=== PATIENT | female | born 1980 | race Hispanic/Latino ===

== ENCOUNTER 2018-09-28 14:28 | Emergency (ER) | payer OTHER ==
[2018-09-28] MEDS ORDERED: HYDROCODONE/ACETAMINOPHEN 10/325 MG TAB ONE (15:13)
[2018-09-28 15:39] LABS: CREATININE 0.5 mg/dL (0.5-1.5)
[2018-09-28 15:44] LABS: ALBUMIN 3.1 g/dL (3.5-5.0); BILIRUBIN,TOTAL 0.2 mg/dL (0.2-1.0); TOTAL PROTEIN, SERUM 8.2 g/dL (6.0-8.3)
[2018-09-28 15:55] LABS: BASOPHILS % (AUTO) 0.9 % (0.0-5.0); EOSINOPHILS % (AUTO) 0.8 % (0.0-8.0); HEMATOCRIT 32.1 % (36-48); MEAN CORPUSCULAR HEMOGLOBIN 28.7 pg (27.0-33.0); MEAN CORPUSCULAR HGB CONC 33.6 g/dL (32.0-36.0); MEAN CORPUSCULAR VOLUME 85.4 fL (79-99); MONOCYTES % (AUTO) 5.7 % (3.0-13.0); NEUTROPHILS % (AUTO) 64.6 % (40.0-77.0); NUCLEATED RED BLOOD CELLS 0.1 % (0.0-0.19); PLATELET COUNT (AUTO) 696 K/uL (130-400); RED BLOOD CELL COUNT(AUTO) 3.76 MIL/uL (4.00-5.50); RED CELL DISTRIBUTION WIDTH 15.8 % (11.0-15.5); WHITE BLOOD COUNT (AUTO) 15.3 K/uL (4.8-10.8)
== END 2018-09-28 18:26 | disposition home or self-care (01) ==
LOC: EDH 14:28
DX: K45.8 Other specified abdominal hernia without obstruction or gangrene (principal); E11.9 Type 2 diabetes mellitus without complications; Z90.49 Acquired absence of other specified parts of digestive tract; Z79.4 Long term (current) use of insulin
CPT/HCPCS: 36415; 74176; 80053; 81025; 82150; 83690; 85025

== ENCOUNTER 2018-12-20 17:13 | Emergency (ER) | payer MEDICAID, OTHER ==
[2018-12-20 18:22] LABS: BASOPHILS % (AUTO) 0.8 % (0.0-5.0); EOSINOPHILS % (AUTO) 0.8 % (0.0-8.0); HEMATOCRIT 29.3 % (36-48); LYMPHOCYTES % (AUTO) 24.1 % (21.0-51.0); MEAN CORPUSCULAR HEMOGLOBIN 27.4 pg (27.0-33.0); MEAN CORPUSCULAR HGB CONC 33.5 g/dL (32.0-36.0); MEAN CORPUSCULAR VOLUME 81.6 fL (79-99); MONOCYTES % (AUTO) 4.1 % (3.0-13.0); NEUTROPHILS % (AUTO) 70.2 % (40.0-77.0); NUCLEATED RED BLOOD CELLS 0.1 % (0.0-0.19); RED CELL DISTRIBUTION WIDTH 17.4 % (11.0-15.5); WHITE BLOOD COUNT (AUTO) 14.2 K/uL (4.8-10.8)
[2018-12-20 18:32] LABS: CREATININE 0.5 mg/dL (0.5-1.5); POTASSIUM 3.9 mmol/L (3.5-5.1)
[2018-12-20 18:36] LABS: ALBUMIN 3.5 g/dL (3.5-5.0); BILIRUBIN,TOTAL 0.3 mg/dL (0.2-1.0); TOTAL PROTEIN, SERUM 8.4 g/dL (6.0-8.3)
[2018-12-20] MEDS ORDERED: KETOROLAC TROMETHAMINE 30MG/ML ONE (18:40)
[2018-12-20 18:46] LABS: PLATELET COUNT (AUTO) 880 K/uL (130-400)
[2018-12-20 19:22] LABS: HCG,QUAL RESULT NEGATIVE (NEGATIVE)
[2018-12-20 19:26] LABS: APPEARANCE,URINE Clear (CLEAR); BILIRUBIN,URINE Negative (NEGATIVE); COLOR,URINE Yellow (YELLOW); GLUCOSE, URINE (UA) Negative (NEGATIVE); KETONES,URINE Trace mg/dL (NEGATIVE); LEUKOCYTE ESTERASE ,URINE Negative (NEGATIVE); NITRATE,URINE Negative (NEGATIVE); OCCULT BLOOD,URINE Negative (NEGATIVE); PH,URINE 6.5 (5.0-8.0); PROTEIN,URINE Negative (NEGATIVE)
== END 2018-12-20 19:57 | disposition home or self-care (01) ==
LOC: EDH 17:13
DX: K45.8 Other specified abdominal hernia without obstruction or gangrene (principal); D64.9 Anemia, unspecified; E08.9 Diabetes mellitus due to underlying condition without complications; Z79.4 Long term (current) use of insulin; Z90.49 Acquired absence of other specified parts of digestive tract
CPT/HCPCS: 36415; 80053; 81003; 81025; 83690; 84484; 85025; 93005; 96374; 99285; J1885

== ENCOUNTER 2018-12-27 15:43 | Emergency (ER) | payer OTHER ==
[2018-12-27] MEDS ORDERED: ONDANSETRON HCL 4 MG/2 ML VIAL ONE (16:11)
[2018-12-27 16:12] LABS: BASOPHILS % (AUTO) 0.9 % (0.0-5.0); EOSINOPHILS % (AUTO) 0.9 % (0.0-8.0); HEMATOCRIT 27.3 % (36-48); LYMPHOCYTES % (AUTO) 20.5 % (21.0-51.0); MEAN CORPUSCULAR HEMOGLOBIN 26.9 pg (27.0-33.0); MEAN CORPUSCULAR HGB CONC 33.1 g/dL (32.0-36.0); MEAN CORPUSCULAR VOLUME 81.3 fL (79-99); MONOCYTES % (AUTO) 5.4 % (3.0-13.0); NEUTROPHILS % (AUTO) 72.3 % (40.0-77.0); NUCLEATED RED BLOOD CELLS 0.2 % (0.0-0.19); RED BLOOD CELL COUNT(AUTO) 3.35 MIL/uL (4.00-5.50); RED CELL DISTRIBUTION WIDTH 16.3 % (11.0-15.5); WHITE BLOOD COUNT (AUTO) 12.6 K/uL (4.8-10.8)
[2018-12-27] MEDS ORDERED: MORPHINE SULFATE 4 MG/1ML SYG ONE ×2 (16:12→17:31)
[2018-12-27 16:15] LABS: PLATELET COUNT (AUTO) 858 K/uL (130-400)
[2018-12-27 16:20] LABS: CREATININE 0.6 mg/dL (0.5-1.5); POTASSIUM 3.6 mmol/L (3.5-5.1)
== END 2018-12-27 18:22 | disposition home or self-care (01) ==
LOC: EDH 15:43
DX: K45.8 Other specified abdominal hernia without obstruction or gangrene (principal); E11.9 Type 2 diabetes mellitus without complications; Z90.49 Acquired absence of other specified parts of digestive tract; Z79.4 Long term (current) use of insulin
CPT/HCPCS: 36415; 74021; 80048; 85025; 96374; 96375; 96376; 99285; J2270 ×2; J2405

== ENCOUNTER 2018-12-28 12:50 | Emergency (ER) | payer OTHER ==
[2018-12-28] MEDS ORDERED: MORPHINE SULFATE 8 MG/ML VIAL ONE (13:41)
[2018-12-28] MEDS ORDERED: LORAZEPAM 2 MG/ML 1 ML VIAL ONE (13:41)
== END 2018-12-28 17:18 | disposition home or self-care (01) ==
LOC: EDH 12:50
DX: K43.9 Ventral hernia without obstruction or gangrene (principal); E11.9 Type 2 diabetes mellitus without complications; Z79.4 Long term (current) use of insulin
CPT/HCPCS: 74176; 96372 ×2; 99284; J2060; J2270

== ENCOUNTER 2018-12-29 14:44 | Emergency (ER) | payer OTHER ==
[2018-12-29] MEDS ORDERED: DICYCLOMINE HCL 10 MG/ML 2ML AMP IM ONE (15:57)
[2018-12-29] MEDS ORDERED: LACTULOSE 20 GM/30 ML UDCUP ONE (15:57)
[2018-12-29] MEDS ORDERED: KETOROLAC TROMETHAMINE 60 MG/2 ML VIAL ONE (15:58)
== END 2018-12-29 16:25 | disposition home or self-care (01) ==
LOC: EDH 14:44
DX: K59.00 Constipation, unspecified (principal)
CPT/HCPCS: 96372 ×2; 99284; J0500; J1885

== ENCOUNTER 2019-01-17 12:42 | Emergency (ER) | payer OTHER ==
[~2019-01-17 12:42] MED LIST: AMOX875T2 PO; CLAR500T PO; PANT40TA PO; TYL3 PO
[2019-01-17] MEDS ORDERED: FAMOTIDINE 20MG TAB 20 MG TAB ONE (13:29)
[2019-01-17 13:45] LABS: APPEARANCE,URINE Clear (CLEAR); BILIRUBIN,URINE Negative (NEGATIVE); COLOR,URINE Yellow (YELLOW); GLUCOSE, URINE (UA) >=1000 mg/dL (NEGATIVE); KETONES,URINE Trace mg/dL (NEGATIVE); LEUKOCYTE ESTERASE ,URINE Negative (NEGATIVE); NITRATE,URINE Negative (NEGATIVE); OCCULT BLOOD,URINE Negative (NEGATIVE); PH,URINE 5.5 (5.0-8.0); PROTEIN,URINE POS 1+ mg/dL (NEGATIVE); UROBILINOGEN,URINE 0.2 mg/dL (0.2-1.0)
[2019-01-17 13:51] LABS: HCG,QUAL RESULT NEGATIVE (NEGATIVE)
[2019-01-17 13:52] LABS: AMPHET/METH SCREEN,URINE NEGATIVE (NEGATIVE); BARBITURATE SCREEN, URINE NEGATIVE (NEGATIVE); BENZODIAZEPINES SCREEN,URINE NEGATIVE (NEGATIVE); CANNABINOID SCREEN,URINE NEGATIVE (NEGATIVE); COCAINE SCREEN,URINE NEGATIVE (NEGATIVE); OPIATE SCREEN,URINE NEGATIVE (NEGATIVE); PHENCYCLIDINE SCREEN,URINE NEGATIVE (NEGATIVE)
[2019-01-17 13:54] LABS: BASOPHILS % (AUTO) 0.5 % (0.0-5.0); EOSINOPHILS % (AUTO) 0.6 % (0.0-8.0); HEMATOCRIT 35.2 % (36-48); LYMPHOCYTES % (AUTO) 15.4 % (21.0-51.0); MEAN CORPUSCULAR HEMOGLOBIN 28.4 pg (27.0-33.0); MEAN CORPUSCULAR HGB CONC 32.8 g/dL (32.0-36.0); MEAN CORPUSCULAR VOLUME 86.5 fL (79-99); MONOCYTES % (AUTO) 5.9 % (3.0-13.0); NEUTROPHILS % (AUTO) 77.6 % (40.0-77.0); NUCLEATED RED BLOOD CELLS 0.1 % (0.0-0.19); PLATELET COUNT (AUTO) 265 K/uL (130-400); RED BLOOD CELL COUNT(AUTO) 4.07 MIL/uL (4.00-5.50); RED CELL DISTRIBUTION WIDTH 14.1 % (11.0-15.5); WHITE BLOOD COUNT (AUTO) 7.1 K/uL (4.8-10.8)
[2019-01-17 14:03] LABS: POTASSIUM 4.3 mmol/L (3.5-5.1)
[2019-01-17 14:07] LABS: ALBUMIN 3.7 g/dL (3.5-5.0); BILIRUBIN,TOTAL 0.5 mg/dL (0.2-1.0); TOTAL PROTEIN, SERUM 7.2 g/dL (6.0-8.3)
[2019-01-17 14:22] LABS: BACTERIA,URINE Rare /HPF (None Seen); RBC,URINE None Seen /HPF (0-1); WBC,URINE None Seen /HPF (0-1); YEAST,URINE BUDDING Few /HPF (None Seen)
[2019-01-18] MEDS ORDERED: ASPI-1181 PO (08:01)
== END 2019-01-17 14:30 | disposition home or self-care (01) ==
LOC: EDH 12:42
DX: K29.70 Gastritis, unspecified, without bleeding (principal); E11.9 Type 2 diabetes mellitus without complications; I10 Essential (primary) hypertension; E78.5 Hyperlipidemia, unspecified; Z90.49 Acquired absence of other specified parts of digestive tract; Z90.81 Acquired absence of spleen
CPT/HCPCS: 36415; 80053; 80305; 81001; 81025; 82150; 83690; 85025

== ENCOUNTER 2019-01-25 09:30 | Emergency (ER) | payer OTHER ==
[~2019-01-25 09:30] MED LIST changes: +ASPI-1181 PO
[2019-01-25] MEDS ORDERED: MAG HYDROX/AL HYDROX/SIMETH ES 30 ML SUSP UDCUP ONE (09:59)
[2019-01-25] MEDS ORDERED: LIDOCAINE HCL 2% VISCOUS 15 ML UDCUP ONE (09:59)
[2019-01-25] MEDS ORDERED: ONDANSETRON HCL 4 MG/2 ML VIAL ONE (10:00)
[2019-01-25] MEDS ORDERED: HYDROMORPHONE 1 MG/1 ML AMP ONE (10:01)
[2019-01-25] MEDS ORDERED: SODIUM CHLORIDE 0.9% 1000ML 1,000 ML IV ONE (10:02)
[2019-01-25 10:29] LABS: APPEARANCE,URINE CLOUDY (CLEAR); BASOPHILS % (AUTO) 0.6 % (0.0-5.0); BILIRUBIN,URINE NEGATIVE (NEGATIVE); COLOR,URINE YELLOW (YELLOW); EOSINOPHILS % (AUTO) 0.4 % (0.0-8.0); GLUCOSE, URINE (UA) 500 mg/dL (NEGATIVE); HEMATOCRIT 29.6 % (36-48); KETONES,URINE NEGATIVE (NEGATIVE); LEUKOCYTE ESTERASE ,URINE NEGATIVE (NEGATIVE); LYMPHOCYTES % (AUTO) 17.4 % (21.0-51.0); MONOCYTES % (AUTO) 4.7 % (3.0-13.0); NEUTROPHILS % (AUTO) 76.9 % (40.0-77.0); NITRATE,URINE NEGATIVE (NEGATIVE); NUCLEATED RED BLOOD CELLS 0.2 % (0.0-0.19); OCCULT BLOOD,URINE NEGATIVE (NEGATIVE); PH,URINE 6.5 (5.0-8.0); PROTEIN,URINE NEGATIVE (NEGATIVE); RED BLOOD CELL COUNT(AUTO) 3.75 MIL/uL (4.00-5.50); RED CELL DISTRIBUTION WIDTH 19.7 % (11.0-15.5); WHITE BLOOD COUNT (AUTO) 11.8 K/uL (4.8-10.8)
[2019-01-25 10:33] LABS: PLATELET COUNT (AUTO) 700 K/uL (130-400)
[2019-01-25 10:38] LABS: RBC,URINE 0-1 /HPF (0-1); WBC,URINE 0-1 /HPF (0-1)
[2019-01-25 10:39] LABS: AMORPHOUS SEDIMENT,UR Many /LPF (None Seen); BACTERIA,URINE Few /HPF (None Seen)
[2019-01-25 11:06] LABS: BILIRUBIN,TOTAL 0.3 mg/dL (0.2-1.0); CREATININE 0.5 mg/dL (0.5-1.5); TOTAL PROTEIN, SERUM 8.2 g/dL (6.0-8.3)
[2019-01-25] MEDS ORDERED: DICYCLOMINE HCL 10 MG/ML 2ML AMP IM ONE (12:04)
== END 2019-01-25 12:32 | disposition home or self-care (01) ==
LOC: EDH 09:30
DX: R10.84 Generalized abdominal pain (principal); R63.0 Anorexia; R11.2 Nausea with vomiting, unspecified; E11.9 Type 2 diabetes mellitus without complications; E78.5 Hyperlipidemia, unspecified; Z79.4 Long term (current) use of insulin
CPT/HCPCS: 36415; 80053; 81001; 82150; 83690; 85025; 96361; 96372; 96374; 96375; 99284; J0500; J1170; J2405; J7030

== ENCOUNTER 2019-01-25 19:12 | Emergency (ER) | payer MEDICAID, OTHER ==
[2019-01-25] MEDS ORDERED: SODIUM CHLORIDE 0.9% 1000ML 1,000 ML IV ONE (19:33)
[2019-01-25] MEDS ORDERED: ONDANSETRON HCL 4 MG/2 ML VIAL ONE (19:34)
[2019-01-25] MEDS ORDERED: MAG HYDROX/AL HYDROX/SIMETH ES 30 ML SUSP UDCUP ONE (20:17)
[2019-01-25] MEDS ORDERED: METOCLOPRAMIDE 10 MG/2 ML VIAL ONE (20:17)
[2019-01-25] MEDS ORDERED: DiphenhydrAMINE HCL 50 MG/ML VIAL ONE (20:17)
[2019-01-25] MEDS ORDERED: FAMOTIDINE/PF 20 MG/2 ML VIAL IV ONE (20:17)
[2019-01-25] MEDS ORDERED: LIDOCAINE HCL 2% VISCOUS 15 ML UDCUP ONE (20:17)
[2019-01-25 20:27] LABS: CREATININE 0.6 mg/dL (0.5-1.5); POTASSIUM 4.9 mmol/L (3.5-5.1)
[2019-01-25 20:31] LABS: ALBUMIN 2.8 g/dL (3.5-5.0); BILIRUBIN,TOTAL 0.3 mg/dL (0.2-1.0); TOTAL PROTEIN, SERUM 7.7 g/dL (6.0-8.3)
[2019-01-25 20:34] LABS: INR 1.07 (0.85-1.15); PARTIAL THROMBOPLASTIN TIME 25.7 SEC (26.3-35.5); PROTHROMBIN TIME 11.2 SEC (9.6-11.6)
[2019-01-25] MEDS ORDERED: SCOPOLAMINE HYDROBROMIDE 1 EACH ADH..PATCH TD ONE (21:21)
[2019-01-25 21:24] LABS: EOSINOPHILS % (AUTO) 13.1 % (0.0-8.0); HEMATOCRIT 27.4 % (36-48); LYMPHOCYTES % (AUTO) 18.2 % (21.0-51.0); MEAN CORPUSCULAR HEMOGLOBIN 25.1 pg (27.0-33.0); MEAN CORPUSCULAR HGB CONC 31.4 g/dL (32.0-36.0); MEAN CORPUSCULAR VOLUME 79.8 fL (79-99); MONOCYTES % (AUTO) 5.8 % (3.0-13.0); NEUTROPHILS % (AUTO) 62.9 % (40.0-77.0); NUCLEATED RED BLOOD CELLS 0.6 % (0.0-0.19); PLATELET COUNT (AUTO) 682 K/uL (130-400); RED BLOOD CELL COUNT(AUTO) 3.43 MIL/uL (4.00-5.50); RED CELL DISTRIBUTION WIDTH 19.7 % (11.0-15.5); WHITE BLOOD COUNT (AUTO) 8.1 K/uL (4.8-10.8)
== END 2019-01-25 21:44 | disposition home or self-care (01) ==
LOC: EDH 19:12
DX: R10.13 Epigastric pain (principal); R11.2 Nausea with vomiting, unspecified; E11.9 Type 2 diabetes mellitus without complications; E78.5 Hyperlipidemia, unspecified; Z79.4 Long term (current) use of insulin; Z90.49 Acquired absence of other specified parts of digestive tract
CPT/HCPCS: 36415; 80053; 82550; 83605; 83690; 85025; 85610; 85730; 93005; 96361; 96374; 96375; 99285; J1200; J2405; J2765; J3490; J7030

== ENCOUNTER 2019-02-05 10:34 | Emergency (ER) | payer MEDICAID, OTHER ==
[2019-02-05 11:01] LABS: APPEARANCE,URINE Clear (CLEAR); BILIRUBIN,URINE Negative (NEGATIVE); COLOR,URINE Yellow (YELLOW); GLUCOSE, URINE (UA) >=1000 mg/dL (NEGATIVE); KETONES,URINE 40 mg/dL (NEGATIVE); LEUKOCYTE ESTERASE ,URINE Negative (NEGATIVE); NITRATE,URINE Negative (NEGATIVE); OCCULT BLOOD,URINE Negative (NEGATIVE); PH,URINE 6.5 (5.0-8.0); PROTEIN,URINE Negative (NEGATIVE); UROBILINOGEN,URINE 0.2 mg/dL (0.2-1.0)
[2019-02-05 11:03] LABS: HCG,QUAL RESULT NEGATIVE (NEGATIVE)
[2019-02-05 11:48] LABS: BASOPHILS % (AUTO) 0.6 % (0.0-5.0); EOSINOPHILS % (AUTO) 0.3 % (0.0-8.0); HEMATOCRIT 30.3 % (36-48); LYMPHOCYTES % (AUTO) 14.1 % (21.0-51.0); MEAN CORPUSCULAR HGB CONC 32.8 g/dL (32.0-36.0); MEAN CORPUSCULAR VOLUME 79.4 fL (79-99); NUCLEATED RED BLOOD CELLS 0.2 % (0.0-0.19); PLATELET COUNT (AUTO) 557 K/uL (130-400); RED BLOOD CELL COUNT(AUTO) 3.82 MIL/uL (4.00-5.50); RED CELL DISTRIBUTION WIDTH 22.3 % (11.0-15.5); WHITE BLOOD COUNT (AUTO) 14.7 K/uL (4.8-10.8)
[2019-02-05] MEDS ORDERED: FAMOTIDINE/PF 20 MG/2 ML VIAL IV ONE (11:52)
[2019-02-05] MEDS ORDERED: ONDANSETRON HCL 4 MG/2 ML VIAL ONE (11:52)
[2019-02-05 11:55] LABS: CREATININE 0.5 mg/dL (0.5-1.5); POTASSIUM 3.8 mmol/L (3.5-5.1)
[2019-02-05 11:57] LABS: ALBUMIN 2.8 g/dL (3.5-5.0); BILIRUBIN,TOTAL 0.3 mg/dL (0.2-1.0); TOTAL PROTEIN, SERUM 7.6 g/dL (6.0-8.3)
[2019-02-05 11:57] LABS: BACTERIA,URINE Rare /HPF (None Seen); RBC,URINE 0-1 /HPF (0-1); SQUAMOUS EPITHELIAL CELL,UR 0-2 /HPF (0-2); WBC,URINE 0-1 /HPF (0-1)
[2019-02-05] MEDS ORDERED: MORPHINE SULFATE 4 MG/1ML SYG ONE (12:34)
[2019-02-05] MEDS ORDERED: INSULIN HUMULIN R 100 UNIT/ML 3ML ONE (12:55)
== END 2019-02-05 14:09 | disposition home or self-care (01) ==
LOC: EDH 10:34
DX: E11.65 Type 2 diabetes mellitus with hyperglycemia (principal); R10.10 Upper abdominal pain, unspecified; R11.2 Nausea with vomiting, unspecified; E78.5 Hyperlipidemia, unspecified
CPT/HCPCS: 36415; 80053; 81001; 81025; 82150; 83690; 85025; 96372; 96374; 96375; 99284; J1815; J2270; J2405; J3490

== ENCOUNTER 2019-02-07 17:12 | Inpatient (IN) | payer OTHER ==
[~2019-02-07] VITALS: Ht 152.4 cm; Wt 65.4 kg
[2019-02-07 18:18] LABS: BASOPHILS % (AUTO) 0.1 % (0.0-5.0); EOSINOPHILS % (AUTO) 0.2 % (0.0-8.0); HEMATOCRIT 28.6 % (36-48); LYMPHOCYTES % (AUTO) 10.9 % (21.0-51.0); MEAN CORPUSCULAR HEMOGLOBIN 25.7 pg (27.0-33.0); MEAN CORPUSCULAR HGB CONC 32.5 g/dL (32.0-36.0); MONOCYTES % (AUTO) 8.6 % (3.0-13.0); NEUTROPHILS % (AUTO) 80.2 % (40.0-77.0); PLATELET COUNT (AUTO) 677 K/uL (130-400); RED BLOOD CELL COUNT(AUTO) 3.63 MIL/uL (4.00-5.50); RED CELL DISTRIBUTION WIDTH 21.3 % (11.0-15.5); WHITE BLOOD COUNT (AUTO) 16.2 K/uL (4.8-10.8)
[2019-02-07] MEDS ORDERED: ONDANSETRON HCL 4 MG/2 ML VIAL ONE (18:29)
[2019-02-07] MEDS ORDERED: KETOROLAC TROMETHAMINE 30MG/ML ONE (18:29)
[2019-02-07 18:36] LABS: CREATININE 0.5 mg/dL (0.5-1.5); POTASSIUM 3.9 mmol/L (3.5-5.1)
[2019-02-07 18:42] LABS: ALBUMIN 2.9 g/dL (3.5-5.0); BILIRUBIN,TOTAL 0.3 mg/dL (0.2-1.0); TOTAL PROTEIN, SERUM 7.8 g/dL (6.0-8.3)
[2019-02-07 18:50] LABS: APPEARANCE,URINE Clear (CLEAR); BILIRUBIN,URINE Negative (NEGATIVE); COLOR,URINE Yellow (YELLOW); GLUCOSE, URINE (UA) >=1000 mg/dL (NEGATIVE); KETONES,URINE Negative (NEGATIVE); LEUKOCYTE ESTERASE ,URINE Negative (NEGATIVE); NITRATE,URINE Negative (NEGATIVE); OCCULT BLOOD,URINE Negative (NEGATIVE); PH,URINE 6.5 (5.0-8.0); PROTEIN,URINE Negative (NEGATIVE); UROBILINOGEN,URINE 0.2 mg/dL (0.2-1.0)
[2019-02-07 18:53] LABS: HCG,QUAL RESULT NEGATIVE (NEGATIVE)
[2019-02-07 18:56] LABS: AMPHET/METH SCREEN,URINE NEGATIVE (NEGATIVE); BARBITURATE SCREEN, URINE NEGATIVE (NEGATIVE); BENZODIAZEPINES SCREEN,URINE NEGATIVE (NEGATIVE); CANNABINOID SCREEN,URINE NEGATIVE (NEGATIVE); COCAINE SCREEN,URINE NEGATIVE (NEGATIVE); OPIATE SCREEN,URINE NEGATIVE (NEGATIVE); PHENCYCLIDINE SCREEN,URINE NEGATIVE (NEGATIVE)
[2019-02-07] MEDS ORDERED: SODIUM CHLORIDE 0.9% 1000ML 1,000 ML IV ONE ×2 (19:54→20:23)
[2019-02-07] MEDS ORDERED: INSULIN HUMULIN R 100 UNIT/ML 3ML ONE (19:54)
[2019-02-07] MEDS ORDERED: ZOSYN 3.375GM+NS 50ML 50 ML IV ONE (20:20)
[2019-02-07] MEDS ORDERED: MORPHINE SULFATE 4 MG/1ML SYG ONE (20:20)
[2019-02-07] MEDS ORDERED: INSULIN HUMULIN R 100 UNIT/ML 3ML SQ SCH (21:00)
[2019-02-07] MEDS ORDERED: GLUCAGON 1MG KIT 1 MG ML IM PRN (21:00)
[2019-02-07] MEDS ORDERED: DEXTROSE 50%-WATER 50 ML DISP.SYRIN IV PRN (21:00)
[2019-02-07] MEDS ORDERED: ACETAMINOPHEN 650 MG SUPPOSITORY RC PRN (21:45)
[2019-02-07] MEDS ORDERED: ONDANSETRON HCL 4 MG/2 ML VIAL IV PRN (21:45)
[2019-02-07] MEDS ORDERED: NITROGLYCERIN 0.4 MG SL TAB SL PRN (21:45)
[2019-02-07] MEDS ORDERED: SODIUM CHLORIDE 0.9% 1000ML 1,000 ML IV SCH (21:45)
[2019-02-07 22:03] LABS: HEMOGLOBIN A1C 10.5 % (4.0-6.0)
[2019-02-07 22:17] LABS: % IRON SATURATION 3.9 % (22-44)
[2019-02-07 23:10] VITALS: BP 100/71
--- NOTE | 2019-02-07 23:25 | NUR ---
ADMIT PT ADMITTED TO ROOM 329, AAOX3. COMPLAINTS OF ABDOMINAL PAINS AND ASKING FOR PAIN MEDS. ADMISSION CARE DONE. ADMISSION DATA BASE COMPLETED. PLACED PT NPO, INSTRUCTED PT. MEDICATED WITH TYLENOL SUPPOSITORY AT THIS TIME. KEPT COMFORTABLE IN BED. CALL LIGHT WITHIN REACH. ORIENTED TO ROOM AND UNIT. IN FOR MORE CARE AND MANAGEMENT. Addendum: 02/07/19 at 9894 by KIRA ESPINOSA RN RN Amended: Links added.
[2019-02-07] MEDS: ACETAMINOPHEN 650 MG SUPPOSITORY RC PRN (23:36)
[2019-02-08] MEDS: INSULIN HUMULIN R 100 UNIT/ML 3ML SQ SCH ×4 (00:16→16:38)
--- NOTE | 2019-02-08 00:36 | NUR ---
PAGED RE-ASSESSED PT AND STILL CLAIMS OF ABDOMINAL PAINS. PAGED VHIC, HOTEL DIRECTOR ASSIGNMENT OFFICER FOR HOSPITALIST, VIA ANSWERING SERVICE. HOTEL DIRECTOR CALLED BACK AND REFERRED PT'S PAINS. NEW IVF AND IV MED ORDERED, PLEASE REFER TO CPOE. WILL MEDICATE PT.
[2019-02-08] MEDS ORDERED: KETOROLAC TROMETHAMINE 15MG/ML ONE (00:37)
[2019-02-08] MEDS: SODIUM CHLORIDE 0.9% 1000ML 1,000 ML IV SCH ×3 (00:45→20:45)
--- NOTE | 2019-02-08 03:45 | NUR ---
PAIN PT COMPLAINTS OF ABDOMINAL PAINS. V/S MONITORED, STABLE. MEDICATED WITH TYLENOL SUPPOSITORY. KEPT COMFORTABLE IN BED. WILL RE-ASSESS PT. Addendum: 02/08/19 at 0451 by KIRA ESPINOSA RN RN Amended: Links added.
[2019-02-08] MEDS: ACETAMINOPHEN 650 MG SUPPOSITORY RC PRN (03:46)
[2019-02-08 04:00] VITALS: BP 106/65
[2019-02-08] MEDS: KETOROLAC TROMETHAMINE 15MG/ML IV PRN ×3 (06:20→19:02)
[2019-02-08 07:01] LABS: HEMATOCRIT 27.2 % (36-48); MEAN CORPUSCULAR HEMOGLOBIN 25.3 pg (27.0-33.0); MEAN CORPUSCULAR HGB CONC 31.4 g/dL (32.0-36.0); MEAN CORPUSCULAR VOLUME 80.4 fL (79-99); NUCLEATED RED BLOOD CELLS 0.1 % (0.0-0.19); PLATELET COUNT (AUTO) 669 K/uL (130-400); RED BLOOD CELL COUNT(AUTO) 3.38 MIL/uL (4.00-5.50); RED CELL DISTRIBUTION WIDTH 22.1 % (11.0-15.5); WHITE BLOOD COUNT (AUTO) 15.7 K/uL (4.8-10.8)
[2019-02-08 07:03] LABS: ALBUMIN 2.1 g/dL (3.5-5.0); BILIRUBIN,TOTAL 0.4 mg/dL (0.2-1.0); CREATININE 0.4 mg/dL (0.5-1.5); POTASSIUM 3.9 mmol/L (3.5-5.1); TOTAL PROTEIN, SERUM 6.4 g/dL (6.0-8.3)
[2019-02-08 07:28] LABS: BASOPHILS % (MANUAL) 1 % (0-2); LYMPHOCYTES % (MANUAL) 12 % (22-44); MAN.DIFF COMMENT-IMPRESSION MANUAL DIFFERENTIAL; MONOCYTES % (MANUAL) 4 % (2-9); SEGMENTED NEUTROPHILS % 83 % (40-70)
[2019-02-08 07:29] LABS: PLATELET MORPHOLOGY COMMENT MARKED INCREASE
[2019-02-08 08:00] VITALS: BP 96/64
[2019-02-08] MEDS: FAMOTIDINE/PF 20 MG/2 ML VIAL IV SCH ×2 (09:18→20:45)
[2019-02-08] MEDS: ENOXAPARIN SODIUM 30 MG/0.3 ML SQ SCH (09:18)
[2019-02-08 12:00] VITALS: BP 112/76
--- NOTE | 2019-02-08 12:39 | NUR ---
DCP CM met with pt discussed dc plans. Pt is independent prior to admission, lives at home with mother. Denies any equipments/services. Pt feels safe to go back home, still drives, states she has a friend "Peter" that is able to assist w/transportation as necessary, pt arranges own needs. DC plan to home once stable. CM to cont to follow up. Addendum: 02/08/19 at 1243 by RIKY CABALLERO LVN CM Amended: Links added.
[2019-02-08 16:00] VITALS: BP 117/77
[2019-02-08 19:00] VITALS: BP 127/75
--- NOTE | 2019-02-08 19:02 | NUR ---
REPORT REPORT RECEIVED FROM OUTGOING NURSE. NURSE'S ROUNDS DONE. PT VERBALIZES GENERALIZED PAINS. MEDICATED WITH TORADOL IV. POSITIONED COMFORTABLY IN BED WITH HOB ELEVATED. CALL LIGHT WITHIN REACH. WILL RE-ASSESS PT. Addendum: 02/08/19 at 2130 by KIRA ESPINOSA RN RN Amended: Links added.
--- NOTE | 2019-02-08 20:45 | NUR ---
FEVER PT'S [id number]=697.2, WARM TO TOUCH. CLAIMS OF HAVING PAINS ON HER ABDOMEN THIS TIME. DUE MEDS AND NEW IVF BAG HUNG. TYLENOL SUPPOSITORY ADMINISTERED. KEPT COMFORTABLE. WILL RE-ASSESS PT.
[2019-02-08 23:00] VITALS: BP 111/71
[2019-02-09] MEDS: INSULIN HUMULIN R 100 UNIT/ML 3ML SQ SCH ×4 (00:19→17:21)
[2019-02-09] MEDS: KETOROLAC TROMETHAMINE 15MG/ML IV PRN ×3 (00:49→13:37)
--- NOTE | 2019-02-09 02:00 | NUR ---
ROUNDS PT RESTING WELL, FAIRLY ASLEEP WITH RESPIRATIONS EVEN AND UNLABORED. NO NOTED DISTRESS. KEPT UNDISTURBED FOR NOW. CALL LIGHT WITHIN REACH. WILL MONITOR PT.
[2019-02-09 03:00] VITALS: BP 103/66
[2019-02-09 05:19] LABS: BASOPHILS % (AUTO) 0.1 % (0.0-5.0); EOSINOPHILS % (AUTO) 0.7 % (0.0-8.0); HEMATOCRIT 26.9 % (36-48); LYMPHOCYTES % (AUTO) 18.8 % (21.0-51.0); MEAN CORPUSCULAR HEMOGLOBIN 25.6 pg (27.0-33.0); MEAN CORPUSCULAR HGB CONC 32.3 g/dL (32.0-36.0); MEAN CORPUSCULAR VOLUME 79.2 fL (79-99); MONOCYTES % (AUTO) 10.3 % (3.0-13.0); NEUTROPHILS % (AUTO) 70.1 % (40.0-77.0); NUCLEATED RED BLOOD CELLS 0.1 % (0.0-0.19); PLATELET COUNT (AUTO) 677 K/uL (130-400); RED BLOOD CELL COUNT(AUTO) 3.39 MIL/uL (4.00-5.50); RED CELL DISTRIBUTION WIDTH 22.1 % (11.0-15.5); WHITE BLOOD COUNT (AUTO) 13.7 K/uL (4.8-10.8)
[2019-02-09 05:36] LABS: CREATININE 0.5 mg/dL (0.5-1.5); POTASSIUM 3.6 mmol/L (3.5-5.1)
[2019-02-09] MEDS: SODIUM CHLORIDE 0.9% 1000ML 1,000 ML IV SCH ×2 (06:34→17:29)
--- NOTE | 2019-02-09 06:34 | NUR ---
PAIN PT CLAIMS OF ABDOMINAL PAINS. TORADOL GIVEN FOR PAINS. NEW IVF BAG HUNG. KEPT COMFORTABLE. WILL RE-ASSESS PT. ENDORSED TO AM SHIFT FOR MORE CARE AND MANAGEMENT.
[2019-02-09 08:00] VITALS: BP 117/72
[2019-02-09] MEDS: ENOXAPARIN SODIUM 30 MG/0.3 ML SQ SCH (10:11)
[2019-02-09] MEDS: FAMOTIDINE/PF 20 MG/2 ML VIAL IV SCH ×2 (10:11→19:58)
[2019-02-09 12:00] VITALS: BP 119/80
[2019-02-09] MEDS ORDERED: POTASSIUM CHLORIDE 20MEQ/100ML 100 ML IV PRN (15:00)
[2019-02-09] MEDS ORDERED: LIDOCAINE HCL-MPF 1% 2ML VIAL IVP PRN (15:00)
[2019-02-09] MEDS ORDERED: POTASSIUM CHLORIDE 10% ELIXIR 20 MEQ/15 ML UDCUP PO PRN (15:00)
[2019-02-09 16:00] VITALS: BP 132/75
[2019-02-09 19:00] VITALS: BP 129/76
[2019-02-09] MEDS: HYDROCODONE/ACETAMINOPHEN 5/325 MG TAB PO PRN (20:01)
[2019-02-09 23:00] VITALS: BP 124/78
[2019-02-10 03:00] VITALS: BP 130/76
[2019-02-10] MEDS: KETOROLAC TROMETHAMINE 15MG/ML IV PRN ×3 (03:04→19:50)
[2019-02-10] MEDS: SODIUM CHLORIDE 0.9% 1000ML 1,000 ML IV SCH ×3 (03:04→16:07)
[2019-02-10 05:14] LABS: BASOPHILS % (AUTO) 1.2 % (0.0-5.0); EOSINOPHILS % (AUTO) 1.2 % (0.0-8.0); HEMATOCRIT 25.4 % (36-48); LYMPHOCYTES % (AUTO) 22.6 % (21.0-51.0); MEAN CORPUSCULAR HEMOGLOBIN 25.2 pg (27.0-33.0); MEAN CORPUSCULAR HGB CONC 32.3 g/dL (32.0-36.0); MEAN CORPUSCULAR VOLUME 78.1 fL (79-99); MONOCYTES % (AUTO) 8.5 % (3.0-13.0); NEUTROPHILS % (AUTO) 66.5 % (40.0-77.0); RED BLOOD CELL COUNT(AUTO) 3.26 MIL/uL (4.00-5.50); RED CELL DISTRIBUTION WIDTH 22.2 % (11.0-15.5); WHITE BLOOD COUNT (AUTO) 12.2 K/uL (4.8-10.8)
[2019-02-10 05:17] LABS: PLATELET COUNT (AUTO) 709 K/uL (130-400)
--- NOTE | 2019-02-10 05:25 | NUR ---
platelet count Informed Boubacar Pelletier regading platelet level of 709. No new orders were given. Will monitor patient closely
[2019-02-10 05:29] LABS: CREATININE 0.4 mg/dL (0.5-1.5); POTASSIUM 3.1 mmol/L (3.5-5.1)
[2019-02-10] MEDS: INSULIN HUMULIN R 100 UNIT/ML 3ML SQ SCH ×4 (05:33→17:03)
[2019-02-10 08:00] VITALS: BP 123/73
[2019-02-10] MEDS: FAMOTIDINE/PF 20 MG/2 ML VIAL IV SCH ×2 (09:00→21:53)
[2019-02-10] MEDS: ENOXAPARIN SODIUM 30 MG/0.3 ML SQ SCH (09:02)
[2019-02-10] MEDS: HYDROCODONE/ACETAMINOPHEN 5/325 MG TAB PO PRN (09:03)
[2019-02-10 12:00] VITALS: BP 111/70
--- NOTE | 2019-02-10 16:28 | NUR ---
Dr. Fraga returned my call regarding consultation. stated to check with radiologist to see if a repeat CT scan with oral and IV contrast or an MRI would be better at diagnosing the superimposed mass and to go with his recommendations. Dr. Fraga states will consider GI once results of test received. Called Radiology, Dr. Miriam Cabrera recommends CT scan with oral and IV contrast as well as endoscopy.
[2019-02-10] MEDS ORDERED: DIATR MEGLU/DIATRIZOATE SODIUM 30 ML BOTTLE ONE ×2 (16:46)
[2019-02-10] MEDS ORDERED: IOHEXOL-350 75 ML VIAL IV ONE (19:50)
[2019-02-10 20:00] VITALS: BP 119/72
[2019-02-11] VITALS: BP 131/71
--- NOTE | 2019-02-11 01:17 | NUR ---
ROUNDS PATIENT YELLING AND MOANING IN PAIN. PATIENT STATES SHE HAS A PAIN LEVEL OF 10 IN HER ABDOMEN. PATIENT STATES HER PAIN IS DUE TO HER NOT EATING. STATES WE ARE TRYING TO KILL HER, BY NOT ALLOWING HER TO EAT. EXPLAINED WHY SHE IS NPO AND SAYS OTHER NURSES HAVE BEEN GIVING HER FOOD AND DOES NOT UNDERSTAND WHY SHE CAN NOT EAT RIGHT NOW. EXPLAINED TO THE PATIENT I CAN PROVIDE HER WITH A PAIN MEDICATION IF SHE HAS PAIN, BUT I CAN NOT GIVE HER FOOD WITHOUT AN MD ORDER. SHE AGREED TO THE PAIN MED.
[2019-02-11] MEDS: KETOROLAC TROMETHAMINE 15MG/ML IV PRN ×4 (01:30→21:00)
[2019-02-11 04:00] VITALS: BP 114/71
[2019-02-11 04:53] LABS: CREATININE 0.4 mg/dL (0.5-1.5); POTASSIUM 3.3 mmol/L (3.5-5.1)
[2019-02-11 05:07] LABS: BASOPHILS % (AUTO) 0.6 % (0.0-5.0); EOSINOPHILS % (AUTO) 1.4 % (0.0-8.0); HEMATOCRIT 26.5 % (36-48); LYMPHOCYTES % (AUTO) 21.5 % (21.0-51.0); MEAN CORPUSCULAR HEMOGLOBIN 24.5 pg (27.0-33.0); MEAN CORPUSCULAR HGB CONC 30.7 g/dL (32.0-36.0); MEAN CORPUSCULAR VOLUME 79.8 fL (79-99); NEUTROPHILS % (AUTO) 70.5 % (40.0-77.0); PLATELET COUNT (AUTO) 568 K/uL (130-400); RED BLOOD CELL COUNT(AUTO) 3.32 MIL/uL (4.00-5.50); WHITE BLOOD COUNT (AUTO) 15.4 K/uL (4.8-10.8)
[2019-02-11] MEDS: INSULIN HUMULIN R 100 UNIT/ML 3ML SQ SCH ×4 (06:00→18:00)
[2019-02-11 07:41] VITALS: BP 119/72
[2019-02-11] MEDS: SODIUM CHLORIDE 0.9% 1000ML 1,000 ML IV SCH ×2 (08:45→17:19)
[2019-02-11] MEDS: FAMOTIDINE/PF 20 MG/2 ML VIAL IV SCH ×2 (08:52→20:53)
[2019-02-11] MEDS: ENOXAPARIN SODIUM 30 MG/0.3 ML SQ SCH (08:53)
[2019-02-11 11:31] LABS: INR 1.07 (0.85-1.15); PARTIAL THROMBOPLASTIN TIME 38.6 SEC (26.3-35.5); PROTHROMBIN TIME 11.2 SEC (9.6-11.6)
[2019-02-11 12:00] VITALS: BP 121/67
[2019-02-11 15:24] VITALS: BP 124/72
[2019-02-11 19:00] VITALS: BP_SYST 134; BP_SYST 142; BP_DIAS 72; BP_DIAS 85
[2019-02-12] VITALS: BP 122/70
[2019-02-12] MEDS: KETOROLAC TROMETHAMINE 15MG/ML IV PRN ×4 (03:08→21:59)
[2019-02-12 04:00] VITALS: BP 115/62
[2019-02-12] MEDS: SODIUM CHLORIDE 0.9% 1000ML 1,000 ML IV SCH ×2 (04:45→12:36)
[2019-02-12 04:50] LABS: BASOPHILS % (AUTO) 1.1 % (0.0-5.0); EOSINOPHILS % (AUTO) 1.2 % (0.0-8.0); HEMATOCRIT 26.8 % (36-48); LYMPHOCYTES % (AUTO) 25.8 % (21.0-51.0); MEAN CORPUSCULAR HEMOGLOBIN 25.2 pg (27.0-33.0); MEAN CORPUSCULAR HGB CONC 32.1 g/dL (32.0-36.0); MEAN CORPUSCULAR VOLUME 78.7 fL (79-99); MONOCYTES % (AUTO) 6.5 % (3.0-13.0); NEUTROPHILS % (AUTO) 65.4 % (40.0-77.0); NUCLEATED RED BLOOD CELLS 0.1 % (0.0-0.19); PLATELET COUNT (AUTO) 684 K/uL (130-400); RED BLOOD CELL COUNT(AUTO) 3.41 MIL/uL (4.00-5.50); RED CELL DISTRIBUTION WIDTH 22.4 % (11.0-15.5)
[2019-02-12 05:08] LABS: CREATININE 0.4 mg/dL (0.5-1.5); POTASSIUM 3.3 mmol/L (3.5-5.1)
[2019-02-12] MEDS: INSULIN HUMULIN R 100 UNIT/ML 3ML SQ SCH ×4 (06:00→18:40)
[2019-02-12 08:00] VITALS: BP 114/65
[2019-02-12] MEDS: FAMOTIDINE/PF 20 MG/2 ML VIAL IV SCH ×2 (09:42→21:59)
[2019-02-12] MEDS: ENOXAPARIN SODIUM 30 MG/0.3 ML SQ SCH (09:43)
[2019-02-12 12:00] VITALS: BP 108/66
[2019-02-12] MEDS: MAGNESIUM 2GM PREMIX 50ML 50 ML IV PRN (14:39)
[2019-02-12] MEDS: POTASSIUM CHLORIDE 20 MEQ ERTAB PO SCH (14:40)
[2019-02-12 16:00] VITALS: BP 138/83
--- NOTE | 2019-02-12 16:03 | NUR ---
Assessment done at 0800, charted at 1546, unable to change the time.
[2019-02-12 19:00] VITALS: BP 134/77
[2019-02-13] VITALS (8 sets, daily range): BP systolic 101–147; BP diastolic 57–86
[2019-02-13] MEDS: SODIUM CHLORIDE 0.9% 1000ML 1,000 ML IV SCH ×3 (00:45→20:55)
[2019-02-13] MEDS ORDERED: KETOROLAC TROMETHAMINE 15MG/ML ONE (05:34)
[2019-02-13] MEDS: INSULIN HUMULIN R 100 UNIT/ML 3ML SQ SCH ×5 (05:52→20:55)
[2019-02-13 06:31] LABS: BASOPHILS % (AUTO) 0.6 % (0.0-5.0); EOSINOPHILS % (AUTO) 0.8 % (0.0-8.0); HEMATOCRIT 28.2 % (36-48); LYMPHOCYTES % (AUTO) 16.2 % (21.0-51.0); MEAN CORPUSCULAR HEMOGLOBIN 25.3 pg (27.0-33.0); MEAN CORPUSCULAR HGB CONC 32.1 g/dL (32.0-36.0); MEAN CORPUSCULAR VOLUME 78.7 fL (79-99); MONOCYTES % (AUTO) 6.4 % (3.0-13.0); NUCLEATED RED BLOOD CELLS 0.1 % (0.0-0.19); PLATELET COUNT (AUTO) 691 K/uL (130-400); RED BLOOD CELL COUNT(AUTO) 3.58 MIL/uL (4.00-5.50); RED CELL DISTRIBUTION WIDTH 22.3 % (11.0-15.5); WHITE BLOOD COUNT (AUTO) 11.1 K/uL (4.8-10.8)
[2019-02-13 06:39] LABS: CREATININE 0.5 mg/dL (0.5-1.5); MAGNESIUM 1.6 mg/dL (1.80-2.40); POTASSIUM 3.7 mmol/L (3.5-5.1)
[2019-02-13 06:42] LABS: INR 1.06 (0.85-1.15); PROTHROMBIN TIME 11.1 SEC (9.6-11.6)
--- NOTE | 2019-02-13 08:45 | NUR ---
Informed Nevin Flanagan HEALTH INSURANCE SALES AGENT that pt has not been on antibiotics. Pt going for CT guided abscess drain placement today.
[2019-02-13] MEDS: ENOXAPARIN SODIUM 30 MG/0.3 ML SQ SCH (09:00)
[2019-02-13] MEDS: POTASSIUM CHLORIDE 20 MEQ ERTAB PO SCH (11:45)
[2019-02-13] MEDS: FAMOTIDINE/PF 20 MG/2 ML VIAL IV SCH ×2 (12:51→20:55)
[2019-02-13] MEDS: ZOSYN 3.375GM+NS 50ML 50 ML IV SCH ×2 (12:51→20:55)
[2019-02-13] MEDS: KETOROLAC TROMETHAMINE 15MG/ML IV PRN ×2 (12:52→20:56)
[2019-02-13] MEDS: MAGNESIUM 2GM PREMIX 50ML 50 ML IV PRN (13:00)
--- NOTE | 2019-02-13 15:47 | NUR ---
INFECTIOUS DISEASE CONSULT Notified Dr. Hernandez of consult. Stated to place on his census.
--- NOTE | 2019-02-13 17:00 | NUR ---
HEP LOCK Started saline lock # 24g to left upper arm by ER nurse after primary nurse and ICU nurse attempted twice each to start IV site using venoscope.
[2019-02-14 00:21] VITALS: BP 134/88
[2019-02-14] MEDS: ZOSYN 3.375GM+NS 50ML 50 ML IV SCH ×2 (05:31→12:28)
[2019-02-14] MEDS: KETOROLAC TROMETHAMINE 15MG/ML IV PRN (05:51)
[2019-02-14 05:53] LABS: EOSINOPHILS % (AUTO) 0.5 % (0.0-8.0); LYMPHOCYTES % (AUTO) 23.8 % (21.0-51.0); MEAN CORPUSCULAR HEMOGLOBIN 26.1 pg (27.0-33.0); MEAN CORPUSCULAR HGB CONC 32.4 g/dL (32.0-36.0); MEAN CORPUSCULAR VOLUME 80.5 fL (79-99); MONOCYTES % (AUTO) 6.9 % (3.0-13.0); NEUTROPHILS % (AUTO) 66.8 % (40.0-77.0); NUCLEATED RED BLOOD CELLS 0.1 % (0.0-0.19); RED BLOOD CELL COUNT(AUTO) 3.35 MIL/uL (4.00-5.50); RED CELL DISTRIBUTION WIDTH 22.2 % (11.0-15.5); WHITE BLOOD COUNT (AUTO) 11.4 K/uL (4.8-10.8)
[2019-02-14 05:55] LABS: PLATELET COUNT (AUTO) 744 K/uL (130-400)
[2019-02-14 06:03] LABS: CREATININE 0.5 mg/dL (0.5-1.5); POTASSIUM 3.4 mmol/L (3.5-5.1)
[2019-02-14] MEDS: INSULIN HUMULIN R 100 UNIT/ML 3ML SQ SCH (07:06)
[2019-02-14 07:40] VITALS: BP 106/65
--- NOTE | 2019-02-14 10:38 | NUR ---
CM Note: Med update CM met with pt and spouse, made aware [facility] has a lowest cost for novolog/humalog/lantus/levemir. Novolog/Humalog estimate $153-157 per bottle, Lantus/Levemir $320-[address] Sanchez aware. Primary nurse aware. CM to cont to follow up.
[2019-02-14] MEDS: POTASSIUM CHLORIDE 20 MEQ ERTAB PO SCH (11:39)
[2019-02-14 12:00] VITALS: BP 140/55
[2019-02-14] MEDS: METOCLOPRAMIDE 10 MG/2 ML VIAL IVP SCH ×2 (12:28→16:30)
[2019-02-14] MEDS: ENOXAPARIN SODIUM 30 MG/0.3 ML SQ SCH (12:29)
[2019-02-14] MEDS: FAMOTIDINE/PF 20 MG/2 ML VIAL IV SCH (12:29)
[2019-02-14] MEDS: INSULIN LISPRO 100 UNIT/ML 3ML SQ SCH ×5 (12:40→21:00)
[2019-02-14] MEDS ORDERED: SODIUM CHLORIDE 0.9% 250 ML IV ONE (13:21)
[2019-02-14 16:00] VITALS: BP 111/69
--- NOTE | 2019-02-14 16:30 | NUR ---
REGLAN Unable to administer reglan IV at this time due to saline lock is edematous. IV site to left upper arm was removed. Pending new IV site. Has toelrated PO intake well and is in no distress. NO nausea or emesis. No pain at this time.
[2019-02-14 19:50] VITALS: BP 125/77
[2019-02-14] MEDS: INSULIN GLARGINE 100 UNITS/ML 10 ML VIAL SQ SCH (21:00)
[2019-02-15] VITALS: BP 130/77
[2019-02-15] MEDS: FAMOTIDINE/PF 20 MG/2 ML VIAL IV SCH ×3 (00:28→20:40)
[2019-02-15] MEDS: ZOSYN 3.375GM+NS 50ML 50 ML IV SCH ×4 (00:29→20:40)
[2019-02-15] MEDS: KETOROLAC TROMETHAMINE 15MG/ML IV PRN ×3 (00:29→20:54)
[2019-02-15] MEDS: MAGNESIUM 2GM PREMIX 50ML 50 ML IV PRN (00:29)
[2019-02-15] MEDS: METOCLOPRAMIDE 10 MG/2 ML VIAL IVP SCH ×5 (00:29→20:40)
[2019-02-15 04:42] VITALS: BP 92/59
[2019-02-15 05:45] LABS: BASOPHILS % (AUTO) 2.9 % (0.0-5.0); EOSINOPHILS % (AUTO) 1.7 % (0.0-8.0); HEMATOCRIT 27.7 % (36-48); LYMPHOCYTES % (AUTO) 51.1 % (21.0-51.0); MEAN CORPUSCULAR HEMOGLOBIN 26.2 pg (27.0-33.0); MEAN CORPUSCULAR VOLUME 79.3 fL (79-99); MONOCYTES % (AUTO) 7.4 % (3.0-13.0); NEUTROPHILS % (AUTO) 36.9 % (40.0-77.0); NUCLEATED RED BLOOD CELLS 0.2 % (0.0-0.19); RED CELL DISTRIBUTION WIDTH 22.6 % (11.0-15.5); WHITE BLOOD COUNT (AUTO) 7.2 K/uL (4.8-10.8)
[2019-02-15 05:53] LABS: PLATELET COUNT (AUTO) 809 K/uL (130-400)
[2019-02-15 05:55] LABS: CREATININE 0.5 mg/dL (0.5-1.5); POTASSIUM 3.6 mmol/L (3.5-5.1)
[2019-02-15] MEDS: INSULIN LISPRO 100 UNIT/ML 3ML SQ SCH ×7 (07:17→21:00)
[2019-02-15 08:00] VITALS: BP 107/72
[2019-02-15] MEDS ORDERED: IOHEXOL-350 75 ML VIAL IV ONE (09:50)
[2019-02-15] MEDS: POTASSIUM CHLORIDE 20 MEQ ERTAB PO PRN ×2 (10:59→13:20)
[2019-02-15] MEDS: ENOXAPARIN SODIUM 40 MG/0.4 ML SYRINGE SQ SCH (10:59)
[2019-02-15] MEDS: POTASSIUM CHLORIDE 20 MEQ ERTAB PO SCH (11:45)
[2019-02-15 12:00] VITALS: BP 115/73
[2019-02-15 16:00] VITALS: BP 105/58
[2019-02-15 20:00] VITALS: BP 114/75
[2019-02-15] MEDS: INSULIN GLARGINE 100 UNITS/ML 10 ML VIAL SQ SCH (23:01)
[2019-02-16] VITALS: BP 122/54
[2019-02-16 04:00] VITALS: BP 100/63
[2019-02-16 05:24] LABS: BASOPHILS % (AUTO) 0.4 % (0.0-5.0); EOSINOPHILS % (AUTO) 1.6 % (0.0-8.0); HEMATOCRIT 27.5 % (36-48); LYMPHOCYTES % (AUTO) 52.1 % (21.0-51.0); MEAN CORPUSCULAR HEMOGLOBIN 25.4 pg (27.0-33.0); MEAN CORPUSCULAR HGB CONC 32.1 g/dL (32.0-36.0); MEAN CORPUSCULAR VOLUME 79.3 fL (79-99); MONOCYTES % (AUTO) 5.9 % (3.0-13.0); NUCLEATED RED BLOOD CELLS 0.1 % (0.0-0.19); RED BLOOD CELL COUNT(AUTO) 3.46 MIL/uL (4.00-5.50); RED CELL DISTRIBUTION WIDTH 22.3 % (11.0-15.5); WHITE BLOOD COUNT (AUTO) 6.6 K/uL (4.8-10.8)
[2019-02-16 05:26] LABS: PLATELET COUNT (AUTO) 871 K/uL (130-400)
[2019-02-16 05:47] LABS: CREATININE 0.5 mg/dL (0.5-1.5); POTASSIUM 3.9 mmol/L (3.5-5.1)
[2019-02-16] MEDS: METOCLOPRAMIDE 10 MG/2 ML VIAL IVP SCH ×4 (06:23→22:59)
[2019-02-16] MEDS: INSULIN LISPRO 100 UNIT/ML 3ML SQ SCH ×7 (06:24→21:00)
[2019-02-16] MEDS: ZOSYN 3.375GM+NS 50ML 50 ML IV SCH ×3 (06:24→22:59)
[2019-02-16 08:00] VITALS: BP 107/67
[2019-02-16] MEDS: KETOROLAC TROMETHAMINE 15MG/ML IV PRN ×4 (08:10→23:00)
[2019-02-16] MEDS: FAMOTIDINE/PF 20 MG/2 ML VIAL IV SCH ×2 (10:29→22:59)
[2019-02-16] MEDS: ENOXAPARIN SODIUM 40 MG/0.4 ML SYRINGE SQ SCH (10:30)
[2019-02-16 12:00] VITALS: BP 115/57
[2019-02-16 16:00] VITALS: BP 120/67
--- NOTE | 2019-02-16 16:56 | NUR ---
Pancreatitis diet education. Pt admitted with chronic pancreatitis. Pt with history of pancreatitis. Pancreatitis diet materials provided and reviewed with pt. Pt with nutritional questions. all questions answered by CRISTINA. Addendum: 02/16/19 at [address] Amended: Links added.
[2019-02-16 20:02] VITALS: BP 112/63
[2019-02-16] MEDS: INSULIN GLARGINE 100 UNITS/ML 10 ML VIAL SQ SCH (21:00)
[2019-02-17 00:02] VITALS: BP 138/83
[2019-02-17 04:00] VITALS: BP 130/70
[2019-02-17] MEDS: INSULIN LISPRO 100 UNIT/ML 3ML SQ SCH ×2 (06:14→06:15)
[2019-02-17] MEDS: METOCLOPRAMIDE 10 MG/2 ML VIAL IVP SCH (06:39)
[2019-02-17] MEDS: ZOSYN 3.375GM+NS 50ML 50 ML IV SCH (06:39)
[2019-02-17 08:23] VITALS: BP 114/72
[2019-02-17] MEDS ORDERED: LEVO500T2 PO (08:36)
[2019-02-17] MEDS ORDERED: METO5 PO (08:36)
[2019-02-17] MEDS ORDERED: METR500T PO (08:36)
[2019-02-17] MEDS: FAMOTIDINE/PF 20 MG/2 ML VIAL IV SCH (09:24)
[2019-02-17] MEDS: ENOXAPARIN SODIUM 40 MG/0.4 ML SYRINGE SQ SCH (09:26)
--- NOTE | 2019-02-17 11:46 | NUR ---
Necesita ir a veto adams doctor familiar en 3 odonnell, llamar para hacer geovanny con el doctor DR. Ernandez en steve semana. Necesita ir con Hematologo (DR. PAMRAR) en 2018 at 2:30 pm por el nivel de plaquetas en la sujatha esta alto, llamar al silvia [phone] si tiene preguntas. Hablar a adams medico si le da calentura, or dolor de estomago, fiebre, descalofrios o dolor de cuerpo. Llamar a 1 si le de falta de aire o si le duele el pecho y no se le demar con descanso. PATIENT GIVEN EDUCATION RE; THROMBOCYTOSIS AND RISK FOR NONCOMPLIANCE WITH ANTIBIOTICS, IV OUT INTACT NO BLEEDING, EDUCATION RX GIVEN.
--- NOTE | 2019-02-17 11:52 | NUR ---
D/C HOME SEE PREVIOUS NOTE.
== END 2019-02-17 11:46 | disposition home or self-care (01) | DRG 871 ==
LOC: EDH 17:12 → EDHIP 17:13 → 3AH 23:05
PROVIDERS: ADMIT Internal Medicine; ATTEND Internal Medicine
DX: A41.9 Sepsis, unspecified organism (principal); K65.1 Peritoneal abscess; E87.1 Hypo-osmolality and hyponatremia; J98.11 Atelectasis; K86.1 Other chronic pancreatitis; J90 Pleural effusion, not elsewhere classified; D50.9 Iron deficiency anemia, unspecified; E11.65 Type 2 diabetes mellitus with hyperglycemia; E78.5 Hyperlipidemia, unspecified; K31.84 Gastroparesis; E11.43 Type 2 diabetes mellitus with diabetic autonomic (poly)neuropathy; K76.0 Fatty (change of) liver, not elsewhere classified; E83.42 Hypomagnesemia; E87.6 Hypokalemia; G89.29 Other chronic pain; I10 Essential (primary) hypertension; K43.9 Ventral hernia without obstruction or gangrene; Z79.4 Long term (current) use of insulin; Z90.81 Acquired absence of spleen; Z83.3 Family history of diabetes mellitus
CPT/HCPCS: 36415; 71045; 74170; 74176; 74177; 80048; 80053; 80305; 81003; 81025; 82150; 82270; 82728; 82948; 83036; 83540; 83550; 83690; 83735; 84478; 85025; 85610; 85730; 87040; 87088; 93005; G0378; J1650; J1815; J1885; J2270; J2405; J2543; J2765; J3475; J3480; J3490; J7030; Q9963; Q9967

== ENCOUNTER 2019-05-22 08:13 | Inpatient (IN) | payer MEDICAID, OTHER ==
[~2019-05-22] VITALS: Ht 154.9 cm; Wt 60.3 kg
[~2019-05-22 08:13] MED LIST changes: -AMOX875T2 PO; -CLAR500T PO; +METO5 PO
[2019-05-22] MEDS ORDERED: ONDANSETRON HCL 4 MG/2 ML VIAL ONE (09:01)
[2019-05-22] MEDS ORDERED: SODIUM CHLORIDE 0.9% 1000ML 2,000 ML IV ONE (09:02)
[2019-05-22 10:03] LABS: APPEARANCE,URINE Cloudy (CLEAR); BILIRUBIN,URINE Negative (NEGATIVE); COLOR,URINE Yellow (YELLOW); GLUCOSE, URINE (UA) >=1000 mg/dL (NEGATIVE); KETONES,URINE >=160 mg/dL (NEGATIVE); LEUKOCYTE ESTERASE ,URINE Negative (NEGATIVE); NITRATE,URINE Negative (NEGATIVE); OCCULT BLOOD,URINE Large (NEGATIVE); PROTEIN,URINE 300 mg/dL (NEGATIVE)
[2019-05-22 10:07] LABS: AMPHET/METH SCREEN,URINE NEGATIVE (NEGATIVE); BARBITURATE SCREEN, URINE NEGATIVE (NEGATIVE); BENZODIAZEPINES SCREEN,URINE NEGATIVE (NEGATIVE); CANNABINOID SCREEN,URINE NEGATIVE (NEGATIVE); COCAINE SCREEN,URINE NEGATIVE (NEGATIVE); OPIATE SCREEN,URINE NEGATIVE (NEGATIVE); PHENCYCLIDINE SCREEN,URINE NEGATIVE (NEGATIVE)
[2019-05-22] MEDS ORDERED: KETOROLAC TROMETHAMINE 30MG/ML ONE (10:14)
[2019-05-22 10:22] LABS: BACTERIA,URINE Rare /HPF (None Seen); SQUAMOUS EPITHELIAL CELL,UR Few /HPF (0-2); YEAST,URINE BUDDING Few /HPF (None Seen)
[2019-05-22 10:26] LABS: EOSINOPHILS % (AUTO) 0.1 % (0.0-8.0); HEMATOCRIT 48.7 % (36-48); LYMPHOCYTES % (AUTO) 25.3 % (21.0-51.0); MEAN CORPUSCULAR HEMOGLOBIN 27.3 pg (27.0-33.0); MEAN CORPUSCULAR HGB CONC 33.9 g/dL (32.0-36.0); MEAN CORPUSCULAR VOLUME 80.5 fL (79-99); MONOCYTES % (AUTO) 2.4 % (3.0-13.0); NEUTROPHILS % (AUTO) 71.2 % (40.0-77.0); NUCLEATED RED BLOOD CELLS 0.1 % (0.0-0.19); PLATELET COUNT (AUTO) 538 K/uL (130-400); RED BLOOD CELL COUNT(AUTO) 6.04 MIL/uL (4.00-5.50); RED CELL DISTRIBUTION WIDTH 21.4 % (11.0-15.5); WHITE BLOOD COUNT (AUTO) 23.8 K/uL (4.8-10.8)
[2019-05-22] MEDS ORDERED: CEFTRIAXONE SODIUM 2 GM VIAL ONE (11:04)
[2019-05-22] MEDS ORDERED: SODIUM CHLORIDE 0.9% 1000ML 1,000 ML IV ONE ×2 (11:05→18:32)
[2019-05-22] MEDS ORDERED: SODIUM CHLORIDE 0.9% 100 ML IV ONE ×2 (11:05→18:13)
[2019-05-22] MEDS ORDERED: MORPHINE SULFATE 4 MG/1ML SYG ONE (15:22)
[2019-05-22 16:09] LABS: BILIRUBIN,TOTAL 0.8 mg/dL (0.2-1.0)
[2019-05-22 16:15] LABS: POTASSIUM 6.4 mmol/L (3.5-5.1)
[2019-05-22] MEDS ORDERED: CALCIUM GLUCONATE 1 GM/10 ML VIAL IV ONE (16:49)
[2019-05-22] MEDS ORDERED: SODIUM BICARB 50MEQ 50ML VIAL ONE ×3 (16:50→22:44)
[2019-05-22] MEDS ORDERED: INSULIN HUMULIN R 100 UNIT/ML 3ML ONE ×2 (16:51→18:13)
[2019-05-22 17:34] LABS: ABG BASE EXCESS -20.9 mmol/L (-2.0-3.0); ABG HCO3 6.8 mmol/L (21.0-28.0); ABG OXYGEN SATURATION 95.8 % (95.0-99.0); ABG PCO2 22 mmHg (32-45)
[2019-05-22 17:40] LABS: CREATININE 0.7 mg/dL (0.5-1.5)
[2019-05-22 17:41] LABS: BILIRUBIN,DIRECT 0.1 mg/dL (0.0-0.3)
[2019-05-22] MEDS ORDERED: SODIUM CHLORIDE 0.9% 1000ML 1,000 ML IV SCH ×2 (18:22→18:32)
[2019-05-22] MEDS ORDERED: LACTULOSE 20 GM/30 ML UDCUP PO PRN (18:30)
[2019-05-22] MEDS ORDERED: HYDROCODONE/ACETAMINOPHEN 5/325 MG TAB PO PRN (18:30)
[2019-05-22] MEDS: SODIUM CHLORIDE 0.9% 1000ML 1,000 ML IV SCH (18:32)
[2019-05-22] MEDS ORDERED: DEXTROSE 5 %-0.45 % NACL 1,000 ML IV PRN (18:32)
[2019-05-22] MEDS ORDERED: POTASSIUM CHLORIDE 10MEQ/100ML 100 ML IV PRN (18:45)
[2019-05-22 18:57] LABS: ABG BASE EXCESS -16.7 mmol/L (-2.0-3.0); ABG HCO3 9.7 mmol/L (21.0-28.0); ABG OXYGEN SATURATION 97.5 % (95.0-99.0); ABG PCO2 26 mmHg (32-45)
[2019-05-22] MEDS ORDERED: CEFTRIAXONE SODIUM 1 GM IVP SCH (19:00)
[2019-05-22] MEDS ORDERED: INSULIN HUMULIN R 100 UNIT/ML 3ML IV SCH (19:45)
[2019-05-22 19:55] LABS: CREATININE 0.6 mg/dL (0.5-1.5); MAGNESIUM 1.3 mg/dL (1.80-2.40)
[2019-05-22] MEDS ORDERED: INSULIN GLARGINE 100 UNITS/ML 10 ML VIAL SQ SCH (21:00)
[2019-05-22] MEDS: FAMOTIDINE/PF 20 MG/2 ML VIAL IV SCH (21:00)
[2019-05-22] MEDS ORDERED: MORPHINE SULFATE 2 MG/ML 1ML SYG ONE (22:44)
[2019-05-23] VITALS (12 sets, daily range): BP systolic 91–140; BP diastolic 47–70
[2019-05-23] MEDS: SODIUM CHLORIDE 0.9% 1000ML 1,000 ML IV SCH ×8 (00:47→20:26)
[2019-05-23] MEDS ORDERED: FAMOTIDINE/PF 20 MG/2 ML VIAL IV ONE ×2 (01:05→10:10)
[2019-05-23] MEDS ORDERED: CEFTRIAXONE SODIUM 1 GM ONE ×2 (01:05→10:09)
--- NOTE | 2019-05-23 01:34 | NUR ---
Alcantara patient refused Alcantara catheter as per MD orders.
[2019-05-23 03:03] LABS: CREATININE 0.6 mg/dL (0.5-1.5); MAGNESIUM 1.1 mg/dL (1.80-2.40)
[2019-05-23] MEDS ORDERED: POTASSIUM CHLORIDE 10MEQ/100ML 100 ML IV ONE ×2 (03:33→09:04)
[2019-05-23 05:50] LABS: HEMATOCRIT 39.6 % (36-48); MEAN CORPUSCULAR HEMOGLOBIN 26.1 pg (27.0-33.0); MEAN CORPUSCULAR VOLUME 79.1 fL (79-99); NUCLEATED RED BLOOD CELLS 0.2 % (0.0-0.19); PLATELET COUNT (AUTO) 393 K/uL (130-400); RED CELL DISTRIBUTION WIDTH 19.1 % (11.0-15.5); WHITE BLOOD COUNT (AUTO) 12.4 K/uL (4.8-10.8)
[2019-05-23 06:15] LABS: ALBUMIN 2.6 g/dL (3.5-5.0); BILIRUBIN,TOTAL 0.5 mg/dL (0.2-1.0); CARBON DIOXIDE 13 mmol/L (21-32); CHLORIDE 104 mmol/L (101-111); CHOLESTEROL 359 mg/dL (<200); CREATININE 0.6 mg/dL (0.5-1.5); GLOMERULAR FILTR. RATE CALC 117 mL/min (>60); GLUCOSE,RANDOM 224 mg/dL (70-105); HDL CHOLESTEROL 31 mg/dL (35-85); LDL DIRECT 106 mg/dL (0-99); POTASSIUM 3.6 mmol/L (3.5-5.1); SODIUM SERUM 135 mmol/L (136-145); TOTAL PROTEIN, SERUM 8.6 g/dL (6.0-8.3); TRIGLYCERIDES 988 mg/dL (30-200); UREA NITROGEN, BLOOD 14 mg/dL (7-18)
[2019-05-23 06:31] LABS: ASPARTATE AMINOTRANSFERASE 67 U/L (10-37)
[2019-05-23 07:15] LABS: ALANINE AMINOTRANSFERASE < 6 U/L (12-78)
[2019-05-23] MEDS ORDERED: INSULIN LISPRO 100 UNIT/ML 3ML SQ SCH (07:30)
[2019-05-23] MEDS ORDERED: MAGNESIUM SULFATE 1 GM in SODIUM CHLORIDE 0.9% 50 ML IV PRN (08:15)
[2019-05-23] MEDS ORDERED: GLUCAGON 1MG KIT 1 MG ML IM PRN (08:45)
[2019-05-23] MEDS ORDERED: DEXTROSE 50%-WATER 50 ML DISP.SYRIN IV PRN (08:45)
[2019-05-23] MEDS ORDERED: MORPHINE SULFATE 2 MG/ML 1ML SYG ONE (08:59)
[2019-05-23] MEDS: ENOXAPARIN SODIUM 40 MG/0.4 ML SYRINGE SQ SCH (09:00)
[2019-05-23] MEDS: FAMOTIDINE/PF 20 MG/2 ML VIAL IV SCH ×2 (09:00→20:27)
[2019-05-23] MEDS ORDERED: SODIUM CHLORIDE 0.9% 1000ML 1,000 ML IV ONE (09:08)
[2019-05-23] MEDS ORDERED: ENOXAPARIN SODIUM 40 MG/0.4 ML SYRINGE SQ ONE (10:09)
[2019-05-23 10:27] LABS: ABG BASE EXCESS -11.5 mmol/L (-2.0-3.0); ABG HCO3 14.1 mmol/L (21.0-28.0); ABG OXYGEN SATURATION 96.8 % (95.0-99.0); ABG PCO2 31 mmHg (32-45)
[2019-05-23] MEDS: INSULIN HUMULIN R 100 UNIT/ML 3ML SQ SCH ×3 (11:30→21:00)
[2019-05-23] MEDS ORDERED: SODIUM CHLORIDE 0.9% 100 ML IV ONE (11:48)
[2019-05-23] MEDS ORDERED: MORPHINE SULFATE 2 MG/ML 1ML SYG IVP PRN (13:15)
[2019-05-23 13:29] LABS: CREATININE 0.6 mg/dL (0.5-1.5); MAGNESIUM 1.5 mg/dL (1.80-2.40); POTASSIUM 3.7 mmol/L (3.5-5.1)
[2019-05-23] MEDS ORDERED: INSULIN REGULAR, HUMAN 3ML 100 UNIT in SODIUM CHLORIDE 0.9% 99 ML IV PRN ×2 (13:30)
[2019-05-23] MEDS: POTASSIUM CHLORIDE 20MEQ/100ML 100 ML IV PRN ×3 (13:43→21:39)
--- NOTE | 2019-05-23 14:14 | NUR ---
DCP: HOME Sw met with pt who states she lives with her mother Nancy Angulo [phone]. pt reports she is independent of all ADLS, no DME or HH services. Karmen Borges is pt's PCP and she uses [facility] for rx. Pt denies dc needs and plan is home at [place] Addendum: 05/23/19 at 1417 by NESTOR HE Amended: Links added.
[2019-05-23] MEDS: METRONIDAZOLE 500MG/100ML BAG 100 ML IV SCH ×2 (14:35→20:27)
[2019-05-23] MEDS: ZOSYN 3.375GM+NS 50ML 50 ML IV SCH ×2 (14:35→23:10)
[2019-05-23] MEDS: DEXTROSE 5 % AND 0.9 % NACL 1,000 ML IV SCH ×2 (14:45→21:25)
--- NOTE | 2019-05-23 15:30 | NUR ---
LEATHA SLAUGHTER , IMAGERY INTELLIGENCE, CALLED IN TO REQUEST PT'S LABS, H&P, CT SCAN RESULTS AND CURRENT MEDICATIONS. GIVNE INFORMATION REQUESTED. STATED THAT DR. YASH RAINEY WILL BE CALLING BACK WITH RECOMMENDATIONS. REPORTED OFF TO ALANIS HARDY PRIMARY NURSE.
[2019-05-23] MEDS: MORPHINE SULFATE 2 MG/ML 1ML SYG IV PRN ×2 (17:30→23:09)
[2019-05-23 17:40] LABS: INR 0.98 (0.85-1.15); PROTHROMBIN TIME 10.3 SEC (9.6-11.6)
--- NOTE | 2019-05-23 19:00 | NUR ---
Received bedside report pt is on insulin drip @ 0.5 unit/hr and D5 NS @175ml/hr.Pt can have ice chips only .
[2019-05-23 20:12] LABS: CREATININE 0.7 mg/dL (0.5-1.5)
--- NOTE | 2019-05-23 21:00 | NUR ---
K level 3.0 and insulin drip is on hold at this time.P{otassium coverage is initiated at this time as per protocol.
--- NOTE | 2019-05-23 21:00 | NUR ---
Obtained consent for PICC line tomorrow.
[2019-05-24] VITALS (16 sets, daily range): BP systolic 92–144; BP diastolic 52–76
--- NOTE | 2019-05-24 00:30 | NUR ---
Continue to hold insulin K level 3.1 ,potassium coverage initiated as per protocol.Will place pt on AC and HS and will change IVfluids to NS @175ml/hr as per MD's order.Pt. remained stable.
[2019-05-24] MEDS: SODIUM CHLORIDE 0.9% 1000ML 1,000 ML IV SCH ×6 (00:32→18:00)
[2019-05-24 01:04] LABS: CREATININE 0.5 mg/dL (0.5-1.5); POTASSIUM 3.1 mmol/L (3.5-5.1)
[2019-05-24] MEDS: POTASSIUM CHLORIDE 20MEQ/100ML 100 ML IV PRN ×5 (02:14→13:42)
[2019-05-24] MEDS: MORPHINE SULFATE 2 MG/ML 1ML SYG IV PRN ×3 (03:02→14:14)
[2019-05-24] MEDS: DEXTROSE 5 % AND 0.9 % NACL 1,000 ML IV SCH ×2 (04:05→10:45)
[2019-05-24 04:56] LABS: ABG BASE EXCESS -6.2 mmol/L (-2.0-3.0); ABG HCO3 18.7 mmol/L (21.0-28.0); ABG OXYGEN SATURATION 96.9 % (95.0-99.0); ABG PCO2 35 mmHg (32-45)
[2019-05-24] MEDS: ZOSYN 3.375GM+NS 50ML 50 ML IV SCH ×3 (05:18→21:03)
[2019-05-24] MEDS: METRONIDAZOLE 500MG/100ML BAG 100 ML IV SCH ×3 (05:18→20:51)
[2019-05-24] MEDS: INSULIN HUMULIN R 100 UNIT/ML 3ML SQ SCH ×4 (06:03→21:03)
[2019-05-24 07:29] LABS: ALBUMIN 2.3 g/dL (3.5-5.0); BILIRUBIN,TOTAL 0.3 mg/dL (0.2-1.0); CREATININE 0.5 mg/dL (0.5-1.5); POTASSIUM 3.1 mmol/L (3.5-5.1); TOTAL PROTEIN, SERUM 6.9 g/dL (6.0-8.3)
[2019-05-24 07:34] LABS: HEMATOCRIT 32.2 % (36-48); MEAN CORPUSCULAR HEMOGLOBIN 25.9 pg (27.0-33.0); MEAN CORPUSCULAR HGB CONC 33.6 g/dL (32.0-36.0); MEAN CORPUSCULAR VOLUME 77.3 fL (79-99); NUCLEATED RED BLOOD CELLS 0.5 % (0.0-0.19); PLATELET COUNT (AUTO) 380 K/uL (130-400); RED BLOOD CELL COUNT(AUTO) 4.17 MIL/uL (4.00-5.50); RED CELL DISTRIBUTION WIDTH 19.5 % (11.0-15.5); WHITE BLOOD COUNT (AUTO) 6.7 K/uL (4.8-10.8)
[2019-05-24 07:59] LABS: BAND NEUTROPHILS % (MANUAL) 1 % (0-2); LYMPHOCYTES % (MANUAL) 45 % (22-44); MONOCYTES % (MANUAL) 4 % (2-9); SEGMENTED NEUTROPHILS % 50 % (40-70)
[2019-05-24 08:00] LABS: MAN.DIFF COMMENT-IMPRESSION MANUAL DIFFERENTIAL
[2019-05-24 08:01] LABS: PLATELET MORPHOLOGY COMMENT ADEQUATE
[2019-05-24] MEDS: ONDANSETRON HCL 4 MG/2 ML VIAL IV PRN ×2 (09:20→20:56)
--- NOTE | 2019-05-24 10:45 | NUR ---
PICC LINE ABLE TO ACCESS MARTÍN BASILIC VEIN, DURING PLACEMENT OF CATHETER PT DID NOT TOLERATE REPOSITIONING OF LEFT ARM DURING CATHETER PLACEMENT. USE OF NAVIGATION SYSTEM USED VPS ALERTED CATHETER GOING UP MULTIPLE TIMES. ATTEMPTED TO REPOSITION LEFT ARM TO ATTEMPT CATHETER GOING DOWN, BUT PT DID NOT TOLERATED , PT COMPLAINING OF PAIN TO LEFT ARM. PT REQUESTED FOR ME TO STOP AND GET PAIN MEDICATION. REMOVED CATHETER FROM LEFT ARM. I TOLD HER SOMEONE ELSE WOULD COME IN TO ATTEMPT ON RIGHT ARM. PER PT REQUEST SHE ASKED ME TO TRY PLACEMENT ON RIGHT ARM AFTER GETTING PAIN MEDICATION. REPORTED SITUATION TO INNA HWANG RN , PT MEDICATED AND PLACED PICC LINE TO RIGHT UPPER ARM BASILIC VEIN SUCCESSFULLY. PT LEFT COMFORTABLE IN. REPORT GIVEN TO INNA HWANG RN. BED
[2019-05-24] MEDS: FAMOTIDINE/PF 20 MG/2 ML VIAL IV SCH ×2 (10:51→20:51)
[2019-05-24] MEDS: ENOXAPARIN SODIUM 40 MG/0.4 ML SYRINGE SQ SCH (10:52)
[2019-05-24 13:09] LABS: CREATININE 0.4 mg/dL (0.5-1.5); MAGNESIUM 1.4 mg/dL (1.80-2.40); POTASSIUM 3.7 mmol/L (3.5-5.1)
[2019-05-24] MEDS ORDERED: MAGNESIUM 2GM PREMIX 50ML 50 ML IV PRN (13:45)
[2019-05-24] MEDS: METOCLOPRAMIDE 10 MG TABLET PO SCH (17:10)
[2019-05-24 17:28] LABS: POTASSIUM 3.2 mmol/L (3.5-5.1)
[2019-05-24] MEDS: MORPHINE SULFATE 2 MG/ML 1ML SYG IVP PRN (20:57)
[2019-05-25] VITALS: BP 112/75
[2019-05-25] MEDS: MORPHINE SULFATE 2 MG/ML 1ML SYG IVP PRN ×3 (03:15→18:43)
[2019-05-25] MEDS: ONDANSETRON HCL 4 MG/2 ML VIAL IV PRN ×3 (03:15→18:43)
[2019-05-25 04:00] VITALS: BP 107/72
[2019-05-25] MEDS: ZOSYN 3.375GM+NS 50ML 50 ML IV SCH ×3 (05:07→21:30)
[2019-05-25] MEDS: METRONIDAZOLE 500MG/100ML BAG 100 ML IV SCH ×3 (05:07→21:13)
[2019-05-25 05:49] LABS: ALBUMIN 2.4 g/dL (3.5-5.0); BILIRUBIN,TOTAL 0.4 mg/dL (0.2-1.0); CREATININE 0.3 mg/dL (0.5-1.5); MAGNESIUM 1.6 mg/dL (1.80-2.40); POTASSIUM 3.4 mmol/L (3.5-5.1)
[2019-05-25] MEDS: INSULIN HUMULIN R 100 UNIT/ML 3ML SQ SCH (06:26)
[2019-05-25] MEDS: POTASSIUM CHLORIDE 20MEQ/100ML 100 ML IV PRN (06:40)
[2019-05-25 07:11] VITALS: BP 111/69
[2019-05-25 07:44] LABS: BASOPHILS % (AUTO) 0.4 % (0.0-5.0); EOSINOPHILS % (AUTO) 1.7 % (0.0-8.0); HEMATOCRIT 36.4 % (36-48); LYMPHOCYTES % (AUTO) 39.2 % (21.0-51.0); MEAN CORPUSCULAR HEMOGLOBIN 25.9 pg (27.0-33.0); MEAN CORPUSCULAR HGB CONC 33.5 g/dL (32.0-36.0); MEAN CORPUSCULAR VOLUME 77.2 fL (79-99); MONOCYTES % (AUTO) 5.7 % (3.0-13.0); NUCLEATED RED BLOOD CELLS 0.3 % (0.0-0.19); PLATELET COUNT (AUTO) 342 K/uL (130-400); RED BLOOD CELL COUNT(AUTO) 4.71 MIL/uL (4.00-5.50); RED CELL DISTRIBUTION WIDTH 18.9 % (11.0-15.5)
[2019-05-25] MEDS: METOCLOPRAMIDE 10 MG TABLET PO SCH ×3 (09:30→17:09)
[2019-05-25] MEDS ORDERED: MAGNESIUM 2GM PREMIX 50ML 50 ML IV PRN (09:30)
[2019-05-25] MEDS: FAMOTIDINE/PF 20 MG/2 ML VIAL IV SCH ×2 (09:30→21:13)
[2019-05-25] MEDS: ENOXAPARIN SODIUM 40 MG/0.4 ML SYRINGE SQ SCH (09:32)
[2019-05-25] MEDS: FENOFIBRATE NANOCRYSTALLIZED 145 MG TAB PO SCH (09:34)
[2019-05-25] MEDS: POTASSIUM CHLORIDE 20 MEQ ERTAB PO SCH (09:36)
[2019-05-25] MEDS: INSULIN LISPRO 100 UNIT/ML 3ML SQ SCH ×3 (11:30→21:12)
[2019-05-25] MEDS ORDERED: INSULIN LISPRO 100 UNIT/ML 3ML SQ SCH (11:30)
[2019-05-25 12:00] VITALS: BP 119/56
[2019-05-25] MEDS ORDERED: METOCLOPRAMIDE 5 MG TABLET PO SCH (12:00)
[2019-05-25 16:00] VITALS: BP 115/76
[2019-05-25 20:00] VITALS: BP 103/68
[2019-05-25] MEDS ORDERED: INSULIN GLARGINE 100 UNITS/ML 10 ML VIAL SQ SCH (21:00)
[2019-05-25] MEDS: ATORVASTATIN CALCIUM 40 MG TABLET PO SCH (21:13)
[2019-05-25] MEDS: SODIUM CHLORIDE 0.9% 1000ML 1,000 ML IV SCH (21:44)
[2019-05-26] VITALS (7 sets, daily range): BP systolic 100–120; BP diastolic 57–81
[2019-05-26] MEDS: MORPHINE SULFATE 2 MG/ML 1ML SYG IVP PRN ×2 (01:20→14:03)
[2019-05-26] MEDS: ONDANSETRON HCL 4 MG/2 ML VIAL IV PRN (01:20)
[2019-05-26 05:04] LABS: ALBUMIN 2.4 g/dL (3.5-5.0); BILIRUBIN,TOTAL 0.4 mg/dL (0.2-1.0); CREATININE 0.4 mg/dL (0.5-1.5); POTASSIUM 3.8 mmol/L (3.5-5.1); TOTAL PROTEIN, SERUM 6.8 g/dL (6.0-8.3)
[2019-05-26] MEDS: METRONIDAZOLE 500MG/100ML BAG 100 ML IV SCH ×2 (05:40→12:31)
[2019-05-26] MEDS: ZOSYN 3.375GM+NS 50ML 50 ML IV SCH ×2 (05:40→14:03)
[2019-05-26] MEDS: INSULIN LISPRO 100 UNIT/ML 3ML SQ SCH ×4 (06:18→20:26)
[2019-05-26 07:08] LABS: BASOPHILS % (AUTO) 1.3 % (0.0-5.0); EOSINOPHILS % (AUTO) 1.3 % (0.0-8.0); HEMATOCRIT 33.2 % (36-48); LYMPHOCYTES % (AUTO) 57.9 % (21.0-51.0); MEAN CORPUSCULAR HEMOGLOBIN 26.1 pg (27.0-33.0); MEAN CORPUSCULAR HGB CONC 34.2 g/dL (32.0-36.0); MEAN CORPUSCULAR VOLUME 76.4 fL (79-99); MONOCYTES % (AUTO) 5.9 % (3.0-13.0); NEUTROPHILS % (AUTO) 33.6 % (40.0-77.0); NUCLEATED RED BLOOD CELLS 0.1 % (0.0-0.19); PLATELET COUNT (AUTO) 320 K/uL (130-400); RED BLOOD CELL COUNT(AUTO) 4.35 MIL/uL (4.00-5.50); RED CELL DISTRIBUTION WIDTH 19.2 % (11.0-15.5); WHITE BLOOD COUNT (AUTO) 7.1 K/uL (4.8-10.8)
[2019-05-26 07:14] LABS: HEMOGLOBIN A1C 13.4 % (4.0-6.0)
[2019-05-26] MEDS ORDERED: INSULIN HUMULIN 70/30 100 UNIT/ML 3ML SQ SCH (07:30)
[2019-05-26] MEDS: POTASSIUM CHLORIDE 20 MEQ ERTAB PO SCH (08:04)
[2019-05-26] MEDS: METOCLOPRAMIDE 10 MG TABLET PO SCH ×3 (09:50→17:16)
[2019-05-26] MEDS: ENOXAPARIN SODIUM 40 MG/0.4 ML SYRINGE SQ SCH (09:50)
[2019-05-26] MEDS: ASPIRIN 81 MG EC TAB PO SCH (09:50)
[2019-05-26] MEDS: FENOFIBRATE NANOCRYSTALLIZED 145 MG TAB PO SCH (09:50)
[2019-05-26] MEDS: FAMOTIDINE/PF 20 MG/2 ML VIAL IV SCH ×2 (09:50→20:23)
[2019-05-26] MEDS: SODIUM CHLORIDE 0.9% 1000ML 1,000 ML IV SCH (09:51)
[2019-05-26] MEDS: INSULIN HUMULIN 70/30 100 UNIT/ML 3ML SQ SCH (17:17)
[2019-05-26] MEDS: KETOROLAC TROMETHAMINE 15MG/ML IM PRN (20:23)
[2019-05-26] MEDS: ATORVASTATIN CALCIUM 40 MG TABLET PO SCH (20:23)
--- NOTE | 2019-05-26 20:53 | NUR ---
nursing rounds ADMINISTERED MEDS PER OCT. PT C/O ABDOMINAL PAIN 5/6 IN ABDOMEN AREA. PT CURRENTLY SITTING IN BED CONSUMING SANDWICH TRAY. ASKED PATIENT IF FOOD INCREASES OR DECREASES THE ABDOMINAL PAIN, PT REPORTS IT DOES NEITHER. WILL F/P ON PAIN LEVEL.
[2019-05-27 04:00] VITALS: BP 115/70
[2019-05-27 04:54] LABS: BASOPHILS % (AUTO) 2.6 % (0.0-5.0); EOSINOPHILS % (AUTO) 1.3 % (0.0-8.0); HEMATOCRIT 32.1 % (36-48); LYMPHOCYTES % (AUTO) 47.6 % (21.0-51.0); MEAN CORPUSCULAR HEMOGLOBIN 26.1 pg (27.0-33.0); MEAN CORPUSCULAR HGB CONC 33.3 g/dL (32.0-36.0); MEAN CORPUSCULAR VOLUME 78.3 fL (79-99); NEUTROPHILS % (AUTO) 39.5 % (40.0-77.0); NUCLEATED RED BLOOD CELLS 0.1 % (0.0-0.19); PLATELET COUNT (AUTO) 296 K/uL (130-400); RED CELL DISTRIBUTION WIDTH 18.9 % (11.0-15.5)
[2019-05-27 05:24] LABS: ALBUMIN 2.4 g/dL (3.5-5.0); CARBON DIOXIDE 29 mmol/L (21-32); CHLORIDE 99 mmol/L (101-111); CHOLESTEROL 225 mg/dL (<200); CREATININE 0.5 mg/dL (0.5-1.5); GLOMERULAR FILTR. RATE CALC 145 mL/min (>60); GLUCOSE,RANDOM 280 mg/dL (70-105); HDL CHOLESTEROL 20 mg/dL (35-85); LDL DIRECT 61 mg/dL (0-99); PHOSPHORUS 3.2 mg/dL (2.5-4.9); POTASSIUM 3.6 mmol/L (3.5-5.1); SODIUM SERUM 135 mmol/L (136-145); TRIGLYCERIDES 830 mg/dL (30-200); UREA NITROGEN, BLOOD 8 mg/dL (7-18)
[2019-05-27] MEDS: INSULIN HUMULIN 70/30 100 UNIT/ML 3ML SQ SCH ×2 (06:00→16:41)
[2019-05-27] MEDS: INSULIN LISPRO 100 UNIT/ML 3ML SQ SCH ×3 (06:02→16:41)
[2019-05-27 08:00] VITALS: BP 101/57
[2019-05-27] MEDS: METOCLOPRAMIDE 10 MG TABLET PO SCH ×3 (08:00→16:40)
[2019-05-27] MEDS: ASPIRIN 81 MG EC TAB PO SCH (09:29)
[2019-05-27] MEDS: FAMOTIDINE/PF 20 MG/2 ML VIAL IV SCH (09:29)
[2019-05-27] MEDS: FENOFIBRATE NANOCRYSTALLIZED 145 MG TAB PO SCH (09:29)
[2019-05-27] MEDS: ENOXAPARIN SODIUM 40 MG/0.4 ML SYRINGE SQ SCH (09:30)
[2019-05-27] MEDS: POTASSIUM CHLORIDE 20 MEQ ERTAB PO SCH (09:30)
[2019-05-27] MEDS: KETOROLAC TROMETHAMINE 15MG/ML IM PRN ×2 (09:36→15:21)
[2019-05-27 11:45] VITALS: BP 89/51
[2019-05-27] MEDS ORDERED: METFORMIN HCL 850 MG TABLET PO SCH ×2 (12:45→17:00)
[2019-05-27 13:08] LABS: MEAN CORPUSCULAR HEMOGLOBIN 26.7 pg (27.0-33.0); MEAN CORPUSCULAR HGB CONC 34.3 g/dL (32.0-36.0); MEAN CORPUSCULAR VOLUME 77.8 fL (79-99); NUCLEATED RED BLOOD CELLS 0.1 % (0.0-0.19); PLATELET COUNT (AUTO) 330 K/uL (130-400); RED BLOOD CELL COUNT(AUTO) 4.24 MIL/uL (4.00-5.50); RED CELL DISTRIBUTION WIDTH 18.5 % (11.0-15.5); WHITE BLOOD COUNT (AUTO) 9.6 K/uL (4.8-10.8)
[2019-05-27 16:00] VITALS: BP 108/74
[2019-05-27] MEDS ORDERED: METF850T PO (16:47)
--- NOTE | 2019-05-27 18:30 | NUR ---
PATIENT GIVEN DISCHARGE INSTRUCTIONS AND EDUCATION ON FOLLOW UP APPOINTMENTS, DIABETIC EDUCATION AND NEW PRESCRIBED MEDICATIONS., PATIENT VERBALIZED UNDERSTANDING OF ALL EDUCATION GIVEN VIA TEACH BACK IN TUNISIAN. PICC LINE D/C PER JORDAN MURILLO ORDERS, USING STERILE TECHNIQUE. PATIENT TOLERATED WELL. PRESSURE APPLIED TO SITE, NO SIGNIFICANT BLEEDING NOTED. PATIENT LEFT VIA WHEELCHAIR TO PRIVATE CAR. NO DISTRESS NOTED UPON DISCHARGE.
== END 2019-05-27 18:40 | disposition home or self-care (01) | DRG 438 ==
LOC: EDH 08:13 → EDHIP 08:14 → 2CH 05-23 12:09 → 3BH 05-24 18:03
PROVIDERS: ADMIT Internal Medicine; ATTEND Internal Medicine
PROC: 02HV33Z Insertion of Infusion Device into Superior Vena Cava, Percutaneous Approach (ICD-10-PCS; principal; 2019-05-24)
PROC: B548ZZA Ultrasonography of Superior Vena Cava, Guidance (ICD-10-PCS; 2019-05-24)
DX: K85.90 Acute pancreatitis without necrosis or infection, unspecified (principal); E11.10 Type 2 diabetes mellitus with ketoacidosis without coma; J98.11 Atelectasis; J90 Pleural effusion, not elsewhere classified; D89.9 Disorder involving the immune mechanism, unspecified; K86.1 Other chronic pancreatitis; K43.9 Ventral hernia without obstruction or gangrene; R91.1 Solitary pulmonary nodule; D64.9 Anemia, unspecified; E78.1 Pure hyperglyceridemia; K31.89 Other diseases of stomach and duodenum; I10 Essential (primary) hypertension; J84.10 Pulmonary fibrosis, unspecified; E86.0 Dehydration; E78.2 Mixed hyperlipidemia; Z90.49 Acquired absence of other specified parts of digestive tract; Z90.81 Acquired absence of spleen; Z79.899 Other long term (current) drug therapy; Z79.82 Long term (current) use of aspirin; Z91.19 Patient's noncompliance with other medical treatment and regimen; Z79.4 Long term (current) use of insulin
CPT/HCPCS: 36415; 36600; 71045; 74176; 80048; 80053; 80061; 80076; 80305; 81001; 81025; 82010; 82040; 82150; 82270; 82435; 82803; 82947; 82948; 83036; 83605; 83690; 83735; 84100; 84105; 84132; 84145; 84295; 85018; 85025; 85027; 85610; 85730; 87040; 93005; 99291; C1751; C1894; G0378; J0610; J0696; J1650; J1815; J1885; J2270; J2405; J2543; J3475; J3480; J3490; J7030; J7042

== ENCOUNTER 2019-07-02 22:06 | Inpatient (IN) | payer OTHER ==
[~2019-07-02] VITALS: Ht 149.9 cm; Wt 64.2 kg
[~2019-07-02 22:06] MED LIST changes: +METF850T PO; -PANT40TA PO; -TYL3 PO
[2019-07-02 22:38] LABS: APPEARANCE,URINE Clear (CLEAR); BILIRUBIN,URINE Negative (NEGATIVE); COLOR,URINE Yellow (YELLOW); GLUCOSE, URINE (UA) >=1000 mg/dL (NEGATIVE); KETONES,URINE 40 mg/dL (NEGATIVE); LEUKOCYTE ESTERASE ,URINE Negative (NEGATIVE); NITRATE,URINE Negative (NEGATIVE); OCCULT BLOOD,URINE Negative (NEGATIVE); PH,URINE 6.5 (5.0-8.0); PROTEIN,URINE Negative (NEGATIVE); UROBILINOGEN,URINE 0.2 mg/dL (0.2-1.0)
[2019-07-02 22:41] LABS: HCG,QUAL RESULT NEGATIVE (NEGATIVE)
[2019-07-02 22:44] LABS: BACTERIA,URINE None Seen /HPF (None Seen); RBC,URINE None Seen /HPF (0-1); SQUAMOUS EPITHELIAL CELL,UR Rare /HPF (0-2); WBC,URINE None Seen /HPF (0-1); YEAST,URINE BUDDING Few /HPF (None Seen)
[2019-07-02 23:07] LABS: BASOPHILS % (AUTO) 0.8 % (0.0-5.0); EOSINOPHILS % (AUTO) 0.5 % (0.0-8.0); HEMATOCRIT 35.3 % (36-48); LYMPHOCYTES % (AUTO) 11.8 % (21.0-51.0); MEAN CORPUSCULAR HEMOGLOBIN 26.9 pg (27.0-33.0); MEAN CORPUSCULAR HGB CONC 33.5 g/dL (32.0-36.0); MEAN CORPUSCULAR VOLUME 80.2 fL (79-99); MONOCYTES % (AUTO) 8.1 % (3.0-13.0); NEUTROPHILS % (AUTO) 78.8 % (40.0-77.0); NUCLEATED RED BLOOD CELLS 0.2 % (0.0-0.19); PLATELET COUNT (AUTO) 213 K/uL (130-400); RED BLOOD CELL COUNT(AUTO) 4.41 MIL/uL (4.00-5.50); WHITE BLOOD COUNT (AUTO) 17.8 K/uL (4.8-10.8)
[2019-07-02 23:11] LABS: INR 0.97 (0.85-1.15); PROTHROMBIN TIME 10.2 SEC (9.6-11.6)
[2019-07-02] MEDS ORDERED: SODIUM CHLORIDE 0.9% 1000ML 1,000 ML IV ONE ×2 (23:11→23:37)
[2019-07-02] MEDS ORDERED: INSULIN HUMULIN R 100 UNIT/ML 3ML ONE ×2 (23:14→23:45)
[2019-07-02] MEDS ORDERED: KETOROLAC TROMETHAMINE 30MG/ML ONE (23:24)
[2019-07-02] MEDS ORDERED: SODIUM CHLORIDE 0.9% 100 ML IV ONE (23:46)
[2019-07-02 23:47] LABS: PARTIAL THROMBOPLASTIN TIME > 120.0 SEC (26.3-35.5)
[2019-07-03] VITALS (16 sets, daily range): BP systolic 91–117; BP diastolic 52–81
[2019-07-03 00:28] LABS: ABG BASE EXCESS -3.7 mmol/L (-2.0-3.0); ABG HCO3 19.7 mmol/L (21.0-28.0); ABG OXYGEN SATURATION 94.3 % (95.0-99.0); ABG PCO2 30 mmHg (32-45)
[2019-07-03] MEDS ORDERED: POTASSIUM CHLORIDE 20 MEQ ERTAB PO ONE (00:44)
[2019-07-03] MEDS ORDERED: HYOSCYAMINE SULFATE 0.125 MG TAB.SUBL SL ONE (00:44)
[2019-07-03] MEDS ORDERED: FAMOTIDINE/PF 20 MG/2 ML VIAL IV ONE (00:45)
[2019-07-03 01:06] LABS: ALBUMIN 2.6 g/dL (3.5-5.0); BILIRUBIN,TOTAL 0.5 mg/dL (0.2-1.0); CREATININE 0.4 mg/dL (0.5-1.5); POTASSIUM 4.9 mmol/L (3.5-5.1); TOTAL PROTEIN, SERUM 8.1 g/dL (6.0-8.3)
[2019-07-03] MEDS ORDERED: CEFTRIAXONE SODIUM 1 GM ONE (01:07)
[2019-07-03] MEDS ORDERED: AZITHROMYCIN 250 MG TABLET PO ONE (01:08)
[2019-07-03] MEDS ORDERED: ACETAMINOPHEN 650 MG SUPPOSITORY RC PRN (01:45)
[2019-07-03] MEDS ORDERED: POTASSIUM CHLORIDE 20MEQ/100ML 100 ML IV PRN (01:45)
[2019-07-03] MEDS ORDERED: HYOSCYAMINE SULFATE 0.125 MG TAB.SUBL SL PRN (01:45)
[2019-07-03] MEDS ORDERED: LIDOCAINE HCL-MPF 1% 2ML VIAL IV PRN (01:45)
[2019-07-03] MEDS: SODIUM CHLORIDE 0.9% 1000ML 1,000 ML IV SCH ×2 (01:45→08:25)
[2019-07-03] MEDS ORDERED: SODIUM CHLORIDE 0.9% 1000ML 2,000 ML IV ONE (01:53)
[2019-07-03] MEDS ORDERED: MAGNESIUM 2GM PREMIX 50ML 50 ML IV ONE (02:59)
[2019-07-03] MEDS ORDERED: DEXTROSE 5 %-0.45 % NACL 1,000 ML IV ONE (04:28)
[2019-07-03] MEDS ORDERED: MORPHINE SULFATE 2 MG/ML 1ML SYG ONE (05:06)
[2019-07-03 06:42] LABS: HEMOGLOBIN A1C 13.1 % (4.0-6.0)
[2019-07-03 06:43] LABS: BASOPHILS % (AUTO) 0.7 % (0.0-5.0); EOSINOPHILS % (AUTO) 0.4 % (0.0-8.0); HEMATOCRIT 35.5 % (36-48); LYMPHOCYTES % (AUTO) 11.6 % (21.0-51.0); MEAN CORPUSCULAR HEMOGLOBIN 26.5 pg (27.0-33.0); MEAN CORPUSCULAR VOLUME 80.3 fL (79-99); NEUTROPHILS % (AUTO) 80.3 % (40.0-77.0); NUCLEATED RED BLOOD CELLS 0.2 % (0.0-0.19); PLATELET COUNT (AUTO) 290 K/uL (130-400); RED BLOOD CELL COUNT(AUTO) 4.43 MIL/uL (4.00-5.50); WHITE BLOOD COUNT (AUTO) 20.3 K/uL (4.8-10.8)
[2019-07-03 06:49] LABS: ALBUMIN 2.6 g/dL (3.5-5.0); BILIRUBIN,TOTAL 0.4 mg/dL (0.2-1.0); CREATININE 0.4 mg/dL (0.5-1.5); MAGNESIUM 1.9 mg/dL (1.80-2.40); PHOSPHORUS 2.7 mg/dL (2.5-4.9); POTASSIUM 5.3 mmol/L (3.5-5.1); TOTAL PROTEIN, SERUM 7.9 g/dL (6.0-8.3)
[2019-07-03] MEDS: ONDANSETRON HCL 4 MG/2 ML VIAL IVP PRN (08:45)
[2019-07-03] MEDS: FAMOTIDINE/PF 20 MG/2 ML VIAL IV SCH ×2 (08:45→21:24)
[2019-07-03] MEDS: MORPHINE SULFATE 2 MG/ML 1ML SYG IVP PRN ×4 (08:46→23:02)
--- NOTE | 2019-07-03 09:45 | NUR ---
DR. JIMENES NOTIFIED OF PT ARRIVAL TO UNIT.
[2019-07-03] MEDS ORDERED: INSULIN REGULAR, HUMAN 3ML 100 UNIT in SODIUM CHLORIDE 0.9% 99 ML IV PRN ×2 (10:00)
[2019-07-03] MEDS ORDERED: DEXTROSE 5 %-0.45 % NACL 1,000 ML IV SCH (10:00)
[2019-07-03 12:17] LABS: CREATININE 0.4 mg/dL (0.5-1.5); MAGNESIUM 1.6 mg/dL (1.80-2.40); POTASSIUM 3.5 mmol/L (3.5-5.1)
[2019-07-03] MEDS: CEFTRIAXONE SODIUM 1 GM IVP SCH (12:52)
[2019-07-03] MEDS: MAGNESIUM 2GM PREMIX 50ML 50 ML IV PRN (14:33)
[2019-07-03] MEDS ORDERED: PHARMACY COMMUNICATION MISC SCH (16:15)
[2019-07-03] MEDS: FENOFIBRATE NANOCRYSTALLIZED 145 MG TAB PO SCH (17:02)
[2019-07-03] MEDS: INSULIN LISPRO 100 UNIT/ML 3ML SQ SCH ×2 (17:03→21:00)
[2019-07-03] MEDS ORDERED: INSULIN GLARGINE 100 UNITS/ML 10 ML VIAL SQ ONE ×2 (17:45→21:00)
[2019-07-03] MEDS ORDERED: SODIUM CHLORIDE 3% FOR INHALATION 4 ML/AMP VIAL.NEB IH ONE (20:39)
[2019-07-03] MEDS: ATORVASTATIN CALCIUM 40 MG TABLET PO SCH (21:24)
--- NOTE | 2019-07-03 22:27 | NUR ---
TRANSFER OF CARE Report and transfer of care given by 2nd floor nurse ALANIS Mary. Patient will be transferred from room 215 to room 304.
--- NOTE | 2019-07-03 22:28 | NUR ---
REPORT CALLED TO ALANIS CLARK FOR TRANSFER TO [facility].
--- NOTE | 2019-07-03 22:40 | NUR ---
ASSESSMENT Patient resting in bed, AA&O X3. No shortness of breath or distress. Patient in room air. Vital signs are stable and WNL. No chest pain but currently having sharp pain to abdomen, luq. On a pain scale of 0-10, patient states a 10. Patient has a 22 gauge to right hand, saline locked; no redness or swelling. Bed at its lowest and locked position. Call light within reach. Encourage patient to call for assistance. Will medicate patient with pain medication and continue to monitor patient.
[2019-07-04] MEDS: CEFTRIAXONE SODIUM 1 GM IVP SCH ×2 (00:41→13:17)
[2019-07-04] MEDS: AZITHROMYCIN 500MG+NS 250ML 250 ML IV SCH (00:41)
[2019-07-04] MEDS ORDERED: SODIUM CHLORIDE 3% FOR INHALATION 4 ML/AMP VIAL.NEB IH ONE ×2 (02:23→06:01)
[2019-07-04 03:39] VITALS: BP 91/62
[2019-07-04 05:56] LABS: EOSINOPHILS % (AUTO) 1.4 % (0.0-8.0); HEMATOCRIT 32.9 % (36-48); LYMPHOCYTES % (AUTO) 29.5 % (21.0-51.0); MEAN CORPUSCULAR HGB CONC 32.7 g/dL (32.0-36.0); MEAN CORPUSCULAR VOLUME 79.6 fL (79-99); NEUTROPHILS % (AUTO) 61.1 % (40.0-77.0); PLATELET COUNT (AUTO) 483 K/uL (130-400); RED BLOOD CELL COUNT(AUTO) 4.14 MIL/uL (4.00-5.50); RED CELL DISTRIBUTION WIDTH 17.6 % (11.0-15.5); WHITE BLOOD COUNT (AUTO) 11.7 K/uL (4.8-10.8)
[2019-07-04 06:06] LABS: CREATININE 0.4 mg/dL (0.5-1.5); MAGNESIUM 1.7 mg/dL (1.80-2.40); PHOSPHORUS 3.3 mg/dL (2.5-4.9); POTASSIUM 3.8 mmol/L (3.5-5.1)
[2019-07-04 06:14] LABS: CRP QUANTITATIVE 200.1 mg/L (0.00-9.0)
[2019-07-04] MEDS: MORPHINE SULFATE 2 MG/ML 1ML SYG IVP PRN ×4 (06:35→20:26)
[2019-07-04] MEDS: INSULIN LISPRO 100 UNIT/ML 3ML SQ SCH ×4 (06:39→21:02)
[2019-07-04] MEDS: MAGNESIUM 2GM PREMIX 50ML 50 ML IV PRN (06:41)
[2019-07-04 07:23] LABS: ERYTHROCYTE SEDIMENTATION RATE 70 MM/HR (0-20)
[2019-07-04 08:02] VITALS: BP 109/69
[2019-07-04] MEDS: FAMOTIDINE/PF 20 MG/2 ML VIAL IV SCH ×2 (08:39→20:27)
[2019-07-04] MEDS: FENOFIBRATE NANOCRYSTALLIZED 145 MG TAB PO SCH (08:40)
[2019-07-04] MEDS ORDERED: MAGNESIUM SULFATE 1 GM in SODIUM CHLORIDE 0.9% 50 ML IV SCH (09:00)
[2019-07-04] MEDS: METOCLOPRAMIDE 10 MG TABLET PO SCH ×3 (10:56→20:27)
[2019-07-04 12:05] VITALS: BP 101/68
[2019-07-04 17:12] VITALS: BP 116/66
[2019-07-04 19:36] VITALS: BP 104/74
[2019-07-04] MEDS: ATORVASTATIN CALCIUM 40 MG TABLET PO SCH (20:27)
[2019-07-04] MEDS ORDERED: INSULIN GLARGINE 100 UNITS/ML 10 ML VIAL SQ SCH ×2 (21:00)
[2019-07-04] MEDS: INSULIN GLARGINE 100 UNITS/ML 10 ML VIAL SQ SCH (21:01)
[2019-07-05] VITALS: BP 116/76
[2019-07-05] MEDS: CEFTRIAXONE SODIUM 1 GM IVP SCH ×2 (00:06→13:04)
[2019-07-05] MEDS: MORPHINE SULFATE 2 MG/ML 1ML SYG IVP PRN ×5 (00:28→20:27)
[2019-07-05] MEDS: AZITHROMYCIN 500MG+NS 250ML 250 ML IV SCH (00:28)
[2019-07-05 05:39] LABS: CREATININE 0.4 mg/dL (0.5-1.5); MAGNESIUM 1.6 mg/dL (1.80-2.40); POTASSIUM 4.1 mmol/L (3.5-5.1)
[2019-07-05 05:50] LABS: BASOPHILS % (AUTO) 2.2 % (0.0-5.0); EOSINOPHILS % (AUTO) 1.4 % (0.0-8.0); HEMATOCRIT 36.2 % (36-48); LYMPHOCYTES % (AUTO) 42.5 % (21.0-51.0); MEAN CORPUSCULAR HEMOGLOBIN 25.8 pg (27.0-33.0); MEAN CORPUSCULAR HGB CONC 31.9 g/dL (32.0-36.0); MEAN CORPUSCULAR VOLUME 80.7 fL (79-99); MONOCYTES % (AUTO) 5.3 % (3.0-13.0); NEUTROPHILS % (AUTO) 48.6 % (40.0-77.0); NUCLEATED RED BLOOD CELLS 0.1 % (0.0-0.19); PLATELET COUNT (AUTO) 500 K/uL (130-400); RED BLOOD CELL COUNT(AUTO) 4.49 MIL/uL (4.00-5.50); RED CELL DISTRIBUTION WIDTH 18.1 % (11.0-15.5); WHITE BLOOD COUNT (AUTO) 10.2 K/uL (4.8-10.8)
[2019-07-05] MEDS: INSULIN LISPRO 100 UNIT/ML 3ML SQ SCH ×4 (06:41→20:41)
[2019-07-05] MEDS: METOCLOPRAMIDE 10 MG TABLET PO SCH ×4 (06:42→20:27)
[2019-07-05] MEDS: FENOFIBRATE NANOCRYSTALLIZED 145 MG TAB PO SCH (07:47)
[2019-07-05] MEDS: FAMOTIDINE/PF 20 MG/2 ML VIAL IV SCH ×2 (07:48→20:26)
[2019-07-05 08:00] VITALS: BP 104/70
[2019-07-05 10:58] VITALS: BP 124/80
[2019-07-05] MEDS ORDERED: MAGNESIUM 2GM PREMIX 50ML 50 ML IV PRN (14:00)
[2019-07-05 16:00] VITALS: BP 110/74
--- NOTE | 2019-07-05 19:06 | NUR ---
INITIAL CM NOTE MET W PATIENT- AAOX3, LIVE W SPOUSE, INDP, NO DME, DRIVES, PT FOLLOW WITH DR. VAUGHN AT HIS CLINIC AND FEELS SAFE TO DO SO. DCP HOME
[2019-07-05 19:20] VITALS: BP 117/75
[2019-07-05] MEDS: ONDANSETRON HCL 4 MG/2 ML VIAL IVP PRN (20:26)
[2019-07-05] MEDS: ATORVASTATIN CALCIUM 40 MG TABLET PO SCH (20:27)
[2019-07-05] MEDS: INSULIN GLARGINE 100 UNITS/ML 10 ML VIAL SQ SCH (20:40)
[2019-07-06] MEDS ORDERED: SODIUM CHLORIDE 0.9% 50 ML IV ONE (00:25)
[2019-07-06] MEDS: AZITHROMYCIN 500MG+NS 250ML 250 ML IV SCH (00:41)
[2019-07-06] MEDS: CEFTRIAXONE SODIUM 1 GM IVP SCH ×2 (00:41→13:26)
[2019-07-06] MEDS: MORPHINE SULFATE 2 MG/ML 1ML SYG IVP PRN ×5 (00:42→22:22)
[2019-07-06 04:00] VITALS: BP 107/72
[2019-07-06] MEDS: METOCLOPRAMIDE 10 MG TABLET PO SCH ×4 (06:03→21:17)
[2019-07-06] MEDS: INSULIN LISPRO 100 UNIT/ML 3ML SQ SCH ×4 (06:04→21:26)
[2019-07-06 07:10] LABS: BASOPHILS % (AUTO) 1.6 % (0.0-5.0); EOSINOPHILS % (AUTO) 2.1 % (0.0-8.0); HEMATOCRIT 35.6 % (36-48); LYMPHOCYTES % (AUTO) 49.5 % (21.0-51.0); MEAN CORPUSCULAR HEMOGLOBIN 25.9 pg (27.0-33.0); MEAN CORPUSCULAR HGB CONC 32.4 g/dL (32.0-36.0); MEAN CORPUSCULAR VOLUME 79.8 fL (79-99); MONOCYTES % (AUTO) 4.8 % (3.0-13.0); NUCLEATED RED BLOOD CELLS 0.1 % (0.0-0.19); PLATELET COUNT (AUTO) 630 K/uL (130-400); RED BLOOD CELL COUNT(AUTO) 4.47 MIL/uL (4.00-5.50); RED CELL DISTRIBUTION WIDTH 17.7 % (11.0-15.5); WHITE BLOOD COUNT (AUTO) 6.3 K/uL (4.8-10.8)
[2019-07-06 07:17] LABS: CREATININE 0.5 mg/dL (0.5-1.5); MAGNESIUM 1.4 mg/dL (1.80-2.40); POTASSIUM 3.6 mmol/L (3.5-5.1)
[2019-07-06 08:00] VITALS: BP 102/69
--- NOTE | 2019-07-06 11:00 | NUR ---
DR. HANNA Horn CONSULTS WAS NOTIFY OF CONSULATIONS . UPDATE PT DATA . WITH ORDERS TO BE CARRY .
[2019-07-06 11:48] VITALS: BP 110/72
[2019-07-06] MEDS ORDERED: BISACODYL 10 MG SUPP.RECT RC SCH (13:15)
[2019-07-06] MEDS: FAMOTIDINE/PF 20 MG/2 ML VIAL IV SCH ×2 (13:27→21:17)
[2019-07-06] MEDS: FENOFIBRATE NANOCRYSTALLIZED 145 MG TAB PO SCH (13:27)
[2019-07-06 15:43] VITALS: BP 112/74
--- NOTE | 2019-07-06 16:00 | NUR ---
PT UP AMBULATING. IN THE HALLWAY.ENCOURAGE .PTWAS GIVEN A SUPP . PERORDR AND STATED THAT SHEHAD RESULTS .
[2019-07-06 20:00] VITALS: BP 114/73
[2019-07-06] MEDS: ATORVASTATIN CALCIUM 40 MG TABLET PO SCH (21:17)
[2019-07-06] MEDS: INSULIN GLARGINE 100 UNITS/ML 10 ML VIAL SQ SCH (21:27)
[2019-07-07] VITALS: BP 107/70
[2019-07-07] MEDS: AZITHROMYCIN 500MG+NS 250ML 250 ML IV SCH (01:33)
[2019-07-07] MEDS: CEFTRIAXONE SODIUM 1 GM IVP SCH ×2 (01:33→12:29)
[2019-07-07] MEDS: MORPHINE SULFATE 2 MG/ML 1ML SYG IVP PRN ×4 (03:18→17:18)
[2019-07-07 04:00] VITALS: BP 109/73
[2019-07-07 05:40] LABS: CREATININE 0.5 mg/dL (0.5-1.5); MAGNESIUM 1.5 mg/dL (1.80-2.40); POTASSIUM 3.7 mmol/L (3.5-5.1)
[2019-07-07] MEDS: METOCLOPRAMIDE 10 MG TABLET PO SCH ×2 (06:47→12:29)
[2019-07-07] MEDS: INSULIN LISPRO 100 UNIT/ML 3ML SQ SCH ×2 (06:55→12:39)
[2019-07-07 08:00] VITALS: BP 104/71
[2019-07-07] MEDS: FENOFIBRATE NANOCRYSTALLIZED 145 MG TAB PO SCH (08:07)
[2019-07-07] MEDS: ONDANSETRON HCL 4 MG/2 ML VIAL IVP PRN (08:07)
[2019-07-07] MEDS: FAMOTIDINE/PF 20 MG/2 ML VIAL IV SCH (08:08)
--- NOTE | 2019-07-07 10:10 | NUR ---
Nutrition Intervention: Nutrition screen based on LOS x 5 days. Pt. asleep during RD visit. Pt. on 75gm CCD Heart Healthy diet with good p.o. intake, as noted in EMR. Labs reviewed(Alb 2.6, BG 246, HgbA1c 13.1%, Lipase 370). LBM: 07/04/19. SR-21, elastic. Recommendations: 1) Rec. 30ml ProMod BID with B'fast and dinner meals. 2) Rec. repeat Lipase lab. 3) Continue to monitor pt's nutritional status. 4) Consult RD as nutrition concerns arise. Addendum: 07/07/19 at [address] Amended: Links added.
[2019-07-07 11:41] VITALS: BP 101/63
[2019-07-07] MEDS ORDERED: HUM100IN SQ (15:24)
[2019-07-07] MEDS ORDERED: FENO145T PO (15:24)
[2019-07-07] MEDS ORDERED: ATOR40TA69 PO (15:24)
[2019-07-07] MEDS ORDERED: NITR100C PO (15:28)
[2019-07-07 16:00] VITALS: BP_SYST 100; BP_SYST 127; BP_DIAS 64; BP_DIAS 71
[2019-07-07] MEDS ORDERED: FLU VACC QS2019-20 36MOS UP/PF 60 MCG/0.5 ML ML IM ONE (18:45)
--- NOTE | 2019-07-07 19:45 | NUR ---
DISCHARGE-PATIENT AAOX3, NO ACUTE DISTRESS NOTED, DISCHARGE INSTRUCTIONS GIVEN PER DAY SHIFT NURSE. HER RIDE IS HERE, TRANSFERRED DOWNSTAIRS VIA W/C.
== END 2019-07-07 19:45 | disposition home or self-care (01) | DRG 637 ==
LOC: EDH 22:06 → EDHIP 22:07 → UNDOADMIN 07-03 01:42 → EDHIP 07-03 01:42 → 2CH 07-03 08:13 → 3AH 07-03 22:30
PROVIDERS: ADMIT Internal Medicine; ATTEND Internal Medicine
DX: E11.10 Type 2 diabetes mellitus with ketoacidosis without coma (principal); J18.9 Pneumonia, unspecified organism; K43.9 Ventral hernia without obstruction or gangrene; E78.5 Hyperlipidemia, unspecified; E83.42 Hypomagnesemia; E78.1 Pure hyperglyceridemia; E11.65 Type 2 diabetes mellitus with hyperglycemia; K29.50 Unspecified chronic gastritis without bleeding; Z23 Encounter for immunization; Z79.899 Other long term (current) drug therapy; Z90.81 Acquired absence of spleen; Z91.19 Patient's noncompliance with other medical treatment and regimen; Z90.49 Acquired absence of other specified parts of digestive tract
CPT/HCPCS: 36415; 36600; 71045; 74176; 80048; 80053; 80061; 81001; 81025; 82010; 82150; 82435; 82550; 82803; 82947; 82948; 83036; 83605; 83690; 83735; 83930; 84100; 84105; 84132; 84145; 84295; 84484; 85018; 85025; 85610; 85651; 85730; 86140; 87040; 87077; 87088; 87186; 93005; 94640; 99291; G0378; J0456; J0696; J1815; J1885; J2405; J3475; J3490; J7030; J7042; Q2035

== ENCOUNTER 2019-07-14 12:00 | Inpatient (IN) | payer OTHER ==
[~2019-07-14] VITALS: Ht 154.9 cm; Wt 62.2 kg
[~2019-07-14 12:00] MED LIST changes: +ATOR40TA69 PO; +FENO145T PO; +HUM100IN SQ; -METF850T PO; +NITR100C PO
[2019-07-14 13:01] LABS: APPEARANCE,URINE Clear (CLEAR); BILIRUBIN,URINE Negative (NEGATIVE); COLOR,URINE Yellow (YELLOW); GLUCOSE, URINE (UA) >=1000 mg/dL (NEGATIVE); KETONES,URINE >=160 mg/dL (NEGATIVE); LEUKOCYTE ESTERASE ,URINE Negative (NEGATIVE); NITRATE,URINE Negative (NEGATIVE); OCCULT BLOOD,URINE Large (NEGATIVE); PROTEIN,URINE 300 mg/dL (NEGATIVE); UROBILINOGEN,URINE 0.2 mg/dL (0.2-1.0)
[2019-07-14] MEDS ORDERED: SODIUM CHLORIDE 0.9% 1000ML 1,000 ML IV ONE ×3 (13:07→18:34)
[2019-07-14] MEDS ORDERED: ONDANSETRON HCL 4 MG/2 ML VIAL ONE ×2 (13:08→15:18)
[2019-07-14] MEDS ORDERED: KETOROLAC TROMETHAMINE 30MG/ML ONE (13:09)
[2019-07-14 14:04] LABS: BACTERIA,URINE Few /HPF (None Seen)
[2019-07-14 14:35] LABS: BASOPHILS % (AUTO) 0.4 % (0.0-5.0); EOSINOPHILS % (AUTO) 0.4 % (0.0-8.0); HEMATOCRIT 43.1 % (36-48); LYMPHOCYTES % (AUTO) 7.8 % (21.0-51.0); MEAN CORPUSCULAR HEMOGLOBIN 26.9 pg (27.0-33.0); MEAN CORPUSCULAR HGB CONC 32.9 g/dL (32.0-36.0); MEAN CORPUSCULAR VOLUME 81.7 fL (79-99); MONOCYTES % (AUTO) 2.6 % (3.0-13.0); NEUTROPHILS % (AUTO) 88.8 % (40.0-77.0); NUCLEATED RED BLOOD CELLS 0.1 % (0.0-0.19); RED BLOOD CELL COUNT(AUTO) 5.27 MIL/uL (4.00-5.50); RED CELL DISTRIBUTION WIDTH 18.1 % (11.0-15.5)
[2019-07-14 14:37] LABS: PLATELET COUNT (AUTO) 814 K/uL (130-400); WHITE BLOOD COUNT (AUTO) 34.2 K/uL (4.8-10.8)
[2019-07-14] MEDS ORDERED: ZOSYN 3.375GM+NS 50ML 50 ML IV ONE (14:47)
[2019-07-14 15:00] LABS: ABG BASE EXCESS -14.3 mmol/L (-2.0-3.0); ABG HCO3 11.2 mmol/L (21.0-28.0); ABG PCO2 26 mmHg (32-45)
[2019-07-14 15:05] LABS: CREATINE KINASE, TOTAL 257 U/L (21-232); LIPASE 270 U/L (114-286)
[2019-07-14] MEDS ORDERED: SODIUM CHLORIDE 0.9% 100 ML IV ONE (15:16)
[2019-07-14] MEDS ORDERED: INSULIN HUMULIN R 100 UNIT/ML 3ML ONE (15:16)
[2019-07-14] MEDS ORDERED: MORPHINE SULFATE 4 MG/1ML SYG ONE (15:18)
[2019-07-14 15:34] LABS: LYMPHOCYTES % (MANUAL) 10 % (22-44); MAN.DIFF COMMENT-IMPRESSION MANUAL DIFFERENTIAL; SEGMENTED NEUTROPHILS % 90 % (40-70)
[2019-07-14 15:35] LABS: PLATELET MORPHOLOGY COMMENT INCREASED
[2019-07-14 15:37] LABS: ALBUMIN 3.6 g/dL (3.5-5.0); BILIRUBIN,DIRECT < 0.1 mg/dL (0.0-0.3); BILIRUBIN,TOTAL 0.8 mg/dL (0.2-1.0); CARBON DIOXIDE 14 mmol/L (21-32); CHLORIDE 92 mmol/L (101-111); POTASSIUM 4.6 mmol/L (3.5-5.1); SODIUM SERUM 129 mmol/L (136-145); TOTAL PROTEIN, SERUM 9.1 g/dL (6.0-8.3); UREA NITROGEN, BLOOD 16 mg/dL (7-18)
[2019-07-14 15:44] LABS: GLUCOSE,RANDOM 535 mg/dL (70-105)
[2019-07-14 15:58] LABS: GLOMERULAR FILTR. RATE CALC 145 mL/min (>60)
[2019-07-14 16:30] LABS: ASPARTATE AMINOTRANSFERASE 38 U/L (10-37)
[2019-07-14 16:32] LABS: ALANINE AMINOTRANSFERASE 38 U/L (12-78)
[2019-07-14 16:35] LABS: CREATININE 0.5 mg/dL (0.5-1.5)
[2019-07-14 18:16] LABS: ABG BASE EXCESS -8.6 mmol/L (-2.0-3.0); ABG HCO3 16.8 mmol/L (21.0-28.0); ABG OXYGEN SATURATION 96.2 % (95.0-99.0); ABG PCO2 34 mmHg (32-45)
[2019-07-14 19:21] LABS: CREATININE 0.6 mg/dL (0.5-1.5)
[2019-07-14] MEDS ORDERED: MAGNESIUM 2GM PREMIX 50ML 50 ML IV ONE (22:09)
[2019-07-14] MEDS ORDERED: HYDROMORPHONE 1 MG/1 ML AMP ONE (23:35)
[2019-07-14 23:39] LABS: BASOPHILS % (AUTO) 0.6 % (0.0-5.0); EOSINOPHILS % (AUTO) 0.3 % (0.0-8.0); HEMATOCRIT 34.9 % (36-48); LYMPHOCYTES % (AUTO) 13.1 % (21.0-51.0); MEAN CORPUSCULAR HEMOGLOBIN 26.5 pg (27.0-33.0); MEAN CORPUSCULAR HGB CONC 33.3 g/dL (32.0-36.0); MEAN CORPUSCULAR VOLUME 79.6 fL (79-99); MONOCYTES % (AUTO) 3.8 % (3.0-13.0); NEUTROPHILS % (AUTO) 82.2 % (40.0-77.0); NUCLEATED RED BLOOD CELLS 0.1 % (0.0-0.19); PLATELET COUNT (AUTO) 698 K/uL (130-400); RED BLOOD CELL COUNT(AUTO) 4.39 MIL/uL (4.00-5.50); RED CELL DISTRIBUTION WIDTH 17.8 % (11.0-15.5); WHITE BLOOD COUNT (AUTO) 24.4 K/uL (4.8-10.8)
[2019-07-14 23:46] LABS: CREATININE 0.5 mg/dL (0.5-1.5); POTASSIUM 4.3 mmol/L (3.5-5.1)
[2019-07-15] VITALS (7 sets, daily range): BP systolic 115–129; BP diastolic 66–70
[2019-07-15] MEDS ORDERED: SODIUM CHLORIDE 0.9% 1000ML 1,000 ML IV ONE (01:11)
[2019-07-15 04:18] LABS: BASOPHILS % (AUTO) 1.1 % (0.0-5.0); EOSINOPHILS % (AUTO) 0.4 % (0.0-8.0); HEMATOCRIT 32.7 % (36-48); LYMPHOCYTES % (AUTO) 14.8 % (21.0-51.0); MEAN CORPUSCULAR HEMOGLOBIN 26.1 pg (27.0-33.0); MEAN CORPUSCULAR HGB CONC 32.9 g/dL (32.0-36.0); MEAN CORPUSCULAR VOLUME 79.3 fL (79-99); MONOCYTES % (AUTO) 3.5 % (3.0-13.0); NEUTROPHILS % (AUTO) 80.2 % (40.0-77.0); NUCLEATED RED BLOOD CELLS 0.2 % (0.0-0.19); PLATELET COUNT (AUTO) 673 K/uL (130-400); RED BLOOD CELL COUNT(AUTO) 4.13 MIL/uL (4.00-5.50); WHITE BLOOD COUNT (AUTO) 22.1 K/uL (4.8-10.8)
[2019-07-15 04:28] LABS: CREATININE 0.5 mg/dL (0.5-1.5); POTASSIUM 4.7 mmol/L (3.5-5.1)
[2019-07-15 04:33] LABS: ALBUMIN 2.5 g/dL (3.5-5.0); BILIRUBIN,TOTAL 0.5 mg/dL (0.2-1.0); TOTAL PROTEIN, SERUM 7.4 g/dL (6.0-8.3)
[2019-07-15] MEDS ORDERED: ZOSYN 3.375GM+NS 50ML 50 ML IV ONE (07:06)
[2019-07-15] MEDS ORDERED: HYDROMORPHONE 1 MG/1 ML AMP ONE ×4 (08:08→21:51)
[2019-07-15] MEDS ORDERED: MAGNESIUM 2GM PREMIX 50ML 50 ML IV PRN (08:15)
[2019-07-15] MEDS: SODIUM CHLORIDE 0.9% 1000ML 1,000 ML IV SCH ×3 (08:15→21:07)
[2019-07-15] MEDS ORDERED: LIDOCAINE HCL-MPF 1% 2ML VIAL IV PRN (08:15)
[2019-07-15] MEDS ORDERED: POTASSIUM CHLORIDE 10MEQ/100ML 100 ML IV PRN (08:15)
[2019-07-15] MEDS ORDERED: DEXTROSE 50%-WATER 50 ML DISP.SYRIN IV PRN (08:15)
[2019-07-15] MEDS ORDERED: GLUCAGON 1MG KIT 1 MG ML IM PRN (08:15)
[2019-07-15] MEDS: ENOXAPARIN SODIUM 30 MG/0.3 ML SQ SCH ×2 (09:00→23:50)
[2019-07-15] MEDS: FAMOTIDINE/PF 20 MG/2 ML VIAL IV SCH ×2 (09:00→22:36)
[2019-07-15] MEDS ORDERED: FAMOTIDINE/PF 20 MG/2 ML VIAL IV SCH (09:00)
[2019-07-15 09:50] LABS: CREATININE 0.5 mg/dL (0.5-1.5); POTASSIUM 3.6 mmol/L (3.5-5.1)
[2019-07-15] MEDS ORDERED: DEXTROSE 5%-LACTATED RINGERS 1,000 ML IV ONE (10:10)
[2019-07-15] MEDS ORDERED: METRONIDAZOLE 500MG/100ML BAG 100 ML ONE (12:12)
[2019-07-15] MEDS: ZOSYN 3.375GM+NS 50ML 50 ML IV SCH ×2 (13:00→22:50)
[2019-07-15] MEDS: METRONIDAZOLE 500MG/100ML BAG 100 ML IV SCH ×2 (14:00→23:57)
[2019-07-15 14:39] LABS: CREATININE 0.4 mg/dL (0.5-1.5); POTASSIUM 3.2 mmol/L (3.5-5.1)
[2019-07-15 15:09] LABS: CHOLESTEROL 235 mg/dL (<200); LDL DIRECT 77 mg/dL (0-99); TRIGLYCERIDES 639 mg/dL (30-200)
[2019-07-15 15:21] LABS: HDL CHOLESTEROL 35 mg/dL (35-85)
[2019-07-15] MEDS: METOCLOPRAMIDE 5 MG TABLET PO SCH (17:00)
[2019-07-15] MEDS ORDERED: POTASSIUM CHLORIDE 20MEQ/100ML 100 ML IV ONE (17:08)
[2019-07-15] MEDS: ATORVASTATIN CALCIUM 40 MG TABLET PO SCH (21:00)
[2019-07-15] MEDS ORDERED: INSULIN IV SS1 SQ PRN ×2 (21:15)
[2019-07-15] MEDS ORDERED: DEXTROSE 5 %-0.45 % NACL 1,000 ML IV ONE (21:33)
[2019-07-15] MEDS ORDERED: HYDROMORPHONE 1 MG/1 ML AMP IVP PRN (22:00)
[2019-07-15 22:09] LABS: HEMATOCRIT 33.5 % (36-48); MEAN CORPUSCULAR HEMOGLOBIN 26.2 pg (27.0-33.0); MEAN CORPUSCULAR HGB CONC 32.8 g/dL (32.0-36.0); MEAN CORPUSCULAR VOLUME 79.7 fL (79-99); PLATELET COUNT (AUTO) 624 K/uL (130-400); RED CELL DISTRIBUTION WIDTH 18.6 % (11.0-15.5); WHITE BLOOD COUNT (AUTO) 16.5 K/uL (4.8-10.8)
[2019-07-15 22:11] LABS: CREATININE 0.4 mg/dL (0.5-1.5); POTASSIUM 3.3 mmol/L (3.5-5.1)
[2019-07-15] MEDS ORDERED: ONDANSETRON HCL 4 MG/2 ML VIAL IVP PRN (23:30)
[2019-07-15] MEDS ORDERED: HYDROMORPHONE HCL 2 MG/ML VIAL IVP PRN (23:30)
--- NOTE | 2019-07-15 23:30 | NUR ---
REPORT GIVEN TO ALANIS MADISON
--- NOTE | 2019-07-15 23:30 | NUR ---
STATUS REPORT RECEIVED FROM ALANIS AGUILAR. PATIENT AAOX3 SITTING UP IN BED BREATHING REGULAR AND UNLABORED. DENIES ACUTE PAIN. NO SIGNS OR SYMPTOMS OF DISTRESS. INSULIN AND D5W1/2 NS INFUSING TO EJ.
--- NOTE | 2019-07-15 23:37 | NUR ---
SCDS ATTEMPTED TO PLACE SCDS. PATIENT REFUSED
[2019-07-15] MEDS: POTASSIUM CHLORIDE 20MEQ/100ML 100 ML IV PRN (23:57)
[2019-07-15] MEDS: DEXTROSE 5 %-0.45 % NACL 1,000 ML IV PRN (23:59)
[2019-07-16] VITALS (31 sets, daily range): BP systolic 83–142; BP diastolic 47–74
[2019-07-16] MEDS: SODIUM CHLORIDE 0.9% 1000ML 1,000 ML IV SCH ×3 (00:06→07:07)
[2019-07-16 02:29] LABS: CREATININE 0.3 mg/dL (0.5-1.5); POTASSIUM 3.4 mmol/L (3.5-5.1)
[2019-07-16 02:51] LABS: EOSINOPHILS % (AUTO) 1.4 % (0.0-8.0); HEMATOCRIT 32.3 % (36-48); LYMPHOCYTES % (AUTO) 23.2 % (21.0-51.0); MEAN CORPUSCULAR HGB CONC 32.3 g/dL (32.0-36.0); MEAN CORPUSCULAR VOLUME 80.6 fL (79-99); MONOCYTES % (AUTO) 5.6 % (3.0-13.0); NEUTROPHILS % (AUTO) 68.8 % (40.0-77.0); NUCLEATED RED BLOOD CELLS 0.1 % (0.0-0.19); PLATELET COUNT (AUTO) 612 K/uL (130-400); RED CELL DISTRIBUTION WIDTH 18.2 % (11.0-15.5); WHITE BLOOD COUNT (AUTO) 14.3 K/uL (4.8-10.8)
[2019-07-16] MEDS ORDERED: HYDROMORPHONE 1 MG/1 ML AMP ONE (02:56)
[2019-07-16] MEDS: POTASSIUM CHLORIDE 20MEQ/100ML 100 ML IV PRN ×2 (03:02→06:09)
[2019-07-16] MEDS: DEXTROSE 5 %-0.45 % NACL 1,000 ML IV PRN (04:25)
[2019-07-16] MEDS: ZOSYN 3.375GM+NS 50ML 50 ML IV SCH ×3 (06:09→20:54)
[2019-07-16] MEDS: METRONIDAZOLE 500MG/100ML BAG 100 ML IV SCH ×2 (07:09→15:39)
[2019-07-16] MEDS: METOCLOPRAMIDE 5 MG TABLET PO SCH ×3 (07:10→17:00)
[2019-07-16 07:21] LABS: CREATININE 0.4 mg/dL (0.5-1.5); POTASSIUM 3.8 mmol/L (3.5-5.1)
[2019-07-16] MEDS: ENOXAPARIN SODIUM 30 MG/0.3 ML SQ SCH ×2 (08:00→20:54)
[2019-07-16] MEDS: FENOFIBRATE NANOCRYSTALLIZED 145 MG TAB PO SCH (08:01)
[2019-07-16] MEDS: ASPIRIN 81 MG EC TAB PO SCH (08:03)
[2019-07-16] MEDS: FAMOTIDINE/PF 20 MG/2 ML VIAL IV SCH ×2 (08:04→20:54)
[2019-07-16 08:07] LABS: MEAN CORPUSCULAR HEMOGLOBIN 26.3 pg (27.0-33.0); MEAN CORPUSCULAR HGB CONC 32.8 g/dL (32.0-36.0); MEAN CORPUSCULAR VOLUME 80.1 fL (79-99); NUCLEATED RED BLOOD CELLS 0.1 % (0.0-0.19); PLATELET COUNT (AUTO) 595 K/uL (130-400); RED BLOOD CELL COUNT(AUTO) 4.11 MIL/uL (4.00-5.50); RED CELL DISTRIBUTION WIDTH 18.6 % (11.0-15.5); WHITE BLOOD COUNT (AUTO) 12.1 K/uL (4.8-10.8)
[2019-07-16 10:50] LABS: CREATININE 0.4 mg/dL (0.5-1.5); POTASSIUM 3.8 mmol/L (3.5-5.1)
[2019-07-16 10:54] LABS: MEAN CORPUSCULAR HEMOGLOBIN 26.9 pg (27.0-33.0); MEAN CORPUSCULAR HGB CONC 33.4 g/dL (32.0-36.0); MEAN CORPUSCULAR VOLUME 80.4 fL (79-99); NUCLEATED RED BLOOD CELLS 0.1 % (0.0-0.19); PLATELET COUNT (AUTO) 599 K/uL (130-400); RED BLOOD CELL COUNT(AUTO) 3.97 MIL/uL (4.00-5.50); RED CELL DISTRIBUTION WIDTH 18.7 % (11.0-15.5); WHITE BLOOD COUNT (AUTO) 11.7 K/uL (4.8-10.8)
--- NOTE | 2019-07-16 12:54 | NUR ---
RD NOTIFICATION DIET: NPO. PT NOT RESPONDING TO RD QUESTIONS AT TIME OF VISIT. RD WILL FOLLOW UP WITH PT TO PROVIDED DIET AND NUTRITION EDUCATION. PT SEEMS TO BE IN PAIN/ POSSIBLY VERY UNCOMFORTABLE AT THIS TIME. RD RECOMMENDS ADVANCE DIET TOLERATED TO CLEAR LIQUIDS, OFFER ENSURE CLEAR TID RD PENDING MEDICAL NUTRITION THERAPY/ EDUCATION RD WILL CONTINUE TO FOLLOW UP, THANK YOU. Addendum: 07/16/19 at [address] RD Amended: Links added.
[2019-07-16] MEDS ORDERED: DEXTROSE 5 %-0.45 % NACL 1,000 ML IV ONE (13:25)
[2019-07-16 14:51] LABS: HEMATOCRIT 32.4 % (36-48); MEAN CORPUSCULAR HEMOGLOBIN 26.7 pg (27.0-33.0); MEAN CORPUSCULAR HGB CONC 33.1 g/dL (32.0-36.0); MEAN CORPUSCULAR VOLUME 80.7 fL (79-99); NUCLEATED RED BLOOD CELLS 0.1 % (0.0-0.19); PLATELET COUNT (AUTO) 574 K/uL (130-400); RED BLOOD CELL COUNT(AUTO) 4.01 MIL/uL (4.00-5.50); RED CELL DISTRIBUTION WIDTH 18.3 % (11.0-15.5); WHITE BLOOD COUNT (AUTO) 10.8 K/uL (4.8-10.8)
[2019-07-16 15:31] LABS: CREATININE 0.4 mg/dL (0.5-1.5); POTASSIUM 3.6 mmol/L (3.5-5.1)
[2019-07-16] MEDS ORDERED: INSULIN HUMULIN R 100 UNIT/ML 3ML SQ SCH (16:30)
--- NOTE | 2019-07-16 17:02 | NUR ---
INITIAL: Met with pt and family friend (Peter). Per pt she lives w her mom. Prior to admission she was independent w ambulation and ADLs. Pt states that she was able to self inject her insulin prior to admission. Family friend states that he helps them w transportation where needed. Per pt she obtains her medications @ [facility]. Peter states that he tries to assist them as needed ad pt does not work or have money. Per pt she feels safe and comfortable to return home at vt. CM to continue to follow and wait for Md recommendations. Addendum: 07/16/19 at 1708 by NAINA ALLAN Amended: Links added.
[2019-07-16] MEDS: INSULIN NPH 100 UNIT/ML 3ML SQ SCH (18:33)
[2019-07-16] MEDS: DEXTROSE 5 %-0.45 % NACL 1,000 ML IV SCH (20:29)
--- NOTE | 2019-07-16 20:30 | NUR ---
TRANSFERRED TO ROOM 413 VIA WHEELCHAIR. TELEPACK PLACED. TRANSFERRED IN STABLE CONDITION WITH ALL BELONGINGS. REPORT GIVEN TO ALANIS ROJO.
[2019-07-16] MEDS: ATORVASTATIN CALCIUM 40 MG TABLET PO SCH (20:54)
--- NOTE | 2019-07-16 20:55 | NUR ---
TRANSFER PT RECEIVED FROM ROOM 219 VIA WHEELCHAIR. PT AWAKE, ALERT AND RESPONSIVE. NO C/O OF PAIN OR DISCOMFORT AT THIS TIME. PT ORIENTED TO ROOM, CALL KO WITHIN REACH, BED IN LOWEST POSITION.
[2019-07-17] MEDS: METRONIDAZOLE 500MG/100ML BAG 100 ML IV SCH ×3 (00:17→16:19)
[2019-07-17 00:20] VITALS: BP 101/58
[2019-07-17] MEDS: HYDROMORPHONE HCL 0.5 MG/0.5 ML ML IVP PRN ×3 (00:28→09:19)
[2019-07-17] MEDS: DEXTROSE 5 %-0.45 % NACL 1,000 ML IV SCH ×3 (03:01→16:00)
[2019-07-17 04:08] LABS: ABG BASE EXCESS -1.4 mmol/L (-2.0-3.0); ABG HCO3 22.9 mmol/L (21.0-28.0); ABG OXYGEN SATURATION 94.9 % (95.0-99.0); ABG PCO2 37 mmHg (32-45)
[2019-07-17 04:21] VITALS: BP 110/72
[2019-07-17] MEDS: ZOSYN 3.375GM+NS 50ML 50 ML IV SCH ×2 (04:52→16:19)
[2019-07-17 05:00] LABS: HEMATOCRIT 31.2 % (36-48); MEAN CORPUSCULAR HEMOGLOBIN 25.7 pg (27.0-33.0); MEAN CORPUSCULAR HGB CONC 32.6 g/dL (32.0-36.0); MEAN CORPUSCULAR VOLUME 78.9 fL (79-99); NUCLEATED RED BLOOD CELLS 0.1 % (0.0-0.19); PLATELET COUNT (AUTO) 652 K/uL (130-400); RED BLOOD CELL COUNT(AUTO) 3.95 MIL/uL (4.00-5.50); RED CELL DISTRIBUTION WIDTH 18.5 % (11.0-15.5); WHITE BLOOD COUNT (AUTO) 7.2 K/uL (4.8-10.8)
[2019-07-17 05:15] LABS: ALBUMIN 2.4 g/dL (3.5-5.0); BILIRUBIN,TOTAL 0.3 mg/dL (0.2-1.0); CREATININE 0.4 mg/dL (0.5-1.5); MAGNESIUM 1.5 mg/dL (1.80-2.40); PHOSPHORUS 3.1 mg/dL (2.5-4.9); POTASSIUM 3.3 mmol/L (3.5-5.1); TOTAL PROTEIN, SERUM 6.9 g/dL (6.0-8.3)
[2019-07-17] MEDS: INSULIN HUMULIN R 100 UNIT/ML 3ML SQ SCH ×4 (06:00→17:24)
[2019-07-17] MEDS: METOCLOPRAMIDE 5 MG TABLET PO SCH ×3 (06:18→17:22)
[2019-07-17] MEDS: INSULIN NPH 100 UNIT/ML 3ML SQ SCH ×2 (07:13→17:25)
--- NOTE | 2019-07-17 07:30 | NUR ---
NOTE AAOX3. STABLE. NO C/O PAIN. SHE REMAINS NPO. SHE IS GOING FOR I.R. PROCEDURE FOR POSSIBLE DRAINAGE OF SPLEENIC REGION ABSCESS? BOWEL SOUNDS ACTIVE. NO N/V. NO CHEST PAIN. CAME IN INITIALLY FOR DKA N/V AND ABDOMINAL PAIN. CT SHOWED POSSIBLE ABSCESS, REFER TO IMAGING. WAS A TRANSFER FROM ICU LAST NIGHT.
[2019-07-17 07:33] VITALS: BP 110/73
[2019-07-17] MEDS: FENOFIBRATE NANOCRYSTALLIZED 145 MG TAB PO SCH (09:00)
[2019-07-17] MEDS: ENOXAPARIN SODIUM 30 MG/0.3 ML SQ SCH (09:00)
[2019-07-17] MEDS: ASPIRIN 81 MG EC TAB PO SCH (09:00)
[2019-07-17] MEDS: FAMOTIDINE/PF 20 MG/2 ML VIAL IV SCH (09:18)
--- NOTE | 2019-07-17 10:30 | NUR ---
CT GUIDED DRAINAGE OF SPLENIC ABSCESS ORDERED. NOT DONE DR. MURRAY REVIEWED IMAGES AND NOTED SPLENIC ABSCESS TOO SMALL TO DRAIN AND HIGH RISK OF LUNG PUNCTURE. CALLED ALANIS MARSHALL INFORMED HIM OF DR. MURRAY'S ORDERS.
[2019-07-17 11:24] VITALS: BP 107/67
[2019-07-17] MEDS ORDERED: TRAM50TA4 PO (12:38)
[2019-07-17] MEDS ORDERED: MAGNESIUM SULFATE 1 GM in SODIUM CHLORIDE 0.9% 50 ML IV PRN (12:45)
[2019-07-17] MEDS ORDERED: TRAMADOL HCL 50 MG TABLET PO PRN (12:45)
[2019-07-17] MEDS ORDERED: POTASSIUM CHLORIDE 20 MEQ ERTAB PO SCH (14:30)
[2019-07-17] MEDS ORDERED: POTASSIUM CHLORIDE 20 MEQ ERTAB PO ONE (15:47)
[2019-07-17 16:00] VITALS: BP 102/75
--- NOTE | 2019-07-17 18:46 | NUR ---
NOTE DISCHARGE INSTRUCTIONS GIVEN AT THIS TIME. VERBALIZED UNDERSTANDING. REFER TO DC SUMMARY FOR DETAILS.
== END 2019-07-17 19:03 | disposition home or self-care (01) | DRG 871 ==
LOC: EDH 12:00 → EDHIP 12:01 → 2CH 07-15 20:03 → 4CH 07-16 20:40
PROVIDERS: ADMIT Internal Medicine; ATTEND Internal Medicine
DX: A41.9 Sepsis, unspecified organism (principal); E11.10 Type 2 diabetes mellitus with ketoacidosis without coma; K85.80 Other acute pancreatitis without necrosis or infection; E43 Unspecified severe protein-calorie malnutrition; L02.91 Cutaneous abscess, unspecified; E78.1 Pure hyperglyceridemia; E78.5 Hyperlipidemia, unspecified; E86.1 Hypovolemia; I10 Essential (primary) hypertension; E11.65 Type 2 diabetes mellitus with hyperglycemia; D73.3 Abscess of spleen; Z91.19 Patient's noncompliance with other medical treatment and regimen; Z90.49 Acquired absence of other specified parts of digestive tract; Z68.25 Body mass index [BMI] 25.0-25.9, adult
CPT/HCPCS: 36415; 36600; 71045; 74176; 80048; 80053; 80061; 80076; 81001; 82435; 82550; 82803; 82947; 82948; 83605; 83690; 83735; 84100; 84132; 84295; 84478; 85018; 85025; 85027; 87040; 93005; 99291; G0378; J1170; J1650; J1815; J1885; J2270; J2405; J2543; J3475; J3480; J3490; J7030; J7042

== ENCOUNTER 2019-08-20 16:41 | Emergency (ER) | payer OTHER ==
[~2019-08-20 16:41] MED LIST changes: +TRAM50TA4 PO
[2019-08-20] MEDS ORDERED: DICYCLOMINE HCL 20 MG TAB ONE (16:59)
[2019-08-20] MEDS ORDERED: ONDANSETRON ODT 4 MG TAB ONE (16:59)
[2019-08-20 17:55] LABS: BASOPHILS % (AUTO) 0.3 % (0.0-5.0); EOSINOPHILS % (AUTO) 0.2 % (0.0-8.0); HEMATOCRIT 41.5 % (36-48); LYMPHOCYTES % (AUTO) 12.8 % (21.0-51.0); MEAN CORPUSCULAR VOLUME 78.6 fL (79-99); MONOCYTES % (AUTO) 5.4 % (3.0-13.0); NEUTROPHILS % (AUTO) 80.6 % (40.0-77.0); PLATELET COUNT (AUTO) 509 K/uL (130-400); RED BLOOD CELL COUNT(AUTO) 5.28 MIL/uL (4.00-5.50); RED CELL DISTRIBUTION WIDTH 17.8 % (11.0-15.5); WHITE BLOOD COUNT (AUTO) 23.9 K/uL (4.8-10.8)
[2019-08-20 18:21] LABS: MEAN CORPUSCULAR HEMOGLOBIN 26.8 pg (27.0-33.0); MEAN CORPUSCULAR HGB CONC 33.5 g/dL (32.0-36.0)
[2019-08-20 18:42] LABS: APPEARANCE,URINE Clear (CLEAR); BILIRUBIN,URINE Negative (NEGATIVE); COLOR,URINE Yellow (YELLOW); GLUCOSE, URINE (UA) >=1000 mg/dL (NEGATIVE); KETONES,URINE >=80 mg/dL (NEGATIVE); LEUKOCYTE ESTERASE ,URINE Negative (NEGATIVE); NITRATE,URINE Negative (NEGATIVE); OCCULT BLOOD,URINE Moderate (NEGATIVE); PH,URINE 5.5 (5.0-8.0); PROTEIN,URINE POS 2+ mg/dL (NEGATIVE); UROBILINOGEN,URINE 0.2 mg/dL (0.2-1.0)
[2019-08-20] MEDS ORDERED: SODIUM CHLORIDE 0.9% 1000ML 1,000 ML IV ONE (18:53)
[2019-08-20 18:57] LABS: BACTERIA,URINE Few /HPF (None Seen); MUCUS,URINE Moderate LPF (None Seen); SQUAMOUS EPITHELIAL CELL,UR Few /HPF (0-2)
[2019-08-20] MEDS ORDERED: KETOROLAC TROMETHAMINE 30MG/ML ONE (19:01)
[2019-08-20] MEDS ORDERED: INSULIN HUMULIN R 100 UNIT/ML 3ML ONE (19:02)
[2019-08-20 19:28] LABS: ABG BASE EXCESS -8.3 mmol/L (-2.0-3.0); ABG HCO3 16.6 mmol/L (21.0-28.0); ABG OXYGEN SATURATION 95.8 % (95.0-99.0); ABG PCO2 33 mmHg (32-45)
[2019-08-20 19:48] LABS: BILIRUBIN,TOTAL 0.2 mg/dL (0.2-1.0); CREATININE 0.3 mg/dL (0.5-1.5); POTASSIUM 5.6 mmol/L (3.5-5.1)
[2019-08-20 19:49] LABS: ALBUMIN 3.4 g/dL (3.5-5.0); TOTAL PROTEIN, SERUM 5.3 g/dL (6.0-8.3)
[2019-08-20] MEDS ORDERED: MAG HYDROX/AL HYDROX/SIMETH ES 30 ML SUSP UDCUP ONE (22:35)
[2019-08-20] MEDS ORDERED: LIDOCAINE HCL 2% VISCOUS 15 ML UDCUP ONE (22:35)
== END 2019-08-20 23:20 | disposition home or self-care (01) ==
LOC: EDH 16:41
DX: E11.65 Type 2 diabetes mellitus with hyperglycemia (principal); E78.5 Hyperlipidemia, unspecified
CPT/HCPCS: 36415; 36600; 74176; 80053; 81001; 82803; 82948 ×2; 83690; 85025; 96361; 96374; 96375; 99285; J1815; J1885; J7030

== ENCOUNTER 2019-08-21 17:50 | Inpatient (IN) | payer OTHER ==
[~2019-08-21] VITALS: Ht 154.9 cm; Wt 63.4 kg
[2019-08-21 18:49] LABS: ABG BASE EXCESS -15.1 mmol/L (-2.0-3.0); ABG HCO3 10.8 mmol/L (21.0-28.0); ABG OXYGEN SATURATION 96.5 % (95.0-99.0); ABG PCO2 27 mmHg (32-45)
[2019-08-21] MEDS ORDERED: ONDANSETRON HCL 4 MG/2 ML VIAL ONE (18:58)
[2019-08-21] MEDS ORDERED: SODIUM CHLORIDE 0.9% 1000ML 2,000 ML IV ONE (18:58)
[2019-08-21] MEDS ORDERED: KETOROLAC TROMETHAMINE 30MG/ML ONE (18:58)
[2019-08-21 19:39] LABS: INR 1.06 (0.85-1.15); PROTHROMBIN TIME 11.1 SEC (9.6-11.6)
[2019-08-21 19:46] LABS: BASOPHILS % (AUTO) 0.3 % (0.0-5.0); LYMPHOCYTES % (AUTO) 4.2 % (21.0-51.0); MEAN CORPUSCULAR HEMOGLOBIN 26.5 pg (27.0-33.0); MEAN CORPUSCULAR HGB CONC 32.7 g/dL (32.0-36.0); MEAN CORPUSCULAR VOLUME 80.9 fL (79-99); NEUTROPHILS % (AUTO) 89.6 % (40.0-77.0); PLATELET COUNT (AUTO) 463 K/uL (130-400); RED BLOOD CELL COUNT(AUTO) 5.44 MIL/uL (4.00-5.50); RED CELL DISTRIBUTION WIDTH 19.2 % (11.0-15.5)
[2019-08-21 19:52] LABS: WHITE BLOOD COUNT (AUTO) 33.2 K/uL (4.8-10.8)
[2019-08-21 20:04] LABS: BAND NEUTROPHILS % (MANUAL) 3 % (0-2); LYMPHOCYTES % (MANUAL) 1 % (22-44); MONOCYTES % (MANUAL) 3 % (2-9); SEGMENTED NEUTROPHILS % 93 % (40-70)
[2019-08-21 20:05] LABS: MAN.DIFF COMMENT-IMPRESSION MANUAL DIFFERENTIAL; PLATELET MORPHOLOGY COMMENT ADEQUATE
[2019-08-21 20:10] LABS: ALBUMIN 3.4 g/dL (3.5-5.0); BILIRUBIN,TOTAL 0.7 mg/dL (0.2-1.0); POTASSIUM 5.2 mmol/L (3.5-5.1); TOTAL PROTEIN, SERUM 9.7 g/dL (6.0-8.3)
[2019-08-21] MEDS ORDERED: SODIUM CHLORIDE 0.9% 1000ML 1,000 ML IV SCH (20:38)
[2019-08-21] MEDS: SODIUM CHLORIDE 0.9% 1000ML 1,000 ML IV SCH (20:38)
[2019-08-21] MEDS ORDERED: DEXTROSE 5 %-0.45 % NACL 1,000 ML IV PRN (20:38)
[2019-08-21] MEDS ORDERED: LACTULOSE 20 GM/30 ML UDCUP PO PRN (20:45)
[2019-08-21] MEDS ORDERED: INSULIN REGULAR, HUMAN 3ML 100 UNIT in SODIUM CHLORIDE 0.9% 99 ML IV PRN ×2 (20:45)
[2019-08-21] MEDS: ZOSYN 3.375GM+NS 50ML 50 ML IV SCH (21:00)
[2019-08-21] MEDS: FAMOTIDINE/PF 20 MG/2 ML VIAL IV SCH (21:00)
[2019-08-21] MEDS ORDERED: MORPHINE SULFATE 2 MG/ML 1ML SYG ONE (21:27)
[2019-08-21 21:29] LABS: APPEARANCE,URINE Clear (CLEAR); BILIRUBIN,URINE Negative (NEGATIVE); COLOR,URINE Yellow (YELLOW); GLUCOSE, URINE (UA) >=1000 mg/dL (NEGATIVE); KETONES,URINE >=160 mg/dL (NEGATIVE); LEUKOCYTE ESTERASE ,URINE Negative (NEGATIVE); NITRATE,URINE Negative (NEGATIVE); OCCULT BLOOD,URINE Moderate (NEGATIVE); PROTEIN,URINE POS 2+ mg/dL (NEGATIVE); UROBILINOGEN,URINE 0.2 mg/dL (0.2-1.0)
[2019-08-21 21:32] LABS: HCG,QUAL RESULT NEGATIVE (NEGATIVE)
[2019-08-21 21:45] LABS: BACTERIA,URINE Few /HPF (None Seen); RBC,URINE 0-1 /HPF (0-1); SQUAMOUS EPITHELIAL CELL,UR 0-2 /HPF (0-2); WBC,URINE 0-1 /HPF (0-1)
[2019-08-21 21:46] LABS: AMPHET/METH SCREEN,URINE NEGATIVE (NEGATIVE); BARBITURATE SCREEN, URINE NEGATIVE (NEGATIVE); BENZODIAZEPINES SCREEN,URINE NEGATIVE (NEGATIVE); CANNABINOID SCREEN,URINE NEGATIVE (NEGATIVE); COCAINE SCREEN,URINE NEGATIVE (NEGATIVE); OPIATE SCREEN,URINE NEGATIVE (NEGATIVE); PHENCYCLIDINE SCREEN,URINE NEGATIVE (NEGATIVE)
[2019-08-21 21:58] LABS: CREATININE 0.6 mg/dL (0.5-1.5)
[2019-08-21 23:14] LABS: ABG BASE EXCESS -12.3 mmol/L (-2.0-3.0); ABG HCO3 12.7 mmol/L (21.0-28.0); ABG OXYGEN SATURATION 98.2 % (95.0-99.0); ABG PCO2 27 mmHg (32-45)
[2019-08-21] MEDS ORDERED: LIDOCAINE HCL-MPF 1% 2ML VIAL ONE (23:24)
[2019-08-21] MEDS ORDERED: ZOSYN 3.375GM+NS 50ML 50 ML IV ONE (23:58)
[2019-08-21] MEDS ORDERED: FAMOTIDINE/PF 20 MG/2 ML VIAL IV ONE (23:59)
[2019-08-21] MEDS ORDERED: SODIUM CHLORIDE 0.9% 1000ML 1,000 ML IV ONE (23:59)
[2019-08-22] MEDS: SODIUM CHLORIDE 0.9% 1000ML 1,000 ML IV SCH ×5 (01:38→21:38)
[2019-08-22] MEDS ORDERED: SODIUM CHLORIDE 0.9% 1000ML 1,000 ML IV ONE (03:43)
[2019-08-22] MEDS ORDERED: ZOSYN 3.375GM+NS 50ML 50 ML IV ONE ×3 (03:43→21:50)
[2019-08-22 04:58] LABS: BASOPHILS % (AUTO) 0.2 % (0.0-5.0); MEAN CORPUSCULAR VOLUME 81.8 fL (79-99); NEUTROPHILS % (AUTO) 85.9 % (40.0-77.0); PLATELET COUNT (AUTO) 447 K/uL (130-400); RED BLOOD CELL COUNT(AUTO) 4.89 MIL/uL (4.00-5.50)
[2019-08-22] MEDS: ZOSYN 3.375GM+NS 50ML 50 ML IV SCH ×3 (05:00→21:00)
[2019-08-22 05:01] LABS: CREATININE 0.7 mg/dL (0.5-1.5); POTASSIUM 4.5 mmol/L (3.5-5.1)
[2019-08-22 05:05] LABS: MEAN CORPUSCULAR HEMOGLOBIN 27.4 pg (27.0-33.0); MEAN CORPUSCULAR HGB CONC 33.5 g/dL (32.0-36.0)
[2019-08-22 05:06] LABS: BILIRUBIN,TOTAL 0.5 mg/dL (0.2-1.0); TOTAL PROTEIN, SERUM 8.4 g/dL (6.0-8.3)
[2019-08-22] MEDS ORDERED: SODIUM CHLORIDE 3% FOR INHALATION 4 ML/AMP VIAL.NEB IH ONE ×3 (05:06→18:15)
[2019-08-22] MEDS: ENOXAPARIN SODIUM 40 MG/0.4 ML SYRINGE SQ SCH (09:00)
[2019-08-22] MEDS: FAMOTIDINE/PF 20 MG/2 ML VIAL IV SCH ×2 (09:00→21:00)
--- NOTE | 2019-08-22 11:41 | NUR ---
PICC PICC line inserted to right upper arm using sterile technique, 5 faroese 2 lumen both lumen flushed without difficulty , good blood return on both ports. picc line secured with sterile dressing . picc line at 37 cm insertion site, no cm exposed, 26 cm arm circumference . pt tolerated well. line tip at at lower 1/3 of the svc or at caj . ok to use, report given to aMrivel Hanks RN
[2019-08-22] MEDS ORDERED: ENOXAPARIN SODIUM 40 MG/0.4 ML SYRINGE SQ ONE (11:53)
[2019-08-22] MEDS ORDERED: FAMOTIDINE/PF 20 MG/2 ML VIAL IV ONE ×2 (11:54→21:50)
[2019-08-22] MEDS ORDERED: LIDOCAINE 5% TOPICAL PATCH TP ONE (12:11)
[2019-08-22] MEDS ORDERED: ACETAMINOPHEN 325 MG TAB ONE (12:11)
[2019-08-22] MEDS ORDERED: MORPHINE SULFATE 2 MG/ML 1ML SYG ONE (20:57)
[2019-08-22] MEDS ORDERED: ONDANSETRON HCL 4 MG/2 ML VIAL ONE (20:57)
[2019-08-23] VITALS (25 sets, daily range): BP systolic 91–141; BP diastolic 33–84
[2019-08-23] MEDS: SODIUM CHLORIDE 0.9% 1000ML 1,000 ML IV SCH ×3 (02:38→12:38)
[2019-08-23] MEDS: MORPHINE SULFATE 2 MG/ML 1ML SYG IV PRN ×5 (03:28→21:42)
[2019-08-23] MEDS: ONDANSETRON HCL 4 MG/2 ML VIAL IV PRN (03:28)
[2019-08-23] MEDS: INSULIN GLARGINE 100 UNITS/ML 10 ML VIAL SQ SCH ×2 (03:30→21:33)
[2019-08-23 03:58] LABS: BASOPHILS % (AUTO) 0.2 % (0.0-5.0); EOSINOPHILS % (AUTO) 0.4 % (0.0-8.0); LYMPHOCYTES % (AUTO) 11.1 % (21.0-51.0); MEAN CORPUSCULAR HEMOGLOBIN 25.8 pg (27.0-33.0); MEAN CORPUSCULAR HGB CONC 32.2 g/dL (32.0-36.0); MEAN CORPUSCULAR VOLUME 80.2 fL (79-99); MONOCYTES % (AUTO) 7.3 % (3.0-13.0); NEUTROPHILS % (AUTO) 80.5 % (40.0-77.0); PLATELET COUNT (AUTO) 367 K/uL (130-400); RED BLOOD CELL COUNT(AUTO) 4.49 MIL/uL (4.00-5.50); RED CELL DISTRIBUTION WIDTH 19.3 % (11.0-15.5); WHITE BLOOD COUNT (AUTO) 22.3 K/uL (4.8-10.8)
[2019-08-23 04:26] LABS: ALBUMIN 2.9 g/dL (3.5-5.0); BILIRUBIN,TOTAL 0.5 mg/dL (0.2-1.0); CREATININE 0.6 mg/dL (0.5-1.5); POTASSIUM 3.2 mmol/L (3.5-5.1); TOTAL PROTEIN, SERUM 8.1 g/dL (6.0-8.3)
[2019-08-23] MEDS: ZOSYN 3.375GM+NS 50ML 50 ML IV SCH ×3 (04:56→21:22)
[2019-08-23] MEDS: POTASSIUM CHLORIDE 10MEQ/100ML 100 ML IV PRN ×2 (05:09→05:40)
[2019-08-23 07:42] LABS: ABG BASE EXCESS -10.1 mmol/L (-2.0-3.0); ABG HCO3 14.7 mmol/L (21.0-28.0); ABG OXYGEN SATURATION 96.1 % (95.0-99.0); ABG PCO2 30 mmHg (32-45)
[2019-08-23] MEDS: FAMOTIDINE/PF 20 MG/2 ML VIAL IV SCH ×2 (08:42→21:22)
[2019-08-23] MEDS: ENOXAPARIN SODIUM 40 MG/0.4 ML SYRINGE SQ SCH (08:43)
[2019-08-23] MEDS ORDERED: POTASSIUM CHLORIDE 10% ELIXIR 20 MEQ/15 ML UDCUP PO PRN (09:00)
[2019-08-23] MEDS ORDERED: LIDOCAINE HCL-MPF 1% 2ML VIAL IV PRN (09:00)
[2019-08-23] MEDS ORDERED: FLU VACC QS2019-20 36MOS UP/PF 60 MCG/0.5 ML ML IM SCH (09:00)
[2019-08-23] MEDS: LACTULOSE 20 GM/30 ML UDCUP PO SCH ×3 (09:00→21:22)
[2019-08-23] MEDS ORDERED: FLU VACC QS2019-20 36MOS UP/PF 60 MCG/0.5 ML ML IM ONE (09:00)
[2019-08-23 09:38] LABS: CREATININE 0.6 mg/dL (0.5-1.5); MAGNESIUM 1.6 mg/dL (1.80-2.40); PHOSPHORUS 1.1 mg/dL (2.5-4.9); POTASSIUM 3.2 mmol/L (3.5-5.1)
[2019-08-23] MEDS: DEXTROSE 5 % AND 0.9 % NACL 1,000 ML IV SCH ×3 (12:25→21:24)
[2019-08-23] MEDS: POTASSIUM CHLORIDE 20 MEQ ERTAB PO SCH ×2 (12:31→21:23)
[2019-08-23] MEDS: NEUTRA-PHOS PACKET 1 EACH PO SCH ×3 (12:39→21:23)
[2019-08-23] MEDS: MAGNESIUM 2GM PREMIX 50ML 50 ML IV SCH (12:41)
[2019-08-24] VITALS (13 sets, daily range): BP systolic 90–159; BP diastolic 52–72
[2019-08-24] MEDS: MORPHINE SULFATE 2 MG/ML 1ML SYG IV PRN ×3 (01:41→15:18)
[2019-08-24] MEDS: DEXTROSE 5 % AND 0.9 % NACL 1,000 ML IV SCH (03:54)
[2019-08-24 04:24] LABS: BASOPHILS % (AUTO) 0.1 % (0.0-5.0); EOSINOPHILS % (AUTO) 1.4 % (0.0-8.0); HEMATOCRIT 31.4 % (36-48); LYMPHOCYTES % (AUTO) 15.6 % (21.0-51.0); MEAN CORPUSCULAR HEMOGLOBIN 25.8 pg (27.0-33.0); MEAN CORPUSCULAR HGB CONC 32.5 g/dL (32.0-36.0); MEAN CORPUSCULAR VOLUME 79.3 fL (79-99); MONOCYTES % (AUTO) 10.8 % (3.0-13.0); NEUTROPHILS % (AUTO) 71.7 % (40.0-77.0); NUCLEATED RED BLOOD CELLS 0.5 % (0.0-0.19); PLATELET COUNT (AUTO) 306 K/uL (130-400); RED BLOOD CELL COUNT(AUTO) 3.96 MIL/uL (4.00-5.50); RED CELL DISTRIBUTION WIDTH 18.7 % (11.0-15.5); WHITE BLOOD COUNT (AUTO) 12.8 K/uL (4.8-10.8)
[2019-08-24 04:38] LABS: CREATININE 0.4 mg/dL (0.5-1.5); MAGNESIUM 1.8 mg/dL (1.80-2.40); PHOSPHORUS 1.4 mg/dL (2.5-4.9)
[2019-08-24 04:52] LABS: POTASSIUM 2.5 mmol/L (3.5-5.1)
[2019-08-24] MEDS: POTASSIUM CHLORIDE 20MEQ/100ML 100 ML IV PRN ×3 (04:58→17:50)
[2019-08-24] MEDS: ZOSYN 3.375GM+NS 50ML 50 ML IV SCH ×3 (04:58→21:02)
[2019-08-24] MEDS: MAGNESIUM 2GM PREMIX 50ML 50 ML IV SCH (05:31)
[2019-08-24 06:33] LABS: CHOLESTEROL 243 mg/dL (<200); HDL CHOLESTEROL 26 mg/dL (35-85); LDL DIRECT 111 mg/dL (0-99); TRIGLYCERIDES 446 mg/dL (30-200)
[2019-08-24] MEDS: POTASSIUM CHLORIDE 20 MEQ ERTAB PO PRN (08:40)
[2019-08-24] MEDS: NEUTRA-PHOS PACKET 1 EACH PO SCH ×4 (08:42→21:00)
[2019-08-24] MEDS: FAMOTIDINE/PF 20 MG/2 ML VIAL IV SCH (09:00)
[2019-08-24] MEDS: ONDANSETRON HCL 4 MG/2 ML VIAL IV PRN (09:00)
[2019-08-24] MEDS: LACTULOSE 20 GM/30 ML UDCUP PO SCH ×2 (09:02→21:00)
[2019-08-24] MEDS: ENOXAPARIN SODIUM 40 MG/0.4 ML SYRINGE SQ SCH (09:02)
--- NOTE | 2019-08-24 10:30 | NUR ---
note PATIENT TRANSFERRED FROM ICU TO ROOM 301. STABLE UPON ARRIVAL. DENIES PAIN OR DISCOMFORT AT THIS TIME. WAS MEDICATED FOR ABDOMINAL PAIN IN ICU PRIOR TO TRANSFER. WILL BE STARTED ON PO DIET. SHE HAD BEEN IVF AND INSULIN DRIP BUT IT WAS DISCONTINUED. BOWEL SOUNDS ACTIVE, NO N/V. CAME IN WITH DKA. FAMILY AT HER SIDE.
[2019-08-24] MEDS ORDERED: INSULIN HUMULIN R 100 UNIT/ML 3ML SQ SCH (11:30)
--- NOTE | 2019-08-24 11:34 | NUR ---
DC PLAN VISITED WITH PATIENT. PATIENT WAS SLEEPING. ADMITTED ON 07/14 TO 07/17. PATIENT LIVES WITH MOTHER. INDEPENDENT ABLE TO PERFORM ADL'S. PATIENT HAS NO SERVICES OR DME'S. FRIEND DRIVES HER AROUND. USES [facility] FOR MEDICATIONS. AWARE OF DIABETES TEACHING. Addendum: 08/24/19 at 1135 by MESERET LINDA RN CM Amended: Links added.
[2019-08-24] MEDS: INSULIN HUMULIN R 100 UNIT/ML 3ML SQ SCH ×3 (13:31→21:00)
--- NOTE | 2019-08-24 15:10 | NUR ---
NOTE WAS MEDICATED FOR PAIN AT THIS TIME. WAS CRYING C/O EXCRUCIATING PAIN AND SOON I FLUSHED MEDICATION INTO PICC LINE SHE ASKED IF THAT WAS THE MORPHINE AND IMMEDIATELY RELAXED CLOSED HER EYES AND STOPPED MOANING AND CRYING.
[2019-08-24] MEDS: GEMFIBROZIL 600 MG TABLET PO SCH (17:24)
[2019-08-24] MEDS: INSULIN HUMULIN 70/30 100 UNIT/ML 3ML SQ SCH (17:34)
[2019-08-24] MEDS: FAMOTIDINE 20MG TAB 20 MG TAB PO SCH (21:04)
[2019-08-24] MEDS: ACETAMINOPHEN 325 MG TAB PO PRN (21:04)
[2019-08-24] MEDS: ATORVASTATIN CALCIUM 40 MG TABLET PO SCH (21:04)
--- NOTE | 2019-08-25 00:30 | NUR ---
Pt. c/o pain unrelieved by tylenol; insisting that she be given IV morphine. Explained that morphine had been dc'd earlier by MD and that nursing unable to give medicines without MD order. Paged AJ and discussed patient's complaint; no further pain orders rec'd. Offered pt. prn tylenol, warm packs, comfort measures to decrease pain which pt. refused, continuing to demand morphine. No further interventions available at this time. Will f/u with pt. to determine alternate methods for pain relief.
[2019-08-25 03:22] VITALS: BP 106/68
--- NOTE | 2019-08-25 04:02 | NUR ---
Pt. resting with eyes closed, no c/o pain. Addendum: 08/25/19 at 0402 by MAYCOL MADDEN RN RN Amended: Links added.
[2019-08-25] MEDS: ZOSYN 3.375GM+NS 50ML 50 ML IV SCH ×3 (04:58→20:36)
[2019-08-25] MEDS: GEMFIBROZIL 600 MG TABLET PO SCH ×2 (06:19→16:43)
[2019-08-25] MEDS: INSULIN HUMULIN R 100 UNIT/ML 3ML SQ SCH ×3 (06:24→16:50)
[2019-08-25] MEDS: INSULIN HUMULIN 70/30 100 UNIT/ML 3ML SQ SCH ×2 (06:24→16:50)
[2019-08-25 07:11] LABS: CREATININE 0.4 mg/dL (0.5-1.5); MAGNESIUM 1.9 mg/dL (1.80-2.40); PHOSPHORUS 2.7 mg/dL (2.5-4.9); POTASSIUM 3.1 mmol/L (3.5-5.1)
[2019-08-25 08:00] VITALS: BP 108/66
[2019-08-25] MEDS: LACTULOSE 20 GM/30 ML UDCUP PO SCH ×2 (09:00→20:37)
[2019-08-25] MEDS: NEUTRA-PHOS PACKET 1 EACH PO SCH (09:07)
[2019-08-25] MEDS: POTASSIUM CHLORIDE 20 MEQ ERTAB PO PRN ×3 (09:07→16:43)
[2019-08-25] MEDS: MAGNESIUM 2GM PREMIX 50ML 50 ML IV SCH (09:07)
[2019-08-25] MEDS: FAMOTIDINE 20MG TAB 20 MG TAB PO SCH ×2 (09:07→20:36)
[2019-08-25] MEDS: ENOXAPARIN SODIUM 40 MG/0.4 ML SYRINGE SQ SCH (09:08)
[2019-08-25] MEDS: ACETAMINOPHEN 325 MG TAB PO PRN (09:24)
[2019-08-25 12:00] VITALS: BP 101/61
[2019-08-25] MEDS: MORPHINE SULFATE 2 MG/ML 1ML SYG IVP PRN (13:40)
[2019-08-25 15:55] VITALS: BP 116/89
[2019-08-25 19:20] VITALS: BP 122/83
[2019-08-25] MEDS: ATORVASTATIN CALCIUM 40 MG TABLET PO SCH (20:36)
[2019-08-25] MEDS: TRAMADOL HCL 50 MG TABLET PO PRN (20:38)
[2019-08-25 23:25] VITALS: BP 117/74
[2019-08-26] MEDS: MORPHINE SULFATE 2 MG/ML 1ML SYG IVP PRN ×2 (00:29→12:37)
[2019-08-26] MEDS: INSULIN HUMULIN R 100 UNIT/ML 3ML SQ SCH ×5 (00:31→21:03)
--- NOTE | 2019-08-26 02:45 | NUR ---
Pt ambulatory, refusing scd's.
[2019-08-26 03:23] VITALS: BP 101/67
[2019-08-26 04:55] LABS: BASOPHILS % (AUTO) 0.5 % (0.0-5.0); EOSINOPHILS % (AUTO) 2.4 % (0.0-8.0); HEMATOCRIT 34.5 % (36-48); LYMPHOCYTES % (AUTO) 41.6 % (21.0-51.0); MEAN CORPUSCULAR HEMOGLOBIN 25.6 pg (27.0-33.0); MEAN CORPUSCULAR HGB CONC 32.5 g/dL (32.0-36.0); MEAN CORPUSCULAR VOLUME 78.8 fL (79-99); MONOCYTES % (AUTO) 11.1 % (3.0-13.0); NEUTROPHILS % (AUTO) 43.3 % (40.0-77.0); PLATELET COUNT (AUTO) 350 K/uL (130-400); RED BLOOD CELL COUNT(AUTO) 4.38 MIL/uL (4.00-5.50); RED CELL DISTRIBUTION WIDTH 18.9 % (11.0-15.5); WHITE BLOOD COUNT (AUTO) 6.6 K/uL (4.8-10.8)
[2019-08-26] MEDS: ZOSYN 3.375GM+NS 50ML 50 ML IV SCH ×3 (04:56→20:56)
[2019-08-26 05:24] LABS: CREATININE 0.4 mg/dL (0.5-1.5)
[2019-08-26] MEDS: GEMFIBROZIL 600 MG TABLET PO SCH ×2 (05:51→17:05)
[2019-08-26] MEDS: INSULIN HUMULIN 70/30 100 UNIT/ML 3ML SQ SCH ×2 (05:54→17:09)
[2019-08-26 07:44] VITALS: BP 96/60
[2019-08-26] MEDS: TRAMADOL HCL 50 MG TABLET PO PRN ×2 (08:39→21:05)
[2019-08-26] MEDS: FAMOTIDINE 20MG TAB 20 MG TAB PO SCH ×2 (08:39→20:56)
[2019-08-26] MEDS: LACTULOSE 20 GM/30 ML UDCUP PO SCH ×2 (08:40→20:56)
[2019-08-26] MEDS: ENOXAPARIN SODIUM 40 MG/0.4 ML SYRINGE SQ SCH (08:40)
[2019-08-26 12:00] VITALS: BP 142/66
[2019-08-26 16:00] VITALS: BP 106/66
[2019-08-26 19:10] VITALS: BP 107/69
[2019-08-26] MEDS: ATORVASTATIN CALCIUM 40 MG TABLET PO SCH (20:56)
--- NOTE | 2019-08-26 20:56 | NUR ---
MEDS SHIFT ASSESSMENT DONE, PLEASE REFER TO CHART. DUE MEDS ADMINISTERED, TOLERATED WELL. KEPT RESTED AND COMFORTABLE. CALL LIGHT WITHIN REACH. WILL RE-ASSESS PT. Addendum: 08/26/19 at 2327 by KIRA ESPINOSA RN RN Amended: Links added.
[2019-08-26 23:14] VITALS: BP 126/84
[2019-08-27] MEDS: MORPHINE SULFATE 2 MG/ML 1ML SYG IVP PRN ×2 (00:35→12:31)
--- NOTE | 2019-08-27 02:00 | NUR ---
ROUNDS PT IS RESTING WELL, FAIRLY ASLEEP WITH RESPIRATIONS EVEN AND UNLABORED. NO NOTED DISTRESS. KEPT UNDISTURBED FOR NOW. WILL MONITOR PT. CALL LIGHT WITHIN REACH.
[2019-08-27 03:58] VITALS: BP 112/60
[2019-08-27] MEDS: ZOSYN 3.375GM+NS 50ML 50 ML IV SCH ×3 (04:27→20:09)
[2019-08-27 05:02] LABS: BASOPHILS % (AUTO) 0.5 % (0.0-5.0); EOSINOPHILS % (AUTO) 3.3 % (0.0-8.0); HEMATOCRIT 34.1 % (36-48); LYMPHOCYTES % (AUTO) 49.6 % (21.0-51.0); MEAN CORPUSCULAR HEMOGLOBIN 25.6 pg (27.0-33.0); MEAN CORPUSCULAR HGB CONC 32.3 g/dL (32.0-36.0); MEAN CORPUSCULAR VOLUME 79.3 fL (79-99); NEUTROPHILS % (AUTO) 37.9 % (40.0-77.0); PLATELET COUNT (AUTO) 434 K/uL (130-400); RED CELL DISTRIBUTION WIDTH 19.1 % (11.0-15.5); WHITE BLOOD COUNT (AUTO) 6.1 K/uL (4.8-10.8)
[2019-08-27 05:13] LABS: CREATININE 0.5 mg/dL (0.5-1.5); POTASSIUM 3.7 mmol/L (3.5-5.1)
--- NOTE | 2019-08-27 05:53 | NUR ---
ROUNDS PT RESTING WELL, NO CONCERNS VERBALIZED. NO DISTRESS NOTED. KEPT RESTED AND COMFORTABLE. FOR MORE CARE.
[2019-08-27] MEDS: GEMFIBROZIL 600 MG TABLET PO SCH ×2 (06:10→16:50)
[2019-08-27] MEDS: INSULIN HUMULIN 70/30 100 UNIT/ML 3ML SQ SCH ×2 (06:15→16:51)
[2019-08-27] MEDS: INSULIN HUMULIN R 100 UNIT/ML 3ML SQ SCH ×4 (06:15→20:59)
[2019-08-27 08:00] VITALS: BP 87/59
[2019-08-27] MEDS: FAMOTIDINE 20MG TAB 20 MG TAB PO SCH ×2 (09:05→20:09)
[2019-08-27] MEDS: LACTULOSE 20 GM/30 ML UDCUP PO SCH ×2 (09:05→20:09)
[2019-08-27] MEDS: ENOXAPARIN SODIUM 40 MG/0.4 ML SYRINGE SQ SCH (09:06)
[2019-08-27 12:00] VITALS: BP 104/72
[2019-08-27 16:00] VITALS: BP 103/68
[2019-08-27 20:00] VITALS: BP 109/79
[2019-08-27] MEDS: ATORVASTATIN CALCIUM 40 MG TABLET PO SCH (20:09)
--- NOTE | 2019-08-27 20:10 | NUR ---
MEDS SHIFT ASSESSMENT DONE, PLEASE REFER TO CHART. DUE MEDS ADMINISTERED, TOLERATED WELL. INSTRUCTED TO BE NPO POST MN FOR EGD IN AM. KEPT RESTED AND COMFORTABLE. CALL LIGHT WITHIN REACH. Addendum: 08/27/19 at 2053 by KIRA ESPINOSA RN RN Amended: Links added.
[2019-08-27 23:47] VITALS: BP 111/73
[2019-08-28] VITALS (17 sets, daily range): BP systolic 89–110; BP diastolic 50–75
[2019-08-28] MEDS: MORPHINE SULFATE 2 MG/ML 1ML SYG IVP PRN (00:17)
--- NOTE | 2019-08-28 00:17 | NUR ---
PAIN PT SEEN WALKING IN THE HALLWAY AND CLAIMS SHE IS HAVING ABDOMINAL PAINS. PT WENT BACK TO BED. MEDICATED WITH MORPHINE IV. KEPT RESTED AND COMFORTABLE. CALL LIGHT WITHIN REACH. WILL MONITOR PT. Addendum: 08/28/19 at 0255 by KIRA ESPINOSA RN RN Amended: Links added.
--- NOTE | 2019-08-28 02:30 | NUR ---
BATHE PT HAD CHG BATH, TOLERATED WELL. KEPT NPO. ENCOURAGED TO GO BACK TO BED AND SLEEP. WILL MONITOR PT.
[2019-08-28] MEDS: ZOSYN 3.375GM+NS 50ML 50 ML IV SCH (04:59)
--- NOTE | 2019-08-28 05:05 | NUR ---
MEDS PT FAIRLY ASLEEP WITH RESPIRATIONS EVEN AND UNLABORED. NO DISTRESS NOTED. KEPT UNDISTURBED. FOR MORE CARE.
[2019-08-28] MEDS: INSULIN HUMULIN R 100 UNIT/ML 3ML SQ SCH ×2 (05:54→11:35)
[2019-08-28] MEDS: GEMFIBROZIL 600 MG TABLET PO SCH (05:54)
[2019-08-28] MEDS: INSULIN HUMULIN 70/30 100 UNIT/ML 3ML SQ SCH (05:54)
--- NOTE | 2019-08-28 06:40 | NUR ---
GI LAB PT TAKEN DOWN TO GI LAB.
[2019-08-28] MEDS ORDERED: LIDOCAINE HCL 1% 20 ML VIAL ONE (06:51)
[2019-08-28] MEDS ORDERED: PROPOFOL 10 MG/ML 20ML VIAL IV ONE (06:51)
[2019-08-28] MEDS ORDERED: PANTOPRAZOLE SODIUM 40 MG TABLET.DR ONE (08:12)
[2019-08-28] MEDS: FAMOTIDINE 20MG TAB 20 MG TAB PO SCH (08:17)
[2019-08-28] MEDS: LACTULOSE 20 GM/30 ML UDCUP PO SCH (08:17)
[2019-08-28] MEDS: ENOXAPARIN SODIUM 40 MG/0.4 ML SYRINGE SQ SCH (08:17)
[2019-08-28] MEDS ORDERED: PANTOPRAZOLE SODIUM 40 MG TABLET.DR PO SCH (08:20)
[2019-08-28] MEDS ORDERED: PANT40TA25 PO (09:52)
== END 2019-08-28 12:45 | disposition home or self-care (01) | DRG 637 ==
LOC: EDH 17:50 → EDHIP 17:51 → 2BH 08-23 02:36 → 3AH 08-24 09:52
PROVIDERS: ADMIT Internal Medicine; ATTEND Internal Medicine
PROC: 3E02340 Introduction of Influenza Vaccine into Muscle, Percutaneous Approach (ICD-10-PCS; 2019-08-23)
PROC: 02H633Z Insertion of Infusion Device into Right Atrium, Percutaneous Approach (ICD-10-PCS; 2019-08-23)
PROC: 0DB98ZX Excision of Duodenum, Via Natural or Artificial Opening Endoscopic, Diagnostic (ICD-10-PCS; principal; 2019-08-28)
PROC: 0DB68ZX Excision of Stomach, Via Natural or Artificial Opening Endoscopic, Diagnostic (ICD-10-PCS; 2019-08-28)
DX: E11.10 Type 2 diabetes mellitus with ketoacidosis without coma (principal); K85.90 Acute pancreatitis without necrosis or infection, unspecified; J18.9 Pneumonia, unspecified organism; J98.11 Atelectasis; E87.1 Hypo-osmolality and hyponatremia; K86.1 Other chronic pancreatitis; E78.1 Pure hyperglyceridemia; E87.5 Hyperkalemia; E86.1 Hypovolemia; E78.5 Hyperlipidemia, unspecified; E83.39 Other disorders of phosphorus metabolism; E83.42 Hypomagnesemia; K29.70 Gastritis, unspecified, without bleeding; E87.6 Hypokalemia; K29.80 Duodenitis without bleeding; Z90.81 Acquired absence of spleen; Z91.19 Patient's noncompliance with other medical treatment and regimen; Z23 Encounter for immunization; Z83.3 Family history of diabetes mellitus
CPT/HCPCS: 36415; 36600; 43239; 71045; 74176; 80048; 80053; 80061; 80305; 81001; 81025; 82010; 82140; 82435; 82550; 82803; 82947; 82948; 83605; 83690; 83735; 84100; 84132; 84145; 84295; 84478; 84484; 85018; 85025; 85060; 85610; 85730; 87040; 87088; 94640; A4606; G0378; J1650; J1815; J1885; J2405; J2543; J2704; J3475; J3480; J3490; J7030; J7042; Q2035

== ENCOUNTER 2019-09-14 17:13 | Inpatient (IN) | payer OTHER ==
[~2019-09-14] VITALS: Ht 154.9 cm; Wt 65.9 kg
[~2019-09-14 17:13] MED LIST changes: -NITR100C PO; +PANT40TA25 PO
[2019-09-14 18:11] LABS: BASOPHILS % (AUTO) 0.1 % (0.0-5.0); EOSINOPHILS % (AUTO) 0.6 % (0.0-8.0); HEMATOCRIT 36.8 % (36-48); MEAN CORPUSCULAR HEMOGLOBIN 27.4 pg (27.0-33.0); MEAN CORPUSCULAR HGB CONC 34.8 g/dL (32.0-36.0); MEAN CORPUSCULAR VOLUME 78.8 fL (79-99); MONOCYTES % (AUTO) 11.2 % (3.0-13.0); NEUTROPHILS % (AUTO) 71.7 % (40.0-77.0); NUCLEATED RED BLOOD CELLS 0.1 % (0.0-0.19); PLATELET COUNT (AUTO) 491 K/uL (130-400); RED BLOOD CELL COUNT(AUTO) 4.67 MIL/uL (4.00-5.50); RED CELL DISTRIBUTION WIDTH 17.9 % (11.0-15.5); WHITE BLOOD COUNT (AUTO) 13.9 K/uL (4.8-10.8)
[2019-09-14 18:28] LABS: APPEARANCE,URINE Clear (CLEAR); BILIRUBIN,URINE Negative (NEGATIVE); COLOR,URINE Yellow (YELLOW); GLUCOSE, URINE (UA) >=1000 mg/dL (NEGATIVE); KETONES,URINE 15 mg/dL (NEGATIVE); LEUKOCYTE ESTERASE ,URINE Negative (NEGATIVE); NITRATE,URINE Negative (NEGATIVE); OCCULT BLOOD,URINE Moderate (NEGATIVE); PH,URINE 5.5 (5.0-8.0); PROTEIN,URINE POS 1+ mg/dL (NEGATIVE); UROBILINOGEN,URINE 0.2 mg/dL (0.2-1.0)
[2019-09-14] MEDS ORDERED: ONDANSETRON HCL 4 MG/2 ML VIAL ONE (18:35)
[2019-09-14] MEDS ORDERED: SODIUM CHLORIDE 0.9% 1000ML 1,000 ML IV ONE (18:36)
[2019-09-14] MEDS ORDERED: FENTANYL CITRATE PF 50 MCG/1 ML 2ML VIAL ONE ×2 (18:36→20:58)
[2019-09-14 18:37] LABS: BACTERIA,URINE Few /HPF (None Seen)
[2019-09-14 18:47] LABS: CREATININE 0.4 mg/dL (0.5-1.5); POTASSIUM 5.2 mmol/L (3.5-5.1)
[2019-09-14 18:52] LABS: ALBUMIN 2.6 g/dL (3.5-5.0); BILIRUBIN,TOTAL 0.6 mg/dL (0.2-1.0); TOTAL PROTEIN, SERUM 8.7 g/dL (6.0-8.3)
[2019-09-14] MEDS ORDERED: DIATR MEGLU/DIATRIZOATE SODIUM 30 ML BOTTLE ONE (20:04)
[2019-09-14] MEDS ORDERED: INSULIN HUMULIN R 100 UNIT/ML 3ML ONE (20:11)
[2019-09-14 20:16] LABS: ABG BASE EXCESS -6.2 mmol/L (-2.0-3.0); ABG HCO3 17.4 mmol/L (21.0-28.0); ABG PCO2 30 mmHg (32-45)
[2019-09-14] MEDS ORDERED: DEXTROSE 50%-WATER 50 ML DISP.SYRIN IV PRN (23:00)
[2019-09-14] MEDS ORDERED: GLUCAGON 1MG KIT 1 MG ML IM PRN (23:00)
[2019-09-14] MEDS ORDERED: POTASSIUM CHLORIDE 10MEQ/100ML 100 ML IV PRN (23:00)
[2019-09-14 23:54] LABS: CREATININE 0.3 mg/dL (0.5-1.5); POTASSIUM 4.1 mmol/L (3.5-5.1)
--- NOTE | 2019-09-15 00:50 | NUR ---
PT ARRIVED TO ROOM 229 VIA BED BUT WALKED TO OTHER BED. NO DISTRESS, NO FACIAL GRIMACING, NO GUARDING. NO FAMILY AT BEDSIDE. PT WALKED TO RESTROOM SLOWLY, WALKED OUT OF RESTROOM AND PROCEEDED TO HER BAG AND REMOVED PHONE, TABLET, AND BRINELL TESTER, GOT INTO BED WITH NO DISTRESS AND ONCE IN BED STATED SHE WAS IN SEVERE PAIN 1-10 SCALE PT STATED SHE WAS A 10. ASSESSMENT AND ADMISSION WAS COMPLETED. PT REQUESTED BLIND TO BE CLOSED, PHONE TO BE CHARGED, LIGHTS OFF, WITH A CALM VOICE, NO SIGNS OF PAIN OR DISTRESS. PAIN MED WILL BE GIVEN. CALL LIGHT WITHIN REACH. BED TO LOWEST LEVEL.
[2019-09-15] MEDS: KETOROLAC TROMETHAMINE 15MG/ML IV PRN ×4 (01:20→19:14)
[2019-09-15] MEDS: SODIUM CHLORIDE 0.9% 1000ML 1,000 ML IV SCH ×4 (01:21→20:49)
[2019-09-15 03:00] VITALS: BP 138/61
[2019-09-15 05:14] LABS: BASOPHILS % (AUTO) 0.2 % (0.0-5.0); EOSINOPHILS % (AUTO) 0.9 % (0.0-8.0); HEMATOCRIT 33.7 % (36-48); LYMPHOCYTES % (AUTO) 21.2 % (21.0-51.0); MEAN CORPUSCULAR HEMOGLOBIN 26.5 pg (27.0-33.0); MEAN CORPUSCULAR HGB CONC 33.2 g/dL (32.0-36.0); MEAN CORPUSCULAR VOLUME 79.7 fL (79-99); MONOCYTES % (AUTO) 9.6 % (3.0-13.0); NEUTROPHILS % (AUTO) 67.7 % (40.0-77.0); PLATELET COUNT (AUTO) 452 K/uL (130-400); RED BLOOD CELL COUNT(AUTO) 4.23 MIL/uL (4.00-5.50); RED CELL DISTRIBUTION WIDTH 17.9 % (11.0-15.5); WHITE BLOOD COUNT (AUTO) 11.1 K/uL (4.8-10.8)
[2019-09-15 05:19] LABS: HEMOGLOBIN A1C 13.2 % (4.0-6.0)
[2019-09-15 05:48] LABS: CREATININE 0.4 mg/dL (0.5-1.5); POTASSIUM 3.3 mmol/L (3.5-5.1)
[2019-09-15] MEDS: INSULIN HUMULIN R 100 UNIT/ML 3ML SQ SCH ×4 (06:46→21:31)
[2019-09-15 07:47] VITALS: BP 100/61
[2019-09-15 11:35] VITALS: BP 102/66
[2019-09-15 11:39] LABS: CREATININE 0.4 mg/dL (0.5-1.5); POTASSIUM 3.5 mmol/L (3.5-5.1)
[2019-09-15 15:20] VITALS: BP 100/62
--- NOTE | 2019-09-15 16:37 | NUR ---
Initial Assessment Patient lives with mother. No home services. DME: glucometer (uses insulin). Able to complete ADL's independently. Patient has no insurance or benefits. HAC assisting patient. Patient provided with Good Rx Card and community resources for post discharge follow up. DCP is home. Addendum: 09/15/19 at 1639 by AUSTEN GUZMÁN SS Amended: Links added.
[2019-09-15 17:10] LABS: CREATININE 0.3 mg/dL (0.5-1.5); POTASSIUM 3.6 mmol/L (3.5-5.1)
[2019-09-15 19:00] VITALS: BP 95/68
[2019-09-15 23:00] VITALS: BP 91/61
[2019-09-16] MEDS: KETOROLAC TROMETHAMINE 15MG/ML IV PRN ×3 (01:07→18:24)
[2019-09-16 03:00] VITALS: BP 91/57
[2019-09-16 04:03] LABS: BASOPHILS % (AUTO) 0.3 % (0.0-5.0); EOSINOPHILS % (AUTO) 2.2 % (0.0-8.0); HEMATOCRIT 31.5 % (36-48); LYMPHOCYTES % (AUTO) 44.5 % (21.0-51.0); MEAN CORPUSCULAR HGB CONC 32.7 g/dL (32.0-36.0); MEAN CORPUSCULAR VOLUME 79.5 fL (79-99); MONOCYTES % (AUTO) 8.5 % (3.0-13.0); NEUTROPHILS % (AUTO) 44.2 % (40.0-77.0); PLATELET COUNT (AUTO) 514 K/uL (130-400); RED BLOOD CELL COUNT(AUTO) 3.96 MIL/uL (4.00-5.50); RED CELL DISTRIBUTION WIDTH 18.2 % (11.0-15.5); WHITE BLOOD COUNT (AUTO) 5.9 K/uL (4.8-10.8)
[2019-09-16 04:14] LABS: CREATININE 0.4 mg/dL (0.5-1.5); POTASSIUM 3.5 mmol/L (3.5-5.1)
[2019-09-16] MEDS: SODIUM CHLORIDE 0.9% 1000ML 1,000 ML IV SCH ×3 (05:54→23:16)
[2019-09-16] MEDS: INSULIN HUMULIN R 100 UNIT/ML 3ML SQ SCH ×4 (05:55→21:07)
[2019-09-16 07:41] VITALS: BP 95/61
[2019-09-16 11:53] VITALS: BP 92/59
--- NOTE | 2019-09-16 13:16 | NUR ---
RECEIVED CALL FROM DR. Karmen FERREIRA WHO STATES," I THINK DR. CHU MIGHT BE MACHINE REBUILDER..."
--- NOTE | 2019-09-16 13:48 | NUR ---
RESTING IN BED WITH EYES CLOSED, RESP.'S EVEN AND UNLABORED. HOB AT SEMI-CLEMENTS'S POSITION. CALL LIGHT WITHIN REACH. ROOM DOOR OPEN.
[2019-09-16 15:43] VITALS: BP 101/68
[2019-09-16] MEDS: METOCLOPRAMIDE 5 MG TABLET PO SCH (16:33)
[2019-09-16] MEDS: INSULIN HUMULIN 70/30 100 UNIT/ML 3ML SQ SCH (16:35)
[2019-09-16 19:00] VITALS: BP 114/70
[2019-09-16] MEDS: ATORVASTATIN CALCIUM 40 MG TABLET PO SCH (21:07)
[2019-09-16 23:00] VITALS: BP 111/71
[2019-09-17] VITALS (18 sets, daily range): BP systolic 97–126; BP diastolic 54–80
--- NOTE | 2019-09-17 00:05 | NUR ---
LT AC IV UNABLE TO FLUSH, RETAPED AND VERY SLUGGISH. NURSES TIMES 5, AND ALSO WITH ER NURSE AND VEIN FINDER UNABLE TO RESTART NEW IV. SCHOOL PHYSICAL THERAPIST ATTEMPTED TO START NEW IV WITHOUT SUCCESS. SCHOOL PHYSICAL THERAPIST WILL NOTIFY ANESTHESIA IN AM.
[2019-09-17] MEDS: KETOROLAC TROMETHAMINE 15MG/ML IV PRN (03:14)
--- NOTE | 2019-09-17 03:15 | NUR ---
COURTESY CAR DRIVER PAGED REGARDING IV FLUID. 7202-COURTESY CAR DRIVER RETURNED CALL, APPRAISED OF IV SITUATION, AND RECEIVED ORDER TO HOLD FLUID FOR NOW TILL ALTERNATE IV CAN BE STARTED.
[2019-09-17 05:16] LABS: MEAN CORPUSCULAR HEMOGLOBIN 26.7 pg (27.0-33.0); MEAN CORPUSCULAR HGB CONC 33.2 g/dL (32.0-36.0); MEAN CORPUSCULAR VOLUME 80.3 fL (79-99); PLATELET COUNT (AUTO) 505 K/uL (130-400); RED BLOOD CELL COUNT(AUTO) 3.86 MIL/uL (4.00-5.50); RED CELL DISTRIBUTION WIDTH 18.5 % (11.0-15.5); WHITE BLOOD COUNT (AUTO) 6.6 K/uL (4.8-10.8)
[2019-09-17] MEDS: INSULIN HUMULIN 70/30 100 UNIT/ML 3ML SQ SCH ×2 (05:26→16:34)
[2019-09-17 05:43] LABS: LYMPHOCYTES % (MANUAL) 34 % (22-44); MAN.DIFF COMMENT-IMPRESSION MANUAL DIFFERENTIAL; MONOCYTES % (MANUAL) 6 % (2-9); SEGMENTED NEUTROPHILS % 60 % (40-70)
[2019-09-17 05:44] LABS: PLATELET MORPHOLOGY COMMENT SLIGHT INCREASED
[2019-09-17 05:46] LABS: ALANINE AMINOTRANSFERASE 11 U/L (12-78); ALBUMIN 2.3 g/dL (3.5-5.0); AMYLASE 56 U/L (25-115); ASPARTATE AMINOTRANSFERASE 17 U/L (10-37); BILIRUBIN,TOTAL 0.1 mg/dL (0.2-1.0); CARBON DIOXIDE 24 mmol/L (21-32); CHLORIDE 104 mmol/L (101-111); CHOLESTEROL 183 mg/dL (<200); CREATININE 0.3 mg/dL (0.5-1.5); GLOMERULAR FILTR. RATE CALC 261 mL/min (>60); GLUCOSE,RANDOM 165 mg/dL (70-105); HDL CHOLESTEROL 20 mg/dL (35-85); LDL DIRECT 90 mg/dL (0-99); LIPASE 501 U/L (114-286); PHOSPHORUS 3.5 mg/dL (2.5-4.9); POTASSIUM 3.2 mmol/L (3.5-5.1); SODIUM SERUM 137 mmol/L (136-145); TOTAL PROTEIN, SERUM 6.7 g/dL (6.0-8.3); TRIGLYCERIDES 397 mg/dL (30-200); UREA NITROGEN, BLOOD 6 mg/dL (7-18)
[2019-09-17] MEDS: SODIUM CHLORIDE 0.9% 1000ML 1,000 ML IV SCH ×4 (06:22→21:28)
[2019-09-17] MEDS: INSULIN HUMULIN R 100 UNIT/ML 3ML SQ SCH ×4 (06:23→21:00)
[2019-09-17] MEDS: METOCLOPRAMIDE 5 MG TABLET PO SCH ×3 (07:39→16:34)
[2019-09-17] MEDS: ASPIRIN 81 MG EC TAB PO SCH (07:40)
[2019-09-17] MEDS: PANTOPRAZOLE SODIUM 40 MG TABLET.DR PO SCH (07:41)
[2019-09-17] MEDS ORDERED: PROPOFOL 10 MG/ML 20ML VIAL IV ONE ×2 (08:41→08:48)
--- NOTE | 2019-09-17 10:10 | NUR ---
RETURNED TO ROOM VIA BED ACCOMPANIED BY ALANIS HERZOG. PT. AAOX3, RESP.'S EVEN AND UNLABORED. DENIES ANY C/O SOB, DENIES ANY CURRENT PAIN. CALL LIGHT WITHIN REACH, VERBALIZED ABILITY TO USE. BED LOW, SIDE RAILS UP X3.
--- NOTE | 2019-09-17 15:00 | NUR ---
RESTING IN BED WITH EYES CLOSED, RESP.'S EVEN AND UNLABORED. HOB AT 30 DEGREES. CALL LIGHT WITHIN REACH, VERBALIZED ABILITY TO USE.
[2019-09-17] MEDS: POTASSIUM CHLORIDE 20 MEQ ERTAB PO SCH ×2 (21:10→23:19)
[2019-09-17] MEDS: ATORVASTATIN CALCIUM 40 MG TABLET PO SCH (21:11)
[2019-09-18 00:34] VITALS: BP 116/65
[2019-09-18] MEDS: KETOROLAC TROMETHAMINE 15MG/ML IV PRN (00:54)
[2019-09-18 04:10] VITALS: BP 140/65
[2019-09-18 05:01] LABS: ALBUMIN 2.4 g/dL (3.5-5.0); BILIRUBIN,TOTAL 0.1 mg/dL (0.2-1.0); CREATININE 0.4 mg/dL (0.5-1.5); POTASSIUM 3.9 mmol/L (3.5-5.1); TOTAL PROTEIN, SERUM 6.6 g/dL (6.0-8.3)
[2019-09-18] MEDS: INSULIN HUMULIN R 100 UNIT/ML 3ML SQ SCH ×2 (06:45→12:17)
[2019-09-18] MEDS: INSULIN HUMULIN 70/30 100 UNIT/ML 3ML SQ SCH (06:46)
[2019-09-18 07:42] VITALS: BP 120/69
[2019-09-18] MEDS: ASPIRIN 81 MG EC TAB PO SCH (08:53)
[2019-09-18] MEDS: PANTOPRAZOLE SODIUM 40 MG TABLET.DR PO SCH (08:53)
[2019-09-18] MEDS: METOCLOPRAMIDE 5 MG TABLET PO SCH ×2 (08:53→12:14)
[2019-09-18] MEDS: SODIUM CHLORIDE 0.9% 1000ML 1,000 ML IV SCH (10:42)
[2019-09-18 11:37] VITALS: BP 113/67
[2019-09-18] MEDS ORDERED: NIAC100045 PO (13:10)
== END 2019-09-18 15:12 | disposition home or self-care (01) | DRG 638 ==
LOC: EDH 17:13 → EDHIP 17:14 → 2AH 09-15 00:52
PROVIDERS: ADMIT Family Medicine; ATTEND Family Medicine
PROC: 0DB98ZX Excision of Duodenum, Via Natural or Artificial Opening Endoscopic, Diagnostic (ICD-10-PCS; principal; 2019-09-17)
PROC: 0DB68ZX Excision of Stomach, Via Natural or Artificial Opening Endoscopic, Diagnostic (ICD-10-PCS; 2019-09-17)
DX: E11.10 Type 2 diabetes mellitus with ketoacidosis without coma (principal); K86.1 Other chronic pancreatitis; E87.1 Hypo-osmolality and hyponatremia; E87.5 Hyperkalemia; K59.00 Constipation, unspecified; K29.70 Gastritis, unspecified, without bleeding; E87.6 Hypokalemia; E78.1 Pure hyperglyceridemia; E78.5 Hyperlipidemia, unspecified; E86.1 Hypovolemia; I86.4 Gastric varices; K46.9 Unspecified abdominal hernia without obstruction or gangrene; K31.89 Other diseases of stomach and duodenum; R93.3 Abnormal findings on diagnostic imaging of other parts of digestive tract; Z90.49 Acquired absence of other specified parts of digestive tract; Z90.81 Acquired absence of spleen; Z91.19 Patient's noncompliance with other medical treatment and regimen; Z83.3 Family history of diabetes mellitus
CPT/HCPCS: 36415; 36600; 43239; 74176; 80048; 80053; 80061; 81001; 81025; 82010; 82150; 82803; 82948; 83036; 83690; 83735; 84100; 84145; 85025; G0378; J1815; J1885; J2405; J2704; J3010; J7030; Q9963

== ENCOUNTER 2019-10-21 19:42 | Emergency (ER) | payer OTHER ==
[~2019-10-21 19:42] MED LIST changes: -FENO145T PO; +NIAC100045 PO
== END 2019-10-21 20:36 | disposition home or self-care (01) ==
LOC: EDH 19:42
DX: M79.602 Pain in left arm (principal); M79.605 Pain in left leg; R50.9 Fever, unspecified; H92.02 Otalgia, left ear; E11.9 Type 2 diabetes mellitus without complications; E78.5 Hyperlipidemia, unspecified; Z90.49 Acquired absence of other specified parts of digestive tract
CPT/HCPCS: 99281

== ENCOUNTER 2021-03-18 14:51 | Inpatient (IN) | payer MEDICAID, OTHER ==
[~2021-03-18] VITALS: Ht 154.9 cm; Wt 61.2 kg
[~2021-03-18 14:51] MED LIST changes: -ASPI-1181 PO; +ASPI-1443 PO; -PANT40TA25 PO; +PANT40TA54 PO
[2021-03-18 14:53] VITALS: BP 136/84
[2021-03-18] MEDS ORDERED: KETOROLAC 30MG VIAL (30MG/ML) IVP ONE (15:30)
[2021-03-18] MEDS ORDERED: PROMETHAZINE HCL 25 MG/ML 1ML AMPULE IM ONE (15:30)
[2021-03-18 15:35] LABS: APPEARANCE,URINE Cloudy (CLEAR); BILIRUBIN,URINE Negative (NEGATIVE); COLOR,URINE Yellow (YELLOW); GLUCOSE, URINE (UA) TRACE mg/dL (NEGATIVE); KETONES,URINE Trace mg/dL (NEGATIVE); LEUKOCYTE ESTERASE ,URINE Trace (NEGATIVE); NITRATE,URINE Negative (NEGATIVE); OCCULT BLOOD,URINE Negative (NEGATIVE); PROTEIN,URINE POS 1+ mg/dL (NEGATIVE)
[2021-03-18 15:36] LABS: BASOPHILS % (AUTO) 0.3 % (0.0-5.0); EOSINOPHILS % (AUTO) 0.5 % (0.0-8.0); HEMATOCRIT 34.5 % (36-48); LYMPHOCYTES % (AUTO) 37.7 % (21.0-51.0); MEAN CORPUSCULAR HEMOGLOBIN 28.4 pg (27.0-33.0); MEAN CORPUSCULAR HGB CONC 32.5 g/dL (32.0-36.0); MEAN CORPUSCULAR VOLUME 87.3 fL (79-99); MONOCYTES % (AUTO) 6.3 % (3.0-13.0); NEUTROPHILS % (AUTO) 54.4 % (40.0-77.0); PLATELET COUNT (AUTO) 622 K/uL (130-400); RED BLOOD CELL COUNT(AUTO) 3.95 MIL/uL (4.00-5.50); RED CELL DISTRIBUTION WIDTH 18.4 % (11.0-15.5); WHITE BLOOD COUNT (AUTO) 9.9 K/uL (4.8-10.8)
[2021-03-18 15:37] VITALS: BP 139/83
[2021-03-18] MEDS: 0.9% NACL 500ML IV.SOLN 500 ML IV SCH ×3 (15:39→19:30)
[2021-03-18 15:41] LABS: HCG,QUAL RESULT NEGATIVE (NEGATIVE)
[2021-03-18 15:43] LABS: AMPHET/METH SCREEN,URINE NEGATIVE (NEGATIVE); BARBITURATE SCREEN, URINE NEGATIVE (NEGATIVE); BENZODIAZEPINES SCREEN,URINE NEGATIVE (NEGATIVE); CANNABINOID SCREEN,URINE NEGATIVE (NEGATIVE); COCAINE SCREEN,URINE NEGATIVE (NEGATIVE); OPIATE SCREEN,URINE NEGATIVE (NEGATIVE); PHENCYCLIDINE SCREEN,URINE NEGATIVE (NEGATIVE)
[2021-03-18 15:45] LABS: BACTERIA,URINE Few /HPF (None Seen); MUCUS,URINE Few LPF (None Seen); RBC,URINE 0-1 /HPF (0-1); SQUAMOUS EPITHELIAL CELL,UR Moderate /HPF (0-2); YEAST,URINE BUDDING Few /HPF (None Seen)
[2021-03-18 15:51] LABS: CREATININE 0.4 mg/dL (0.5-1.5); POTASSIUM 4.2 mmol/L (3.5-5.1)
[2021-03-18 15:55] LABS: BILIRUBIN,TOTAL 0.5 mg/dL (0.2-1.0); TOTAL PROTEIN, SERUM 8.9 g/dL (6.0-8.3)
[2021-03-18] MEDS ORDERED: FLUCONAZOLE 100 MG TAB PO ONE (16:00)
[2021-03-18] MEDS ORDERED: CEFTRIAXONE 1G VIAL IVP ONE (16:00)
[2021-03-18] MEDS ORDERED: NITROFURANTOIN MONOHYD/M-CRYST 100 MG CAPSULE PO ONE (16:30)
[2021-03-18] MEDS ORDERED: CEFTRIAXONE 1G VIAL IV SCH (19:00)
[2021-03-18] MEDS ORDERED: MORPHINE 2 MG SYG IV PRN (19:00)
[2021-03-18] MEDS ORDERED: [UNRECOGNIZED DRUG - REMARK] MISC SCH (19:30)
[2021-03-18 19:37] LABS: HEMOGLOBIN A1C 11.9 % (4.0-6.0)
[2021-03-18] MEDS: FAMOTIDINE 20MG VIAL IV SCH (20:01)
[2021-03-18] MEDS: 0.9%NACL 1000ML 1,000 ML IV SCH (20:01)
[2021-03-18] MEDS: HYDROMORPHONE 1 MG INJ IV PRN (20:01)
[2021-03-18 20:07] VITALS: BP 125/77
[2021-03-18 20:11] LABS: THYROID STIMULATING HORMONE 1.79 uIU/mL (0.36-3.74)
[2021-03-18] MEDS ORDERED: LACTULOSE 20 GM/30 ML UDCUP PO PRN (22:00)
[2021-03-18] MEDS ORDERED: LACTULOSE 20 GM/30 ML UDCUP PO ONE (22:00)
[2021-03-19 01:05] VITALS: BP 125/68
[2021-03-19] MEDS: HYDROMORPHONE 1 MG INJ IV PRN ×2 (01:50→07:45)
[2021-03-19] MEDS: 0.9%NACL 1000ML 1,000 ML IV SCH ×2 (01:52→07:46)
[2021-03-19 06:17] LABS: BASOPHILS % (AUTO) 0.4 % (0.0-5.0); HEMATOCRIT 28.9 % (36-48); MEAN CORPUSCULAR HEMOGLOBIN 28.7 pg (27.0-33.0); MEAN CORPUSCULAR HGB CONC 32.5 g/dL (32.0-36.0); MEAN CORPUSCULAR VOLUME 88.1 fL (79-99); MONOCYTES % (AUTO) 9.2 % (3.0-13.0); NEUTROPHILS % (AUTO) 36.7 % (40.0-77.0); PLATELET COUNT (AUTO) 674 K/uL (130-400); RED BLOOD CELL COUNT(AUTO) 3.28 MIL/uL (4.00-5.50); RED CELL DISTRIBUTION WIDTH 18.6 % (11.0-15.5); WHITE BLOOD COUNT (AUTO) 8.2 K/uL (4.8-10.8)
[2021-03-19 06:43] LABS: CREATININE 0.5 mg/dL (0.5-1.5); MAGNESIUM 1.8 mg/dL (1.80-2.40); PHOSPHORUS 3.6 mg/dL (2.5-4.9); POTASSIUM 3.9 mmol/L (3.5-5.1)
[2021-03-19] MEDS: INSULIN HUMULIN R 100 UNIT/ML 3ML SQ SCH ×2 (07:30→11:30)
[2021-03-19] MEDS ORDERED: HYDROMORPHONE 0.5 MG SYG (0.5MG/0.5ML) ONE ×2 (07:37→12:35)
[2021-03-19] MEDS ORDERED: TYL3B PO (08:41)
[2021-03-19] MEDS ORDERED: LEVO500T89 PO (08:41)
[2021-03-19 08:54] VITALS: BP 129/81
[2021-03-19] MEDS: FAMOTIDINE 20MG VIAL IV SCH (08:54)
[2021-03-19] MEDS ORDERED: ACETAMINOPHEN WITH CODEINE 1 TAB TAB PO PRN (09:00)
[2021-03-19] MEDS ORDERED: LEVOFLOXACIN 500 MG TABLET PO SCH (09:00)
[2021-03-19] MEDS ORDERED: ENOXAPARIN SODIUM 40 MG/0.4 ML SYRINGE SQ SCH (09:00)
[2021-03-19] MEDS ORDERED: CIPROFLOXACIN HCL 500 MG TABLET PO SCH (09:00)
[2021-03-19] MEDS ORDERED: ATOR40TA69 PO (12:05)
[2021-03-19] MEDS ORDERED: NIAC100045 PO (12:05)
[2021-03-19] MEDS ORDERED: ATORVASTATIN 20 MG TABLET PO SCH (21:00)
[2021-03-20] MEDS ORDERED: DICY20TA2 PO (04:05)
[2021-03-20] MEDS ORDERED: PHEN12S PR (04:05)
[2021-03-20] MEDS ORDERED: ONDA4TAB10 PO (04:05)
[2021-03-20] MEDS ORDERED: PANT40TA54 PO (04:05)
== END 2021-03-19 15:52 | disposition home or self-care (01) | DRG 395 ==
LOC: EDH 14:51 → EDHIP 14:52
PROVIDERS: ADMIT Internal Medicine; ATTEND Internal Medicine
DX: K43.9 Ventral hernia without obstruction or gangrene (principal); Z88.8 Allergy status to other drugs, medicaments and biological substances; G89.29 Other chronic pain; E78.5 Hyperlipidemia, unspecified; E78.1 Pure hyperglyceridemia; K59.00 Constipation, unspecified; Z79.4 Long term (current) use of insulin; Z90.81 Acquired absence of spleen; E10.9 Type 1 diabetes mellitus without complications; Z90.49 Acquired absence of other specified parts of digestive tract
CPT/HCPCS: 36415; 74176; 80048; 80053; 80061; 80305; 81001; 81025; 82948; 83036; 83690; 83735; 84100; 84443; 84484; 85025; G0378; J1170; J1650; J1815; J1885; J2550; J3490; J7030

== ENCOUNTER 2021-03-20 00:12 | Emergency (ER) | payer OTHER ==
[~2021-03-20 00:12] MED LIST changes: +LEVO500T89 PO; +TYL3B PO
[2021-03-20 00:51] VITALS: BP 150/73
[2021-03-20 01:14] LABS: APPEARANCE,URINE Clear (CLEAR); BILIRUBIN,URINE Negative (NEGATIVE); COLOR,URINE Yellow (YELLOW); GLUCOSE, URINE (UA) >=1000 mg/dL (NEGATIVE); KETONES,URINE Negative (NEGATIVE); LEUKOCYTE ESTERASE ,URINE Negative (NEGATIVE); NITRATE,URINE Negative (NEGATIVE); OCCULT BLOOD,URINE Negative (NEGATIVE); PH,URINE 7.5 (5.0-8.0); PROTEIN,URINE Negative (NEGATIVE); UROBILINOGEN,URINE 0.2 mg/dL (0.2-1.0)
[2021-03-20 01:16] LABS: HCG,QUAL RESULT NEGATIVE (NEGATIVE)
[2021-03-20] MEDS ORDERED: KETOROLAC 30MG VIAL (30MG/ML) IVP ONE (01:30)
[2021-03-20] MEDS ORDERED: PANTOPRAZOLE 40 MG/VIAL IVP ONE (01:30)
[2021-03-20] MEDS ORDERED: METOCLOPRAMIDE 10 MG/2 ML VIAL IVP ONE (01:30)
[2021-03-20] MEDS ORDERED: FAMOTIDINE 20MG VIAL IV ONE (01:30)
[2021-03-20] MEDS ORDERED: 0.9%NACL 1000ML 1,000 ML IV ONE (01:30)
[2021-03-20] MEDS ORDERED: ONDANSETRON 4MG INJ IVP ONE (01:30)
[2021-03-20 01:41] LABS: BACTERIA,URINE Rare /HPF (None Seen); RBC,URINE 0-1 /HPF (0-1); WBC,URINE 0-1 /HPF (0-1)
[2021-03-20 01:55] LABS: CREATININE 0.4 mg/dL (0.5-1.5); POTASSIUM 4.2 mmol/L (3.5-5.1)
[2021-03-20 02:00] LABS: ALBUMIN 2.8 g/dL (3.5-5.0); BILIRUBIN,TOTAL 0.4 mg/dL (0.2-1.0); TOTAL PROTEIN, SERUM 8.4 g/dL (6.0-8.3)
[2021-03-20 02:28] LABS: BASOPHILS % (AUTO) 0.3 % (0.0-5.0); EOSINOPHILS % (AUTO) 0.5 % (0.0-8.0); HEMATOCRIT 30.2 % (36-48); LYMPHOCYTES % (AUTO) 30.6 % (21.0-51.0); MEAN CORPUSCULAR HEMOGLOBIN 28.3 pg (27.0-33.0); MEAN CORPUSCULAR HGB CONC 32.5 g/dL (32.0-36.0); MEAN CORPUSCULAR VOLUME 87.3 fL (79-99); MONOCYTES % (AUTO) 6.1 % (3.0-13.0); NEUTROPHILS % (AUTO) 61.5 % (40.0-77.0); RED BLOOD CELL COUNT(AUTO) 3.46 MIL/uL (4.00-5.50); RED CELL DISTRIBUTION WIDTH 18.1 % (11.0-15.5); WHITE BLOOD COUNT (AUTO) 11.1 K/uL (4.8-10.8)
[2021-03-20 02:29] LABS: PLATELET COUNT (AUTO) 784 K/uL (130-400)
[2021-03-20] MEDS ORDERED: DICY20TA2 PO (04:05)
[2021-03-20] MEDS ORDERED: ONDA4TAB10 PO (04:05)
[2021-03-20] MEDS ORDERED: PANT40TA54 PO (04:05)
[2021-03-20] MEDS ORDERED: PHEN12S PR (04:05)
[2021-03-20 04:39] VITALS: BP 143/76
== END 2021-03-20 05:00 | disposition home or self-care (01) ==
LOC: EDH 00:12
DX: K29.70 Gastritis, unspecified, without bleeding (principal); K43.9 Ventral hernia without obstruction or gangrene; I10 Essential (primary) hypertension; E78.00 Pure hypercholesterolemia, unspecified; E11.9 Type 2 diabetes mellitus without complications; Z79.1 Long term (current) use of non-steroidal anti-inflammatories (NSAID); Z79.4 Long term (current) use of insulin; Z79.82 Long term (current) use of aspirin; Z79.899 Other long term (current) drug therapy; Z88.1 Allergy status to other antibiotic agents
CPT/HCPCS: 36415; 71045; 80053; 81001; 81025; 83690; 84484; 85025; 93005; 96361; 96374; 96375; 99285; C9113; J1885; J2405; J2765; J3490; J7030

== ENCOUNTER 2021-10-11 17:32 | Inpatient (IN) | payer OTHER ==
[~2021-10-11] VITALS: Ht 157.5 cm; Wt 64.7 kg
[~2021-10-11 17:32] MED LIST changes: +DICY20TA2 PO; +FENO145T PO; +FISH1CAP20 PO; -HUM100IN SQ; +HUM10VIA SQ; +IBUP-2077 PO; -LEVO500T89 PO; +ONDA4TAB10 PO
[2021-10-11 17:57] LABS: APPEARANCE,URINE CLOUDY (CLEAR); BILIRUBIN,URINE MODERATE (NEGATIVE); COLOR,URINE YELLOW (YELLOW); GLUCOSE, URINE (UA) 500 mg/dL (NEGATIVE); KETONES,URINE >=80 mg/dL (NEGATIVE); LEUKOCYTE ESTERASE ,URINE NEGATIVE (NEGATIVE); NITRATE,URINE NEGATIVE (NEGATIVE); OCCULT BLOOD,URINE MODERATE (NEGATIVE); PROTEIN,URINE 100 mg/dL (NEGATIVE); UROBILINOGEN,URINE 0.2 mg/dL (0.2-1.0)
[2021-10-11] MEDS ORDERED: LACTATED RINGERS 1000ML 1,000 ML IV ONE (18:00)
[2021-10-11] MEDS ORDERED: PROMETHAZINE HCL 25 MG/ML 1ML AMPULE IM ONE (18:00)
[2021-10-11] MEDS ORDERED: FAMOTIDINE 20MG VIAL IV ONE ×2 (18:00→20:12)
[2021-10-11] MEDS ORDERED: MAG/ALUM/SIMETH 30 ML UDCUP PO ONE (18:00)
[2021-10-11] MEDS ORDERED: ONDANSETRON 4MG INJ IVP ONE (18:00)
[2021-10-11 18:01] LABS: HCG,QUAL RESULT NEGATIVE (NEGATIVE)
[2021-10-11 18:22] LABS: BACTERIA,URINE Few /HPF (None Seen); WBC,URINE 0-1 /HPF (0-1); YEAST,URINE BUDDING Few /HPF (None Seen)
[2021-10-11 18:23] LABS: BASOPHILS % (AUTO) 0.4 % (0.0-5.0); EOSINOPHILS % (AUTO) 0.2 % (0.0-8.0); HEMATOCRIT 43.6 % (36-48); LYMPHOCYTES % (AUTO) 13.1 % (21.0-51.0); MEAN CORPUSCULAR HEMOGLOBIN 29.3 pg (27.0-33.0); MEAN CORPUSCULAR HGB CONC 33.9 g/dL (32.0-36.0); MEAN CORPUSCULAR VOLUME 86.3 fL (79-99); NEUTROPHILS % (AUTO) 80.8 % (40.0-77.0); PLATELET COUNT (AUTO) 513 K/uL (130-400); RED BLOOD CELL COUNT(AUTO) 5.05 MIL/uL (4.00-5.50); RED CELL DISTRIBUTION WIDTH 15.8 % (11.0-15.5); WHITE BLOOD COUNT (AUTO) 17.1 K/uL (4.8-10.8)
[2021-10-11] MEDS ORDERED: FLUCONAZOLE 100 MG TAB PO ONE (18:30)
[2021-10-11 18:46] LABS: CARBON DIOXIDE 17 mmol/L (21-32); CHLORIDE 93 mmol/L (101-111); GLUCOSE,RANDOM 286 mg/dL (70-105); SODIUM SERUM 127 mmol/L (136-145); UREA NITROGEN, BLOOD 13 mg/dL (7-18)
[2021-10-11 18:47] LABS: ALBUMIN 2.9 g/dL (3.5-5.0); BILIRUBIN,TOTAL 0.6 mg/dL (0.2-1.0); CREATININE 0.5 mg/dL (0.5-1.5); GLOMERULAR FILTR. RATE CALC 143 mL/min (>60); LIPASE < 50 U/L (114-286); TOTAL PROTEIN, SERUM 9.5 g/dL (6.0-8.3)
[2021-10-11 19:14] LABS: ASPARTATE AMINOTRANSFERASE 32 U/L (10-37)
[2021-10-11 19:15] LABS: ALANINE AMINOTRANSFERASE 20 U/L (12-78)
[2021-10-11] MEDS ORDERED: 0.9%NACL 1000ML 1,000 ML IV ONE (19:30)
[2021-10-11] MEDS ORDERED: CEFTRIAXONE 1G VIAL IVP ONE (19:30)
[2021-10-11] MEDS ORDERED: AZITHROMYCIN 250 MG TABLET PO ONE (19:30)
[2021-10-11] MEDS ORDERED: MAG/ALUM/SIMETH 30 ML UDCUP ONE (20:11)
[2021-10-11] MEDS ORDERED: CEFTRIAXONE 1G VIAL ONE (20:11)
[2021-10-11] MEDS ORDERED: FLUCONAZOLE 100 MG TAB ONE ×2 (20:11→20:20)
[2021-10-11] MEDS ORDERED: ONDANSETRON 4MG INJ ONE (20:11)
[2021-10-11] MEDS ORDERED: LIDOCAINE HCL 2% VISCOUS 15 ML UDCUP ONE (20:20)
[2021-10-11] MEDS ORDERED: DICYCLOMINE 20MG (10MG/ML) AMP IM ONE (20:20)
[2021-10-11] MEDS ORDERED: 0.9%NACL 1000ML 1,000 ML IV SCH ×3 (21:30→23:30)
[2021-10-11] MEDS ORDERED: ACETAMINOPHEN 325 MG TAB PO PRN (21:30)
[2021-10-11] MEDS ORDERED: LACTULOSE 20 GM/30 ML UDCUP PO SCH (21:30)
[2021-10-11 22:56] LABS: ABG OXYGEN SATURATION 65.8 % (95.0-99.0); BASE EXCESS,VENOUS BLOOD GAS -11.2 (-2.0-3.0); HCO3,VENOUS BLOOD GAS 14.2 (21.0-28.0); PCO2,VENOUS BLOOD GAS 31 (32-45); PH,VENOUS BLOOD GAS 7.278 (7.350-7.450)
[2021-10-11] MEDS ORDERED: INSULIN REGULAR, HUMAN 3ML 100 UNIT in 0.9%NACL 100ML 99 ML IV PRN ×2 (23:30)
[2021-10-11] MEDS ORDERED: DEXTROSE 5 %-0.45 % NACL 1,000 ML IV PRN (23:30)
[2021-10-11] MEDS ORDERED: POTASSIUM CHLORIDE 10MEQ/100ML 100 ML IV PRN (23:30)
[2021-10-11] MEDS: MAGNESIUM 2GM PREMIX 50ML 50 ML IV PRN (23:45)
[2021-10-12] MEDS: IPRATROPIUM/ALBUTEROL SULFATE 3 ML SOLUTION IH SCH ×5 (00:09→23:21)
[2021-10-12] MEDS ORDERED: INSULIN HUMULIN R 100 UNIT/ML 3ML ONE (00:20)
[2021-10-12] MEDS ORDERED: MORPHINE 2 MG SYG IV PRN (00:30)
[2021-10-12] MEDS: MORPHINE 4 MG SYG IV PRN ×2 (00:38→07:47)
[2021-10-12] MEDS: ONDANSETRON 4MG INJ IV PRN ×2 (00:39→07:47)
[2021-10-12] MEDS ORDERED: D5W-1/2 NS/20MEQ KCL 1,000 ML IV SCH ×2 (03:30→06:00)
[2021-10-12] MEDS ORDERED: 0.9%NACL 1000ML 1,000 ML IV SCH (04:00)
[2021-10-12] MEDS: ZOSYN 3.375GM+NS 50ML 50 ML IV SCH ×3 (04:45→21:00)
[2021-10-12 05:35] LABS: BASOPHILS % (AUTO) 0.3 % (0.0-5.0); EOSINOPHILS % (AUTO) 0.5 % (0.0-8.0); HEMATOCRIT 35.9 % (36-48); LYMPHOCYTES % (AUTO) 21.6 % (21.0-51.0); MEAN CORPUSCULAR HEMOGLOBIN 29.5 pg (27.0-33.0); MEAN CORPUSCULAR VOLUME 86.7 fL (79-99); PLATELET COUNT (AUTO) 414 K/uL (130-400); RED BLOOD CELL COUNT(AUTO) 4.14 MIL/uL (4.00-5.50); RED CELL DISTRIBUTION WIDTH 15.7 % (11.0-15.5); WHITE BLOOD COUNT (AUTO) 14.2 K/uL (4.8-10.8)
[2021-10-12 05:56] LABS: CREATININE 0.3 mg/dL (0.5-1.5); MAGNESIUM 1.7 mg/dL (1.80-2.40); PHOSPHORUS 1.9 mg/dL (2.5-4.9); POTASSIUM 3.3 mmol/L (3.5-5.1)
[2021-10-12] MEDS: ENOXAPARIN SODIUM 40 MG/0.4 ML SYRINGE SQ SCH (07:46)
[2021-10-12] MEDS: FAMOTIDINE 20MG TAB PO SCH (07:46)
[2021-10-12] MEDS: INSULIN HUMULIN R 100 UNIT/ML 3ML SQ SCH ×4 (07:46→21:00)
[2021-10-12] MEDS: MAGNESIUM 2GM PREMIX 50ML 50 ML IV PRN (07:47)
[2021-10-12] MEDS: NYSTATIN 15 GM POWDER TP SCH ×3 (08:32→21:00)
[2021-10-12 09:49] LABS: CREATININE 0.3 mg/dL (0.5-1.5); POTASSIUM 3.7 mmol/L (3.5-5.1)
[2021-10-12] MEDS: DEXTROSE 5 % AND 0.9 % NACL 1,000 ML IV SCH ×2 (09:51→16:42)
[2021-10-12 09:52] LABS: ABG HCO3 17.9 mmol/L (21.0-28.0); ABG OXYGEN SATURATION 92.6 % (95.0-99.0); ABG PCO2 35 mmHg (32-45)
[2021-10-12] MEDS ORDERED: 0.9%NACL 50ML 50 ML IV ONE (12:21)
[2021-10-12] MEDS: KETOROLAC 15MG/ML VIAL (15MG/ML) IV PRN ×2 (12:35→18:12)
[2021-10-12 13:47] LABS: CREATININE 0.3 mg/dL (0.5-1.5); POTASSIUM 3.2 mmol/L (3.5-5.1)
[2021-10-12 17:56] LABS: CREATININE 0.3 mg/dL (0.5-1.5); MAGNESIUM 1.7 mg/dL (1.80-2.40); POTASSIUM 3.4 mmol/L (3.5-5.1)
[2021-10-12 21:56] LABS: CREATININE 0.3 mg/dL (0.5-1.5)
[2021-10-12] MEDS ORDERED: INSULIN GLARGINE 100 UNITS/ML 10 ML VIAL SQ STA (22:25)
[2021-10-12] MEDS ORDERED: POTASSIUM CHLORIDE 10% ELIXIR 20 MEQ/15 ML UDCUP PO PRN (22:30)
[2021-10-12] MEDS ORDERED: MAGNESIUM 2GM PREMIX 50ML 50 ML IV PRN (22:30)
[2021-10-12] MEDS ORDERED: POTASSIUM CHLORIDE 20MEQ/100ML 100 ML IV PRN (22:30)
[2021-10-12] MEDS: KCL 20 MEQ ERTAB PO PRN (22:57)
[2021-10-12] MEDS ORDERED: GLUCAGON 1MG KIT 1 MG ML IM PRN (23:00)
[2021-10-12] MEDS ORDERED: DEXTROSE 50%-WATER 50 ML DISP.SYRIN IV PRN (23:00)
[2021-10-13] MEDS: KCL 20 MEQ ERTAB PO PRN ×3 (01:24→07:15)
[2021-10-13] MEDS: KETOROLAC 15MG/ML VIAL (15MG/ML) IV PRN ×2 (01:58→23:22)
[2021-10-13] MEDS: MAGNESIUM 2GM PREMIX 50ML 50 ML IV PRN (04:22)
[2021-10-13] MEDS: ZOSYN 3.375GM+NS 50ML 50 ML IV SCH ×3 (04:29→21:02)
[2021-10-13] MEDS: IPRATROPIUM/ALBUTEROL SULFATE 3 ML SOLUTION IH SCH ×4 (06:36→23:03)
[2021-10-13] MEDS ORDERED: KCL 20 MEQ ERTAB PO ONE (07:30)
[2021-10-13] MEDS: INSULIN HUMULIN R 100 UNIT/ML 3ML SQ SCH ×5 (07:30→21:59)
[2021-10-13 07:51] LABS: BASOPHILS % (AUTO) 0.2 % (0.0-5.0); EOSINOPHILS % (AUTO) 0.8 % (0.0-8.0); HEMATOCRIT 37.3 % (36-48); LYMPHOCYTES % (AUTO) 22.6 % (21.0-51.0); MEAN CORPUSCULAR HEMOGLOBIN 28.2 pg (27.0-33.0); MEAN CORPUSCULAR HGB CONC 33.2 g/dL (32.0-36.0); MEAN CORPUSCULAR VOLUME 84.8 fL (79-99); MONOCYTES % (AUTO) 7.6 % (3.0-13.0); NEUTROPHILS % (AUTO) 68.4 % (40.0-77.0); PLATELET COUNT (AUTO) 540 K/uL (130-400); RED CELL DISTRIBUTION WIDTH 15.9 % (11.0-15.5); WHITE BLOOD COUNT (AUTO) 11.9 K/uL (4.8-10.8)
[2021-10-13 07:59] LABS: CREATININE 0.3 mg/dL (0.5-1.5); MAGNESIUM 1.7 mg/dL (1.80-2.40); POTASSIUM 3.9 mmol/L (3.5-5.1)
[2021-10-13] MEDS: NYSTATIN 15 GM POWDER TP SCH ×3 (09:00→21:00)
[2021-10-13] MEDS: ENOXAPARIN SODIUM 40 MG/0.4 ML SYRINGE SQ SCH (09:25)
[2021-10-13] MEDS: FAMOTIDINE 20MG TAB PO SCH (09:25)
[2021-10-13] MEDS ORDERED: INSULIN GLARGINE 100 UNITS/ML 10 ML VIAL SQ SCH (10:00)
[2021-10-13] MEDS: 0.9%NACL 1000ML 1,000 ML IV SCH ×2 (11:58→21:02)
[2021-10-13] MEDS ORDERED: 0.9%NACL 50ML 50 ML IV ONE (12:12)
[2021-10-13] MEDS ORDERED: MORPHINE 2 MG SYG IM ONE (16:30)
[2021-10-13 23:50] VITALS: BP 121/74
[2021-10-14] MEDS ORDERED: ACET-2743 PO (00:20)
[2021-10-14] MEDS ORDERED: FISH1CAP20 PO (00:23)
[2021-10-14] MEDS ORDERED: INS7030 SQ (00:23)
[2021-10-14 04:12] VITALS: BP 110/70
[2021-10-14] MEDS: ZOSYN 3.375GM+NS 50ML 50 ML IV SCH ×3 (05:05→20:36)
[2021-10-14] MEDS: IPRATROPIUM/ALBUTEROL SULFATE 3 ML SOLUTION IH SCH ×3 (06:00→18:13)
[2021-10-14] MEDS: INSULIN HUMULIN R 100 UNIT/ML 3ML SQ SCH ×8 (06:33→20:38)
[2021-10-14] MEDS: KETOROLAC 15MG/ML VIAL (15MG/ML) IV PRN ×3 (06:40→18:58)
[2021-10-14 07:20] LABS: BASOPHILS % (AUTO) 0.3 % (0.0-5.0); EOSINOPHILS % (AUTO) 1.2 % (0.0-8.0); HEMATOCRIT 35.9 % (36-48); LYMPHOCYTES % (AUTO) 25.4 % (21.0-51.0); MEAN CORPUSCULAR HEMOGLOBIN 28.1 pg (27.0-33.0); MEAN CORPUSCULAR HGB CONC 32.9 g/dL (32.0-36.0); MEAN CORPUSCULAR VOLUME 85.5 fL (79-99); MONOCYTES % (AUTO) 8.8 % (3.0-13.0); NEUTROPHILS % (AUTO) 63.9 % (40.0-77.0); PLATELET COUNT (AUTO) 531 K/uL (130-400); RED CELL DISTRIBUTION WIDTH 16.1 % (11.0-15.5); WHITE BLOOD COUNT (AUTO) 7.7 K/uL (4.8-10.8)
[2021-10-14 07:33] LABS: CREATININE 0.4 mg/dL (0.5-1.5); POTASSIUM 3.9 mmol/L (3.5-5.1)
[2021-10-14 07:49] VITALS: BP 115/72
[2021-10-14] MEDS ORDERED: INSULIN GLARGINE 100 UNITS/ML 10 ML VIAL SQ SCH (09:00)
[2021-10-14] MEDS: FAMOTIDINE 20MG TAB PO SCH (09:12)
[2021-10-14] MEDS: ENOXAPARIN SODIUM 40 MG/0.4 ML SYRINGE SQ SCH (09:13)
[2021-10-14] MEDS ORDERED: INSULIN HUMULIN R 100 UNIT/ML 3ML SQ SCH (11:30)
[2021-10-14 11:52] VITALS: BP 127/79
[2021-10-14] MEDS: NYSTATIN 15 GM POWDER TP SCH ×3 (11:53→20:36)
[2021-10-14 16:00] VITALS: BP 136/83
[2021-10-14] MEDS: 0.9%NACL 1000ML 1,000 ML IV SCH (18:11)
[2021-10-14 21:16] VITALS: BP 138/78
[2021-10-14 23:59] VITALS: BP 131/78
[2021-10-15] MEDS: IPRATROPIUM/ALBUTEROL SULFATE 3 ML SOLUTION IH SCH ×3 (00:10→11:29)
[2021-10-15] MEDS: KETOROLAC 15MG/ML VIAL (15MG/ML) IV PRN ×2 (01:23→08:09)
[2021-10-15 04:22] VITALS: BP 131/86
[2021-10-15] MEDS: ZOSYN 3.375GM+NS 50ML 50 ML IV SCH ×2 (04:38→13:00)
[2021-10-15] MEDS: INSULIN HUMULIN R 100 UNIT/ML 3ML SQ SCH ×3 (06:17→11:47)
[2021-10-15 07:51] VITALS: BP 123/82
[2021-10-15] MEDS: ENOXAPARIN SODIUM 40 MG/0.4 ML SYRINGE SQ SCH (09:00)
[2021-10-15] MEDS ORDERED: INSULIN GLARGINE 100 UNITS/ML 10 ML VIAL SQ SCH (09:00)
[2021-10-15] MEDS ORDERED: INS7030 SQ (10:17)
[2021-10-15] MEDS ORDERED: LEVO500T90 PO (10:17)
[2021-10-15] MEDS ORDERED: FENO145T PO (10:17)
[2021-10-15] MEDS ORDERED: ATOR40TA69 PO (10:17)
[2021-10-15] MEDS ORDERED: NIAC100045 PO (10:17)
[2021-10-15] MEDS ORDERED: FISH1CAP20 PO (10:17)
[2021-10-15] MEDS ORDERED: HUM10VIA SQ (10:17)
[2021-10-15] MEDS: 0.9%NACL 1000ML 1,000 ML IV SCH (10:45)
[2021-10-15 11:00] VITALS: BP 137/92
[2021-10-15] MEDS ORDERED: INSULIN HUMULIN R 100 UNIT/ML 3ML SQ SCH (11:30)
[2021-10-15] MEDS: NYSTATIN 15 GM POWDER TP SCH (11:44)
[2021-10-15] MEDS: FAMOTIDINE 20MG TAB PO SCH (11:54)
== END 2021-10-15 14:03 | disposition home or self-care (01) | DRG 637 ==
LOC: EDH 17:32 → OBSVTOIN 17:33 → EDHIP 17:33 → INTOOBSV 17:33 → 4BH 22:16 → EDHIP 23:07 → 3BH 10-13 23:05
PROVIDERS: ADMIT Internal Medicine; ATTEND Internal Medicine
DX: E11.10 Type 2 diabetes mellitus with ketoacidosis without coma (principal); J18.1 Lobar pneumonia, unspecified organism; E87.1 Hypo-osmolality and hyponatremia; E72.20 Disorder of urea cycle metabolism, unspecified; K86.1 Other chronic pancreatitis; E11.65 Type 2 diabetes mellitus with hyperglycemia; K59.03 Drug induced constipation; K72.90 Hepatic failure, unspecified without coma; K43.9 Ventral hernia without obstruction or gangrene; T40.605A Adverse effect of unspecified narcotics, initial encounter; B37.3 Candidiasis of vulva and vagina; E78.00 Pure hypercholesterolemia, unspecified; E78.1 Pure hyperglyceridemia; M47.815 Spondylosis without myelopathy or radiculopathy, thoracolumbar region; K21.9 Gastro-esophageal reflux disease without esophagitis; E78.5 Hyperlipidemia, unspecified; Z20.822 Contact with and (suspected) exposure to COVID-19; Z56.0 Unemployment, unspecified; Z79.4 Long term (current) use of insulin; Z82.49 Family history of ischemic heart disease and other diseases of the circulatory system; Z83.3 Family history of diabetes mellitus; Z90.81 Acquired absence of spleen; Z91.19 Patient's noncompliance with other medical treatment and regimen; Z51.5 Encounter for palliative care; Y92.89 Other specified places as the place of occurrence of the external cause; Z90.49 Acquired absence of other specified parts of digestive tract; Z79.82 Long term (current) use of aspirin; Z79.899 Other long term (current) drug therapy; Z88.8 Allergy status to other drugs, medicaments and biological substances
CPT/HCPCS: 36415; 36600; 71045; 74176; 80048; 80053; 81001; 81025; 82010; 82140; 82803; 82948; 83036; 83605; 83690; 83735; 84100; 84443; 84484; 85025; 87040; 87071; 87205; 87635; 94640; 94664; G0378; J0500; J0696; J1650; J1815; J1885; J2270; J2405; J2543; J2550; J3475; J3480; J3490; J7030; J7042

== ENCOUNTER 2021-12-24 08:08 | Inpatient (IN) | payer OTHER ==
[~2021-12-24] VITALS: Ht 152.4 cm; Wt 67.0 kg
[~2021-12-24 08:08] MED LIST changes: +ACET-2743 PO; -ASPI-1443 PO; -DICY20TA2 PO; -IBUP-2077 PO; +INS7030 SQ; +LEVO500T90 PO; -METO5 PO; -ONDA4TAB10 PO; -PANT40TA54 PO; -TRAM50TA4 PO; -TYL3B PO
[2021-12-24 09:25] LABS: ABG OXYGEN SATURATION 73.8 % (95.0-99.0); BASE EXCESS,VENOUS BLOOD GAS -19.2 (-2.0-3.0); HCO3,VENOUS BLOOD GAS 9.2 (21.0-28.0); PCO2,VENOUS BLOOD GAS 30 (32-45); PH,VENOUS BLOOD GAS 7.103 (7.350-7.450)
[2021-12-24] MEDS ORDERED: ONDANSETRON 4MG INJ ONE (09:26)
[2021-12-24] MEDS ORDERED: 0.9%NACL 1000ML 2,000 ML IV SCH (09:30)
[2021-12-24] MEDS ORDERED: ONDANSETRON 4MG INJ IVP SCH (09:30)
[2021-12-24 09:47] LABS: POTASSIUM 4.2 mmol/L (3.5-5.1)
[2021-12-24 09:59] LABS: BASOPHILS % (AUTO) 0.2 % (0.0-5.0); EOSINOPHILS % (AUTO) 0.2 % (0.0-8.0); HEMATOCRIT 39.3 % (36-48); LYMPHOCYTES % (AUTO) 2.6 % (21.0-51.0); MEAN CORPUSCULAR HEMOGLOBIN 31.1 pg (27.0-33.0); MEAN CORPUSCULAR HGB CONC 34.4 g/dL (32.0-36.0); MEAN CORPUSCULAR VOLUME 90.6 fL (79-99); MONOCYTES % (AUTO) 2.7 % (3.0-13.0); NEUTROPHILS % (AUTO) 92.2 % (40.0-77.0); NUCLEATED RED BLOOD CELLS 2.3 % (0.0-0.19); PLATELET COUNT (AUTO) 358 K/uL (130-400); RED BLOOD CELL COUNT(AUTO) 4.34 MIL/uL (4.00-5.50); RED CELL DISTRIBUTION WIDTH 16.6 % (11.0-15.5); WHITE BLOOD COUNT (AUTO) 21.2 K/uL (4.8-10.8)
[2021-12-24] MEDS ORDERED: PROMETHAZINE HCL 25 MG/ML 1ML AMPULE IM SCH (10:00)
[2021-12-24] MEDS ORDERED: POTASSIUM CHLORIDE 10% ELIXIR 20 MEQ/15 ML UDCUP PO SCH (10:30)
[2021-12-24] MEDS ORDERED: 0.9%NACL 1000ML 1,000 ML IV SCH (10:30)
[2021-12-24 11:12] LABS: APPEARANCE,URINE Cloudy (CLEAR); BILIRUBIN,URINE Negative (NEGATIVE); COLOR,URINE Yellow (YELLOW); GLUCOSE, URINE (UA) >=1000 mg/dL (NEGATIVE); KETONES,URINE >=160 mg/dL (NEGATIVE); LEUKOCYTE ESTERASE ,URINE Negative (NEGATIVE); NITRATE,URINE Negative (NEGATIVE); OCCULT BLOOD,URINE Large (NEGATIVE); PH,URINE 5.5 (5.0-8.0); PROTEIN,URINE 300 mg/dL (NEGATIVE); UROBILINOGEN,URINE 0.2 mg/dL (0.2-1.0)
[2021-12-24] MEDS ORDERED: DEXTROSE 5 %-0.45 % NACL 1,000 ML IV PRN ×2 (11:30)
[2021-12-24 11:33] LABS: ALBUMIN 3.4 g/dL (3.5-5.0); BILIRUBIN,TOTAL 0.6 mg/dL (0.2-1.0); CREATININE 0.9 mg/dL (0.5-1.5); MAGNESIUM 2.1 mg/dL (1.80-2.40); PHOSPHORUS 6.1 mg/dL (2.5-4.9); TOTAL PROTEIN, SERUM 10.2 g/dL (6.0-8.3)
[2021-12-24] MEDS: 0.9%NACL 1000ML 1,000 ML IV SCH ×3 (11:45→21:30)
[2021-12-24] MEDS: INSULIN REGULAR, HUMAN 3ML 100 UNIT in 0.9%NACL 100ML 99 ML IV PRN ×6 (11:48→18:49)
[2021-12-24 11:58] LABS: AMPHET/METH SCREEN,URINE NEGATIVE (NEGATIVE); BARBITURATE SCREEN, URINE NEGATIVE (NEGATIVE); BENZODIAZEPINES SCREEN,URINE NEGATIVE (NEGATIVE); CANNABINOID SCREEN,URINE NEGATIVE (NEGATIVE); COCAINE SCREEN,URINE NEGATIVE (NEGATIVE); OPIATE SCREEN,URINE NEGATIVE (NEGATIVE); PHENCYCLIDINE SCREEN,URINE NEGATIVE (NEGATIVE)
[2021-12-24] MEDS ORDERED: PANTOPRAZOLE 40 MG/VIAL IVP SCH (12:00)
[2021-12-24] MEDS ORDERED: THIAMINE HCL 100 MG/ML 2ML VIAL IVP SCH (12:00)
[2021-12-24 12:06] LABS: BACTERIA,URINE Few /HPF (None Seen); RBC,URINE 26-50 /HPF (0-1); WBC,URINE 0-1 /HPF (0-1)
[2021-12-24 12:12] LABS: LDL DIRECT 120 mg/dL (0-99)
[2021-12-24 12:37] LABS: MAGNESIUM 1.6 mg/dL (1.80-2.40); POTASSIUM 3.9 mmol/L (3.5-5.1)
[2021-12-24 12:57] LABS: HDL CHOLESTEROL 39 mg/dL (35-85); TRIGLYCERIDES 6605 mg/dL (30-200)
[2021-12-24 12:59] LABS: CHOLESTEROL 505 mg/dL (<200)
[2021-12-24] MEDS ORDERED: MAGNESIUM 2GM PREMIX 50ML 50 ML IV SCH (13:00)
[2021-12-24] MEDS ORDERED: IOHEXOL-350 75 ML VIAL IV ONE (13:10)
[2021-12-24 13:56] LABS: CREATININE 0.6 mg/dL (0.5-1.5)
[2021-12-24 14:52] LABS: INR 0.95 (0.85-1.15); PARTIAL THROMBOPLASTIN TIME 28.4 SEC (26.3-35.5); PROTHROMBIN TIME 10.3 SEC (9.6-11.6)
[2021-12-24] MEDS ORDERED: LABETALOL 20MG VIAL IV PRN (16:00)
[2021-12-24] MEDS: KETOROLAC 15MG/ML VIAL (15MG/ML) IV PRN (17:14)
[2021-12-24 18:37] LABS: CREATININE 0.7 mg/dL (0.5-1.5); POTASSIUM 4.2 mmol/L (3.5-5.1)
[2021-12-24] MEDS ORDERED: 0.9%NACL 50ML IV SCH (19:30)
[2021-12-24] MEDS: CALCIUM GLUC 1GM/10ML VIAL IVPB SCH (19:53)
[2021-12-24] MEDS: ONDANSETRON 4MG INJ IVP PRN (20:14)
[2021-12-24] MEDS: FISH OIL 1000 MG/CAP PO SCH (21:00)
[2021-12-24] MEDS: ATORVASTATIN 40 MG TABLET PO SCH (21:00)
[2021-12-24 21:39] VITALS: BP 146/84
[2021-12-24 21:45] VITALS: BP 145/75
[2021-12-24 22:00] VITALS: BP 130/89
[2021-12-24 22:15] VITALS: BP 152/85
[2021-12-24 22:30] VITALS: BP 139/81
[2021-12-24 23:00] VITALS: BP 144/85
[2021-12-25] VITALS (29 sets, daily range): BP systolic 115–152; BP diastolic 63–86
[2021-12-25] MEDS: ONDANSETRON 4MG INJ IVP PRN ×2 (00:52→10:17)
[2021-12-25] MEDS: KETOROLAC 15MG/ML VIAL (15MG/ML) IV PRN ×3 (01:31→13:40)
[2021-12-25] MEDS: 0.9%NACL 1000ML 1,000 ML IV SCH ×5 (01:47→22:04)
[2021-12-25 02:07] LABS: CREATININE 0.6 mg/dL (0.5-1.5); POTASSIUM 3.4 mmol/L (3.5-5.1)
[2021-12-25] MEDS ORDERED: 0.9%NACL 100ML 100 ML ONE ×2 (02:13→22:45)
[2021-12-25] MEDS: CALCIUM GLUC 1GM/10ML VIAL IVPB SCH ×2 (02:19→22:49)
[2021-12-25 04:12] LABS: ABG OXYGEN SATURATION 93.7 % (95.0-99.0); BASE EXCESS,VENOUS BLOOD GAS -12.5 (-2.0-3.0); HCO3,VENOUS BLOOD GAS 12.7 (21.0-28.0); PCO2,VENOUS BLOOD GAS 28 (32-45); PH,VENOUS BLOOD GAS 7.273 (7.350-7.450)
[2021-12-25] MEDS ORDERED: PHARMACY COMMUNICATION MISC SCH (04:30)
[2021-12-25] MEDS: FISH OIL 1000 MG/CAP PO SCH ×2 (08:35→18:32)
[2021-12-25] MEDS: ENOXAPARIN SODIUM 40 MG/0.4 ML SYRINGE SQ SCH ×2 (09:00→16:38)
[2021-12-25] MEDS: PANTOPRAZOLE 40 MG/VIAL IVP SCH (09:12)
[2021-12-25 09:41] LABS: BASOPHILS % (AUTO) 0.7 % (0.0-5.0); EOSINOPHILS % (AUTO) 2.6 % (0.0-8.0); LYMPHOCYTES % (AUTO) 7.8 % (21.0-51.0); MONOCYTES % (AUTO) 5.9 % (3.0-13.0); NEUTROPHILS % (AUTO) 81.8 % (40.0-77.0); NUCLEATED RED BLOOD CELLS 0.1 % (0.0-0.19); PLATELET COUNT (AUTO) 392 K/uL (130-400); RED BLOOD CELL COUNT(AUTO) 4.53 MIL/uL (4.00-5.50); RED CELL DISTRIBUTION WIDTH 17.1 % (11.0-15.5); WHITE BLOOD COUNT (AUTO) 16.4 K/uL (4.8-10.8)
[2021-12-25 09:54] LABS: BILIRUBIN,DIRECT 0.3 mg/dL (0.0-0.3); BILIRUBIN,TOTAL 0.5 mg/dL (0.2-1.0); POTASSIUM 3.4 mmol/L (3.5-5.1); PROTHROMBIN TIME 12.6 SEC (9.6-11.6); TOTAL PROTEIN, SERUM 7.8 g/dL (6.0-8.3)
[2021-12-25 09:55] LABS: INR 1.17 (0.85-1.15)
[2021-12-25 10:01] LABS: ALBUMIN 2.3 g/dL (3.5-5.0); CREATININE 0.6 mg/dL (0.5-1.5); MAGNESIUM 1.8 mg/dL (1.80-2.40)
[2021-12-25 10:03] LABS: HEMATOCRIT 33.3 % (36-48); MEAN CORPUSCULAR HEMOGLOBIN 29.3 pg (27.0-33.0); MEAN CORPUSCULAR HGB CONC 33.9 g/dL (32.0-36.0); MEAN CORPUSCULAR VOLUME 86.3 fL (79-99)
[2021-12-25] MEDS: INSULIN REGULAR, HUMAN 3ML 100 UNIT in 0.9%NACL 100ML 99 ML IV PRN ×2 (10:15)
[2021-12-25] MEDS: POTASSIUM CHLORIDE 10MEQ/100ML 100 ML IV PRN ×2 (10:16→22:50)
[2021-12-25] MEDS ORDERED: 0.9%NACL 1000ML 1,000 ML IV SCH (10:30)
[2021-12-25] MEDS: DEXTROSE 5%-LACTATED RINGERS 1,000 ML IV SCH ×2 (14:47→21:06)
[2021-12-25] MEDS ORDERED: MAGNESIUM 2GM PREMIX 50ML 50 ML IV ONE (15:35)
[2021-12-25 15:54] LABS: CREATININE 0.3 mg/dL (0.5-1.5); MAGNESIUM 1.6 mg/dL (1.80-2.40); POTASSIUM 3.7 mmol/L (3.5-5.1)
[2021-12-25] MEDS ORDERED: VANCOMYCIN PROTOCOL PER PHARMACY IV SCH (17:00)
[2021-12-25] MEDS ORDERED: VANCOMYCIN 1G/250ML KIT 250 ML IV SCH (17:30)
[2021-12-25] MEDS: MEROPENEM 1 GM VIAL IVP SCH (17:39)
[2021-12-25] MEDS: ACETAMINOPHEN 500 MG TABLET PO PRN (19:25)
[2021-12-25] MEDS: HYDROMORPHONE 0.5 MG SYG (0.5MG/0.5ML) IVP PRN (19:29)
[2021-12-25] MEDS: ATORVASTATIN 40 MG TABLET PO SCH (21:00)
[2021-12-25 22:37] LABS: CREATININE 0.3 mg/dL (0.5-1.5); POTASSIUM 3.2 mmol/L (3.5-5.1)
[2021-12-25] MEDS ORDERED: POTASSIUM CHLORIDE 10MEQ/100ML 100 ML IV ONE (23:32)
[2021-12-26] VITALS (23 sets, daily range): BP systolic 98–146; BP diastolic 52–81
[2021-12-26] MEDS: MEROPENEM 1 GM VIAL IVP SCH ×3 (01:07→16:41)
[2021-12-26] MEDS: DEXTROSE 5%-LACTATED RINGERS 1,000 ML IV SCH ×3 (03:20→13:14)
[2021-12-26] MEDS: HYDROMORPHONE 0.5 MG SYG (0.5MG/0.5ML) IVP PRN ×2 (03:23→09:54)
[2021-12-26] MEDS: 0.9%NACL 1000ML 1,000 ML IV SCH ×2 (03:30→08:30)
[2021-12-26 04:45] LABS: BASOPHILS % (AUTO) 0.5 % (0.0-5.0); EOSINOPHILS % (AUTO) 0.6 % (0.0-8.0); HEMATOCRIT 36.7 % (36-48); LYMPHOCYTES % (AUTO) 12.7 % (21.0-51.0); MEAN CORPUSCULAR HEMOGLOBIN 28.3 pg (27.0-33.0); MEAN CORPUSCULAR HGB CONC 34.3 g/dL (32.0-36.0); MEAN CORPUSCULAR VOLUME 82.5 fL (79-99); MONOCYTES % (AUTO) 3.4 % (3.0-13.0); NEUTROPHILS % (AUTO) 82.2 % (40.0-77.0); NUCLEATED RED BLOOD CELLS 0.3 % (0.0-0.19); PLATELET COUNT (AUTO) 263 K/uL (130-400); RED BLOOD CELL COUNT(AUTO) 4.45 MIL/uL (4.00-5.50); WHITE BLOOD COUNT (AUTO) 10.6 K/uL (4.8-10.8)
[2021-12-26 05:07] LABS: ALBUMIN 1.8 g/dL (3.5-5.0); BILIRUBIN,TOTAL 0.7 mg/dL (0.2-1.0); CREATININE 0.3 mg/dL (0.5-1.5); POTASSIUM 3.3 mmol/L (3.5-5.1); TOTAL PROTEIN, SERUM 6.9 g/dL (6.0-8.3)
[2021-12-26] MEDS ORDERED: 0.9%NACL 100ML 100 ML ONE (05:11)
[2021-12-26 05:57] LABS: CRP QUANTITATIVE 263.9 mg/L (0.00-9.0)
[2021-12-26] MEDS ORDERED: VANCOMYCIN 500MG+NS 100ML 100 ML IV SCH (06:00)
[2021-12-26] MEDS: POTASSIUM CHLORIDE 20MEQ/100ML 100 ML IV PRN ×3 (06:06→19:32)
[2021-12-26] MEDS: ENOXAPARIN SODIUM 40 MG/0.4 ML SYRINGE SQ SCH (09:09)
[2021-12-26] MEDS: FISH OIL 1000 MG/CAP PO SCH ×2 (09:09→20:10)
[2021-12-26] MEDS: PANTOPRAZOLE 40 MG/VIAL IVP SCH (09:09)
[2021-12-26] MEDS: ACETAMINOPHEN 500 MG TABLET PO PRN (16:42)
[2021-12-26 19:21] LABS: MAGNESIUM 1.2 mg/dL (1.80-2.40)
[2021-12-26 19:22] LABS: POTASSIUM 2.5 mmol/L (3.5-5.1)
[2021-12-26] MEDS ORDERED: VANCOMYCIN 1.25GM/NS 250ML IVPB ONE ×2 (19:30)
[2021-12-26] MEDS: KETOROLAC 15MG/ML VIAL (15MG/ML) IV PRN (20:10)
[2021-12-26] MEDS: ATORVASTATIN 40 MG TABLET PO SCH (20:10)
[2021-12-26] MEDS: INSULIN GLARGINE 100 UNITS/ML 10 ML VIAL SQ SCH (20:11)
[2021-12-27] VITALS (7 sets, daily range): BP systolic 117–134; BP diastolic 73–92
[2021-12-27] MEDS: HYDROMORPHONE 0.5 MG SYG (0.5MG/0.5ML) IVP PRN ×2 (00:03→13:19)
[2021-12-27] MEDS: MEROPENEM 1 GM VIAL IVP SCH ×3 (00:03→17:02)
[2021-12-27] MEDS ORDERED: 0.9% NACL 250ML 250 ML ONE ×3 (02:32→17:07)
[2021-12-27] MEDS: VANCOMYCIN 1G/250ML KIT 250 ML IV SCH ×2 (02:35→09:52)
[2021-12-27 05:47] LABS: BASOPHILS % (AUTO) 0.1 % (0.0-5.0); EOSINOPHILS % (AUTO) 1.4 % (0.0-8.0); HEMATOCRIT 30.1 % (36-48); LYMPHOCYTES % (AUTO) 16.1 % (21.0-51.0); MEAN CORPUSCULAR HEMOGLOBIN 28.7 pg (27.0-33.0); MEAN CORPUSCULAR HGB CONC 35.5 g/dL (32.0-36.0); MEAN CORPUSCULAR VOLUME 80.7 fL (79-99); MONOCYTES % (AUTO) 5.1 % (3.0-13.0); NEUTROPHILS % (AUTO) 76.9 % (40.0-77.0); NUCLEATED RED BLOOD CELLS 0.8 % (0.0-0.19); PLATELET COUNT (AUTO) 248 K/uL (130-400); RED BLOOD CELL COUNT(AUTO) 3.73 MIL/uL (4.00-5.50); WHITE BLOOD COUNT (AUTO) 7.8 K/uL (4.8-10.8)
[2021-12-27 06:12] LABS: CREATININE 0.3 mg/dL (0.5-1.5); MAGNESIUM 1.4 mg/dL (1.80-2.40); PHOSPHORUS 1.3 mg/dL (2.5-4.9); POTASSIUM 3.2 mmol/L (3.5-5.1)
[2021-12-27] MEDS: DEXTROSE 5%-LACTATED RINGERS 1,000 ML IV SCH ×3 (07:00→19:20)
[2021-12-27] MEDS: INSULIN HUMULIN R 100 UNIT/ML 3ML SQ SCH ×7 (07:15→23:09)
[2021-12-27] MEDS: PANTOPRAZOLE 40 MG/VIAL IVP SCH (09:02)
[2021-12-27] MEDS: KETOROLAC 15MG/ML VIAL (15MG/ML) IV PRN ×3 (09:03→23:11)
[2021-12-27] MEDS: ENOXAPARIN SODIUM 40 MG/0.4 ML SYRINGE SQ SCH (09:03)
[2021-12-27] MEDS: FISH OIL 1000 MG/CAP PO SCH ×2 (09:40→21:00)
[2021-12-27] MEDS: MAGNESIUM 2GM PREMIX 50ML 50 ML IV PRN (13:43)
[2021-12-27] MEDS ORDERED: POLYETHYLENE GLYCOL 3350 17 GM POWD.PACK ONE (16:53)
[2021-12-27] MEDS ORDERED: LACTULOSE 20 GM/30 ML UDCUP ONE (16:53)
[2021-12-27] MEDS ORDERED: LACTULOSE 20 GM/30 ML UDCUP PO PRN (17:00)
[2021-12-27] MEDS: ONDANSETRON 4MG INJ IVP PRN (17:08)
[2021-12-27] MEDS: VANCOMYCIN 1.5 GM/250 ML BAG 250 ML IV SCH ×2 (20:00→23:23)
[2021-12-27] MEDS: INSULIN GLARGINE 100 UNITS/ML 10 ML VIAL SQ SCH (23:10)
[2021-12-27] MEDS: ATORVASTATIN 40 MG TABLET PO SCH (23:10)
[2021-12-28] MEDS: MEROPENEM 1 GM VIAL IVP SCH ×3 (01:04→17:12)
[2021-12-28] MEDS: DEXTROSE 5%-LACTATED RINGERS 1,000 ML IV SCH (02:00)
[2021-12-28 03:12] VITALS: BP 131/75
[2021-12-28 04:33] LABS: BASOPHILS % (AUTO) 0.3 % (0.0-5.0); EOSINOPHILS % (AUTO) 0.6 % (0.0-8.0); HEMATOCRIT 31.6 % (36-48); LYMPHOCYTES % (AUTO) 23.8 % (21.0-51.0); MEAN CORPUSCULAR HEMOGLOBIN 27.6 pg (27.0-33.0); MEAN CORPUSCULAR HGB CONC 33.9 g/dL (32.0-36.0); MEAN CORPUSCULAR VOLUME 81.4 fL (79-99); MONOCYTES % (AUTO) 8.7 % (3.0-13.0); NEUTROPHILS % (AUTO) 65.8 % (40.0-77.0); NUCLEATED RED BLOOD CELLS 0.3 % (0.0-0.19); PLATELET COUNT (AUTO) 276 K/uL (130-400); RED BLOOD CELL COUNT(AUTO) 3.88 MIL/uL (4.00-5.50); RED CELL DISTRIBUTION WIDTH 16.5 % (11.0-15.5); WHITE BLOOD COUNT (AUTO) 6.5 K/uL (4.8-10.8)
[2021-12-28 04:58] LABS: CREATININE 0.5 mg/dL (0.5-1.5)
[2021-12-28 05:14] LABS: POTASSIUM 2.5 mmol/L (3.5-5.1)
[2021-12-28] MEDS ORDERED: POTASSIUM CHLORIDE 20MEQ/100ML 100 ML IV PRN (06:00)
[2021-12-28] MEDS ORDERED: VANCOMYCIN 1.25 GM/250 ML BAG 250 ML IV SCH (06:00)
[2021-12-28] MEDS: KCL 20 MEQ ERTAB PO PRN ×3 (06:01→11:15)
[2021-12-28] MEDS: INSULIN HUMULIN R 100 UNIT/ML 3ML SQ SCH ×7 (06:34→21:48)
[2021-12-28] MEDS: KETOROLAC 15MG/ML VIAL (15MG/ML) IV PRN (06:35)
[2021-12-28 07:54] VITALS: BP 119/76
[2021-12-28] MEDS: FISH OIL 1000 MG/CAP PO SCH ×2 (08:45→20:12)
[2021-12-28] MEDS: PANTOPRAZOLE 40 MG/VIAL IVP SCH (08:46)
[2021-12-28] MEDS: ENOXAPARIN SODIUM 40 MG/0.4 ML SYRINGE SQ SCH (08:46)
[2021-12-28] MEDS: POLYETHYLENE GLYCOL 3350 17 GM POWD.PACK PO SCH (08:46)
[2021-12-28] MEDS: POTASSIUM CHLORIDE 20MEQ/100ML 100 ML IV PRN (08:47)
[2021-12-28] MEDS ORDERED: MAGNESIUM CHLORIDE 70 MG TABLET.SA PO SCH (11:00)
[2021-12-28] MEDS ORDERED: ACETAMINOPHEN WITH CODEINE 1 TAB TAB PO PRN (11:00)
[2021-12-28 12:00] VITALS: BP 134/79
[2021-12-28] MEDS: NEUTRA-PHOS PACKET 1 EACH PO SCH ×4 (12:51→20:16)
[2021-12-28] MEDS: ACETAMINOPHEN WITH CODEINE 1 TAB TAB PO PRN ×2 (13:34→20:13)
[2021-12-28 16:00] VITALS: BP 123/77
[2021-12-28 20:00] VITALS: BP 133/82
[2021-12-28] MEDS: ATORVASTATIN 40 MG TABLET PO SCH (20:12)
[2021-12-28] MEDS: INSULIN GLARGINE 100 UNITS/ML 10 ML VIAL SQ SCH (21:49)
[2021-12-29] VITALS: BP 128/89
[2021-12-29] MEDS: MEROPENEM 1 GM VIAL IVP SCH ×3 (01:01→16:18)
[2021-12-29 04:00] VITALS: BP 124/80
[2021-12-29 04:19] LABS: BASOPHILS % (AUTO) 0.3 % (0.0-5.0); EOSINOPHILS % (AUTO) 1.4 % (0.0-8.0); LYMPHOCYTES % (AUTO) 25.8 % (21.0-51.0); MEAN CORPUSCULAR HEMOGLOBIN 28.6 pg (27.0-33.0); MEAN CORPUSCULAR HGB CONC 34.8 g/dL (32.0-36.0); MEAN CORPUSCULAR VOLUME 82.2 fL (79-99); MONOCYTES % (AUTO) 13.4 % (3.0-13.0); NEUTROPHILS % (AUTO) 57.9 % (40.0-77.0); PLATELET COUNT (AUTO) 297 K/uL (130-400); RED BLOOD CELL COUNT(AUTO) 3.77 MIL/uL (4.00-5.50); RED CELL DISTRIBUTION WIDTH 16.7 % (11.0-15.5); WHITE BLOOD COUNT (AUTO) 7.8 K/uL (4.8-10.8)
[2021-12-29 04:54] LABS: CREATININE 0.5 mg/dL (0.5-1.5); MAGNESIUM 1.7 mg/dL (1.80-2.40); PHOSPHORUS 2.7 mg/dL (2.5-4.9)
[2021-12-29] MEDS: INSULIN HUMULIN R 100 UNIT/ML 3ML SQ SCH ×8 (06:21→16:30)
[2021-12-29] MEDS: ACETAMINOPHEN WITH CODEINE 1 TAB TAB PO PRN (06:25)
[2021-12-29] MEDS: KCL 20 MEQ ERTAB PO PRN ×3 (06:27→11:57)
[2021-12-29] MEDS: MAGNESIUM 2GM PREMIX 50ML 50 ML IV PRN (07:04)
[2021-12-29 07:05] VITALS: BP 119/74
[2021-12-29] MEDS: PANTOPRAZOLE 40 MG/VIAL IVP SCH (08:59)
[2021-12-29] MEDS: POLYETHYLENE GLYCOL 3350 17 GM POWD.PACK PO SCH (08:59)
[2021-12-29] MEDS: FISH OIL 1000 MG/CAP PO SCH (08:59)
[2021-12-29] MEDS ORDERED: POTASSIUM CHLORIDE 10% ELIXIR 20 MEQ/15 ML UDCUP PO SCH (09:00)
[2021-12-29] MEDS ORDERED: MAGNESIUM CHLORIDE 70 MG TABLET.SA PO SCH (09:00)
[2021-12-29] MEDS: ENOXAPARIN SODIUM 40 MG/0.4 ML SYRINGE SQ SCH (09:00)
[2021-12-29] MEDS ORDERED: HUM10VIA SQ (09:00)
[2021-12-29] MEDS: NEUTRA-PHOS PACKET 1 EACH PO SCH ×3 (09:02→16:18)
[2021-12-29] MEDS ORDERED: MAGNESIUM 2GM PREMIX 50ML 50 ML IV PRN (09:30)
[2021-12-29 11:40] VITALS: BP 123/77
[2021-12-29 14:49] LABS: INR 0.98 (0.85-1.15); PROTHROMBIN TIME 10.7 SEC (9.6-11.6)
[2021-12-29 15:40] VITALS: BP 130/76
[2021-12-30] MEDS ORDERED: INVANZ 1GM+NS 50ML IVPB 50 ML IV SCH (09:00)
== END 2021-12-29 18:58 | disposition home or self-care (01) | DRG 637 ==
LOC: EDH 08:08 → EDHIP 08:09 → 2BH 23:56 → 4DH 12-27 01:07
PROVIDERS: ADMIT Hospitalist; ATTEND Hospitalist
PROC: 02H633Z Insertion of Infusion Device into Right Atrium, Percutaneous Approach (ICD-10-PCS; principal; 2021-12-26)
DX: E11.10 Type 2 diabetes mellitus with ketoacidosis without coma (principal); K85.90 Acute pancreatitis without necrosis or infection, unspecified; G92.8 Other toxic encephalopathy; E87.1 Hypo-osmolality and hyponatremia; J98.11 Atelectasis; K86.1 Other chronic pancreatitis; Z20.822 Contact with and (suspected) exposure to COVID-19; E78.1 Pure hyperglyceridemia; D72.810 Lymphocytopenia; Z79.4 Long term (current) use of insulin; E86.0 Dehydration; E86.1 Hypovolemia; E78.00 Pure hypercholesterolemia, unspecified; E78.5 Hyperlipidemia, unspecified; E83.42 Hypomagnesemia; E83.51 Hypocalcemia; E87.6 Hypokalemia; I10 Essential (primary) hypertension; K43.9 Ventral hernia without obstruction or gangrene; K59.00 Constipation, unspecified; Z56.0 Unemployment, unspecified; Z59.7 Insufficient social insurance and welfare support; Z79.899 Other long term (current) drug therapy; Z82.49 Family history of ischemic heart disease and other diseases of the circulatory system; Z83.3 Family history of diabetes mellitus; Z90.49 Acquired absence of other specified parts of digestive tract; Z90.81 Acquired absence of spleen; Z91.19 Patient's noncompliance with other medical treatment and regimen; Z76.5 Malingerer [conscious simulation]; Z88.8 Allergy status to other drugs, medicaments and biological substances
CPT/HCPCS: 36415; 36600; 70450; 71045; 74176; 80048; 80053; 80061; 80076; 80202; 80305; 81001; 81025; 82010; 82435; 82803; 82947; 82948; 83036; 83605; 83690; 83735; 83880; 83930; 84100; 84132; 84145; 84295; 84443; 84478; 84484; 85025; 85610; 85651; 85730; 86140; 87040; 87071; 87077; 87088; 87186; 87205; 87635; 87804; 93005; 99291; C1894; C9113; G0378; J0610; J1170; J1335; J1650; J1815; J1885; J2185; J2405; J2550; J3370; J3411; J3475; J3480; J3490; J7030; J7042; J7050; Q9967

== ENCOUNTER 2021-12-31 15:08 | Emergency (ER) | payer MEDICAID, OTHER ==
[~2021-12-31] VITALS: Ht 152.4 cm; Wt 63.5 kg
[~2021-12-31 15:08] MED LIST changes: -ACET-2743 PO; -LEVO500T90 PO
[2021-12-31 15:52] LABS: BASOPHILS % (AUTO) 0.1 % (0.0-5.0); EOSINOPHILS % (AUTO) 0.3 % (0.0-8.0); HEMATOCRIT 35.5 % (36-48); LYMPHOCYTES % (AUTO) 25.7 % (21.0-51.0); MEAN CORPUSCULAR HEMOGLOBIN 28.2 pg (27.0-33.0); MEAN CORPUSCULAR HGB CONC 33.2 g/dL (32.0-36.0); MEAN CORPUSCULAR VOLUME 84.9 fL (79-99); MONOCYTES % (AUTO) 5.5 % (3.0-13.0); NEUTROPHILS % (AUTO) 67.5 % (40.0-77.0); PLATELET COUNT (AUTO) 390 K/uL (130-400); RED BLOOD CELL COUNT(AUTO) 4.18 MIL/uL (4.00-5.50); RED CELL DISTRIBUTION WIDTH 16.9 % (11.0-15.5); WHITE BLOOD COUNT (AUTO) 7.8 K/uL (4.8-10.8)
[2021-12-31 15:53] LABS: APPEARANCE,URINE Cloudy (CLEAR); BILIRUBIN,URINE Negative (NEGATIVE); COLOR,URINE Yellow (YELLOW); GLUCOSE, URINE (UA) >=1000 mg/dL (NEGATIVE); KETONES,URINE 40 mg/dL (NEGATIVE); LEUKOCYTE ESTERASE ,URINE Negative (NEGATIVE); NITRATE,URINE Negative (NEGATIVE); OCCULT BLOOD,URINE Negative (NEGATIVE); PH,URINE 7.5 (5.0-8.0); PROTEIN,URINE POS 2+ mg/dL (NEGATIVE)
[2021-12-31 15:57] LABS: HCG,QUAL RESULT NEGATIVE (NEGATIVE)
[2021-12-31 16:01] LABS: CREATININE 0.4 mg/dL (0.5-1.5); POTASSIUM 3.8 mmol/L (3.5-5.1)
[2021-12-31 16:02] LABS: BACTERIA,URINE Few /HPF (None Seen); RBC,URINE 0-1 /HPF (0-1); SQUAMOUS EPITHELIAL CELL,UR Few /HPF (0-2); WBC,URINE 0-1 /HPF (0-1); YEAST,URINE BUDDING Few /HPF (None Seen)
[2021-12-31 16:06] LABS: ALBUMIN 2.5 g/dL (3.5-5.0)
[2021-12-31] MEDS ORDERED: IOHEXOL-350 75 ML VIAL IV ONE (16:22)
[2021-12-31] MEDS ORDERED: METOCLOPRAMIDE 10 MG/2 ML VIAL IVP ONE (16:30)
[2021-12-31] MEDS ORDERED: MORPHINE 4 MG SYG IVP ONE (16:30)
[2021-12-31] MEDS ORDERED: 0.9%NACL 1000ML 1,000 ML IV ONE (16:30)
[2021-12-31] MEDS ORDERED: DiphenhydrAMINE HCL 50 MG/ML VIAL IV ONE (16:30)
[2021-12-31 18:01] VITALS: BP 143/86
== END 2021-12-31 18:37 | disposition home or self-care (01) ==
LOC: EDH 15:08
DX: K86.1 Other chronic pancreatitis (principal); E11.65 Type 2 diabetes mellitus with hyperglycemia; E78.00 Pure hypercholesterolemia, unspecified; I10 Essential (primary) hypertension; Z98.890 Other specified postprocedural states; Z88.1 Allergy status to other antibiotic agents; Z79.4 Long term (current) use of insulin; Z79.899 Other long term (current) drug therapy; Z90.49 Acquired absence of other specified parts of digestive tract
CPT/HCPCS: 99285; 74177; 96374; 96375; 96361; 80053; 83690; 85025; 83605; 81001; 81025; 36415; J1200; J7030; J2270; J2765; Q9967

== ENCOUNTER 2022-01-14 22:26 | Inpatient (IN) | payer OTHER ==
[~2022-01-14] VITALS: Ht 165.1 cm; Wt 77.1 kg
[2022-01-15] MEDS ORDERED: ONDANSETRON 4MG INJ IVP ONE
[2022-01-15] MEDS ORDERED: MORPHINE 4 MG SYG IVP ONE
[2022-01-15 00:29] LABS: BASOPHILS % (AUTO) 0.3 % (0.0-5.0); EOSINOPHILS % (AUTO) 0.5 % (0.0-8.0); HEMATOCRIT 36.4 % (36-48); LYMPHOCYTES % (AUTO) 18.1 % (21.0-51.0); MEAN CORPUSCULAR VOLUME 86.3 fL (79-99); MONOCYTES % (AUTO) 5.1 % (3.0-13.0); NEUTROPHILS % (AUTO) 75.7 % (40.0-77.0); PLATELET COUNT (AUTO) 597 K/uL (130-400); RED BLOOD CELL COUNT(AUTO) 4.22 MIL/uL (4.00-5.50); RED CELL DISTRIBUTION WIDTH 17.4 % (11.0-15.5); WHITE BLOOD COUNT (AUTO) 11.9 K/uL (4.8-10.8)
[2022-01-15] MEDS ORDERED: 0.9%NACL 1000ML 1,000 ML IV ONE (00:30)
[2022-01-15 00:47] LABS: ABG BASE EXCESS -9.3 mmol/L (-2.0-3.0); ABG OXYGEN SATURATION 95.6 % (95.0-99.0); ABG PCO2 33 mmHg (32-45)
[2022-01-15 00:49] LABS: CREATININE 0.7 mg/dL (0.5-1.5); POTASSIUM 4.6 mmol/L (3.5-5.1)
[2022-01-15 00:53] LABS: ALBUMIN 3.2 g/dL (3.5-5.0); BILIRUBIN,TOTAL 0.6 mg/dL (0.2-1.0); MAGNESIUM 1.6 mg/dL (1.80-2.40); TOTAL PROTEIN, SERUM 9.2 g/dL (6.0-8.3)
[2022-01-15] MEDS ORDERED: INSULIN HUMULIN R 100 UNIT/ML 3ML IV ONE (01:30)
[2022-01-15] MEDS ORDERED: IOHEXOL 350 MG/ML 100ML INFUS..BTL IV ONE (01:52)
[2022-01-15] MEDS ORDERED: MORPHINE 2 MG SYG IV PRN (02:00)
[2022-01-15] MEDS ORDERED: ONDANSETRON 4MG INJ IV PRN (02:00)
[2022-01-15] MEDS ORDERED: MAGNESIUM 2GM PREMIX 50ML 50 ML IV PRN (02:00)
[2022-01-15] MEDS ORDERED: ACETAMINOPHEN 325 MG TAB PO PRN (02:00)
[2022-01-15 02:22] LABS: APPEARANCE,URINE Clear (CLEAR); BILIRUBIN,URINE Negative (NEGATIVE); COLOR,URINE Yellow (YELLOW); GLUCOSE, URINE (UA) >=1000 mg/dL (NEGATIVE); KETONES,URINE >=160 mg/dL (NEGATIVE); LEUKOCYTE ESTERASE ,URINE Negative (NEGATIVE); NITRATE,URINE Negative (NEGATIVE); OCCULT BLOOD,URINE Negative (NEGATIVE); PROTEIN,URINE POS 1+ mg/dL (NEGATIVE); UROBILINOGEN,URINE 0.2 mg/dL (0.2-1.0)
[2022-01-15] MEDS: CEFTRIAXONE 2GM VIAL IVP SCH ×2 (02:26→14:16)
[2022-01-15] MEDS: 0.9%NACL 1000ML 1,000 ML IV SCH ×2 (02:26→08:44)
[2022-01-15 02:43] LABS: BACTERIA,URINE Few /HPF (None Seen); RBC,URINE None Seen /HPF (0-1); WBC,URINE 0-1 /HPF (0-1); YEAST,URINE BUDDING Few /HPF (None Seen)
[2022-01-15] MEDS: INSULIN HUMULIN R 100 UNIT/ML 3ML SQ SCH ×2 (06:15→12:00)
[2022-01-15] MEDS ORDERED: LACTULOSE 20 GM/30 ML UDCUP PO PRN (06:30)
[2022-01-15 06:35] LABS: BASOPHILS % (AUTO) 0.3 % (0.0-5.0); EOSINOPHILS % (AUTO) 0.8 % (0.0-8.0); HEMATOCRIT 31.2 % (36-48); LYMPHOCYTES % (AUTO) 30.7 % (21.0-51.0); MEAN CORPUSCULAR HGB CONC 35.3 g/dL (32.0-36.0); MONOCYTES % (AUTO) 7.6 % (3.0-13.0); NEUTROPHILS % (AUTO) 60.3 % (40.0-77.0); PLATELET COUNT (AUTO) 513 K/uL (130-400); RED BLOOD CELL COUNT(AUTO) 3.67 MIL/uL (4.00-5.50); RED CELL DISTRIBUTION WIDTH 16.7 % (11.0-15.5); WHITE BLOOD COUNT (AUTO) 9.6 K/uL (4.8-10.8)
[2022-01-15 07:35] LABS: ALBUMIN 2.7 g/dL (3.5-5.0); BILIRUBIN,TOTAL 0.4 mg/dL (0.2-1.0); CREATININE 0.5 mg/dL (0.5-1.5); CRP QUANTITATIVE 32.4 mg/L (0.00-9.0); POTASSIUM 4.5 mmol/L (3.5-5.1); TOTAL PROTEIN, SERUM 7.9 g/dL (6.0-8.3)
[2022-01-15 07:40] LABS: ERYTHROCYTE SEDIMENTATION RATE 55 MM/HR (0-20)
[2022-01-15 08:00] VITALS: BP 99/63
[2022-01-15 08:48] LABS: CHOLESTEROL 248 mg/dL (<200); HDL CHOLESTEROL 27 mg/dL (35-85); LDL DIRECT 33 mg/dL (0-99); LIPASE 74 U/L (114-286); TRIGLYCERIDES 1144 mg/dL (30-200)
[2022-01-15] MEDS ORDERED: ATORVASTATIN 40 MG TABLET ONE (08:56)
[2022-01-15] MEDS ORDERED: FISH OIL 1000 MG/CAP PO SCH (09:00)
[2022-01-15] MEDS: NIACIN 500 MG SRTAB PO SCH ×2 (09:00→14:16)
[2022-01-15] MEDS ORDERED: FENOFIBRATE NANOCRYSTALLIZED 145 MG TAB PO SCH ×2 (09:00→21:00)
[2022-01-15] MEDS ORDERED: FAMOTIDINE 20MG VIAL IV SCH (09:00)
[2022-01-15] MEDS ORDERED: ENOXAPARIN SODIUM 30 MG/0.3 ML SQ SCH (09:00)
[2022-01-15] MEDS: ACETAMINOPHEN 325 MG TAB PO PRN ×2 (09:31→15:52)
[2022-01-15 11:06] LABS: CREATININE 0.4 mg/dL (0.5-1.5); POTASSIUM 3.9 mmol/L (3.5-5.1)
[2022-01-15] MEDS ORDERED: DULO30CA52 PO (15:38)
[2022-01-15] MEDS ORDERED: ICOS1CAP PO (15:44)
[2022-01-15] MEDS ORDERED: ATOR40TA71 PO (15:46)
[2022-01-15] MEDS ORDERED: FENO145T26 PO (15:46)
[2022-01-15] MEDS ORDERED: INSULIN HUMULIN 70/30 100 UNIT/ML 3ML SQ SCH (16:30)
[2022-01-15] MEDS ORDERED: SYRI-1628 MC (17:10)
[2022-01-15] MEDS ORDERED: HUM10VIA SQ ×2 (17:10)
[2022-01-15 17:33] LABS: CREATININE 0.5 mg/dL (0.5-1.5)
[2022-01-15 17:36] LABS: HEMOGLOBIN A1C 12.9 % (4.0-6.0)
[2022-01-15] MEDS ORDERED: ATORVASTATIN 40 MG TABLET PO SCH (21:00)
[2022-01-16] MEDS ORDERED: INSULIN HUMULIN 70/30 100 UNIT/ML 3ML SQ SCH (08:00)
== END 2022-01-15 19:06 | disposition home or self-care (01) | DRG 639 ==
LOC: EDH 22:26 → EDHIP 22:27
PROVIDERS: ADMIT Hospitalist; ATTEND Hospitalist
DX: E11.10 Type 2 diabetes mellitus with ketoacidosis without coma (principal); I10 Essential (primary) hypertension; Z90.49 Acquired absence of other specified parts of digestive tract; Z90.81 Acquired absence of spleen; E78.00 Pure hypercholesterolemia, unspecified; E78.5 Hyperlipidemia, unspecified; K59.00 Constipation, unspecified; K43.9 Ventral hernia without obstruction or gangrene; Z79.4 Long term (current) use of insulin; Z79.899 Other long term (current) drug therapy
CPT/HCPCS: 36415; 36600; 74177; 80048; 80053; 80061; 81001; 82010; 82435; 82803; 82947; 82948; 83036; 83605; 83690; 83735; 84132; 84295; 84703; 85018; 85025; 85651; 86140; 93005; 99291; G0378; J0696; J1650; J1815; J2270; J2405; J3475; J3490; J7030; Q9967

== ENCOUNTER 2022-01-23 20:13 | Emergency (ER) | payer MEDICAID, OTHER ==
[~2022-01-23] VITALS: Ht 152.4 cm; Wt 59.0 kg
[~2022-01-23 20:13] MED LIST changes: -ATOR40TA69 PO; +ATOR40TA71 PO; +DULO30CA52 PO; -FENO145T PO; +FENO145T26 PO; -FISH1CAP20 PO; +ICOS1CAP PO; -INS7030 SQ; +SYRI-1628 MC
[2022-01-23] MEDS ORDERED: FAMOTIDINE 20MG TAB PO ONE (22:30)
[2022-01-23] MEDS ORDERED: ONDANSETRON 4MG TABLET PO ONE (22:30)
[2022-01-23] MEDS ORDERED: LIDOCAINE HCL 2% VISCOUS 15 ML UDCUP PO ONE (22:30)
[2022-01-23] MEDS ORDERED: MAG/ALUM/SIMETH 30 ML UDCUP PO ONE (22:30)
[2022-01-23] MEDS ORDERED: DICYCLOMINE HCL 10 MG/5 ML ML PO ONE (22:30)
[2022-01-23 23:03] LABS: BASOPHILS % (AUTO) 0.3 % (0.0-5.0); EOSINOPHILS % (AUTO) 0.7 % (0.0-8.0); HEMATOCRIT 39.6 % (36-48); LYMPHOCYTES % (AUTO) 24.8 % (21.0-51.0); MEAN CORPUSCULAR HEMOGLOBIN 28.1 pg (27.0-33.0); MEAN CORPUSCULAR HGB CONC 32.1 g/dL (32.0-36.0); MEAN CORPUSCULAR VOLUME 87.6 fL (79-99); MONOCYTES % (AUTO) 6.9 % (3.0-13.0); PLATELET COUNT (AUTO) 453 K/uL (130-400); RED BLOOD CELL COUNT(AUTO) 4.52 MIL/uL (4.00-5.50); RED CELL DISTRIBUTION WIDTH 16.5 % (11.0-15.5); WHITE BLOOD COUNT (AUTO) 11.6 K/uL (4.8-10.8)
[2022-01-23 23:24] LABS: ALBUMIN 3.5 g/dL (3.5-5.0); CREATININE 0.5 mg/dL (0.5-1.5); POTASSIUM 4.5 mmol/L (3.5-5.1)
[2022-01-24] MEDS ORDERED: INSULIN HUMULIN R 100 UNIT/ML 3ML IV ONE
[2022-01-24 00:07] LABS: APPEARANCE,URINE Clear (CLEAR); BILIRUBIN,URINE Negative (NEGATIVE); COLOR,URINE Yellow (YELLOW); GLUCOSE, URINE (UA) >=1000 mg/dL (NEGATIVE); KETONES,URINE 15 mg/dL (NEGATIVE); LEUKOCYTE ESTERASE ,URINE Small (NEGATIVE); NITRATE,URINE Negative (NEGATIVE); OCCULT BLOOD,URINE Small (NEGATIVE); PROTEIN,URINE POS 1+ mg/dL (NEGATIVE); UROBILINOGEN,URINE 0.2 mg/dL (0.2-1.0)
[2022-01-24 00:44] LABS: BACTERIA,URINE Moderate /HPF (None Seen); MUCUS,URINE Moderate LPF (None Seen); SQUAMOUS EPITHELIAL CELL,UR Few /HPF (0-2)
[2022-01-24] MEDS: 0.9%NACL 1000ML 1,000 ML IV SCH ×2 (00:54→06:46)
[2022-01-24] MEDS ORDERED: INSULIN HUMULIN R 100 UNIT/ML 3ML ONE (01:04)
[2022-01-24] MEDS ORDERED: KETOROLAC 30MG VIAL (30MG/ML) IVP ONE (05:30)
[2022-01-24] MEDS ORDERED: AZITHROMYCIN 250 MG TABLET PO ONE (07:00)
[2022-01-24] MEDS ORDERED: FAMO40TA75 PO (07:09)
[2022-01-24] MEDS ORDERED: AZIT250T PO (07:09)
[2022-01-24 07:22] VITALS: BP 111/65
[2022-01-24] MEDS ORDERED: OMEP20TA20 PO (21:04)
[2022-03-12] MEDS ORDERED: SULF1TAB42 PO (14:35)
== END 2022-01-24 07:38 | disposition home or self-care (01) ==
LOC: EDH 20:13
DX: E11.65 Type 2 diabetes mellitus with hyperglycemia (principal); G89.29 Other chronic pain; R10.10 Upper abdominal pain, unspecified; R91.8 Other nonspecific abnormal finding of lung field; K86.1 Other chronic pancreatitis; K43.9 Ventral hernia without obstruction or gangrene; Z79.1 Long term (current) use of non-steroidal anti-inflammatories (NSAID); Z79.4 Long term (current) use of insulin; Z88.1 Allergy status to other antibiotic agents; Z90.49 Acquired absence of other specified parts of digestive tract
CPT/HCPCS: 36415; 74176; 80053; 81001; 82010; 82948; 83690; 84484; 85025; 87088; 96361; 96374; 96375; C9113; J1815; J1885; J7030; Q0162

== ENCOUNTER 2022-01-24 18:06 | Emergency (ER) | payer MEDICAID, OTHER ==
[~2022-01-24] VITALS: Ht 147.3 cm; Wt 59.2 kg
[~2022-01-24 18:06] MED LIST changes: +AZIT250T PO; +FAMO40TA75 PO
[2022-01-24 18:12] VITALS: BP 158/85
[2022-01-24 20:05] LABS: BASOPHILS % (AUTO) 0.3 % (0.0-5.0); CREATININE 0.6 mg/dL (0.5-1.5); EOSINOPHILS % (AUTO) 0.3 % (0.0-8.0); HEMATOCRIT 38.2 % (36-48); LYMPHOCYTES % (AUTO) 20.6 % (21.0-51.0); MEAN CORPUSCULAR HEMOGLOBIN 28.3 pg (27.0-33.0); MEAN CORPUSCULAR HGB CONC 32.7 g/dL (32.0-36.0); MEAN CORPUSCULAR VOLUME 86.6 fL (79-99); MONOCYTES % (AUTO) 5.4 % (3.0-13.0); NEUTROPHILS % (AUTO) 72.8 % (40.0-77.0); PLATELET COUNT (AUTO) 502 K/uL (130-400); POTASSIUM 4.4 mmol/L (3.5-5.1); RED BLOOD CELL COUNT(AUTO) 4.41 MIL/uL (4.00-5.50); RED CELL DISTRIBUTION WIDTH 16.3 % (11.0-15.5); WHITE BLOOD COUNT (AUTO) 12.5 K/uL (4.8-10.8)
[2022-01-24] MEDS ORDERED: KETOROLAC 30MG VIAL (30MG/ML) ONE (20:08)
[2022-01-24 20:09] LABS: ALBUMIN 3.4 g/dL (3.5-5.0); TOTAL PROTEIN, SERUM 8.6 g/dL (6.0-8.3)
[2022-01-24] MEDS ORDERED: PANTOPRAZOLE 40 MG/VIAL IVP STA (20:21)
[2022-01-24] MEDS ORDERED: KETOROLAC 30MG VIAL (30MG/ML) IVP ONE (20:30)
[2022-01-24] MEDS ORDERED: OMEP20TA20 PO (21:04)
== END 2022-01-24 21:26 | disposition home or self-care (01) ==
LOC: EDH 18:06
DX: K29.70 Gastritis, unspecified, without bleeding (principal); E11.9 Type 2 diabetes mellitus without complications; Z88.1 Allergy status to other antibiotic agents; Z79.1 Long term (current) use of non-steroidal anti-inflammatories (NSAID); Z79.4 Long term (current) use of insulin; Z90.49 Acquired absence of other specified parts of digestive tract
CPT/HCPCS: 99283; 96374; 80053; 83690; 85025; 36415; J1885; S0164; C9113

== ENCOUNTER 2022-02-03 05:15 | Inpatient (IN) | payer OTHER ==
[~2022-02-03] VITALS: Ht 160 cm; Wt 62.2 kg
[~2022-02-03 05:15] MED LIST changes: +OMEP20TA20 PO
[2022-02-03] MEDS ORDERED: ONDANSETRON 4MG INJ IVP ONE (06:00)
[2022-02-03] MEDS ORDERED: 0.9%NACL 1000ML 2,000 ML IV ONE (06:00)
[2022-02-03 06:20] LABS: ABG OXYGEN SATURATION 58.7 % (95.0-99.0); BASE EXCESS,VENOUS BLOOD GAS -29.4 (-2.0-3.0); HCO3,VENOUS BLOOD GAS 3.6 (21.0-28.0); PCO2,VENOUS BLOOD GAS 21 (32-45); PH,VENOUS BLOOD GAS < 6.960 (7.350-7.450)
[2022-02-03] MEDS ORDERED: SODIUM BICARB 50MEQ 50ML VIAL 50 ML ONE (06:23)
[2022-02-03 06:29] LABS: BASOPHILS % (AUTO) 0.4 % (0.0-5.0); HEMATOCRIT 38.8 % (36-48); LYMPHOCYTES % (AUTO) 5.4 % (21.0-51.0); MEAN CORPUSCULAR HEMOGLOBIN 29.1 pg (27.0-33.0); MEAN CORPUSCULAR HGB CONC 31.7 g/dL (32.0-36.0); MEAN CORPUSCULAR VOLUME 91.7 fL (79-99); MONOCYTES % (AUTO) 7.4 % (3.0-13.0); NEUTROPHILS % (AUTO) 85.4 % (40.0-77.0); NUCLEATED RED BLOOD CELLS 0.1 % (0.0-0.19); PLATELET COUNT (AUTO) 699 K/uL (130-400); RED BLOOD CELL COUNT(AUTO) 4.23 MIL/uL (4.00-5.50); RED CELL DISTRIBUTION WIDTH 16.6 % (11.0-15.5); WHITE BLOOD COUNT (AUTO) 24.1 K/uL (4.8-10.8)
[2022-02-03 06:50] LABS: ALBUMIN 2.9 g/dL (3.5-5.0); BILIRUBIN,TOTAL 0.6 mg/dL (0.2-1.0); CREATININE 1.2 mg/dL (0.5-1.5); TOTAL PROTEIN, SERUM 9.7 g/dL (6.0-8.3)
[2022-02-03 07:02] LABS: APPEARANCE,URINE CLEAR (CLEAR); BILIRUBIN,URINE SMALL (NEGATIVE); COLOR,URINE YELLOW (YELLOW); GLUCOSE, URINE (UA) 500 mg/dL (NEGATIVE); KETONES,URINE >=80 mg/dL (NEGATIVE); LEUKOCYTE ESTERASE ,URINE NEGATIVE (NEGATIVE); NITRATE,URINE NEGATIVE (NEGATIVE); OCCULT BLOOD,URINE LARGE (NEGATIVE); PROTEIN,URINE 100 mg/dL (NEGATIVE); UROBILINOGEN,URINE 0.2 mg/dL (0.2-1.0)
[2022-02-03 07:09] LABS: HCG,QUAL RESULT NEGATIVE (NEGATIVE)
[2022-02-03] MEDS ORDERED: INSULIN HUMULIN R 100 UNIT/ML 3ML ONE (07:11)
[2022-02-03 07:12] LABS: RBC,URINE >100 /HPF (0-1)
[2022-02-03 07:13] LABS: BACTERIA,URINE Rare /HPF (None Seen); SQUAMOUS EPITHELIAL CELL,UR Rare /HPF (0-2); WBC,URINE 0-1 /HPF (0-1)
[2022-02-03] MEDS ORDERED: 0.9%NACL 1000ML 1,000 ML IV ONE (07:30)
[2022-02-03] MEDS ORDERED: 0.9%NACL 1000ML 1,000 ML IV SCH ×2 (09:30)
[2022-02-03] MEDS ORDERED: INSULIN HUMULIN R 100 UNIT/ML 3ML IV SCH (09:30)
[2022-02-03 09:33] LABS: CREATININE 1.2 mg/dL (0.5-1.5); POTASSIUM 4.2 mmol/L (3.5-5.1)
[2022-02-03 09:52] LABS: ABG BASE EXCESS -25.7 mmol/L (-2.0-3.0); ABG HCO3 4.5 mmol/L (21.0-28.0); ABG PCO2 19 mmHg (32-45)
[2022-02-03] MEDS ORDERED: SODIUM BICARB 50MEQ 50ML VIAL 100 ML ONE (09:55)
[2022-02-03] MEDS ORDERED: PHARMACY COMMUNICATION MISC SCH ×2 (10:00→18:30)
[2022-02-03] MEDS ORDERED: LACTATED RINGERS 1000ML 1,047 ML IV ONE (10:00)
[2022-02-03 10:16] LABS: INR 1.11 (0.85-1.15)
[2022-02-03] MEDS: ZOSYN 3.375GM +NS 50ML IV SCH ×2 (10:25→17:18)
[2022-02-03 10:54] LABS: HEMOGLOBIN A1C 12.9 % (4.0-6.0)
[2022-02-03] MEDS: DEXTROSE 5 %-0.45 % NACL 1,000 ML IV PRN (11:29)
[2022-02-03] MEDS ORDERED: SODIUM BICARB 50MEQ 50ML VIAL 150 ML ONE (11:54)
[2022-02-03 13:37] LABS: ABG BASE EXCESS -15.5 mmol/L (-2.0-3.0); ABG HCO3 11.4 mmol/L (21.0-28.0); ABG OXYGEN SATURATION 85.2 % (95.0-99.0); ABG PCO2 31 mmHg (32-45)
[2022-02-03 14:35] LABS: ALBUMIN 2.3 g/dL (3.5-5.0); BILIRUBIN,TOTAL 0.5 mg/dL (0.2-1.0); CREATININE 0.9 mg/dL (0.5-1.5); MAGNESIUM 1.2 mg/dL (1.80-2.40); THYROID STIMULATING HORMONE 0.77 uIU/mL (0.36-3.74)
[2022-02-03 14:38] LABS: POTASSIUM 2.7 mmol/L (3.5-5.1)
[2022-02-03] MEDS: POTASSIUM CHLORIDE 10MEQ/100ML 100 ML IV PRN ×2 (15:21→15:22)
[2022-02-03] MEDS ORDERED: LIDOCAINE HCL MPF 1% 5ML VIAL IV PRN (17:30)
[2022-02-03] MEDS ORDERED: POTASSIUM CHLORIDE 20MEQ/100ML 100 ML IV PRN (17:30)
[2022-02-03] MEDS ORDERED: ACETAMINOPHEN 325 MG TAB PO PRN (17:30)
[2022-02-03] MEDS ORDERED: LIDOCAINE HCL-MPF 1% 2ML VIAL IV PRN (17:30)
[2022-02-03] MEDS ORDERED: IPRATROPIUM/ALBUTEROL SULFATE 3 ML SOLUTION IH PRN (17:30)
[2022-02-03] MEDS: HYDROMORPHONE 0.5 MG SYG (0.5MG/0.5ML) IVP PRN (18:28)
[2022-02-03] MEDS: MAGNESIUM 2GM PREMIX 50ML 50 ML IV PRN (18:29)
[2022-02-03] MEDS ORDERED: DEXAMETHASONE SOD PHOSPHATE 4 MG/ML 1ML VIAL IVP SCH (18:30)
[2022-02-03 18:52] LABS: CHOLESTEROL 173 mg/dL (<200); HDL CHOLESTEROL 17 mg/dL (35-85); LDL DIRECT 26 mg/dL (0-99); TRIGLYCERIDES 701 mg/dL (30-200)
[2022-02-03] MEDS: POTASSIUM CHLORIDE 10% ELIXIR 20 MEQ/15 ML UDCUP PO PRN ×2 (18:58→18:59)
[2022-02-03] MEDS: DEXAMETHASONE SOD PHOSPHATE 4 MG/ML 1ML VIAL IV SCH (19:01)
[2022-02-03] MEDS ORDERED: FAMOTIDINE 20MG VIAL IV SCH (21:00)
[2022-02-03] MEDS: FAMOTIDINE 20MG TAB PO SCH (21:00)
[2022-02-03] MEDS ORDERED: INSULIN GLARGINE 100 UNITS/ML 10 ML VIAL SQ SCH (21:00)
[2022-02-03 21:18] LABS: ABG BASE EXCESS -9.5 mmol/L (-2.0-3.0); ABG HCO3 16.3 mmol/L (21.0-28.0); ABG OXYGEN SATURATION 94.3 % (95.0-99.0); ABG PCO2 35 mmHg (32-45)
[2022-02-03 21:35] LABS: CREATININE 0.9 mg/dL (0.5-1.5); MAGNESIUM 1.7 mg/dL (1.80-2.40); POTASSIUM 3.6 mmol/L (3.5-5.1)
[2022-02-03] MEDS ORDERED: ACETAMINOPHEN 650 MG SUPPOSITORY RC ONE (22:23)
[2022-02-03] MEDS ORDERED: ONDANSETRON 4MG INJ ONE (22:24)
[2022-02-03] MEDS: LACTATED RINGERS 1000ML 1,000 ML IV SCH (23:00)
[2022-02-04] VITALS (7 sets, daily range): BP systolic 100–142; BP diastolic 59–74
[2022-02-04] MEDS: ZOSYN 3.375GM +NS 50ML IV SCH ×3 (02:32→18:06)
[2022-02-04 03:24] LABS: ABG BASE EXCESS -5.3 mmol/L (-2.0-3.0); ABG HCO3 20.5 mmol/L (21.0-28.0); ABG OXYGEN SATURATION 97.2 % (95.0-99.0); ABG PCO2 41 mmHg (32-45)
[2022-02-04 03:41] LABS: BASOPHILS % (AUTO) 0.2 % (0.0-5.0); HEMATOCRIT 31.6 % (36-48); LYMPHOCYTES % (AUTO) 1.7 % (21.0-51.0); MEAN CORPUSCULAR HEMOGLOBIN 28.7 pg (27.0-33.0); MEAN CORPUSCULAR HGB CONC 34.5 g/dL (32.0-36.0); MEAN CORPUSCULAR VOLUME 83.2 fL (79-99); MONOCYTES % (AUTO) 2.7 % (3.0-13.0); NEUTROPHILS % (AUTO) 94.1 % (40.0-77.0); NUCLEATED RED BLOOD CELLS 0.1 % (0.0-0.19); PLATELET COUNT (AUTO) 624 K/uL (130-400); RED CELL DISTRIBUTION WIDTH 16.2 % (11.0-15.5)
[2022-02-04 03:43] LABS: WHITE BLOOD COUNT (AUTO) 31.9 K/uL (4.8-10.8)
[2022-02-04 03:54] LABS: BILIRUBIN,TOTAL 0.3 mg/dL (0.2-1.0); CREATININE 0.9 mg/dL (0.5-1.5); MAGNESIUM 1.6 mg/dL (1.80-2.40); TOTAL PROTEIN, SERUM 7.6 g/dL (6.0-8.3)
[2022-02-04 03:57] LABS: POTASSIUM 2.6 mmol/L (3.5-5.1)
[2022-02-04] MEDS ORDERED: LIDOCAINE HCL 1% MDV 50ML VIAL ONE (03:58)
[2022-02-04] MEDS: POTASSIUM CHLORIDE 20MEQ/100ML 100 ML IV PRN (04:05)
[2022-02-04] MEDS: DEXTROSE 5 %-0.45 % NACL 1,000 ML IV PRN (04:05)
[2022-02-04] MEDS: HYDROMORPHONE 0.5 MG SYG (0.5MG/0.5ML) IVP PRN ×2 (04:06→21:12)
[2022-02-04] MEDS ORDERED: POTASSIUM CHLORIDE 10MEQ/100ML 200 ML IV ONE (04:08)
[2022-02-04] MEDS: LACTATED RINGERS 1000ML 1,000 ML IV SCH ×3 (04:29→18:48)
[2022-02-04 05:22] LABS: BAND NEUTROPHILS % (MANUAL) 2 % (0-2); LYMPHOCYTES % (MANUAL) 2 % (22-44); MAN.DIFF COMMENT-IMPRESSION MANUAL DIFFERENTIAL; MONOCYTES % (MANUAL) 2 % (2-9); SEGMENTED NEUTROPHILS % 94 % (40-70)
[2022-02-04] MEDS ORDERED: D5W-1/2 NS/20MEQ KCL 1,000 ML IV SCH (07:00)
[2022-02-04] MEDS ORDERED: MAGNESIUM 2GM PREMIX 50ML 50 ML IV PRN (07:00)
[2022-02-04] MEDS ORDERED: INSULIN IV SCH ×2 (07:00)
[2022-02-04] MEDS ORDERED: POTASSIUM CHLORIDE 10MEQ/100ML 100 ML IV PRN (07:00)
[2022-02-04] MEDS ORDERED: NS IV SCH ×2 (07:00)
[2022-02-04] MEDS ORDERED: 0.9%NACL 1000ML 1,000 ML IV SCH (07:00)
[2022-02-04] MEDS ORDERED: VANCOMYCIN PROTOCOL PER PHARMACY IV SCH (08:30)
[2022-02-04] MEDS ORDERED: VANCOMYCIN 1G VIAL IVPB ONE (08:30)
[2022-02-04] MEDS: FAMOTIDINE 20MG TAB PO SCH ×2 (08:41→21:11)
[2022-02-04] MEDS: ENOXAPARIN SODIUM 40 MG/0.4 ML SYRINGE SQ SCH (08:41)
[2022-02-04 09:08] LABS: CREATININE 0.7 mg/dL (0.5-1.5); MAGNESIUM 1.5 mg/dL (1.80-2.40)
[2022-02-04 09:11] LABS: POTASSIUM 2.8 mmol/L (3.5-5.1)
[2022-02-04] MEDS ORDERED: IOHEXOL-350 75 ML VIAL IV ONE (09:29)
[2022-02-04] MEDS ORDERED: VANCOMYCIN 1G/250ML KIT 250 ML IV SCH (09:30)
[2022-02-04] MEDS: MAGNESIUM 2GM PREMIX 50ML 50 ML IV PRN (10:23)
[2022-02-04] MEDS: INSULIN GLARGINE 100 UNITS/ML 10 ML VIAL SQ SCH ×2 (10:26→21:10)
[2022-02-04] MEDS: KCL 20 MEQ ERTAB PO PRN ×3 (10:29→18:11)
[2022-02-04] MEDS: INSULIN HUMULIN R 100 UNIT/ML 3ML SQ SCH ×3 (11:30→19:48)
[2022-02-04 15:51] LABS: POTASSIUM 3.1 mmol/L (3.5-5.1)
[2022-02-04] MEDS: DEXAMETHASONE SOD PHOSPHATE 4 MG/ML 1ML VIAL IV SCH (18:07)
[2022-02-04] MEDS ORDERED: PHARMACY COMMUNICATION MISC SCH (19:00)
[2022-02-04] MEDS ORDERED: ACETAMINOPHEN 325 MG TAB PO ONE (19:30)
[2022-02-04] MEDS ORDERED: DiphenhydrAMINE HCL 50 MG/ML VIAL IVP ONE (19:30)
[2022-02-04] MEDS ORDERED: TOCILIZUMAB IV ONE (20:00)
[2022-02-04] MEDS ORDERED: [UNRECOGNIZED DRUG - OTHER] IV ONE (20:00)
[2022-02-04] MEDS: VANCOMYCIN 500MG+NS 100ML 100 ML IV SCH (22:26)
[2022-02-04] MEDS: 0.9%NACL 10ML VIAL IV SCH (23:51)
[2022-02-05] MEDS ORDERED: IOHEXOL-350 75 ML VIAL IV ONE (00:42)
[2022-02-05] MEDS: ZOSYN 3.375GM +NS 50ML IV SCH ×3 (02:23→18:21)
[2022-02-05] MEDS: HYDROMORPHONE 0.5 MG SYG (0.5MG/0.5ML) IVP PRN ×3 (02:27→20:20)
[2022-02-05 03:46] LABS: ABG BASE EXCESS -5.4 mmol/L (-2.0-3.0); ABG OXYGEN SATURATION 90.5 % (95.0-99.0); ABG PCO2 34 mmHg (32-45)
[2022-02-05 04:00] VITALS: BP 115/71
[2022-02-05 04:00] LABS: BASOPHILS % (AUTO) 0.3 % (0.0-5.0); HEMATOCRIT 30.9 % (36-48); LYMPHOCYTES % (AUTO) 2.3 % (21.0-51.0); MEAN CORPUSCULAR HEMOGLOBIN 28.6 pg (27.0-33.0); MEAN CORPUSCULAR HGB CONC 34.6 g/dL (32.0-36.0); MEAN CORPUSCULAR VOLUME 82.6 fL (79-99); NEUTROPHILS % (AUTO) 95.9 % (40.0-77.0); NUCLEATED RED BLOOD CELLS 0.9 % (0.0-0.19); PLATELET COUNT (AUTO) 437 K/uL (130-400); RED BLOOD CELL COUNT(AUTO) 3.74 MIL/uL (4.00-5.50); RED CELL DISTRIBUTION WIDTH 16.5 % (11.0-15.5); WHITE BLOOD COUNT (AUTO) 19.4 K/uL (4.8-10.8)
[2022-02-05 04:13] LABS: ALBUMIN 1.6 g/dL (3.5-5.0); BILIRUBIN,TOTAL 0.4 mg/dL (0.2-1.0); CREATININE 0.6 mg/dL (0.5-1.5); TOTAL PROTEIN, SERUM 6.3 g/dL (6.0-8.3)
[2022-02-05] MEDS: LACTATED RINGERS 1000ML 1,000 ML IV SCH ×2 (06:18→16:34)
[2022-02-05] MEDS: 0.9%NACL 10ML VIAL IV SCH ×3 (06:19→18:30)
[2022-02-05] MEDS: INSULIN HUMULIN R 100 UNIT/ML 3ML SQ SCH ×6 (06:20→21:17)
[2022-02-05] MEDS: INSULIN GLARGINE 100 UNITS/ML 10 ML VIAL SQ SCH ×2 (06:21→21:17)
[2022-02-05 07:50] VITALS: BP 123/70
[2022-02-05] MEDS: VANCOMYCIN 500MG+NS 100ML 100 ML IV SCH (08:28)
[2022-02-05] MEDS: FAMOTIDINE 20MG TAB PO SCH ×2 (08:29→20:20)
[2022-02-05] MEDS: ENOXAPARIN SODIUM 40 MG/0.4 ML SYRINGE SQ SCH (08:29)
[2022-02-05 11:52] VITALS: BP 118/75
[2022-02-05] MEDS ORDERED: IOHEXOL 350 MG/ML 100ML INFUS..BTL IV ONE (12:59)
[2022-02-05] MEDS ORDERED: HYDROMORPHONE 1 MG INJ IVP ONE (13:50)
[2022-02-05 16:00] VITALS: BP 147/85
[2022-02-05] MEDS: DEXAMETHASONE SOD PHOSPHATE 4 MG/ML 1ML VIAL IV SCH (18:21)
[2022-02-05 20:00] VITALS: BP 137/85
[2022-02-05] MEDS ORDERED: PHARMACY COMMUNICATION MISC SCH (21:30)
[2022-02-05] MEDS ORDERED: VANCOMYCIN 1G/250ML KIT 250 ML IV ONE (21:30)
[2022-02-06] VITALS (8 sets, daily range): BP systolic 128–155; BP diastolic 53–91
[2022-02-06] MEDS: 0.9%NACL 10ML VIAL IV SCH ×4 (00:18→17:02)
[2022-02-06] MEDS: LACTATED RINGERS 1000ML 1,000 ML IV SCH ×3 (00:18→20:38)
[2022-02-06] MEDS: ZOSYN 3.375GM +NS 50ML IV SCH ×3 (02:01→17:03)
[2022-02-06 03:52] LABS: BASOPHILS % (AUTO) 0.2 % (0.0-5.0); HEMATOCRIT 30.7 % (36-48); LYMPHOCYTES % (AUTO) 6.8 % (21.0-51.0); MEAN CORPUSCULAR HEMOGLOBIN 27.5 pg (27.0-33.0); MEAN CORPUSCULAR HGB CONC 32.9 g/dL (32.0-36.0); MEAN CORPUSCULAR VOLUME 83.7 fL (79-99); MONOCYTES % (AUTO) 1.8 % (3.0-13.0); NEUTROPHILS % (AUTO) 90.5 % (40.0-77.0); NUCLEATED RED BLOOD CELLS 2.2 % (0.0-0.19); PLATELET COUNT (AUTO) 495 K/uL (130-400); RED BLOOD CELL COUNT(AUTO) 3.67 MIL/uL (4.00-5.50); RED CELL DISTRIBUTION WIDTH 17.2 % (11.0-15.5); WHITE BLOOD COUNT (AUTO) 15.3 K/uL (4.8-10.8)
[2022-02-06] MEDS: HYDROMORPHONE 0.5 MG SYG (0.5MG/0.5ML) IVP PRN ×5 (04:03→20:39)
[2022-02-06 04:38] LABS: ALBUMIN 1.7 g/dL (3.5-5.0); BILIRUBIN,TOTAL 0.3 mg/dL (0.2-1.0); CREATININE 0.4 mg/dL (0.5-1.5); POTASSIUM 3.6 mmol/L (3.5-5.1); TOTAL PROTEIN, SERUM 6.4 g/dL (6.0-8.3)
[2022-02-06] MEDS: VANCOMYCIN 1G/250ML KIT 250 ML IV SCH ×2 (06:25→17:03)
[2022-02-06] MEDS: INSULIN HUMULIN R 100 UNIT/ML 3ML SQ SCH ×7 (06:27→20:46)
[2022-02-06] MEDS: INSULIN GLARGINE 100 UNITS/ML 10 ML VIAL SQ SCH (06:29)
[2022-02-06] MEDS: KCL 20 MEQ ERTAB PO PRN (06:35)
[2022-02-06] MEDS: FAMOTIDINE 20MG TAB PO SCH ×2 (08:29→20:38)
[2022-02-06] MEDS: LEVOFLOXACIN 750 MG/D5W 150 ML 150 ML IV SCH (08:29)
[2022-02-06] MEDS: ENOXAPARIN SODIUM 40 MG/0.4 ML SYRINGE SQ SCH (08:30)
[2022-02-06] MEDS ORDERED: ONDANSETRON 4MG INJ ONE (11:26)
[2022-02-06] MEDS ORDERED: ONDANSETRON 4MG INJ IVP PRN (11:30)
[2022-02-06] MEDS ORDERED: DEXTROSE 50%-WATER 50 ML DISP.SYRIN IV ONE (16:17)
[2022-02-06] MEDS: DEXAMETHASONE SOD PHOSPHATE 4 MG/ML 1ML VIAL IV SCH (17:03)
[2022-02-07] VITALS: BP 135/76
[2022-02-07] MEDS: 0.9%NACL 10ML VIAL IV SCH ×5 (00:13→23:32)
[2022-02-07] MEDS: HYDROMORPHONE 0.5 MG SYG (0.5MG/0.5ML) IVP PRN ×6 (00:35→22:04)
[2022-02-07] MEDS ORDERED: 0.9%NACL 50ML 50 ML IV ONE (01:22)
[2022-02-07] MEDS: ZOSYN 3.375GM +NS 50ML IV SCH ×3 (01:25→17:40)
[2022-02-07 03:37] LABS: BASOPHILS % (AUTO) 0.3 % (0.0-5.0); EOSINOPHILS % (AUTO) 0.2 % (0.0-8.0); HEMATOCRIT 34.2 % (36-48); LYMPHOCYTES % (AUTO) 13.8 % (21.0-51.0); MEAN CORPUSCULAR HEMOGLOBIN 28.1 pg (27.0-33.0); MEAN CORPUSCULAR HGB CONC 33.3 g/dL (32.0-36.0); MEAN CORPUSCULAR VOLUME 84.4 fL (79-99); MONOCYTES % (AUTO) 6.8 % (3.0-13.0); NEUTROPHILS % (AUTO) 77.8 % (40.0-77.0); NUCLEATED RED BLOOD CELLS 0.5 % (0.0-0.19); PLATELET COUNT (AUTO) 540 K/uL (130-400); RED BLOOD CELL COUNT(AUTO) 4.05 MIL/uL (4.00-5.50); RED CELL DISTRIBUTION WIDTH 16.9 % (11.0-15.5); WHITE BLOOD COUNT (AUTO) 16.7 K/uL (4.8-10.8)
[2022-02-07 03:57] LABS: BILIRUBIN,TOTAL 0.3 mg/dL (0.2-1.0); CREATININE 0.6 mg/dL (0.5-1.5); TOTAL PROTEIN, SERUM 6.6 g/dL (6.0-8.3)
[2022-02-07 03:59] LABS: POTASSIUM 2.6 mmol/L (3.5-5.1)
[2022-02-07 04:00] VITALS: BP 128/74
[2022-02-07] MEDS: POTASSIUM CHLORIDE 20MEQ/100ML 100 ML IV PRN ×3 (04:29→16:10)
[2022-02-07] MEDS ORDERED: 0.9% NACL 250ML 250 ML ONE (06:13)
[2022-02-07] MEDS: INSULIN HUMULIN R 100 UNIT/ML 3ML SQ SCH ×7 (06:16→20:24)
[2022-02-07] MEDS: VANCOMYCIN 1G/250ML KIT 250 ML IV SCH ×2 (06:30→17:41)
[2022-02-07] MEDS: LACTATED RINGERS 1000ML 1,000 ML IV SCH ×2 (06:30→16:41)
[2022-02-07] MEDS ORDERED: DEXTROSE 50%-WATER 50 ML DISP.SYRIN IV ONE ×3 (06:45→16:22)
[2022-02-07 08:00] VITALS: BP 148/81
[2022-02-07] MEDS: INSULIN GLARGINE 100 UNITS/ML 10 ML VIAL SQ SCH (08:00)
[2022-02-07] MEDS: FAMOTIDINE 20MG TAB PO SCH ×2 (09:14→20:24)
[2022-02-07] MEDS: LEVOFLOXACIN 750 MG/D5W 150 ML 150 ML IV SCH (09:14)
[2022-02-07] MEDS: ENOXAPARIN SODIUM 40 MG/0.4 ML SYRINGE SQ SCH (09:14)
[2022-02-07] MEDS: KCL 20 MEQ ERTAB PO PRN ×3 (10:39→22:29)
[2022-02-07 12:00] VITALS: BP 158/93
[2022-02-07 16:00] VITALS: BP 152/88
[2022-02-07] MEDS ORDERED: DEXTROSE 5 %-0.45 % NACL 1,000 ML IV SCH (17:30)
[2022-02-07] MEDS: DEXAMETHASONE SOD PHOSPHATE 4 MG/ML 1ML VIAL IV SCH (17:41)
[2022-02-07 19:54] VITALS: BP 151/87
[2022-02-08 00:13] VITALS: BP 136/79
[2022-02-08] MEDS: KCL 20 MEQ ERTAB PO PRN (00:24)
[2022-02-08] MEDS: HYDROMORPHONE 0.5 MG SYG (0.5MG/0.5ML) IVP PRN ×2 (01:59→06:00)
[2022-02-08] MEDS: ZOSYN 3.375GM +NS 50ML IV SCH ×3 (01:59→17:15)
[2022-02-08] MEDS: LACTATED RINGERS 1000ML 1,000 ML IV SCH ×3 (02:52→21:55)
[2022-02-08 04:13] VITALS: BP 126/68
[2022-02-08 04:31] LABS: BASOPHILS % (AUTO) 0.3 % (0.0-5.0); EOSINOPHILS % (AUTO) 0.2 % (0.0-8.0); HEMATOCRIT 31.5 % (36-48); LYMPHOCYTES % (AUTO) 13.9 % (21.0-51.0); MEAN CORPUSCULAR HEMOGLOBIN 28.1 pg (27.0-33.0); MEAN CORPUSCULAR VOLUME 85.1 fL (79-99); MONOCYTES % (AUTO) 9.1 % (3.0-13.0); NEUTROPHILS % (AUTO) 73.7 % (40.0-77.0); PLATELET COUNT (AUTO) 468 K/uL (130-400); RED CELL DISTRIBUTION WIDTH 16.6 % (11.0-15.5); WHITE BLOOD COUNT (AUTO) 12.7 K/uL (4.8-10.8)
[2022-02-08 04:58] LABS: BILIRUBIN,TOTAL 0.3 mg/dL (0.2-1.0); CREATININE 0.7 mg/dL (0.5-1.5); POTASSIUM 4.2 mmol/L (3.5-5.1); TOTAL PROTEIN, SERUM 6.2 g/dL (6.0-8.3)
[2022-02-08] MEDS: 0.9%NACL 10ML VIAL IV SCH ×3 (06:00→17:16)
[2022-02-08] MEDS: VANCOMYCIN 1G/250ML KIT 250 ML IV SCH ×2 (06:00→17:15)
[2022-02-08] MEDS: INSULIN HUMULIN R 100 UNIT/ML 3ML SQ SCH ×7 (06:26→20:26)
[2022-02-08 08:00] VITALS: BP 138/76
[2022-02-08] MEDS: LEVOFLOXACIN 750 MG/D5W 150 ML 150 ML IV SCH (08:28)
[2022-02-08] MEDS: ENOXAPARIN SODIUM 40 MG/0.4 ML SYRINGE SQ SCH (08:29)
[2022-02-08] MEDS: INSULIN GLARGINE 100 UNITS/ML 10 ML VIAL SQ SCH (08:30)
[2022-02-08] MEDS: FAMOTIDINE 20MG TAB PO SCH ×2 (08:36→20:24)
[2022-02-08] MEDS: ACETAMINOPHEN WITH CODEINE 1 TAB TAB PO PRN ×2 (10:14→14:34)
[2022-02-08 12:00] VITALS: BP 131/72
[2022-02-08 16:00] VITALS: BP 156/82
[2022-02-08] MEDS: DEXAMETHASONE SOD PHOSPHATE 4 MG/ML 1ML VIAL IV SCH (17:16)
[2022-02-08 19:00] VITALS: BP 128/73
[2022-02-08] MEDS ORDERED: MORPHINE 2 MG SYG IVP ONE (22:00)
[2022-02-09] MEDS: ZOSYN 3.375GM +NS 50ML IV SCH ×3 (02:00→17:23)
[2022-02-09] MEDS: VANCOMYCIN 1G/250ML KIT 250 ML IV SCH ×2 (06:00→17:23)
[2022-02-09] MEDS: 0.9%NACL 10ML VIAL IV SCH ×5 (06:00→23:19)
[2022-02-09] MEDS: INSULIN HUMULIN R 100 UNIT/ML 3ML SQ SCH ×7 (07:21→20:22)
[2022-02-09 07:30] VITALS: BP 133/73
[2022-02-09] MEDS: LACTATED RINGERS 1000ML 1,000 ML IV SCH ×2 (07:57→16:32)
[2022-02-09] MEDS: ENOXAPARIN SODIUM 40 MG/0.4 ML SYRINGE SQ SCH (08:28)
[2022-02-09] MEDS: INSULIN GLARGINE 100 UNITS/ML 10 ML VIAL SQ SCH (08:29)
[2022-02-09] MEDS: FAMOTIDINE 20MG TAB PO SCH ×2 (08:51→20:21)
[2022-02-09 09:37] LABS: HEMATOCRIT 29.7 % (36-48); MEAN CORPUSCULAR HEMOGLOBIN 28.4 pg (27.0-33.0); MEAN CORPUSCULAR VOLUME 86.1 fL (79-99); NUCLEATED RED BLOOD CELLS 2.3 % (0.0-0.19); RED BLOOD CELL COUNT(AUTO) 3.45 MIL/uL (4.00-5.50); WHITE BLOOD COUNT (AUTO) 12.3 K/uL (4.8-10.8)
[2022-02-09 09:48] LABS: CREATININE 0.8 mg/dL (0.5-1.5); POTASSIUM 3.1 mmol/L (3.5-5.1)
[2022-02-09] MEDS: KCL 20 MEQ ERTAB PO PRN ×3 (10:32→23:19)
[2022-02-09 11:09] VITALS: BP 117/68
[2022-02-09 15:34] VITALS: BP 117/63
[2022-02-09] MEDS: ACETAMINOPHEN WITH CODEINE 1 TAB TAB PO PRN (17:24)
[2022-02-09] MEDS: DEXAMETHASONE SOD PHOSPHATE 4 MG/ML 1ML VIAL IV SCH (17:24)
[2022-02-09 19:00] VITALS: BP 128/74
[2022-02-09 23:53] VITALS: BP 131/68
[2022-02-10] MEDS ORDERED: GUAIFENESIN-CODEINE 5 ML SYRUP PO ONE
[2022-02-10] MEDS: ZOSYN 3.375GM +NS 50ML IV SCH ×2 (01:51→08:05)
[2022-02-10] MEDS: ACETAMINOPHEN WITH CODEINE 1 TAB TAB PO PRN ×3 (02:00→20:09)
[2022-02-10] MEDS: LACTATED RINGERS 1000ML 1,000 ML IV SCH (03:50)
[2022-02-10 04:00] VITALS: BP 120/54
[2022-02-10 05:15] LABS: HEMATOCRIT 29.4 % (36-48); MEAN CORPUSCULAR HEMOGLOBIN 28.4 pg (27.0-33.0); MEAN CORPUSCULAR HGB CONC 33.7 g/dL (32.0-36.0); MEAN CORPUSCULAR VOLUME 84.5 fL (79-99); NUCLEATED RED BLOOD CELLS 0.9 % (0.0-0.19); RED BLOOD CELL COUNT(AUTO) 3.48 MIL/uL (4.00-5.50); RED CELL DISTRIBUTION WIDTH 15.9 % (11.0-15.5)
[2022-02-10 05:28] LABS: CREATININE 0.9 mg/dL (0.5-1.5)
[2022-02-10] MEDS: VANCOMYCIN 1G/250ML KIT 250 ML IV SCH (05:52)
[2022-02-10] MEDS: 0.9%NACL 10ML VIAL IV SCH ×2 (05:53→10:47)
[2022-02-10] MEDS: INSULIN HUMULIN R 100 UNIT/ML 3ML SQ SCH ×8 (05:55→20:11)
[2022-02-10 07:10] VITALS: BP 122/64
[2022-02-10 07:26] LABS: HEMATOCRIT 28.7 % (36-48); MEAN CORPUSCULAR HEMOGLOBIN 28.8 pg (27.0-33.0); MEAN CORPUSCULAR HGB CONC 34.5 g/dL (32.0-36.0); MEAN CORPUSCULAR VOLUME 83.4 fL (79-99); RED BLOOD CELL COUNT(AUTO) 3.44 MIL/uL (4.00-5.50); RED CELL DISTRIBUTION WIDTH 16.2 % (11.0-15.5); WHITE BLOOD COUNT (AUTO) 14.5 K/uL (4.8-10.8)
[2022-02-10] MEDS: INSULIN GLARGINE 100 UNITS/ML 10 ML VIAL SQ SCH (08:03)
[2022-02-10] MEDS: FAMOTIDINE 20MG TAB PO SCH ×2 (08:04→20:09)
[2022-02-10] MEDS: ENOXAPARIN SODIUM 40 MG/0.4 ML SYRINGE SQ SCH (08:05)
[2022-02-10 11:20] VITALS: BP 112/63
[2022-02-10] MEDS ORDERED: VANCOMYCIN 1G/250ML KIT 250 ML IV SCH ×2 (12:00→21:00)
[2022-02-10 15:03] VITALS: BP 108/69
[2022-02-10] MEDS: DEXAMETHASONE SOD PHOSPHATE 4 MG/ML 1ML VIAL IV SCH (16:33)
[2022-02-10 20:02] VITALS: BP 138/78
[2022-02-10] MEDS: AMOX/CLAV 875/125MG TAB PO SCH (20:09)
[2022-02-10] MEDS ORDERED: GUAIFENESIN SUGAR-FREE 100 MG/5 ML UDCUP PO PRN (21:00)
[2022-02-10] MEDS ORDERED: GUAIFENESIN SUGAR-FREE 100 MG/5 ML UDCUP ONE (21:15)
[2022-02-10 23:52] VITALS: BP 124/65
[2022-02-11] MEDS: ACETAMINOPHEN WITH CODEINE 1 TAB TAB PO PRN ×2 (01:33→05:46)
[2022-02-11 03:48] VITALS: BP 146/78
[2022-02-11] MEDS: INSULIN HUMULIN R 100 UNIT/ML 3ML SQ SCH ×4 (06:18→11:30)
[2022-02-11 07:41] LABS: CREATININE 0.8 mg/dL (0.5-1.5); POTASSIUM 3.6 mmol/L (3.5-5.1)
[2022-02-11 07:44] LABS: HEMATOCRIT 29.9 % (36-48); MEAN CORPUSCULAR HEMOGLOBIN 28.9 pg (27.0-33.0); MEAN CORPUSCULAR HGB CONC 33.8 g/dL (32.0-36.0); MEAN CORPUSCULAR VOLUME 85.4 fL (79-99); NUCLEATED RED BLOOD CELLS 0.3 % (0.0-0.19); RED BLOOD CELL COUNT(AUTO) 3.5 MIL/uL (4.00-5.50); RED CELL DISTRIBUTION WIDTH 16.8 % (11.0-15.5); WHITE BLOOD COUNT (AUTO) 17.6 K/uL (4.8-10.8)
[2022-02-11 08:00] VITALS: BP 114/63
[2022-02-11] MEDS ORDERED: INSULIN GLARGINE 100 UNITS/ML 10 ML VIAL SQ SCH (08:00)
[2022-02-11] MEDS: AMOX/CLAV 875/125MG TAB PO SCH (08:54)
[2022-02-11] MEDS: FAMOTIDINE 20MG TAB PO SCH (08:54)
[2022-02-11] MEDS: ENOXAPARIN SODIUM 40 MG/0.4 ML SYRINGE SQ SCH (08:54)
[2022-02-11] MEDS ORDERED: INSU100I35 SQ ×2 (09:12)
[2022-02-11] MEDS ORDERED: AMOX1TAB16 PO (09:12)
[2022-02-11 12:00] VITALS: BP 124/75
== END 2022-02-11 13:50 | disposition home or self-care (01) | DRG 637 ==
LOC: EDH 05:15 → EDHIP 05:16 → 2CH 02-04 05:26 → 2AH 02-04 16:25
PROVIDERS: ADMIT Hospitalist; ATTEND Hospitalist
DX: E10.10 Type 1 diabetes mellitus with ketoacidosis without coma (principal); U07.1 COVID-19; J12.82 Pneumonia due to coronavirus disease 2019; J96.01 Acute respiratory failure with hypoxia; K85.90 Acute pancreatitis without necrosis or infection, unspecified; E44.0 Moderate protein-calorie malnutrition; E87.1 Hypo-osmolality and hyponatremia; N17.9 Acute kidney failure, unspecified; L02.211 Cutaneous abscess of abdominal wall; D84.9 Immunodeficiency, unspecified; D75.838 Other thrombocytosis; E78.5 Hyperlipidemia, unspecified; E83.42 Hypomagnesemia; E86.1 Hypovolemia; E87.5 Hyperkalemia; E87.8 Other disorders of electrolyte and fluid balance, not elsewhere classified; I10 Essential (primary) hypertension; K43.9 Ventral hernia without obstruction or gangrene; K59.00 Constipation, unspecified; Z90.81 Acquired absence of spleen; E87.6 Hypokalemia; E78.1 Pure hyperglyceridemia; Z91.19 Patient's noncompliance with other medical treatment and regimen; E66.9 Obesity, unspecified; Z68.24 Body mass index [BMI] 24.0-24.9, adult
CPT/HCPCS: 36415; 36600; 71045; 71270; 74176; 74178; 80048; 80053; 80061; 80202; 81001; 81025; 82010; 82435; 82728; 82803; 82947; 82948; 83036; 83605; 83690; 83735; 83930; 84100; 84132; 84145; 84295; 84443; 84478; 85018; 85025; 85027; 85378; 85610; 85651; 85730; 86140; 87040; 87635; 87804; 93005; 94640; 97039; 99291; C1751; C1894; C9803; G0378; J1100; J1170; J1200; J1650; J1815; J1956; J2405; J2543; J3370; J3475; J3480; J3490; J7042; J7050; J7070; J7120; Q9967

== ENCOUNTER 2022-03-09 18:34 | Inpatient (IN) | payer MEDICAID, OTHER ==
[~2022-03-09] VITALS: Ht 160 cm; Wt 58.5 kg
[~2022-03-09 18:34] MED LIST changes: +AMOX1TAB16 PO; -AZIT250T PO; -HUM10VIA SQ; -ICOS1CAP PO; +INSU100I35 SQ; -NIAC100045 PO; -OMEP20TA20 PO
[2022-03-09] MEDS ORDERED: APAP/CODEINE 120/12MG 5ML PO STA (20:19)
[2022-03-09] MEDS ORDERED: BENZONATATE 100 MG CAPSULE PO STA (20:19)
[2022-03-09 21:03] LABS: BASOPHILS % (AUTO) 0.2 % (0.0-5.0); EOSINOPHILS % (AUTO) 0.1 % (0.0-8.0); LYMPHOCYTES % (AUTO) 24.1 % (21.0-51.0); MEAN CORPUSCULAR HEMOGLOBIN 27.3 pg (27.0-33.0); MEAN CORPUSCULAR HGB CONC 32.6 g/dL (32.0-36.0); MEAN CORPUSCULAR VOLUME 83.5 fL (79-99); MONOCYTES % (AUTO) 11.2 % (3.0-13.0); NEUTROPHILS % (AUTO) 63.7 % (40.0-77.0); NUCLEATED RED BLOOD CELLS 0.6 % (0.0-0.19); PLATELET COUNT (AUTO) 573 K/uL (130-400); RED BLOOD CELL COUNT(AUTO) 4.07 MIL/uL (4.00-5.50); RED CELL DISTRIBUTION WIDTH 15.3 % (11.0-15.5); WHITE BLOOD COUNT (AUTO) 8.5 K/uL (4.8-10.8)
[2022-03-09 21:12] LABS: CREATININE 0.8 mg/dL (0.5-1.5); POTASSIUM 4.4 mmol/L (3.5-5.1)
[2022-03-09 21:16] LABS: ALBUMIN 2.6 g/dL (3.5-5.0); TOTAL PROTEIN, SERUM 9.3 g/dL (6.0-8.3)
[2022-03-09 21:28] LABS: APPEARANCE,URINE Clear (CLEAR); BILIRUBIN,URINE Negative (NEGATIVE); COLOR,URINE Yellow (YELLOW); GLUCOSE, URINE (UA) >=1000 mg/dL (NEGATIVE); KETONES,URINE >=160 mg/dL (NEGATIVE); LEUKOCYTE ESTERASE ,URINE Negative (NEGATIVE); NITRATE,URINE Negative (NEGATIVE); OCCULT BLOOD,URINE Negative (NEGATIVE); PH,URINE 5.5 (5.0-8.0); PROTEIN,URINE POS 2+ mg/dL (NEGATIVE); UROBILINOGEN,URINE 0.2 mg/dL (0.2-1.0)
[2022-03-09] MEDS ORDERED: 0.9%NACL 1000ML 1,000 ML IV ONE (21:30)
[2022-03-09 21:35] LABS: BACTERIA,URINE Rare /HPF (None Seen); RBC,URINE 0-1 /HPF (0-1); WBC,URINE 0-1 /HPF (0-1)
[2022-03-09 21:36] LABS: SQUAMOUS EPITHELIAL CELL,UR Few /HPF (0-2)
[2022-03-09] MEDS ORDERED: ZOSYN 3.375GM +NS 50ML IV STA (22:48)
[2022-03-09] MEDS ORDERED: INSULIN HUMULIN R 100 UNIT/ML 3ML SQ STA (22:56)
[2022-03-09] MEDS ORDERED: MULT-952 PO (22:58)
[2022-03-09] MEDS ORDERED: OMEP20CA12 PO (22:58)
[2022-03-09] MEDS ORDERED: ATOR40TA71 PO (22:58)
[2022-03-09] MEDS ORDERED: HUM10VIA SQ (22:58)
[2022-03-09] MEDS ORDERED: SENN8.6T32 PO (22:58)
[2022-03-09 23:08] LABS: ABG BASE EXCESS -12.5 mmol/L (-2.0-3.0); ABG HCO3 12.5 mmol/L (21.0-28.0); ABG OXYGEN SATURATION 96.3 % (95.0-99.0); ABG PCO2 27 mmHg (32-45)
[2022-03-09] MEDS ORDERED: [UNRECOGNIZED DRUG - OTHER] IV SCH (23:30)
[2022-03-09] MEDS ORDERED: POTASSIUM CHLORIDE 10MEQ/100ML 100 ML IV PRN (23:30)
[2022-03-09] MEDS ORDERED: LIDOCAINE HCL-MPF 1% 2ML VIAL IV PRN (23:30)
[2022-03-09] MEDS ORDERED: DEXTROSE 5 %-0.45 % NACL 1,000 ML IV PRN (23:30)
[2022-03-09] MEDS ORDERED: POTASSIUM CHLORIDE 10% ELIXIR 20 MEQ/15 ML UDCUP PO PRN (23:30)
[2022-03-09] MEDS ORDERED: GUAIFENESIN-CODEINE 5 ML SYRUP PO PRN (23:30)
[2022-03-09] MEDS ORDERED: INSULIN REGULAR, HUMAN 3ML 100 UNIT in 0.9%NACL 100ML 99 ML IV PRN ×2 (23:30)
[2022-03-09] MEDS ORDERED: ACETAMINOPHEN 325 MG TAB PO PRN (23:30)
[2022-03-09] MEDS ORDERED: HYDROMORPHONE 1 MG INJ IV PRN (23:30)
[2022-03-10] VITALS (18 sets, daily range): BP systolic 88–135; BP diastolic 44–90
[2022-03-10] MEDS: IPRATROPIUM/ALBUTEROL SULFATE 3 ML SOLUTION IH SCH ×5 (01:10→23:22)
[2022-03-10] MEDS: 0.9%NACL 1000ML 1,000 ML IV SCH ×3 (01:58→09:30)
[2022-03-10 04:38] LABS: BASOPHILS % (AUTO) 0.2 % (0.0-5.0); HEMATOCRIT 31.3 % (36-48); LYMPHOCYTES % (AUTO) 32.1 % (21.0-51.0); MEAN CORPUSCULAR HEMOGLOBIN 27.4 pg (27.0-33.0); MEAN CORPUSCULAR HGB CONC 32.6 g/dL (32.0-36.0); MEAN CORPUSCULAR VOLUME 84.1 fL (79-99); MONOCYTES % (AUTO) 14.3 % (3.0-13.0); NEUTROPHILS % (AUTO) 51.9 % (40.0-77.0); NUCLEATED RED BLOOD CELLS 0.5 % (0.0-0.19); PLATELET COUNT (AUTO) 683 K/uL (130-400); RED BLOOD CELL COUNT(AUTO) 3.72 MIL/uL (4.00-5.50); RED CELL DISTRIBUTION WIDTH 15.1 % (11.0-15.5); WHITE BLOOD COUNT (AUTO) 6.2 K/uL (4.8-10.8)
[2022-03-10 04:55] LABS: ABG BASE EXCESS -7.3 mmol/L (-2.0-3.0); ABG HCO3 17.7 mmol/L (21.0-28.0); ABG OXYGEN SATURATION 96.5 % (95.0-99.0); ABG PCO2 35 mmHg (32-45)
[2022-03-10 04:55] LABS: CREATININE 0.6 mg/dL (0.5-1.5); MAGNESIUM 1.4 mg/dL (1.80-2.40); PHOSPHORUS 3.1 mg/dL (2.5-4.9); POTASSIUM 3.2 mmol/L (3.5-5.1)
[2022-03-10] MEDS ORDERED: ZOSYN 3.375GM+NS 50ML 50 ML IV SCH (05:00)
[2022-03-10] MEDS: MORPHINE 2 MG SYG IV PRN ×2 (05:23→08:46)
[2022-03-10] MEDS: KCL 20 MEQ ERTAB PO PRN ×2 (05:23→15:23)
[2022-03-10] MEDS: MAGNESIUM 2GM PREMIX 50ML 50 ML IV PRN ×3 (06:35→18:25)
[2022-03-10] MEDS: INSULIN GLARGINE 100 UNITS/ML 10 ML VIAL SQ SCH ×2 (07:49→21:14)
[2022-03-10] MEDS: ENOXAPARIN SODIUM 40 MG/0.4 ML SYRINGE SQ SCH (07:50)
[2022-03-10] MEDS: FAMOTIDINE 20MG VIAL IV SCH ×2 (08:18→21:03)
[2022-03-10 10:03] LABS: ABG OXYGEN SATURATION 79.9 % (95.0-99.0); BASE EXCESS,VENOUS BLOOD GAS -5.9 (-2.0-3.0); HCO3,VENOUS BLOOD GAS 19.5 (21.0-28.0); PCO2,VENOUS BLOOD GAS 38 (32-45); PH,VENOUS BLOOD GAS 7.332 (7.350-7.450)
[2022-03-10 10:20] LABS: INR 0.98 (0.85-1.15); PROTHROMBIN TIME 10.7 SEC (9.6-11.6)
[2022-03-10 10:21] LABS: ALBUMIN 2.2 g/dL (3.5-5.0); CREATININE 0.6 mg/dL (0.5-1.5); PARTIAL THROMBOPLASTIN TIME 30.9 SEC (26.3-35.5); POTASSIUM 3.3 mmol/L (3.5-5.1)
[2022-03-10 10:25] LABS: CRP QUANTITATIVE 163.5 mg/L (0.00-9.0); MAGNESIUM 1.6 mg/dL (1.80-2.40)
[2022-03-10] MEDS: POTASSIUM CHLORIDE 20MEQ/100ML 100 ML IV PRN ×2 (11:01→16:57)
[2022-03-10] MEDS: Vitamin B Complex/Vit C/Folic Acid PO SCH (11:37)
[2022-03-10] MEDS: MEROPENEM 1 GM VIAL IVP SCH ×2 (12:19→19:16)
[2022-03-10] MEDS ORDERED: MEROPENEM 1 GM VIAL IVP SCH (14:00)
[2022-03-10] MEDS: DOXYCYCLINE HYCLATE 100 MG TABLET PO SCH ×2 (14:16→21:03)
[2022-03-10] MEDS: LACTATED RINGERS 1000ML 1,000 ML IV SCH ×2 (14:16→23:38)
[2022-03-10 14:59] LABS: CREATININE 0.4 mg/dL (0.5-1.5); MAGNESIUM 1.9 mg/dL (1.80-2.40); POTASSIUM 3.6 mmol/L (3.5-5.1)
[2022-03-10] MEDS: INSULIN HUMULIN R 100 UNIT/ML 3ML SQ SCH ×2 (15:46→21:19)
[2022-03-10 21:16] LABS: CREATININE 0.6 mg/dL (0.5-1.5); POTASSIUM 4.6 mmol/L (3.5-5.1)
[2022-03-11 00:11] VITALS: BP 126/74
[2022-03-11 03:43] VITALS: BP 103/64
[2022-03-11] MEDS: MEROPENEM 1 GM VIAL IVP SCH ×2 (05:29→11:52)
[2022-03-11 05:41] LABS: CREATININE 0.4 mg/dL (0.5-1.5); MAGNESIUM 1.6 mg/dL (1.80-2.40); POTASSIUM 3.9 mmol/L (3.5-5.1)
[2022-03-11] MEDS: INSULIN GLARGINE 100 UNITS/ML 10 ML VIAL SQ SCH (06:39)
[2022-03-11] MEDS: INSULIN HUMULIN R 100 UNIT/ML 3ML SQ SCH ×2 (06:41→11:51)
[2022-03-11] MEDS: IPRATROPIUM/ALBUTEROL SULFATE 3 ML SOLUTION IH SCH ×2 (06:45→11:07)
[2022-03-11 06:57] LABS: BASOPHILS % (AUTO) 0.2 % (0.0-5.0); EOSINOPHILS % (AUTO) 1.6 % (0.0-8.0); MEAN CORPUSCULAR HEMOGLOBIN 27.9 pg (27.0-33.0); MEAN CORPUSCULAR HGB CONC 32.9 g/dL (32.0-36.0); MEAN CORPUSCULAR VOLUME 84.7 fL (79-99); MONOCYTES % (AUTO) 13.2 % (3.0-13.0); NEUTROPHILS % (AUTO) 46.4 % (40.0-77.0); RED BLOOD CELL COUNT(AUTO) 3.66 MIL/uL (4.00-5.50); RED CELL DISTRIBUTION WIDTH 15.4 % (11.0-15.5)
[2022-03-11 07:07] LABS: PLATELET COUNT (AUTO) 809 K/uL (130-400)
[2022-03-11 08:00] VITALS: BP 101/67
[2022-03-11] MEDS: DOXYCYCLINE HYCLATE 100 MG TABLET PO SCH (08:41)
[2022-03-11] MEDS: FAMOTIDINE 20MG VIAL IV SCH (08:44)
[2022-03-11] MEDS: ENOXAPARIN SODIUM 40 MG/0.4 ML SYRINGE SQ SCH (08:44)
[2022-03-11] MEDS: Vitamin B Complex/Vit C/Folic Acid PO SCH (08:44)
[2022-03-11] MEDS ORDERED: ASPIRIN 81 MG EC TAB PO SCH (09:30)
[2022-03-11 12:00] VITALS: BP 108/63
[2022-03-11] MEDS ORDERED: LEVO750T46 PO (13:09)
[2022-03-11] MEDS ORDERED: AEC81 PO (13:09)
[2022-03-11] MEDS ORDERED: MAGNESIUM 2GM PREMIX 50ML 50 ML IV PRN (13:30)
[2022-03-11] MEDS: MAGNESIUM 2GM PREMIX 50ML 50 ML IV PRN (14:00)
[2022-03-11] MEDS ORDERED: INSULIN HUMULIN R 100 UNIT/ML 3ML SQ SCH (17:00)
[2022-03-11] MEDS ORDERED: INSULIN GLARGINE 100 UNITS/ML 10 ML VIAL SQ SCH (21:00)
[2022-03-12] MEDS ORDERED: SULF1TAB42 PO (14:35)
== END 2022-03-11 15:05 | disposition home or self-care (01) | DRG 637 ==
LOC: EDH 18:34 → EDHIP 18:35 → 2CH 03-10 09:24 → 3CH 03-10 21:18
PROVIDERS: ADMIT Hospitalist; ATTEND Hospitalist
DX: E11.10 Type 2 diabetes mellitus with ketoacidosis without coma (principal); J18.9 Pneumonia, unspecified organism; Z91.19 Patient's noncompliance with other medical treatment and regimen; Z20.822 Contact with and (suspected) exposure to COVID-19; E78.00 Pure hypercholesterolemia, unspecified; Z90.49 Acquired absence of other specified parts of digestive tract; Z90.81 Acquired absence of spleen; I10 Essential (primary) hypertension; Z87.01 Personal history of pneumonia (recurrent); Z79.4 Long term (current) use of insulin; D75.838 Other thrombocytosis; K59.00 Constipation, unspecified
CPT/HCPCS: 36415; 36600; 71045; 74176; 80048; 80053; 80061; 81001; 82010; 82040; 82435; 82803; 82947; 82948; 83605; 83690; 83735; 84100; 84132; 84145; 84295; 85025; 85610; 85651; 85730; 86140; 87040; 87071; 87077; 87186; 87205; 87635; 87804; 94640; 94664; G0378; J1650; J1815; J2185; J2543; J3475; J3480; J3490; J7030; J7042

== ENCOUNTER 2022-03-17 15:47 | Emergency (ER) | payer OTHER ==
[~2022-03-17] VITALS: Ht 152.4 cm; Wt 70.3 kg
[~2022-03-17 15:47] MED LIST changes: +AEC81 PO; -AMOX1TAB16 PO; -FAMO40TA75 PO; +LEVO750T46 PO; +MULT-952 PO; +OMEP20CA12 PO; +SENN8.6T32 PO; +SULF1TAB42 PO
[2022-03-17 18:11] LABS: BASOPHILS % (AUTO) 0.3 % (0.0-5.0); EOSINOPHILS % (AUTO) 0.2 % (0.0-8.0); HEMATOCRIT 31.3 % (36-48); LYMPHOCYTES % (AUTO) 20.5 % (21.0-51.0); MEAN CORPUSCULAR HEMOGLOBIN 28.9 pg (27.0-33.0); MEAN CORPUSCULAR HGB CONC 35.1 g/dL (32.0-36.0); MEAN CORPUSCULAR VOLUME 82.4 fL (79-99); NEUTROPHILS % (AUTO) 73.5 % (40.0-77.0); RED CELL DISTRIBUTION WIDTH 15.5 % (11.0-15.5); WHITE BLOOD COUNT (AUTO) 10.8 K/uL (4.8-10.8)
[2022-03-17 18:13] LABS: PLATELET COUNT (AUTO) 812 K/uL (130-400)
[2022-03-17] MEDS ORDERED: NAPROXEN 250 MG TAB ONE (18:13)
[2022-03-17] MEDS ORDERED: KETOROLAC 15MG/ML VIAL (15MG/ML) ONE (18:44)
[2022-03-17 19:21] LABS: ALBUMIN 2.6 g/dL (3.5-5.0); CREATININE 0.4 mg/dL (0.5-1.5); POTASSIUM 5.5 mmol/L (3.5-5.1); TOTAL PROTEIN, SERUM 8.8 g/dL (6.0-8.3)
[2022-03-17 19:32] LABS: BASOPHILS % (AUTO) 0.2 % (0.0-5.0); EOSINOPHILS % (AUTO) 0.2 % (0.0-8.0); HEMATOCRIT 30.6 % (36-48); LYMPHOCYTES % (AUTO) 21.9 % (21.0-51.0); MEAN CORPUSCULAR HEMOGLOBIN 28.3 pg (27.0-33.0); MEAN CORPUSCULAR HGB CONC 34.3 g/dL (32.0-36.0); MEAN CORPUSCULAR VOLUME 82.5 fL (79-99); NEUTROPHILS % (AUTO) 71.3 % (40.0-77.0); PLATELET COUNT (AUTO) 555 K/uL (130-400); RED BLOOD CELL COUNT(AUTO) 3.71 MIL/uL (4.00-5.50); RED CELL DISTRIBUTION WIDTH 15.7 % (11.0-15.5); WHITE BLOOD COUNT (AUTO) 9.9 K/uL (4.8-10.8)
[2022-03-17 21:04] LABS: APPEARANCE,URINE CLEAR (CLEAR); BILIRUBIN,URINE NEGATIVE (NEGATIVE); COLOR,URINE YELLOW (YELLOW); GLUCOSE, URINE (UA) >=1000 mg/dL (NEGATIVE); KETONES,URINE NEGATIVE (NEGATIVE); LEUKOCYTE ESTERASE ,URINE NEGATIVE (NEGATIVE); NITRATE,URINE NEGATIVE (NEGATIVE); OCCULT BLOOD,URINE NEGATIVE (NEGATIVE); PROTEIN,URINE NEGATIVE (NEGATIVE); UROBILINOGEN,URINE 0.2 mg/dL (0.2-1.0)
[2022-03-17 21:12] LABS: BACTERIA,URINE None Seen /HPF (None Seen); MUCUS,URINE Rare LPF (None Seen); RBC,URINE None Seen /HPF (0-1); SQUAMOUS EPITHELIAL CELL,UR Few /HPF (0-2); WBC,URINE None Seen /HPF (0-1); YEAST,URINE BUDDING None Seen /HPF (None Seen)
[2022-03-17 23:03] VITALS: BP 98/72
[2022-03-17] MEDS ORDERED: BENZ-39 PO (23:03)
[2022-03-17] MEDS ORDERED: NAPR-1180 PO (23:03)
== END 2022-03-17 23:25 | disposition home or self-care (01) ==
LOC: EDH 15:47
DX: K43.9 Ventral hernia without obstruction or gangrene (principal); E11.65 Type 2 diabetes mellitus with hyperglycemia; Z20.822 Contact with and (suspected) exposure to COVID-19; E78.00 Pure hypercholesterolemia, unspecified; Z79.899 Other long term (current) drug therapy
CPT/HCPCS: 99284; 74176; 87635; 80053; 84703; 85025 ×2; 87804 ×2; 81001; 36415; 96372; C9803; J1885

== ENCOUNTER 2022-03-21 13:08 | Emergency (ER) | payer OTHER ==
[~2022-03-21] VITALS: Ht 154.9 cm; Wt 59.0 kg
[~2022-03-21 13:08] MED LIST changes: +BENZ-39 PO; +LEVO750T39 PO; -LEVO750T46 PO; +NAPR-1180 PO
[2022-03-21] MEDS ORDERED: MORPHINE 2 MG SYG IVP ONE (14:00)
[2022-03-21] MEDS ORDERED: ONDANSETRON 4MG INJ IVP ONE (14:00)
[2022-03-21 14:06] LABS: BASOPHILS % (AUTO) 0.1 % (0.0-5.0); EOSINOPHILS % (AUTO) 0.1 % (0.0-8.0); HEMATOCRIT 30.4 % (36-48); LYMPHOCYTES % (AUTO) 11.7 % (21.0-51.0); MEAN CORPUSCULAR HEMOGLOBIN 27.8 pg (27.0-33.0); MEAN CORPUSCULAR HGB CONC 33.2 g/dL (32.0-36.0); MEAN CORPUSCULAR VOLUME 83.7 fL (79-99); MONOCYTES % (AUTO) 4.8 % (3.0-13.0); NEUTROPHILS % (AUTO) 82.9 % (40.0-77.0); RED BLOOD CELL COUNT(AUTO) 3.63 MIL/uL (4.00-5.50); RED CELL DISTRIBUTION WIDTH 15.1 % (11.0-15.5); WHITE BLOOD COUNT (AUTO) 13.4 K/uL (4.8-10.8)
[2022-03-21 14:15] LABS: CREATININE 0.7 mg/dL (0.5-1.5); POTASSIUM 5.2 mmol/L (3.5-5.1)
[2022-03-21 14:21] LABS: PLATELET COUNT (AUTO) 775 K/uL (130-400)
[2022-03-21 14:24] LABS: ALBUMIN 2.6 g/dL (3.5-5.0); TOTAL PROTEIN, SERUM 8.4 g/dL (6.0-8.3)
[2022-03-21] MEDS ORDERED: HYDROMORPHONE 0.5 MG SYG (0.5MG/0.5ML) IVP ONE (16:00)
[2022-03-21 16:13] VITALS: BP 105/66
[2022-03-21] MEDS ORDERED: TRAM1TAB2 PO (16:49)
[2022-03-21] MEDS ORDERED: KETO10TA2 PO (16:49)
[2022-03-21] MEDS ORDERED: FAMO40TA75 PO (16:49)
== END 2022-03-21 16:53 | disposition home or self-care (01) ==
LOC: EDH 13:17
DX: D72.829 Elevated white blood cell count, unspecified (principal); D75.838 Other thrombocytosis; E87.1 Hypo-osmolality and hyponatremia; R10.12 Left upper quadrant pain
CPT/HCPCS: 99284; 96374; 96375; 84484; 80053; 83690; 85025; 36415; 93005; J2405; J1170

== ENCOUNTER 2022-03-25 12:23 | Emergency (ER) | payer MEDICAID, OTHER ==
[~2022-03-25] VITALS: Ht 154.9 cm; Wt 57.6 kg
[~2022-03-25 12:23] MED LIST changes: +FAMO40TA75 PO; +KETO10TA2 PO; +TRAM1TAB2 PO
[2022-03-25 13:13] LABS: ABG BASE EXCESS 3.5 mmol/L (-2.0-3.0); ABG HCO3 28.1 mmol/L (21.0-28.0); ABG PCO2 43 mmHg (32-45)
[2022-03-25 13:22] LABS: BASOPHILS % (AUTO) 0.4 % (0.0-5.0); EOSINOPHILS % (AUTO) 0.5 % (0.0-8.0); HEMATOCRIT 28.4 % (36-48); LYMPHOCYTES % (AUTO) 24.8 % (21.0-51.0); MEAN CORPUSCULAR HEMOGLOBIN 27.4 pg (27.0-33.0); MEAN CORPUSCULAR HGB CONC 33.5 g/dL (32.0-36.0); MEAN CORPUSCULAR VOLUME 81.8 fL (79-99); MONOCYTES % (AUTO) 6.6 % (3.0-13.0); NEUTROPHILS % (AUTO) 67.1 % (40.0-77.0); RED BLOOD CELL COUNT(AUTO) 3.47 MIL/uL (4.00-5.50); WHITE BLOOD COUNT (AUTO) 8.5 K/uL (4.8-10.8)
[2022-03-25 13:30] LABS: CREATININE 0.4 mg/dL (0.5-1.5); POTASSIUM 3.8 mmol/L (3.5-5.1)
[2022-03-25 13:34] LABS: ALBUMIN 2.7 g/dL (3.5-5.0); TOTAL PROTEIN, SERUM 8.8 g/dL (6.0-8.3)
[2022-03-25] MEDS ORDERED: ONDANSETRON 4MG INJ ONE (14:17)
[2022-03-25 14:19] LABS: PLATELET COUNT (AUTO) 743 K/uL (130-400)
[2022-03-25] MEDS ORDERED: KETOROLAC 30MG VIAL (30MG/ML) ONE (14:57)
[2022-03-25] MEDS ORDERED: IBUP-2077 PO (15:10)
[2022-03-25 15:31] VITALS: BP 104/69
[2022-05-01] MEDS ORDERED: ONDA4TAB10 PO (23:50)
[2022-05-01] MEDS ORDERED: DICY20TA2 PO (23:50)
[2022-05-02] MEDS ORDERED: DICY20TA2 PO (00:11)
[2022-05-02] MEDS ORDERED: ONDA4TAB10 PO ×2 (00:11→03:43)
[2022-05-02] MEDS ORDERED: OXYC-38 PO (03:43)
[2022-05-20] MEDS ORDERED: MACR100 PO (18:01)
[2022-05-20] MEDS ORDERED: PHEN-847 PO (18:01)
== END 2022-03-25 15:31 | disposition home or self-care (01) ==
LOC: EDH 12:23
DX: D75.839 Thrombocytosis, unspecified (principal); K43.9 Ventral hernia without obstruction or gangrene; G89.29 Other chronic pain; E11.9 Type 2 diabetes mellitus without complications; E78.00 Pure hypercholesterolemia, unspecified; Z88.1 Allergy status to other antibiotic agents; Z79.1 Long term (current) use of non-steroidal anti-inflammatories (NSAID); Z79.4 Long term (current) use of insulin; Z79.82 Long term (current) use of aspirin; Z79.899 Other long term (current) drug therapy; Z90.49 Acquired absence of other specified parts of digestive tract
CPT/HCPCS: 99284; 96374; 96375; 82947; 84484; 80053; 82803; 85025; 83605; 82010; 36415; 93005; 36600; 82435; 84132; 84295; 85018; J2405; J1885

== ENCOUNTER 2022-05-14 21:15 | Emergency (ER) | payer OTHER ==
[~2022-05-14] VITALS: Ht 152.4 cm; Wt 72.6 kg
[~2022-05-14 21:15] MED LIST changes: +DICY20TA2 PO; +IBUP-2077 PO; +ONDA4TAB10 PO; +OXYC-38 PO
[2022-05-14 22:51] VITALS: BP 144/71
[2022-05-20] MEDS ORDERED: PHEN-847 PO (18:01)
[2022-05-20] MEDS ORDERED: MACR100 PO (18:01)
== END 2022-05-14 23:18 | disposition home or self-care (01) ==
LOC: EDH 21:15
DX: R10.9 Unspecified abdominal pain (principal); G89.29 Other chronic pain; E11.9 Type 2 diabetes mellitus without complications; E78.00 Pure hypercholesterolemia, unspecified; Z88.1 Allergy status to other antibiotic agents; Z79.899 Other long term (current) drug therapy; Z79.82 Long term (current) use of aspirin; Z79.4 Long term (current) use of insulin; Z90.49 Acquired absence of other specified parts of digestive tract; Z98.890 Other specified postprocedural states

== ENCOUNTER 2022-06-07 21:41 | Emergency (ER) | payer OTHER ==
[~2022-06-07] VITALS: Ht 157.5 cm; Wt 62.6 kg
[~2022-06-07 21:41] MED LIST changes: +MACR100 PO; +PHEN-847 PO
[2022-06-08 00:22] LABS: BASOPHILS % (AUTO) 0.3 % (0.0-5.0); EOSINOPHILS % (AUTO) 0.6 % (0.0-8.0); HEMATOCRIT 34.1 % (36-48); LYMPHOCYTES % (AUTO) 42.2 % (21.0-51.0); MEAN CORPUSCULAR HEMOGLOBIN 24.7 pg (27.0-33.0); MEAN CORPUSCULAR HGB CONC 31.4 g/dL (32.0-36.0); MEAN CORPUSCULAR VOLUME 78.8 fL (79-99); MONOCYTES % (AUTO) 6.6 % (3.0-13.0); RED BLOOD CELL COUNT(AUTO) 4.33 MIL/uL (4.00-5.50); RED CELL DISTRIBUTION WIDTH 16.7 % (11.0-15.5)
[2022-06-08 00:28] LABS: PLATELET COUNT (AUTO) 828 K/uL (130-400)
[2022-06-08 00:34] LABS: APPEARANCE,URINE CLOUDY (CLEAR); BILIRUBIN,URINE NEGATIVE (NEGATIVE); COLOR,URINE LIGHT-YELLOW (YELLOW); GLUCOSE, URINE (UA) >=1000 mg/dL (NEGATIVE); KETONES,URINE NEGATIVE (NEGATIVE); LEUKOCYTE ESTERASE ,URINE NEGATIVE Leu/uL (NEGATIVE); NITRATE,URINE NEGATIVE (NEGATIVE); OCCULT BLOOD,URINE NEGATIVE (NEGATIVE); PROTEIN,URINE 20 mg/dL (NEGATIVE); UROBILINOGEN,URINE 0.2 mg/dL (0.2-1.0)
[2022-06-08 00:38] LABS: SQUAMOUS EPITHELIAL CELL,UR RARE /HPF (0-2)
[2022-06-08 00:46] LABS: CREATININE 0.6 mg/dL (0.5-1.5); POTASSIUM 4.5 mmol/L (3.5-5.1)
[2022-06-08 00:47] LABS: EOSINOPHILS % (MANUAL) 2 % (1-6); LYMPHOCYTES % (MANUAL) 37 % (22-44); MONOCYTES % (MANUAL) 3 % (2-9); SEGMENTED NEUTROPHILS % 58 % (40-70)
[2022-06-08 00:48] LABS: MAN.DIFF COMMENT-IMPRESSION MANUAL DIFFERENTIAL; PLATELET MORPHOLOGY COMMENT MARKED INCREASE
[2022-06-08 00:49] VITALS: BP 139/78
[2022-06-08 00:50] LABS: ALBUMIN 3.7 g/dL (3.5-5.0); TOTAL PROTEIN, SERUM 9.1 g/dL (6.0-8.3)
[2022-06-08] MEDS ORDERED: KETOROLAC 15MG/ML VIAL (15MG/ML) ONE (01:05)
[2022-06-08] MEDS ORDERED: KETOROLAC 15MG/ML VIAL (15MG/ML) IM ONE (01:30)
== END 2022-06-08 01:12 | disposition home or self-care (01) ==
LOC: EDH 21:41
DX: K43.9 Ventral hernia without obstruction or gangrene (principal); G89.29 Other chronic pain; R10.84 Generalized abdominal pain; E11.9 Type 2 diabetes mellitus without complications; E78.00 Pure hypercholesterolemia, unspecified; E66.01 Morbid (severe) obesity due to excess calories; Z79.1 Long term (current) use of non-steroidal anti-inflammatories (NSAID); Z79.4 Long term (current) use of insulin; Z79.82 Long term (current) use of aspirin; Z88.1 Allergy status to other antibiotic agents; Z68.25 Body mass index [BMI] 25.0-25.9, adult
CPT/HCPCS: 99284; 80053; 82140; 83690; 85025; 81001; 36415; 74021; J1885

== ENCOUNTER 2022-06-17 14:29 | Emergency (ER) | payer OTHER ==
[~2022-06-17] VITALS: Ht 152.4 cm; Wt 60.8 kg
[2022-06-17 15:49] LABS: APPEARANCE,URINE CLEAR (CLEAR); BILIRUBIN,URINE NEGATIVE (NEGATIVE); COLOR,URINE YELLOW (YELLOW); GLUCOSE, URINE (UA) >=1000 mg/dL (NEGATIVE); KETONES,URINE NEGATIVE (NEGATIVE); LEUKOCYTE ESTERASE ,URINE NEGATIVE Leu/uL (NEGATIVE); NITRATE,URINE NEGATIVE (NEGATIVE); OCCULT BLOOD,URINE NEGATIVE (NEGATIVE); PH,URINE 5.5 (5.0-8.0); PROTEIN,URINE 50 mg/dL (NEGATIVE); UROBILINOGEN,URINE 0.2 mg/dL (0.2-1.0)
[2022-06-17 15:52] LABS: BACTERIA,URINE RARE /HPF (None Seen); MUCUS,URINE RARE LPF (None Seen); SQUAMOUS EPITHELIAL CELL,UR MOD /HPF (0-2)
[2022-06-17 15:53] LABS: BASOPHILS % (AUTO) 0.2 % (0.0-5.0); EOSINOPHILS % (AUTO) 0.5 % (0.0-8.0); HEMATOCRIT 36.1 % (36-48); MEAN CORPUSCULAR HEMOGLOBIN 24.6 pg (27.0-33.0); MEAN CORPUSCULAR HGB CONC 31.3 g/dL (32.0-36.0); MEAN CORPUSCULAR VOLUME 78.5 fL (79-99); MONOCYTES % (AUTO) 7.3 % (3.0-13.0); NEUTROPHILS % (AUTO) 59.6 % (40.0-77.0); PLATELET COUNT (AUTO) 505 K/uL (130-400); RED CELL DISTRIBUTION WIDTH 17.6 % (11.0-15.5)
[2022-06-17 15:57] LABS: CREATININE 0.7 mg/dL (0.5-1.5); POTASSIUM 3.7 mmol/L (3.5-5.1)
[2022-06-17] MEDS ORDERED: ONDANSETRON 4MG INJ IVP ONE (16:00)
[2022-06-17] MEDS ORDERED: DiphenhydrAMINE HCL 50 MG/ML VIAL IV ONE (16:00)
[2022-06-17] MEDS ORDERED: METOCLOPRAMIDE 10 MG/2 ML VIAL IM ONE (16:00)
[2022-06-17 16:02] LABS: ALBUMIN 3.8 g/dL (3.5-5.0)
[2022-06-17] MEDS ORDERED: 0.9%NACL 1000ML 1,000 ML IV ONE (16:30)
[2022-06-17] MEDS ORDERED: ONDA4TAB10 PO (18:16)
[2022-06-17] MEDS ORDERED: POLY17PO4 PO (18:16)
[2022-06-17 18:24] VITALS: BP 134/78
== END 2022-06-17 18:40 | disposition home or self-care (01) ==
LOC: EDH 14:29
DX: G89.29 Other chronic pain (principal); R10.9 Unspecified abdominal pain; K46.9 Unspecified abdominal hernia without obstruction or gangrene; E11.65 Type 2 diabetes mellitus with hyperglycemia; E86.0 Dehydration; K59.00 Constipation, unspecified; E78.00 Pure hypercholesterolemia, unspecified; E66.01 Morbid (severe) obesity due to excess calories; Z68.26 Body mass index [BMI] 26.0-26.9, adult; Z88.1 Allergy status to other antibiotic agents; Z79.899 Other long term (current) drug therapy; Z79.82 Long term (current) use of aspirin; Z79.4 Long term (current) use of insulin; Z98.890 Other specified postprocedural states
CPT/HCPCS: 99285; 96374; 96361; 96375; 80053; 83690; 85025; 81001; 81025; 36415; 74021; 93005; 96372; J1200; J7030; J2405; J2765

== ENCOUNTER 2022-06-20 10:02 | Emergency (ER) | payer OTHER ==
[~2022-06-20] VITALS: Ht 152.4 cm; Wt 61.3 kg
[~2022-06-20 10:02] MED LIST changes: +POLY17PO4 PO
[2022-06-20 10:32] LABS: BASOPHILS % (AUTO) 0.2 % (0.0-5.0); EOSINOPHILS % (AUTO) 0.8 % (0.0-8.0); HEMATOCRIT 37.6 % (36-48); LYMPHOCYTES % (AUTO) 31.3 % (21.0-51.0); MEAN CORPUSCULAR HEMOGLOBIN 24.8 pg (27.0-33.0); MEAN CORPUSCULAR HGB CONC 31.6 g/dL (32.0-36.0); MEAN CORPUSCULAR VOLUME 78.5 fL (79-99); MONOCYTES % (AUTO) 5.8 % (3.0-13.0); NEUTROPHILS % (AUTO) 61.7 % (40.0-77.0); PLATELET COUNT (AUTO) 543 K/uL (130-400); RED BLOOD CELL COUNT(AUTO) 4.79 MIL/uL (4.00-5.50); RED CELL DISTRIBUTION WIDTH 17.6 % (11.0-15.5); WHITE BLOOD COUNT (AUTO) 9.1 K/uL (4.8-10.8)
[2022-06-20 10:43] LABS: ALANINE AMINOTRANSFERASE 24 U/L (12-78); ALBUMIN 3.7 g/dL (3.5-5.0); ASPARTATE AMINOTRANSFERASE 35 U/L (10-37); CARBON DIOXIDE 27 mmol/L (21-32); CHLORIDE 99 mmol/L (101-111); CREATININE 0.6 mg/dL (0.5-1.5); GLOMERULAR FILTR. RATE CALC 115 mL/min (>60); GLUCOSE,RANDOM 102 mg/dL (70-105); POTASSIUM 3.8 mmol/L (3.5-5.1); SODIUM SERUM 133 mmol/L (136-145); TOTAL PROTEIN, SERUM 8.9 g/dL (6.0-8.3); UREA NITROGEN, BLOOD 18 mg/dL (7-18)
[2022-06-20 10:44] LABS: LIPASE < 50 U/L (114-286)
[2022-06-20 10:46] LABS: APPEARANCE,URINE CLEAR (CLEAR); BILIRUBIN,URINE NEGATIVE (NEGATIVE); COLOR,URINE LIGHT-YELLOW (YELLOW); GLUCOSE, URINE (UA) NEGATIVE (NEGATIVE); KETONES,URINE NEGATIVE (NEGATIVE); LEUKOCYTE ESTERASE ,URINE NEGATIVE Leu/uL (NEGATIVE); NITRATE,URINE NEGATIVE (NEGATIVE); OCCULT BLOOD,URINE NEGATIVE (NEGATIVE); PROTEIN,URINE 30 mg/dL (NEGATIVE); UROBILINOGEN,URINE 0.2 mg/dL (0.2-1.0)
[2022-06-20 10:51] LABS: MUCUS,URINE RARE LPF (None Seen); RBC,URINE 0-1 /HPF (0-1); SQUAMOUS EPITHELIAL CELL,UR MOD /HPF (0-2)
[2022-06-20] MEDS ORDERED: METOCLOPRAMIDE 10 MG/2 ML VIAL IM ONE (11:30)
[2022-06-20] MEDS ORDERED: KETOROLAC 30MG VIAL (30MG/ML) IM ONE (11:30)
[2022-06-20] MEDS ORDERED: DiphenhydrAMINE HCL 50 MG/ML VIAL IM ONE (11:30)
[2022-06-20] MEDS ORDERED: MAGNESIUM CITRATE 296 ML SOLUTION PO ONE (14:00)
== END 2022-06-20 14:48 | disposition home or self-care (01) ==
LOC: EDH 10:02
DX: K43.9 Ventral hernia without obstruction or gangrene (principal); G89.29 Other chronic pain; R10.84 Generalized abdominal pain; E11.9 Type 2 diabetes mellitus without complications; E78.00 Pure hypercholesterolemia, unspecified; Z79.1 Long term (current) use of non-steroidal anti-inflammatories (NSAID); Z79.82 Long term (current) use of aspirin; Z79.4 Long term (current) use of insulin; Z88.1 Allergy status to other antibiotic agents
CPT/HCPCS: 99284; 80053; 83690; 85025; 82948; 81001; 36415; 96372 ×3; J1200; J1885; J2765

== ENCOUNTER 2022-09-01 11:57 | Emergency (ER) | payer OTHER ==
[~2022-09-01] VITALS: Ht 154.9 cm; Wt 57.2 kg
[~2022-09-01 11:57] MED LIST changes: +ACET-66 PO; -AEC81 PO; +ASPI-1197 PO; +ATOR40TA69 PO; -ATOR40TA71 PO; -BENZ-39 PO; +DICY10CA13 PO; -DICY20TA2 PO; +DOCU-116 PO; +DOCU100T PO; -DULO30CA52 PO; -FAMO40TA75 PO; -FENO145T26 PO; +FERR-72 PO; -IBUP-2077 PO; +INSLAN SQ; -INSU100I35 SQ; -KETO10TA2 PO; -LEVO750T39 PO; -MACR100 PO; -MULT-952 PO; -NAPR-1180 PO; -OMEP20CA12 PO; +OMEP40CA21 PO; -ONDA4TAB10 PO; -OXYC-38 PO; +PANT40TA PO; -PHEN-847 PO; -POLY17PO4 PO; -SENN8.6T32 PO; +SUCR1TAB PO; -SULF1TAB42 PO; -SYRI-1628 MC; -TRAM1TAB2 PO
[2022-09-01] MEDS ORDERED: KETOROLAC 15MG/ML VIAL (15MG/ML) IV ONE (13:30)
[2022-09-01] MEDS ORDERED: 0.9%NACL 1000ML 1,000 ML IV ONE (13:30)
[2022-09-01] MEDS ORDERED: MORPHINE 4 MG SYG IVP ONE (13:30)
[2022-09-01] MEDS ORDERED: ONDANSETRON 4MG INJ IVP ONE (13:30)
[2022-09-01 13:50] LABS: HCG,QUALITATIVE URINE NEGATIVE (NEGATIVE)
[2022-09-01 14:00] LABS: APPEARANCE,URINE CLEAR (CLEAR); BILIRUBIN,URINE NEGATIVE (NEGATIVE); COLOR,URINE COLORLESS (YELLOW); GLUCOSE, URINE (UA) >=1000 mg/dL (NEGATIVE); KETONES,URINE NEGATIVE (NEGATIVE); LEUKOCYTE ESTERASE ,URINE NEGATIVE Leu/uL (NEGATIVE); NITRATE,URINE NEGATIVE (NEGATIVE); OCCULT BLOOD,URINE NEGATIVE (NEGATIVE); PROTEIN,URINE 20 mg/dL (NEGATIVE); UROBILINOGEN,URINE 0.2 mg/dL (0.2-1.0)
[2022-09-01 14:05] LABS: RBC,URINE 0-1 /HPF (0-1); SQUAMOUS EPITHELIAL CELL,UR RARE /HPF (0-2)
[2022-09-01 14:40] LABS: BASOPHILS % (AUTO) 0.2 % (0.0-5.0); EOSINOPHILS % (AUTO) 0.3 % (0.0-8.0); LYMPHOCYTES % (AUTO) 22.4 % (21.0-51.0); MEAN CORPUSCULAR HEMOGLOBIN 24.9 pg (27.0-33.0); MEAN CORPUSCULAR VOLUME 80.1 fL (79-99); MONOCYTES % (AUTO) 6.8 % (3.0-13.0); NEUTROPHILS % (AUTO) 69.8 % (40.0-77.0); NUCLEATED RED BLOOD CELLS 0.2 % (0.0-0.19); RED BLOOD CELL COUNT(AUTO) 3.62 MIL/uL (4.00-5.50); RED CELL DISTRIBUTION WIDTH 17.4 % (11.0-15.5); WHITE BLOOD COUNT (AUTO) 9.3 K/uL (4.8-10.8)
[2022-09-01 14:45] LABS: PLATELET COUNT (AUTO) 804 K/uL (130-400)
[2022-09-01 14:59] LABS: ALBUMIN 3.2 g/dL (3.5-5.0); CREATININE 0.6 mg/dL (0.5-1.5); POTASSIUM 4.6 mmol/L (3.5-5.1); TOTAL PROTEIN, SERUM 9.1 g/dL (6.0-8.3)
[2022-09-01] MEDS ORDERED: 0.9% NACL 500ML IV.SOLN 500 ML IV ONE (15:30)
[2022-09-01] MEDS ORDERED: INSULIN HUMULIN R 100 UNIT/ML 3ML IV ONE (15:30)
[2022-09-01 17:30] VITALS: BP 115/78
== END 2022-09-01 17:34 | disposition home or self-care (01) ==
LOC: EDH 11:57
DX: E11.65 Type 2 diabetes mellitus with hyperglycemia (principal); J90 Pleural effusion, not elsewhere classified; K43.9 Ventral hernia without obstruction or gangrene; Z20.822 Contact with and (suspected) exposure to COVID-19; E78.00 Pure hypercholesterolemia, unspecified; Z79.899 Other long term (current) drug therapy; Z79.82 Long term (current) use of aspirin; Z98.890 Other specified postprocedural states; Z88.8 Allergy status to other drugs, medicaments and biological substances
CPT/HCPCS: 99285; 74176; 96374; 96375; 87635; 80053; 83690; 85025; 82948; 81001; 81025; 36415; J1815; C9803; J7030; J2405; J2270; J1885

== ENCOUNTER 2022-09-06 14:48 | Emergency (ER) | payer OTHER ==
[~2022-09-06] VITALS: Ht 154.9 cm; Wt 57.2 kg
[2022-09-06 14:49] VITALS: BP 136/100
[2022-09-06 16:33] LABS: BASOPHILS % (AUTO) 0.2 % (0.0-5.0); EOSINOPHILS % (AUTO) 0.3 % (0.0-8.0); HEMATOCRIT 28.9 % (36-48); LYMPHOCYTES % (AUTO) 14.8 % (21.0-51.0); MEAN CORPUSCULAR HEMOGLOBIN 25.1 pg (27.0-33.0); MEAN CORPUSCULAR HGB CONC 31.5 g/dL (32.0-36.0); MEAN CORPUSCULAR VOLUME 79.8 fL (79-99); MONOCYTES % (AUTO) 10.3 % (3.0-13.0); NEUTROPHILS % (AUTO) 74.1 % (40.0-77.0); RED BLOOD CELL COUNT(AUTO) 3.62 MIL/uL (4.00-5.50); RED CELL DISTRIBUTION WIDTH 18.8 % (11.0-15.5); WHITE BLOOD COUNT (AUTO) 9.9 K/uL (4.8-10.8)
[2022-09-06 16:41] LABS: PLATELET COUNT (AUTO) 1045 K/uL (130-400)
[2022-09-06 16:47] LABS: ALANINE AMINOTRANSFERASE 8 U/L (12-78); ASPARTATE AMINOTRANSFERASE 14 U/L (10-37); CARBON DIOXIDE 27 mmol/L (21-32); CHLORIDE 95 mmol/L (101-111); CREATININE 0.6 mg/dL (0.5-1.5); GLOMERULAR FILTR. RATE CALC 115 mL/min (>60); GLUCOSE,RANDOM 385 mg/dL (70-105); POTASSIUM 3.9 mmol/L (3.5-5.1); SODIUM SERUM 129 mmol/L (136-145); TOTAL PROTEIN, SERUM 8.6 g/dL (6.0-8.3); UREA NITROGEN, BLOOD 32 mg/dL (7-18)
[2022-09-06 17:07] LABS: LIPASE < 50 U/L (114-286)
[2022-09-06] MEDS ORDERED: PANTOPRAZOLE 40 MG/VIAL IVP STA (17:13)
[2022-09-06] MEDS ORDERED: 0.9%NACL 1000ML 1,000 ML IV ONE (17:30)
[2022-09-06 18:49] LABS: AMPHET/METH SCREEN,URINE NEGATIVE (NEGATIVE); BARBITURATE SCREEN, URINE NEGATIVE (NEGATIVE); BENZODIAZEPINES SCREEN,URINE NEGATIVE (NEGATIVE); CANNABINOID SCREEN,URINE NEGATIVE (NEGATIVE); COCAINE SCREEN,URINE NEGATIVE (NEGATIVE); OPIATE SCREEN,URINE NEGATIVE (NEGATIVE); PHENCYCLIDINE SCREEN,URINE NEGATIVE (NEGATIVE)
== END 2022-09-06 19:05 | disposition home or self-care (01) ==
LOC: EDH 14:48
DX: E11.65 Type 2 diabetes mellitus with hyperglycemia (principal); E86.9 Volume depletion, unspecified; D75.839 Thrombocytosis, unspecified; E78.00 Pure hypercholesterolemia, unspecified; Z79.4 Long term (current) use of insulin; Z88.1 Allergy status to other antibiotic agents; Z79.899 Other long term (current) drug therapy; Z79.82 Long term (current) use of aspirin
CPT/HCPCS: 99283; 96374; 96361; 80053; 80305; 83690; 85025; 36415; J7030; C9113

== ENCOUNTER 2022-09-11 07:23 | Emergency (ER) | payer OTHER ==
[~2022-09-11] VITALS: Ht 154.9 cm; Wt 57.2 kg
[2022-09-11 08:20] LABS: BASOPHILS % (AUTO) 0.3 % (0.0-5.0); HEMATOCRIT 28.2 % (36-48); LYMPHOCYTES % (AUTO) 22.4 % (21.0-51.0); MEAN CORPUSCULAR HEMOGLOBIN 24.8 pg (27.0-33.0); MEAN CORPUSCULAR HGB CONC 30.9 g/dL (32.0-36.0); MEAN CORPUSCULAR VOLUME 80.3 fL (79-99); MONOCYTES % (AUTO) 4.4 % (3.0-13.0); NEUTROPHILS % (AUTO) 71.5 % (40.0-77.0); NUCLEATED RED BLOOD CELLS 0.3 % (0.0-0.19); PLATELET COUNT (AUTO) 565 K/uL (130-400); RED BLOOD CELL COUNT(AUTO) 3.51 MIL/uL (4.00-5.50); RED CELL DISTRIBUTION WIDTH 18.3 % (11.0-15.5); WHITE BLOOD COUNT (AUTO) 7.8 K/uL (4.8-10.8)
[2022-09-11 08:24] LABS: APPEARANCE,URINE CLOUDY (CLEAR); BILIRUBIN,URINE NEGATIVE (NEGATIVE); COLOR,URINE YELLOW (YELLOW); GLUCOSE, URINE (UA) 30 mg/dL (NEGATIVE); KETONES,URINE NEGATIVE (NEGATIVE); LEUKOCYTE ESTERASE ,URINE 500 Leu/uL (NEGATIVE); NITRATE,URINE NEGATIVE (NEGATIVE); PROTEIN,URINE 100 mg/dL (NEGATIVE); UROBILINOGEN,URINE 0.2 mg/dL (0.2-1.0)
[2022-09-11] MEDS ORDERED: ONDANSETRON 4MG INJ IV ONE (08:30)
[2022-09-11] MEDS ORDERED: MORPHINE 4 MG SYG IVP ONE ×2 (08:30→12:30)
[2022-09-11 08:41] LABS: ALBUMIN 2.8 g/dL (3.5-5.0); CREATININE 0.5 mg/dL (0.5-1.5)
[2022-09-11 08:44] LABS: POTASSIUM 6.7 mmol/L (3.5-5.1)
[2022-09-11 08:56] LABS: BACTERIA,URINE FEW /HPF (None Seen); MUCUS,URINE RARE LPF (None Seen); SQUAMOUS EPITHELIAL CELL,UR MANY /HPF (0-2); YEAST,URINE BUDDING FEW /HPF (None Seen)
[2022-09-11 13:39] LABS: APPEARANCE,URINE CLOUDY (CLEAR); BILIRUBIN,URINE NEGATIVE (NEGATIVE); COLOR,URINE YELLOW (YELLOW); GLUCOSE, URINE (UA) 30 mg/dL (NEGATIVE); KETONES,URINE NEGATIVE (NEGATIVE); LEUKOCYTE ESTERASE ,URINE 250 Leu/uL (NEGATIVE); NITRATE,URINE NEGATIVE (NEGATIVE); PROTEIN,URINE 100 mg/dL (NEGATIVE); UROBILINOGEN,URINE 0.2 mg/dL (0.2-1.0)
[2022-09-11 14:02] LABS: BACTERIA,URINE FEW /HPF (None Seen); MUCUS,URINE FEW LPF (None Seen); SQUAMOUS EPITHELIAL CELL,UR MANY /HPF (0-2); YEAST,URINE BUDDING RARE /HPF (None Seen)
[2022-09-11] MEDS ORDERED: IOHEXOL 350 MG/ML 100ML INFUS..BTL IV ONE (14:12)
[2022-09-11] MEDS ORDERED: KETOROLAC 30MG VIAL (30MG/ML) IVP ONE (15:00)
[2022-09-11] MEDS ORDERED: HYDR-4060 PO (15:04)
[2022-09-11] MEDS ORDERED: IBUP-2071 PO (15:04)
[2022-09-11 16:15] VITALS: BP 119/69
== END 2022-09-11 16:20 | disposition home or self-care (01) ==
LOC: EDH 07:23
DX: K43.9 Ventral hernia without obstruction or gangrene (principal); G89.29 Other chronic pain; E11.9 Type 2 diabetes mellitus without complications; E78.00 Pure hypercholesterolemia, unspecified; Z79.4 Long term (current) use of insulin; Z79.82 Long term (current) use of aspirin; Z90.81 Acquired absence of spleen; Z79.899 Other long term (current) drug therapy; Z88.8 Allergy status to other drugs, medicaments and biological substances
CPT/HCPCS: 99285; 74177; 96374; 96375; 84484; 80053; 83690; 85025; 87088; 81001 ×2; 81025; 36415; 96376; 93005; 84132; J2405; J2270 ×2; J1885; Q9967

== ENCOUNTER 2022-10-22 15:18 | Emergency (ER) | payer OTHER ==
[~2022-10-22] VITALS: Ht 154.9 cm; Wt 69.4 kg
[~2022-10-22 15:18] MED LIST changes: +HYDR-4060 PO; +IBUP-2071 PO
[2022-10-22 15:37] VITALS: BP 118/72
[2022-10-22 16:46] LABS: BASOPHILS % (AUTO) 0.1 % (0.0-5.0); HEMATOCRIT 29.7 % (36-48); LYMPHOCYTES % (AUTO) 5.6 % (21.0-51.0); MEAN CORPUSCULAR HEMOGLOBIN 26.5 pg (27.0-33.0); MONOCYTES % (AUTO) 5.9 % (3.0-13.0); NEUTROPHILS % (AUTO) 87.7 % (40.0-77.0); RED BLOOD CELL COUNT(AUTO) 3.58 MIL/uL (4.00-5.50); RED CELL DISTRIBUTION WIDTH 17.2 % (11.0-15.5); WHITE BLOOD COUNT (AUTO) 23.4 K/uL (4.8-10.8)
[2022-10-22 16:52] LABS: CREATININE 0.6 mg/dL (0.5-1.5); POTASSIUM 3.6 mmol/L (3.5-5.1)
[2022-10-22 16:54] LABS: PLATELET COUNT (AUTO) 1093 K/uL (130-400)
[2022-10-22 16:57] LABS: ALBUMIN 2.7 g/dL (3.5-5.0); TOTAL PROTEIN, SERUM 8.6 g/dL (6.0-8.3)
[2022-10-22] MEDS ORDERED: BENZONATATE 100 MG CAPSULE PO SCH (17:00)
[2022-10-22 17:15] LABS: PLATELET MORPHOLOGY COMMENT INCREASED
[2022-10-22] MEDS ORDERED: ACETAMINOPHEN 500 MG TABLET PO ONE (18:00)
[2022-10-22] MEDS ORDERED: 0.9%NACL 1000ML 2,000 ML IV ONE (18:00)
== END 2022-10-22 18:16 | disposition left against medical advice (07) ==
LOC: EDH 15:18
DX: M79.10 Myalgia, unspecified site (principal); R05.9 Cough, unspecified; E11.9 Type 2 diabetes mellitus without complications; E78.00 Pure hypercholesterolemia, unspecified; Z88.8 Allergy status to other drugs, medicaments and biological substances; Z79.899 Other long term (current) drug therapy; Z98.890 Other specified postprocedural states; Z79.82 Long term (current) use of aspirin
CPT/HCPCS: 36415; 80053; 84703; 85025

== ENCOUNTER 2022-10-26 18:25 | Inpatient (IN) | payer OTHER ==
[~2022-10-26] VITALS: Ht 154.9 cm; Wt 53.9 kg
[2022-10-26 19:16] LABS: BASOPHILS % (AUTO) 0.5 % (0.0-5.0); EOSINOPHILS % (AUTO) 0.1 % (0.0-8.0); HEMATOCRIT 31.7 % (36-48); LYMPHOCYTES % (AUTO) 17.1 % (21.0-51.0); MEAN CORPUSCULAR HEMOGLOBIN 26.1 pg (27.0-33.0); MEAN CORPUSCULAR VOLUME 87.1 fL (79-99); MONOCYTES % (AUTO) 16.3 % (3.0-13.0); NEUTROPHILS % (AUTO) 64.6 % (40.0-77.0); RED BLOOD CELL COUNT(AUTO) 3.64 MIL/uL (4.00-5.50); RED CELL DISTRIBUTION WIDTH 18.1 % (11.0-15.5); WHITE BLOOD COUNT (AUTO) 8.5 K/uL (4.8-10.8)
[2022-10-26 19:17] LABS: NUCLEATED RED BLOOD CELLS 0.2 % (0.0-0.19)
[2022-10-26 19:25] LABS: PLATELET COUNT (AUTO) 908 K/uL (130-400)
[2022-10-26 19:30] LABS: ALBUMIN 2.6 g/dL (3.5-5.0); CREATININE 0.7 mg/dL (0.5-1.5); POTASSIUM 4.3 mmol/L (3.5-5.1)
[2022-10-26 19:36] LABS: TOTAL PROTEIN, SERUM 8.2 g/dL (6.0-8.3)
[2022-10-26] MEDS ORDERED: 0.9%NACL 1000ML 1,000 ML IV ONE (20:00)
[2022-10-26 20:03] LABS: ABG OXYGEN SATURATION 52.4 % (95.0-99.0); BASE EXCESS,VENOUS BLOOD GAS -16.4 (-2.0-3.0); HCO3,VENOUS BLOOD GAS 9.9 (21.0-28.0); PCO2,VENOUS BLOOD GAS 25 (32-45); PH,VENOUS BLOOD GAS 7.211 (7.350-7.450)
[2022-10-26] MEDS ORDERED: HYDROCODONE/ACETAMINOPHEN 5/325 MG TAB PO ONE (20:30)
[2022-10-26] MEDS ORDERED: POTASSIUM CHLORIDE 10MEQ/100ML 100 ML IV PRN (20:30)
[2022-10-26] MEDS ORDERED: MAGNESIUM 2GM PREMIX 50ML 50 ML IV SCH (20:30)
[2022-10-26] MEDS ORDERED: ONDANSETRON 4MG INJ IVP ONE (20:30)
[2022-10-26] MEDS ORDERED: 0.9%NACL 1000ML 1,000 ML IV SCH (20:30)
[2022-10-26] MEDS ORDERED: INSULIN HUMULIN R 100 UNIT/ML 3ML ONE (20:33)
[2022-10-26] MEDS: INSULIN REGULAR, HUMAN 3ML 100 UNIT in 0.9%NACL 100ML 100 ML IV SCH ×4 (20:40→21:56)
[2022-10-26 22:36] LABS: APPEARANCE,URINE CLEAR (CLEAR); BILIRUBIN,URINE NEGATIVE (NEGATIVE); COLOR,URINE COLORLESS (YELLOW); GLUCOSE, URINE (UA) >=1000 mg/dL (NEGATIVE); KETONES,URINE 150 mg/dL (NEGATIVE); LEUKOCYTE ESTERASE ,URINE 25 Leu/uL (NEGATIVE); NITRATE,URINE NEGATIVE (NEGATIVE); OCCULT BLOOD,URINE NEGATIVE (NEGATIVE); PH,URINE 5.5 (5.0-8.0); PROTEIN,URINE 30 mg/dL (NEGATIVE); UROBILINOGEN,URINE 0.2 mg/dL (0.2-1.0)
[2022-10-26 22:37] LABS: HCG,QUALITATIVE URINE NEGATIVE (NEGATIVE)
[2022-10-26 22:39] LABS: MUCUS,URINE RARE LPF (None Seen); SQUAMOUS EPITHELIAL CELL,UR FEW /HPF (0-2)
[2022-10-26] MEDS: D5W-1/2 NS/20MEQ KCL 1,000 ML IV SCH (22:51)
[2022-10-27] VITALS (24 sets, daily range): BP systolic 101–148; BP diastolic 51–77
[2022-10-27] MEDS ORDERED: MORPHINE 4 MG SYG IV PRN (00:30)
[2022-10-27] MEDS ORDERED: ACETAMINOPHEN 325 MG TAB PO PRN (00:30)
[2022-10-27] MEDS ORDERED: CEFTRIAXONE 1G VIAL IVP SCH (00:30)
[2022-10-27] MEDS ORDERED: MAG/ALUM/SIMETH 30 ML UDCUP PO PRN (00:30)
[2022-10-27] MEDS ORDERED: LACTULOSE 20 GM/30 ML UDCUP PO PRN (00:30)
[2022-10-27] MEDS ORDERED: ONDANSETRON 4MG INJ IV PRN (00:30)
[2022-10-27] MEDS ORDERED: 0.9%NACL 1000ML 1,000 ML IV ONE (00:35)
[2022-10-27] MEDS: ACETAMINOPHEN WITH CODEINE 1 TAB TAB PO PRN ×2 (00:48→08:12)
[2022-10-27] MEDS ORDERED: SODIUM BICARB 50MEQ 50ML VIAL IV ONE (01:00)
[2022-10-27] MEDS: INSULIN GLARGINE 100 UNITS/ML 10 ML VIAL SQ SCH ×3 (02:09→21:02)
[2022-10-27 03:03] LABS: ABG OXYGEN SATURATION 98.9 % (95.0-99.0); BASE EXCESS,VENOUS BLOOD GAS -4.4 (-2.0-3.0); HCO3,VENOUS BLOOD GAS 17.5 (21.0-28.0); PCO2,VENOUS BLOOD GAS 25 (32-45); PH,VENOUS BLOOD GAS 7.459 (7.350-7.450)
[2022-10-27 03:36] LABS: CREATININE 0.5 mg/dL (0.5-1.5); POTASSIUM 3.3 mmol/L (3.5-5.1)
[2022-10-27] MEDS ORDERED: POTASSIUM CHLORIDE 10MEQ/100ML 100 ML IV ONE (05:00)
[2022-10-27] MEDS ORDERED: LIDOCAINE HCL-MPF 1% 2ML VIAL ONE (05:22)
[2022-10-27] MEDS: D5W-1/2 NS/20MEQ KCL 1,000 ML IV SCH (06:33)
[2022-10-27 07:19] LABS: HEMATOCRIT 27.8 % (36-48); MEAN CORPUSCULAR HGB CONC 31.3 g/dL (32.0-36.0); MEAN CORPUSCULAR VOLUME 83.2 fL (79-99); NUCLEATED RED BLOOD CELLS 0.6 % (0.0-0.19); RED BLOOD CELL COUNT(AUTO) 3.34 MIL/uL (4.00-5.50); RED CELL DISTRIBUTION WIDTH 17.6 % (11.0-15.5); WHITE BLOOD COUNT (AUTO) 6.5 K/uL (4.8-10.8)
[2022-10-27 07:28] LABS: CREATININE 0.5 mg/dL (0.5-1.5); MAGNESIUM 1.2 mg/dL (1.80-2.40)
[2022-10-27] MEDS ORDERED: POTASSIUM CHLORIDE 20MEQ/100ML 100 ML IV PRN (08:00)
[2022-10-27] MEDS ORDERED: GLUCAGON 1MG KIT 1 MG ML IM PRN (08:00)
[2022-10-27] MEDS ORDERED: LIDOCAINE HCL-MPF 1% 2ML VIAL IV PRN (08:00)
[2022-10-27] MEDS ORDERED: DEXTROSE 50%-WATER 50 ML DISP.SYRIN IV PRN (08:00)
[2022-10-27] MEDS: PANTOPRAZOLE 40 MG/VIAL IVP SCH (08:12)
[2022-10-27] MEDS: MAGNESIUM 2GM PREMIX 50ML 50 ML IV PRN ×2 (08:13→16:29)
[2022-10-27] MEDS: POTASSIUM CHLORIDE 10% ELIXIR 20 MEQ/15 ML UDCUP PO PRN ×6 (08:13→21:00)
[2022-10-27] MEDS: INSULIN HUMULIN R 100 UNIT/ML 3ML SQ SCH ×3 (12:05→21:01)
[2022-10-27] MEDS ORDERED: MORPHINE 2 MG SYG ONE (13:07)
[2022-10-27] MEDS: MORPHINE 2 MG SYG IVP PRN ×2 (13:14→17:15)
[2022-10-27] MEDS ORDERED: PHARMACY COMMUNICATION MISC SCH (14:08)
[2022-10-27 15:31] LABS: CARBON DIOXIDE 21 mmol/L (21-32); CHLORIDE 99 mmol/L (101-111); CREATININE 0.6 mg/dL (0.5-1.5); GLOMERULAR FILTR. RATE CALC 115 mL/min (>60); GLUCOSE,RANDOM 200 mg/dL (70-105); POTASSIUM 3.4 mmol/L (3.5-5.1); SODIUM SERUM 130 mmol/L (136-145); TRIGLYCERIDES 423 mg/dL (30-200); UREA NITROGEN, BLOOD 2 mg/dL (7-18)
[2022-10-27 15:37] LABS: LIPASE < 50 U/L (114-286)
[2022-10-27] MEDS: LACTATED RINGERS 1000ML 1,000 ML IV SCH (18:10)
[2022-10-27] MEDS: KETOROLAC 15MG/ML VIAL (15MG/ML) IV PRN (18:28)
[2022-10-27] MEDS: DiphenhydrAMINE HCL 50 MG/ML VIAL IV PRN (18:28)
[2022-10-27] MEDS: ZOSYN 3.375GM+NS 50ML 50 ML IVPB SCH (20:59)
[2022-10-27] MEDS: PROCHLORPERAZINE 10MG/2ML INJ IV PRN (21:00)
[2022-10-27] MEDS: ATORVASTATIN 40 MG TABLET PO SCH (21:00)
[2022-10-28] VITALS (7 sets, daily range): BP systolic 97–140; BP diastolic 59–74
[2022-10-28] MEDS: LACTATED RINGERS 1000ML 1,000 ML IV SCH ×2 (03:44→11:53)
[2022-10-28] MEDS: ZOSYN 3.375GM+NS 50ML 50 ML IVPB SCH ×3 (03:44→20:02)
[2022-10-28] MEDS: MORPHINE 2 MG SYG IVP PRN ×2 (03:53→20:04)
[2022-10-28 04:36] LABS: BASOPHILS % (AUTO) 0.4 % (0.0-5.0); EOSINOPHILS % (AUTO) 0.7 % (0.0-8.0); HEMATOCRIT 27.7 % (36-48); MEAN CORPUSCULAR HEMOGLOBIN 25.8 pg (27.0-33.0); MEAN CORPUSCULAR HGB CONC 30.3 g/dL (32.0-36.0); MONOCYTES % (AUTO) 18.4 % (3.0-13.0); NEUTROPHILS % (AUTO) 60.2 % (40.0-77.0); NUCLEATED RED BLOOD CELLS 1.6 % (0.0-0.19); PLATELET COUNT (AUTO) 554 K/uL (130-400); RED BLOOD CELL COUNT(AUTO) 3.26 MIL/uL (4.00-5.50); RED CELL DISTRIBUTION WIDTH 18.5 % (11.0-15.5); WHITE BLOOD COUNT (AUTO) 8.3 K/uL (4.8-10.8)
[2022-10-28 04:45] LABS: INR 1.08 (0.85-1.15); PROTHROMBIN TIME 11.7 SEC (9.6-11.6)
[2022-10-28 04:46] LABS: PARTIAL THROMBOPLASTIN TIME 24.5 SEC (26.3-35.5)
[2022-10-28 04:52] LABS: ALBUMIN 1.9 g/dL (3.5-5.0); ASPARTATE AMINOTRANSFERASE 12 U/L (10-37); CARBON DIOXIDE 24 mmol/L (21-32); CHLORIDE 97 mmol/L (101-111); CREATININE 0.4 mg/dL (0.5-1.5); GLOMERULAR FILTR. RATE CALC 184 mL/min (>60); GLUCOSE,RANDOM 201 mg/dL (70-105); POTASSIUM 3.7 mmol/L (3.5-5.1); SODIUM SERUM 128 mmol/L (136-145); TOTAL PROTEIN, SERUM 6.9 g/dL (6.0-8.3); UREA NITROGEN, BLOOD 4 mg/dL (7-18)
[2022-10-28 04:59] LABS: ALANINE AMINOTRANSFERASE < 6 U/L (12-78)
[2022-10-28] MEDS: KCL 20 MEQ ERTAB PO PRN (05:40)
[2022-10-28] MEDS: MAGNESIUM 2GM PREMIX 50ML 50 ML IV PRN (05:40)
[2022-10-28] MEDS: INSULIN GLARGINE 100 UNITS/ML 10 ML VIAL SQ SCH ×2 (05:41→21:27)
[2022-10-28] MEDS: INSULIN HUMULIN R 100 UNIT/ML 3ML SQ SCH ×4 (05:42→21:28)
[2022-10-28] MEDS: KETOROLAC 15MG/ML VIAL (15MG/ML) IV PRN ×2 (06:49→14:23)
[2022-10-28] MEDS: DIPHENHYDRAMINE HCL 25 MG CAPSULE PO PRN (06:50)
[2022-10-28] MEDS: PROCHLORPERAZINE 10MG/2ML INJ IV PRN ×2 (06:50→14:23)
[2022-10-28] MEDS: PANTOPRAZOLE 40 MG/VIAL IVP SCH (09:12)
[2022-10-28] MEDS: DiphenhydrAMINE HCL 50 MG/ML VIAL IV PRN (14:23)
[2022-10-28] MEDS: 0.9%NACL 10ML VIAL IV SCH (15:00)
[2022-10-28] MEDS: 0.9%NACL 1000ML 1,000 ML IV SCH (18:00)
[2022-10-28] MEDS: ATORVASTATIN 40 MG TABLET PO SCH (20:02)
[2022-10-29] VITALS (14 sets, daily range): BP systolic 100–127; BP diastolic 61–74
[2022-10-29] MEDS: MORPHINE 2 MG SYG IVP PRN ×5 (00:02→20:49)
[2022-10-29] MEDS: 0.9%NACL 10ML VIAL IV SCH ×3 (00:02→15:00)
[2022-10-29] MEDS: ZOSYN 3.375GM+NS 50ML 50 ML IVPB SCH ×3 (04:17→20:28)
[2022-10-29] MEDS: INSULIN GLARGINE 100 UNITS/ML 10 ML VIAL SQ SCH ×2 (07:30→20:36)
[2022-10-29] MEDS: INSULIN HUMULIN R 100 UNIT/ML 3ML SQ SCH ×4 (07:30→20:37)
[2022-10-29] MEDS: PANTOPRAZOLE 40 MG/VIAL IVP SCH (09:12)
[2022-10-29] MEDS: 0.9%NACL 1000ML 1,000 ML IV SCH ×3 (09:12→20:44)
[2022-10-29] MEDS: KETOROLAC 15MG/ML VIAL (15MG/ML) IV PRN ×2 (09:13→18:23)
[2022-10-29] MEDS: DiphenhydrAMINE HCL 50 MG/ML VIAL IV PRN ×2 (09:13→18:22)
[2022-10-29] MEDS: PROCHLORPERAZINE 10MG/2ML INJ IV PRN ×2 (09:13→18:23)
[2022-10-29 10:51] LABS: BASOPHILS % (AUTO) 0.3 % (0.0-5.0); EOSINOPHILS % (AUTO) 0.8 % (0.0-8.0); HEMATOCRIT 25.3 % (36-48); LYMPHOCYTES % (AUTO) 23.1 % (21.0-51.0); MEAN CORPUSCULAR HGB CONC 31.2 g/dL (32.0-36.0); MEAN CORPUSCULAR VOLUME 83.2 fL (79-99); MONOCYTES % (AUTO) 15.9 % (3.0-13.0); NEUTROPHILS % (AUTO) 58.4 % (40.0-77.0); NUCLEATED RED BLOOD CELLS 0.4 % (0.0-0.19); PLATELET COUNT (AUTO) 573 K/uL (130-400); RED BLOOD CELL COUNT(AUTO) 3.04 MIL/uL (4.00-5.50); RED CELL DISTRIBUTION WIDTH 18.7 % (11.0-15.5); WHITE BLOOD COUNT (AUTO) 7.6 K/uL (4.8-10.8)
[2022-10-29 10:54] LABS: INR 1.08 (0.85-1.15); PROTHROMBIN TIME 11.7 SEC (9.6-11.6)
[2022-10-29 10:56] LABS: PARTIAL THROMBOPLASTIN TIME 25.2 SEC (26.3-35.5)
[2022-10-29 11:01] LABS: ALBUMIN 1.8 g/dL (3.5-5.0); ASPARTATE AMINOTRANSFERASE 14 U/L (10-37); CARBON DIOXIDE 30 mmol/L (21-32); CHLORIDE 98 mmol/L (101-111); CREATININE 0.4 mg/dL (0.5-1.5); GLOMERULAR FILTR. RATE CALC 184 mL/min (>60); GLUCOSE,RANDOM 139 mg/dL (70-105); PHOSPHORUS 3.3 mg/dL (2.5-4.9); POTASSIUM 3.2 mmol/L (3.5-5.1); SODIUM SERUM 133 mmol/L (136-145); TOTAL PROTEIN, SERUM 6.6 g/dL (6.0-8.3); UREA NITROGEN, BLOOD 7 mg/dL (7-18)
[2022-10-29 11:06] LABS: % IRON SATURATION 6.1 % (22-44); ALANINE AMINOTRANSFERASE < 6 U/L (12-78)
[2022-10-29 11:08] LABS: HEMOGLOBIN A1C 9.6 % (4.0-6.0)
[2022-10-29] MEDS ORDERED: LIDOCAINE HCL MPF 1% 5ML VIAL ONE (12:38)
[2022-10-29] MEDS: ATORVASTATIN 40 MG TABLET PO SCH (20:28)
[2022-10-29] MEDS: GABAPENTIN 300 MG CAPSULE PO SCH (20:28)
[2022-10-30] VITALS: BP 105/66
[2022-10-30] MEDS: MORPHINE 2 MG SYG IVP PRN ×5 (00:47→18:12)
[2022-10-30] MEDS: 0.9%NACL 10ML VIAL IV SCH ×4 (00:51→22:11)
[2022-10-30] MEDS: MAGNESIUM 2GM PREMIX 50ML 50 ML IV PRN (01:45)
[2022-10-30 04:00] VITALS: BP 109/66
[2022-10-30] MEDS: ZOSYN 3.375GM+NS 50ML 50 ML IVPB SCH ×3 (05:11→19:46)
[2022-10-30 05:39] LABS: BASOPHILS % (AUTO) 0.4 % (0.0-5.0); HEMATOCRIT 24.3 % (36-48); MEAN CORPUSCULAR HEMOGLOBIN 26.3 pg (27.0-33.0); MEAN CORPUSCULAR HGB CONC 30.9 g/dL (32.0-36.0); MEAN CORPUSCULAR VOLUME 85.3 fL (79-99); MONOCYTES % (AUTO) 13.8 % (3.0-13.0); NEUTROPHILS % (AUTO) 53.5 % (40.0-77.0); PLATELET COUNT (AUTO) 564 K/uL (130-400); RED BLOOD CELL COUNT(AUTO) 2.85 MIL/uL (4.00-5.50); RED CELL DISTRIBUTION WIDTH 18.3 % (11.0-15.5); WHITE BLOOD COUNT (AUTO) 7.9 K/uL (4.8-10.8)
[2022-10-30 05:59] LABS: ALBUMIN 1.7 g/dL (3.5-5.0); CREATININE 0.4 mg/dL (0.5-1.5); MAGNESIUM 2.1 mg/dL (1.80-2.40); POTASSIUM 3.3 mmol/L (3.5-5.1); TOTAL PROTEIN, SERUM 6.2 g/dL (6.0-8.3)
[2022-10-30] MEDS: KCL 20 MEQ ERTAB PO PRN (06:49)
[2022-10-30] MEDS: INSULIN HUMULIN R 100 UNIT/ML 3ML SQ SCH ×4 (06:52→19:48)
[2022-10-30] MEDS: INSULIN GLARGINE 100 UNITS/ML 10 ML VIAL SQ SCH ×2 (06:53→19:48)
[2022-10-30 08:00] VITALS: BP 125/76
[2022-10-30] MEDS: PANTOPRAZOLE 40 MG/VIAL IVP SCH (09:18)
[2022-10-30] MEDS: GABAPENTIN 300 MG CAPSULE PO SCH ×3 (09:18→19:46)
[2022-10-30] MEDS: 0.9%NACL 1000ML 1,000 ML IV SCH ×2 (09:19→19:46)
[2022-10-30] MEDS: POTASSIUM CHLORIDE 10% ELIXIR 20 MEQ/15 ML UDCUP PO PRN ×2 (09:19→11:48)
[2022-10-30] MEDS ORDERED: COMPOUND IV MISC 1 EACH IVSOLN MISC PRN (09:30)
[2022-10-30 12:00] VITALS: BP 122/80
[2022-10-30] MEDS: IRON SUCROSE COMPLEX 300 MG in 0.9% NACL 250ML 250 ML IV SCH (12:07)
[2022-10-30] MEDS ORDERED: DIATR MEGLU/DIATRIZOATE SODIUM 30 ML BOTTLE ONE (12:18)
[2022-10-30 16:00] VITALS: BP 108/69
[2022-10-30] MEDS: ATORVASTATIN 40 MG TABLET PO SCH (19:46)
[2022-10-30 20:00] VITALS: BP 105/64
[2022-10-30] MEDS: ZOLPIDEM TARTRATE 5 MG TAB PO PRN (22:12)
[2022-10-31] MEDS: ZOSYN 3.375GM+NS 50ML 50 ML IVPB SCH ×3 (03:22→19:55)
[2022-10-31] MEDS: MORPHINE 2 MG SYG IVP PRN ×3 (03:22→12:32)
[2022-10-31 04:00] VITALS: BP 131/80
[2022-10-31 05:08] LABS: BASOPHILS % (AUTO) 0.1 % (0.0-5.0); HEMATOCRIT 24.5 % (36-48); LYMPHOCYTES % (AUTO) 20.3 % (21.0-51.0); MEAN CORPUSCULAR HEMOGLOBIN 26.1 pg (27.0-33.0); MEAN CORPUSCULAR HGB CONC 30.2 g/dL (32.0-36.0); MEAN CORPUSCULAR VOLUME 86.3 fL (79-99); MONOCYTES % (AUTO) 11.6 % (3.0-13.0); PLATELET COUNT (AUTO) 669 K/uL (130-400); RED BLOOD CELL COUNT(AUTO) 2.84 MIL/uL (4.00-5.50); RED CELL DISTRIBUTION WIDTH 18.7 % (11.0-15.5); WHITE BLOOD COUNT (AUTO) 8.9 K/uL (4.8-10.8)
[2022-10-31] MEDS: INSULIN HUMULIN R 100 UNIT/ML 3ML SQ SCH ×4 (05:24→19:58)
[2022-10-31 05:30] LABS: ALBUMIN 1.8 g/dL (3.5-5.0); CREATININE 0.6 mg/dL (0.5-1.5); POTASSIUM 3.5 mmol/L (3.5-5.1); TOTAL PROTEIN, SERUM 6.5 g/dL (6.0-8.3)
[2022-10-31] MEDS: 0.9%NACL 1000ML 1,000 ML IV SCH ×2 (05:57→18:24)
[2022-10-31] MEDS: 0.9%NACL 10ML VIAL IV SCH ×3 (06:01→23:39)
[2022-10-31] MEDS: INSULIN GLARGINE 100 UNITS/ML 10 ML VIAL SQ SCH ×2 (06:14→19:59)
[2022-10-31 08:00] VITALS: BP 129/74
[2022-10-31] MEDS: PANTOPRAZOLE 40 MG/VIAL IVP SCH (08:05)
[2022-10-31] MEDS: GABAPENTIN 300 MG CAPSULE PO SCH ×3 (08:06→19:57)
[2022-10-31 12:00] VITALS: BP 102/67
[2022-10-31] MEDS: IRON SUCROSE COMPLEX 300 MG in 0.9% NACL 250ML 250 ML IV SCH (12:24)
[2022-10-31 16:00] VITALS: BP 121/77
[2022-10-31] MEDS: ACETAMINOPHEN 325 MG TAB PO PRN (17:20)
[2022-10-31] MEDS: ATORVASTATIN 40 MG TABLET PO SCH (19:55)
[2022-10-31] MEDS: ZOLPIDEM TARTRATE 5 MG TAB PO PRN (19:55)
[2022-10-31] MEDS ORDERED: GABAPENTIN 300 MG CAPSULE ONE (19:56)
[2022-10-31 20:00] VITALS: BP 132/80
[2022-11-01] VITALS: BP 116/72
[2022-11-01] MEDS: 0.9%NACL 1000ML 1,000 ML IV SCH ×2 (01:36→12:41)
[2022-11-01] MEDS: ZOSYN 3.375GM+NS 50ML 50 ML IVPB SCH ×2 (02:21→12:38)
[2022-11-01] MEDS: DIPHENHYDRAMINE HCL 25 MG CAPSULE PO PRN (03:28)
[2022-11-01] MEDS: ACETAMINOPHEN 325 MG TAB PO PRN ×2 (03:28→12:46)
[2022-11-01 04:00] VITALS: BP 135/79
[2022-11-01] MEDS: 0.9%NACL 10ML VIAL IV SCH ×2 (06:25→15:57)
[2022-11-01] MEDS: INSULIN HUMULIN R 100 UNIT/ML 3ML SQ SCH ×3 (06:38→16:42)
[2022-11-01] MEDS: INSULIN GLARGINE 100 UNITS/ML 10 ML VIAL SQ SCH (06:38)
[2022-11-01 08:00] VITALS: BP 134/77
[2022-11-01] MEDS: GABAPENTIN 300 MG CAPSULE PO SCH ×2 (08:57→14:20)
[2022-11-01] MEDS: PANTOPRAZOLE 40 MG/VIAL IVP SCH (08:57)
[2022-11-01] MEDS ORDERED: LIDOCAINE 5% TOPICAL PATCH TP SCH (09:00)
[2022-11-01 11:55] VITALS: BP 122/73
[2022-11-01] MEDS: IRON SUCROSE COMPLEX 300 MG in 0.9% NACL 250ML 250 ML IV SCH (12:38)
[2022-11-01] MEDS ORDERED: ATOR40TA69 PO (14:35)
[2022-11-01] MEDS ORDERED: GABA300C PO (14:35)
[2022-11-01 16:00] VITALS: BP 122/85
== END 2022-11-01 17:20 | disposition home or self-care (01) | DRG 639 ==
LOC: EDH 18:25 → EDHIP 18:26 → 2CH 10-27 03:39 → 4AH 10-27 17:59
PROVIDERS: ADMIT Hospitalist; ATTEND Hospitalist
PROC: 0WB83ZX Excision of Chest Wall, Percutaneous Approach, Diagnostic (ICD-10-PCS; principal; 2022-10-29)
DX: E11.10 Type 2 diabetes mellitus with ketoacidosis without coma (principal); D69.6 Thrombocytopenia, unspecified; E83.42 Hypomagnesemia; Z20.822 Contact with and (suspected) exposure to COVID-19; D75.838 Other thrombocytosis; D64.9 Anemia, unspecified; E78.5 Hyperlipidemia, unspecified; Z53.20 Procedure and treatment not carried out because of patient's decision for unspecified reasons; I10 Essential (primary) hypertension; Z87.891 Personal history of nicotine dependence; Z79.4 Long term (current) use of insulin; Z83.3 Family history of diabetes mellitus; Z90.81 Acquired absence of spleen; Z91.199 Patient's noncompliance with other medical treatment and regimen due to unspecified reason
CPT/HCPCS: 36415; 36600; 70450; 71045; 71250; 74150; 74176; 76942; 80048; 80053; 81001; 81025; 82010; 82435; 82803; 82947; 82948; 83036; 83540; 83550; 83605; 83690; 83735; 84100; 84132; 84145; 84295; 84478; 85025; 85027; 85610; 85730; 87040; 87071; 87205; 87635; 87804; 93005; 96361; 96365; 96375; 97039; 99291; C1894; C9113; C9803; G0378; J0780; J1200; J1756; J1815; J1885; J2270; J2405; J2543; J3475; J3480; J3490; J7030; J7050; J7120; Q0163; Q9963

== ENCOUNTER 2022-11-08 20:40 | Emergency (ER) | payer MEDICAID, OTHER ==
[~2022-11-08] VITALS: Ht 154.9 cm; Wt 68.0 kg
[~2022-11-08 20:40] MED LIST changes: -ACET-66 PO; -ASPI-1197 PO; -DICY10CA13 PO; -DOCU-116 PO; -DOCU100T PO; -FERR-72 PO; +GABA300C PO; -HYDR-4060 PO; -IBUP-2071 PO; -INSLAN SQ; -OMEP40CA21 PO; -PANT40TA PO; -SUCR1TAB PO
[2022-11-08 21:15] LABS: APPEARANCE,URINE CLOUDY (CLEAR); BILIRUBIN,URINE NEGATIVE (NEGATIVE); COLOR,URINE LIGHT-YELLOW (YELLOW); GLUCOSE, URINE (UA) NEGATIVE (NEGATIVE); KETONES,URINE NEGATIVE (NEGATIVE); LEUKOCYTE ESTERASE ,URINE 75 Leu/uL (NEGATIVE); NITRATE,URINE NEGATIVE (NEGATIVE); OCCULT BLOOD,URINE NEGATIVE (NEGATIVE); PH,URINE 7.5 (5.0-8.0); PROTEIN,URINE 20 mg/dL (NEGATIVE); UROBILINOGEN,URINE 0.2 mg/dL (0.2-1.0)
[2022-11-08 21:22] LABS: BACTERIA,URINE RARE /HPF (None Seen); MUCUS,URINE RARE LPF (None Seen); SQUAMOUS EPITHELIAL CELL,UR MOD /HPF (0-2); YEAST,URINE BUDDING RARE /HPF (None Seen)
[2022-11-08 21:57] LABS: BASOPHILS % (AUTO) 0.3 % (0.0-5.0); EOSINOPHILS % (AUTO) 0.2 % (0.0-8.0); HEMATOCRIT 30.7 % (36-48); LYMPHOCYTES % (AUTO) 10.6 % (21.0-51.0); MEAN CORPUSCULAR HGB CONC 30.9 g/dL (32.0-36.0); MEAN CORPUSCULAR VOLUME 87.2 fL (79-99); MONOCYTES % (AUTO) 4.3 % (3.0-13.0); NEUTROPHILS % (AUTO) 84.1 % (40.0-77.0); RED BLOOD CELL COUNT(AUTO) 3.52 MIL/uL (4.00-5.50); RED CELL DISTRIBUTION WIDTH 19.9 % (11.0-15.5); WHITE BLOOD COUNT (AUTO) 10.7 K/uL (4.8-10.8)
[2022-11-08 22:00] LABS: PLATELET COUNT (AUTO) 846 K/uL (130-400)
[2022-11-08 22:14] LABS: CARBON DIOXIDE 27 mmol/L (21-32); CHLORIDE 96 mmol/L (101-111); CREATININE 0.5 mg/dL (0.5-1.5); GLOMERULAR FILTR. RATE CALC 119 mL/min (>90); GLUCOSE,RANDOM 96 mg/dL (70-105); POTASSIUM 3.4 mmol/L (3.5-5.1); SODIUM SERUM 133 mmol/L (136-145); UREA NITROGEN, BLOOD 19 mg/dL (7-18)
[2022-11-08 22:19] LABS: ALANINE AMINOTRANSFERASE 15 U/L (12-78); ALBUMIN 2.7 g/dL (3.5-5.0); ASPARTATE AMINOTRANSFERASE 24 U/L (10-37); LIPASE < 50 U/L (114-286); TOTAL PROTEIN, SERUM 8.5 g/dL (6.0-8.3)
[2022-11-08] MEDS ORDERED: KETOROLAC 15MG/ML VIAL (15MG/ML) IV STA (22:36)
[2022-11-08] MEDS ORDERED: ASPIRIN 325MG TAB PO STA (22:36)
[2022-11-08 22:55] LABS: PLATELET MORPHOLOGY COMMENT INCREASED
[2022-11-09] MEDS ORDERED: AMOX1TAB16 PO (01:00)
[2022-11-09 01:11] VITALS: BP 116/69
[2022-11-10] MEDS ORDERED: DOCU-116 PO (04:30)
[2022-11-10] MEDS ORDERED: AEC81 PO (04:30)
[2022-11-10] MEDS ORDERED: ACET-2079 PO (04:30)
[2022-11-10] MEDS ORDERED: DICY10CA13 PO (04:30)
== END 2022-11-09 01:13 | disposition home or self-care (01) ==
LOC: EDH 20:40
DX: M79.10 Myalgia, unspecified site (principal); R10.9 Unspecified abdominal pain; R11.2 Nausea with vomiting, unspecified; J18.9 Pneumonia, unspecified organism; D75.839 Thrombocytosis, unspecified; E11.9 Type 2 diabetes mellitus without complications; E78.00 Pure hypercholesterolemia, unspecified; Z79.899 Other long term (current) drug therapy; Z90.49 Acquired absence of other specified parts of digestive tract; Z98.890 Other specified postprocedural states; Z88.1 Allergy status to other antibiotic agents
CPT/HCPCS: 99291; 74176; 96374; 80053; 83690; 85025; 87077; 87088; 87186; 81001; 36415; J1885

== ENCOUNTER 2022-11-09 18:07 | Inpatient (IN) | payer OTHER ==
[~2022-11-09] VITALS: Ht 152.4 cm; Wt 52.1 kg
[~2022-11-09 18:07] MED LIST changes: +AMOX1TAB16 PO
[2022-11-09] MEDS ORDERED: ONDANSETRON 4MG INJ IV ONE (20:00)
[2022-11-09] MEDS ORDERED: ZOSYN 3.375GM +NS 50ML IVPB SCH (20:00)
[2022-11-09] MEDS ORDERED: HYDROMORPHONE 1 MG INJ IVP ONE (20:00)
[2022-11-09 20:30] LABS: BASOPHILS % (AUTO) 0.5 % (0.0-5.0); EOSINOPHILS % (AUTO) 0.3 % (0.0-8.0); HEMATOCRIT 32.9 % (36-48); LYMPHOCYTES % (AUTO) 28.3 % (21.0-51.0); MEAN CORPUSCULAR HEMOGLOBIN 27.1 pg (27.0-33.0); MEAN CORPUSCULAR HGB CONC 31.6 g/dL (32.0-36.0); MEAN CORPUSCULAR VOLUME 85.7 fL (79-99); NEUTROPHILS % (AUTO) 65.7 % (40.0-77.0); RED BLOOD CELL COUNT(AUTO) 3.84 MIL/uL (4.00-5.50); RED CELL DISTRIBUTION WIDTH 19.5 % (11.0-15.5); WHITE BLOOD COUNT (AUTO) 10.6 K/uL (4.8-10.8)
[2022-11-09 20:40] LABS: PLATELET COUNT (AUTO) 896 K/uL (130-400)
[2022-11-09 20:43] LABS: CREATININE 0.5 mg/dL (0.5-1.5); POTASSIUM 3.4 mmol/L (3.5-5.1)
[2022-11-09] MEDS ORDERED: IOHEXOL-350 75 ML VIAL IV ONE (22:08)
[2022-11-09] MEDS ORDERED: DEXTROSE 50%-WATER 50 ML DISP.SYRIN IV ONE (23:04)
[2022-11-09] MEDS: DEXTROSE 50%-WATER 50 ML DISP.SYRIN IV PRN (23:06)
[2022-11-09] MEDS ORDERED: NITROGLYCERIN 0.4 MG SL TAB SL PRN (23:30)
[2022-11-09] MEDS ORDERED: HYDROCODONE/ACETAMINOPHEN 5/325 MG TAB PO PRN (23:30)
[2022-11-09] MEDS ORDERED: ONDANSETRON 4MG INJ IV PRN (23:30)
[2022-11-09] MEDS ORDERED: ACETAMINOPHEN 325 MG TAB PO PRN (23:30)
[2022-11-09] MEDS ORDERED: AZITHROMYCIN 500MG+NS 250ML IVPB SCH (23:30)
[2022-11-09] MEDS ORDERED: GLUCAGON 1MG KIT 1 MG ML IM PRN (23:30)
[2022-11-09] MEDS: HYDROCODONE/ACETAMINOPHEN 5/325 MG TAB PO PRN (23:52)
[2022-11-09 23:56] LABS: HEMOGLOBIN A1C 9.1 % (4.0-6.0); INR 0.99 (0.85-1.15); PROTHROMBIN TIME 10.8 SEC (9.6-11.6)
[2022-11-09 23:57] LABS: PARTIAL THROMBOPLASTIN TIME 26.2 SEC (26.3-35.5)
[2022-11-10 00:13] LABS: APPEARANCE,URINE CLEAR (CLEAR); BILIRUBIN,URINE NEGATIVE (NEGATIVE); COLOR,URINE LIGHT-YELLOW (YELLOW); GLUCOSE, URINE (UA) NEGATIVE (NEGATIVE); KETONES,URINE NEGATIVE (NEGATIVE); LEUKOCYTE ESTERASE ,URINE NEGATIVE Leu/uL (NEGATIVE); NITRATE,URINE NEGATIVE (NEGATIVE); OCCULT BLOOD,URINE NEGATIVE (NEGATIVE); PROTEIN,URINE NEGATIVE (NEGATIVE); UROBILINOGEN,URINE 0.2 mg/dL (0.2-1.0)
[2022-11-10] MEDS ORDERED: IPRATROPIUM/ALBUTEROL SULFATE 3 ML SOLUTION IH PRN (01:00)
[2022-11-10] MEDS ORDERED: KCL 20 MEQ ERTAB PO ONE (01:00)
[2022-11-10] MEDS ORDERED: METRONIDAZOLE 500MG/100ML BAG 100 ML IVPB ONE (01:30)
[2022-11-10] MEDS: DEXTROSE 50%-WATER 50 ML DISP.SYRIN IV PRN (02:46)
[2022-11-10 02:54] LABS: BASOPHILS % (AUTO) 0.5 % (0.0-5.0); EOSINOPHILS % (AUTO) 0.9 % (0.0-8.0); HEMATOCRIT 29.4 % (36-48); LYMPHOCYTES % (AUTO) 38.6 % (21.0-51.0); MEAN CORPUSCULAR HGB CONC 31.3 g/dL (32.0-36.0); MEAN CORPUSCULAR VOLUME 86.2 fL (79-99); MONOCYTES % (AUTO) 4.7 % (3.0-13.0); RED BLOOD CELL COUNT(AUTO) 3.41 MIL/uL (4.00-5.50); RED CELL DISTRIBUTION WIDTH 19.3 % (11.0-15.5); WHITE BLOOD COUNT (AUTO) 10.6 K/uL (4.8-10.8)
[2022-11-10 03:00] LABS: PLATELET COUNT (AUTO) 797 K/uL (130-400)
[2022-11-10] MEDS: LEVOFLOXACIN 500 MG/D5W 100 ML 100 ML IV SCH (03:03)
[2022-11-10 03:17] LABS: ALANINE AMINOTRANSFERASE 15 U/L (12-78); ALBUMIN 2.6 g/dL (3.5-5.0); ASPARTATE AMINOTRANSFERASE 20 U/L (10-37); CARBON DIOXIDE 29 mmol/L (21-32); CHLORIDE 96 mmol/L (101-111); CREATINE KINASE, TOTAL 43 U/L (21-232); CREATININE 0.5 mg/dL (0.5-1.5); GLOMERULAR FILTR. RATE CALC 119 mL/min (>90); MYOGLOBIN 10 ng/mL (10-92); POTASSIUM 3.4 mmol/L (3.5-5.1); SODIUM SERUM 132 mmol/L (136-145); UREA NITROGEN, BLOOD 13 mg/dL (7-18)
[2022-11-10 03:18] LABS: GLUCOSE,RANDOM 50 mg/dL (70-105)
[2022-11-10] MEDS: DEXTROSE 5 % AND 0.9 % NACL 1,000 ML IV SCH ×2 (03:26→16:20)
[2022-11-10] MEDS: METRONIDAZOLE 500MG/100ML BAG 100 ML IVPB SCH ×4 (03:26→22:37)
[2022-11-10 03:40] VITALS: BP 136/74
[2022-11-10] MEDS ORDERED: ZOSYN 3.375GM +NS 50ML IVPB SCH (04:00)
[2022-11-10] MEDS ORDERED: 0.9%NACL 50ML IV SCH (04:00)
[2022-11-10] MEDS: HYDROCODONE/ACETAMINOPHEN 5/325 MG TAB PO PRN ×4 (04:05→20:06)
[2022-11-10] MEDS ORDERED: POTASSIUM CHLORIDE 10% ELIXIR 20 MEQ/15 ML UDCUP PO PRN (04:30)
[2022-11-10] MEDS ORDERED: AEC81 PO (04:30)
[2022-11-10] MEDS ORDERED: DICY10CA13 PO (04:30)
[2022-11-10] MEDS ORDERED: DOCU-116 PO (04:30)
[2022-11-10] MEDS ORDERED: MAGNESIUM 2GM PREMIX 50ML 50 ML IV PRN ×2 (04:30→09:00)
[2022-11-10] MEDS ORDERED: ACET-2079 PO (04:30)
[2022-11-10] MEDS ORDERED: LIDOCAINE HCL-MPF 1% 2ML VIAL IV PRN (04:30)
[2022-11-10] MEDS ORDERED: POTASSIUM CHLORIDE 20MEQ/100ML 100 ML IV PRN (04:30)
[2022-11-10] MEDS: INSULIN HUMULIN R 100 UNIT/ML 3ML SQ SCH ×4 (06:07→20:41)
[2022-11-10 07:59] VITALS: BP 132/81
[2022-11-10] MEDS: FAMOTIDINE 20MG TAB PO SCH ×2 (08:28→20:02)
[2022-11-10 09:10] LABS: CREATINE KINASE, TOTAL 34 U/L (21-232); MYOGLOBIN 9 ng/mL (10-92)
[2022-11-10] MEDS ORDERED: DOXYCYCLINE 100MG+NS 250ML IV SCH (10:30)
[2022-11-10] MEDS: IPRATROPIUM/ALBUTEROL SULFATE 3 ML SOLUTION IH SCH ×3 (10:59→23:22)
[2022-11-10 11:21] VITALS: BP 103/69
[2022-11-10 11:34] LABS: AMPHET/METH SCREEN,URINE NEGATIVE (NEGATIVE); BARBITURATE SCREEN, URINE NEGATIVE (NEGATIVE); BENZODIAZEPINES SCREEN,URINE NEGATIVE (NEGATIVE); CANNABINOID SCREEN,URINE NEGATIVE (NEGATIVE); COCAINE SCREEN,URINE NEGATIVE (NEGATIVE); OPIATE SCREEN,URINE NEGATIVE (NEGATIVE); PHENCYCLIDINE SCREEN,URINE NEGATIVE (NEGATIVE)
[2022-11-10 16:48] VITALS: BP 102/66
[2022-11-10 20:00] VITALS: BP 126/57
[2022-11-11] VITALS (37 sets, daily range): BP systolic 92–163; BP diastolic 49–108
[2022-11-11] MEDS: LEVOFLOXACIN 500 MG/D5W 100 ML 100 ML IV SCH (02:14)
[2022-11-11] MEDS: DEXTROSE 5 % AND 0.9 % NACL 1,000 ML IV SCH ×2 (02:21→17:29)
[2022-11-11] MEDS: METRONIDAZOLE 500MG/100ML BAG 100 ML IVPB SCH ×3 (05:45→21:14)
[2022-11-11 05:52] LABS: BASOPHILS % (AUTO) 0.4 % (0.0-5.0); EOSINOPHILS % (AUTO) 1.1 % (0.0-8.0); HEMATOCRIT 28.9 % (36-48); LYMPHOCYTES % (AUTO) 34.7 % (21.0-51.0); MEAN CORPUSCULAR HEMOGLOBIN 26.7 pg (27.0-33.0); MEAN CORPUSCULAR HGB CONC 29.8 g/dL (32.0-36.0); MEAN CORPUSCULAR VOLUME 89.8 fL (79-99); MONOCYTES % (AUTO) 4.7 % (3.0-13.0); NEUTROPHILS % (AUTO) 58.8 % (40.0-77.0); RED BLOOD CELL COUNT(AUTO) 3.22 MIL/uL (4.00-5.50); RED CELL DISTRIBUTION WIDTH 19.1 % (11.0-15.5); WHITE BLOOD COUNT (AUTO) 7.5 K/uL (4.8-10.8)
[2022-11-11] MEDS: INSULIN HUMULIN R 100 UNIT/ML 3ML SQ SCH ×4 (05:52→20:30)
[2022-11-11 05:55] LABS: PLATELET COUNT (AUTO) 752 K/uL (130-400)
[2022-11-11] MEDS ORDERED: MORPHINE 2 MG SYG IVP PRN ×2 (06:00→14:00)
[2022-11-11 06:06] LABS: INR 1.07 (0.85-1.15); PROTHROMBIN TIME 11.6 SEC (9.6-11.6)
[2022-11-11 06:07] LABS: PARTIAL THROMBOPLASTIN TIME 25.9 SEC (26.3-35.5)
[2022-11-11 06:11] LABS: ALBUMIN 2.4 g/dL (3.5-5.0); CREATININE 0.5 mg/dL (0.5-1.5); MAGNESIUM 1.6 mg/dL (1.80-2.40); POTASSIUM 3.8 mmol/L (3.5-5.1); TOTAL PROTEIN, SERUM 7.3 g/dL (6.0-8.3)
[2022-11-11] MEDS: IPRATROPIUM/ALBUTEROL SULFATE 3 ML SOLUTION IH SCH ×4 (06:52→23:32)
[2022-11-11] MEDS: FAMOTIDINE 20MG TAB PO SCH ×2 (09:00→20:31)
[2022-11-11] MEDS ORDERED: MEPERIDINE-PF 50 MG/ML SYG ONE (10:37)
[2022-11-11] MEDS ORDERED: CEFAZOLIN SODIUM 1 GM VIAL ONE (12:18)
[2022-11-11] MEDS ORDERED: PROPOFOL 10 MG/ML 20ML VIAL IV ONE (12:19)
[2022-11-11] MEDS ORDERED: MIDAZOLAM HCL 1 MG/ML 2ML VIAL ONE (12:19)
[2022-11-11] MEDS ORDERED: LIDOCAINE PF 100MG/5ML (2%) SYRINGE 5ML ONE (12:19)
[2022-11-11] MEDS ORDERED: SUCCINYLCHOLINE CHLORIDE 20 MG/ML 10 ML VIAL ONE (12:19)
[2022-11-11] MEDS ORDERED: ROCURONIUM 10MG/1ML SYR 10 MG/ML ML ONE ×2 (12:19→12:35)
[2022-11-11] MEDS ORDERED: GLYCOPYRROLATE 1 MG/5 ML SYRINGE ONE (12:19)
[2022-11-11] MEDS ORDERED: ONDANSETRON 4MG INJ ONE (12:19)
[2022-11-11] MEDS ORDERED: FENTANYL CITRATE PF 50 MCG/1 ML 2ML VIAL ONE (12:19)
[2022-11-11] MEDS ORDERED: DEXAMETHASONE SOD PHOSPHATE 10MG/ML 1ML VIAL ONE (12:19)
[2022-11-11] MEDS ORDERED: NEOSTIGMINE 5MG/5ML SYR IV ONE (12:19)
[2022-11-11] MEDS ORDERED: MEPERIDINE-PF 25 MG/ML SYG IV SCH (13:00)
[2022-11-11] MEDS ORDERED: CLINDAMYCIN 900MG/6ML INJ ONE ×3 (13:38→14:48)
[2022-11-11] MEDS ORDERED: ACETAMINOPHEN 325 MG TAB PO PRN (14:00)
[2022-11-11] MEDS ORDERED: TRAMADOL HCL 50 MG TABLET PO PRN (14:00)
[2022-11-11] MEDS ORDERED: BUPIVACAINE/PF 0.25% 10ML VIAL IJ ONE (14:35)
[2022-11-11] MEDS ORDERED: LIDOCAINE HCL 1% 20 ML VIAL ONE (14:36)
[2022-11-11] MEDS ORDERED: MEPERIDINE-PF 25 MG/ML SYG ONE (15:27)
[2022-11-11] MEDS: KETOROLAC 30MG VIAL (30MG/ML) IVP SCH ×2 (17:17→23:32)
[2022-11-12] VITALS (46 sets, daily range): BP systolic 83–150; BP diastolic 46–103
[2022-11-12] MEDS: LEVOFLOXACIN 500 MG/D5W 100 ML 100 ML IV SCH (00:52)
[2022-11-12] MEDS: TRAMADOL HCL 50 MG TABLET PO PRN (03:15)
[2022-11-12 06:22] LABS: BASOPHILS % (AUTO) 0.2 % (0.0-5.0); HEMATOCRIT 26.2 % (36-48); LYMPHOCYTES % (AUTO) 13.1 % (21.0-51.0); MEAN CORPUSCULAR HGB CONC 30.5 g/dL (32.0-36.0); MEAN CORPUSCULAR VOLUME 88.5 fL (79-99); NEUTROPHILS % (AUTO) 81.1 % (40.0-77.0); PLATELET COUNT (AUTO) 601 K/uL (130-400); RED BLOOD CELL COUNT(AUTO) 2.96 MIL/uL (4.00-5.50); RED CELL DISTRIBUTION WIDTH 19.3 % (11.0-15.5); WHITE BLOOD COUNT (AUTO) 14.3 K/uL (4.8-10.8)
[2022-11-12] MEDS: KETOROLAC 30MG VIAL (30MG/ML) IVP SCH ×4 (06:24→22:59)
[2022-11-12] MEDS: METRONIDAZOLE 500MG/100ML BAG 100 ML IVPB SCH ×3 (06:24→20:46)
[2022-11-12] MEDS: INSULIN HUMULIN R 100 UNIT/ML 3ML SQ SCH ×4 (06:25→20:46)
[2022-11-12 06:36] LABS: ALBUMIN 2.1 g/dL (3.5-5.0); CREATININE 0.5 mg/dL (0.5-1.5); POTASSIUM 4.1 mmol/L (3.5-5.1); TOTAL PROTEIN, SERUM 6.4 g/dL (6.0-8.3)
[2022-11-12] MEDS: IPRATROPIUM/ALBUTEROL SULFATE 3 ML SOLUTION IH SCH ×4 (06:45→23:34)
[2022-11-12] MEDS: DEXTROSE 5 % AND 0.9 % NACL 1,000 ML IV SCH ×2 (08:03→20:46)
[2022-11-12] MEDS: FAMOTIDINE 20MG TAB PO SCH ×2 (08:12→20:43)
[2022-11-12] MEDS ORDERED: DOCUSATE SODIUM 100 MG CAP PO PRN (11:00)
[2022-11-12] MEDS: GABAPENTIN 300 MG CAPSULE PO SCH ×2 (14:32→20:43)
[2022-11-12] MEDS: DICYCLOMINE HCL 20 MG TAB PO SCH ×2 (14:32→20:43)
[2022-11-12] MEDS: ACETAMINOPHEN WITH CODEINE 1 TAB TAB PO PRN (20:42)
[2022-11-12] MEDS: ATORVASTATIN 40 MG TABLET PO SCH (20:43)
[2022-11-12] MEDS: METOPROLOL TARTRATE 25 MG TAB PO SCH (20:43)
[2022-11-13] VITALS (38 sets, daily range): BP systolic 75–134; BP diastolic 37–88
[2022-11-13] MEDS: LEVOFLOXACIN 500 MG/D5W 100 ML 100 ML IV SCH (01:24)
[2022-11-13] MEDS: TRAMADOL HCL 50 MG TABLET PO PRN ×2 (02:44→22:08)
[2022-11-13 04:23] LABS: BASOPHILS % (AUTO) 0.3 % (0.0-5.0); EOSINOPHILS % (AUTO) 0.5 % (0.0-8.0); HEMATOCRIT 22.2 % (36-48); LYMPHOCYTES % (AUTO) 13.9 % (21.0-51.0); MEAN CORPUSCULAR HEMOGLOBIN 27.9 pg (27.0-33.0); MEAN CORPUSCULAR HGB CONC 31.1 g/dL (32.0-36.0); MEAN CORPUSCULAR VOLUME 89.9 fL (79-99); MONOCYTES % (AUTO) 7.6 % (3.0-13.0); NEUTROPHILS % (AUTO) 77.1 % (40.0-77.0); PLATELET COUNT (AUTO) 473 K/uL (130-400); RED BLOOD CELL COUNT(AUTO) 2.47 MIL/uL (4.00-5.50); RED CELL DISTRIBUTION WIDTH 19.3 % (11.0-15.5); WHITE BLOOD COUNT (AUTO) 18.8 K/uL (4.8-10.8)
[2022-11-13 04:57] LABS: ALBUMIN 1.9 g/dL (3.5-5.0); CREATININE 0.5 mg/dL (0.5-1.5); POTASSIUM 3.7 mmol/L (3.5-5.1); TOTAL PROTEIN, SERUM 5.8 g/dL (6.0-8.3)
[2022-11-13] MEDS: KETOROLAC 30MG VIAL (30MG/ML) IVP SCH ×4 (06:00→20:00)
[2022-11-13] MEDS: METRONIDAZOLE 500MG/100ML BAG 100 ML IVPB SCH ×4 (06:27→23:59)
[2022-11-13] MEDS: IPRATROPIUM/ALBUTEROL SULFATE 3 ML SOLUTION IH SCH ×4 (06:41→23:43)
[2022-11-13] MEDS: INSULIN HUMULIN R 100 UNIT/ML 3ML SQ SCH ×4 (07:01→21:00)
[2022-11-13 07:17] LABS: BASOPHILS % (AUTO) 0.2 % (0.0-5.0); EOSINOPHILS % (AUTO) 0.4 % (0.0-8.0); LYMPHOCYTES % (AUTO) 14.3 % (21.0-51.0); MEAN CORPUSCULAR HEMOGLOBIN 27.5 pg (27.0-33.0); MEAN CORPUSCULAR HGB CONC 31.6 g/dL (32.0-36.0); MEAN CORPUSCULAR VOLUME 87.1 fL (79-99); MONOCYTES % (AUTO) 6.1 % (3.0-13.0); NEUTROPHILS % (AUTO) 78.2 % (40.0-77.0); PLATELET COUNT (AUTO) 501 K/uL (130-400); RED CELL DISTRIBUTION WIDTH 19.1 % (11.0-15.5); WHITE BLOOD COUNT (AUTO) 17.3 K/uL (4.8-10.8)
[2022-11-13 07:22] LABS: HEMATOCRIT 20.9 % (36-48)
[2022-11-13 07:29] LABS: INR 1.17 (0.85-1.15); PROTHROMBIN TIME 12.6 SEC (9.6-11.6)
[2022-11-13] MEDS: ACETAMINOPHEN WITH CODEINE 1 TAB TAB PO PRN (08:02)
[2022-11-13] MEDS: ASPIRIN 81 MG EC TAB PO SCH (08:02)
[2022-11-13] MEDS: FAMOTIDINE 20MG TAB PO SCH ×2 (08:03→19:51)
[2022-11-13] MEDS: METOPROLOL TARTRATE 25 MG TAB PO SCH ×2 (08:03→19:51)
[2022-11-13] MEDS: DICYCLOMINE HCL 20 MG TAB PO SCH ×3 (08:04→20:01)
[2022-11-13] MEDS: GABAPENTIN 300 MG CAPSULE PO SCH ×3 (08:04→20:02)
[2022-11-13] MEDS: DEXTROSE 5 % AND 0.9 % NACL 1,000 ML IV SCH (11:00)
[2022-11-13] MEDS: ATORVASTATIN 40 MG TABLET PO SCH (19:51)
[2022-11-13] MEDS ORDERED: ACETAMINOPHEN WITH CODEINE 1 TAB TAB PO ONE (20:30)
[2022-11-14] VITALS (9 sets, daily range): BP systolic 100–142; BP diastolic 55–85
[2022-11-14] MEDS: KETOROLAC 30MG VIAL (30MG/ML) IVP SCH (00:03)
[2022-11-14] MEDS: LEVOFLOXACIN 500 MG/D5W 100 ML 100 ML IV SCH (00:24)
[2022-11-14 04:28] LABS: BASOPHILS % (AUTO) 0.2 % (0.0-5.0); EOSINOPHILS % (AUTO) 0.7 % (0.0-8.0); HEMATOCRIT 24.3 % (36-48); LYMPHOCYTES % (AUTO) 16.1 % (21.0-51.0); MEAN CORPUSCULAR HGB CONC 32.5 g/dL (32.0-36.0); MEAN CORPUSCULAR VOLUME 86.2 fL (79-99); MONOCYTES % (AUTO) 6.7 % (3.0-13.0); NEUTROPHILS % (AUTO) 75.6 % (40.0-77.0); PLATELET COUNT (AUTO) 391 K/uL (130-400); RED BLOOD CELL COUNT(AUTO) 2.82 MIL/uL (4.00-5.50); RED CELL DISTRIBUTION WIDTH 18.6 % (11.0-15.5); WHITE BLOOD COUNT (AUTO) 18.6 K/uL (4.8-10.8)
[2022-11-14 04:56] LABS: ALBUMIN 1.7 g/dL (3.5-5.0); CREATININE 0.6 mg/dL (0.5-1.5); POTASSIUM 3.6 mmol/L (3.5-5.1)
[2022-11-14] MEDS: KCL 20 MEQ ERTAB PO PRN ×3 (06:03→14:40)
[2022-11-14] MEDS: METRONIDAZOLE 500MG/100ML BAG 100 ML IVPB SCH ×3 (06:03→20:40)
[2022-11-14] MEDS: INSULIN HUMULIN R 100 UNIT/ML 3ML SQ SCH ×4 (06:04→21:06)
[2022-11-14] MEDS: IPRATROPIUM/ALBUTEROL SULFATE 3 ML SOLUTION IH SCH ×4 (06:38→23:02)
[2022-11-14] MEDS: TRAMADOL HCL 50 MG TABLET PO PRN ×3 (06:47→20:39)
[2022-11-14] MEDS: ASPIRIN 81 MG EC TAB PO SCH (08:01)
[2022-11-14] MEDS: METOPROLOL TARTRATE 25 MG TAB PO SCH ×2 (08:01→20:40)
[2022-11-14] MEDS: FAMOTIDINE 20MG TAB PO SCH ×2 (08:01→20:39)
[2022-11-14] MEDS: GABAPENTIN 300 MG CAPSULE PO SCH ×3 (08:01→20:39)
[2022-11-14] MEDS: DICYCLOMINE HCL 20 MG TAB PO SCH ×3 (08:01→20:40)
[2022-11-14] MEDS: DEXTROSE 5 % AND 0.9 % NACL 1,000 ML IV SCH (12:23)
[2022-11-14] MEDS: INSULIN GLARGINE 100 UNITS/ML 10 ML VIAL SQ SCH (12:25)
[2022-11-14] MEDS ORDERED: EPOETIN ALFA-EPBX (NON-ESRD) 10,000 UNIT/ML VIAL SQ SCH (14:00)
[2022-11-14] MEDS: ACETAMINOPHEN WITH CODEINE 1 TAB TAB PO PRN (17:10)
[2022-11-14] MEDS: ATORVASTATIN 40 MG TABLET PO SCH (20:39)
[2022-11-15] MEDS: LEVOFLOXACIN 500 MG/D5W 100 ML 100 ML IV SCH (01:08)
[2022-11-15 04:34] VITALS: BP 114/74
[2022-11-15 04:36] LABS: MEAN CORPUSCULAR HEMOGLOBIN 27.8 pg (27.0-33.0); MEAN CORPUSCULAR HGB CONC 32.3 g/dL (32.0-36.0); MEAN CORPUSCULAR VOLUME 86.1 fL (79-99); RED BLOOD CELL COUNT(AUTO) 3.02 MIL/uL (4.00-5.50); RED CELL DISTRIBUTION WIDTH 18.4 % (11.0-15.5); WHITE BLOOD COUNT (AUTO) 16.9 K/uL (4.8-10.8)
[2022-11-15 05:03] LABS: ALBUMIN 1.8 g/dL (3.5-5.0); CREATININE 0.3 mg/dL (0.5-1.5); POTASSIUM 3.8 mmol/L (3.5-5.1); TOTAL PROTEIN, SERUM 6.6 g/dL (6.0-8.3)
[2022-11-15] MEDS: TRAMADOL HCL 50 MG TABLET PO PRN ×3 (06:11→23:09)
[2022-11-15] MEDS: METRONIDAZOLE 500MG/100ML BAG 100 ML IVPB SCH ×3 (06:11→21:51)
[2022-11-15] MEDS: INSULIN HUMULIN R 100 UNIT/ML 3ML SQ SCH ×6 (06:19→21:43)
[2022-11-15] MEDS: IPRATROPIUM/ALBUTEROL SULFATE 3 ML SOLUTION IH SCH ×4 (06:59→23:06)
[2022-11-15 08:30] VITALS: BP 119/82
[2022-11-15] MEDS: DULOXETINE HCL 30 MG CAP PO SCH (09:13)
[2022-11-15] MEDS: FAMOTIDINE 20MG TAB PO SCH ×2 (09:13→21:50)
[2022-11-15] MEDS: ASPIRIN 81 MG EC TAB PO SCH (09:13)
[2022-11-15] MEDS: GABAPENTIN 300 MG CAPSULE PO SCH ×3 (09:13→21:51)
[2022-11-15] MEDS: DICYCLOMINE HCL 20 MG TAB PO SCH ×3 (09:13→21:50)
[2022-11-15] MEDS: METOPROLOL TARTRATE 25 MG TAB PO SCH ×2 (09:13→21:50)
[2022-11-15] MEDS: INSULIN GLARGINE 100 UNITS/ML 10 ML VIAL SQ SCH ×2 (09:19→21:43)
[2022-11-15] MEDS: MEROPENEM 1 GM VIAL IVP SCH ×2 (10:26→16:13)
[2022-11-15 12:31] VITALS: BP 124/78
[2022-11-15] MEDS: BISACODYL 5 MG TABLET.DR PO SCH ×2 (13:46→21:50)
[2022-11-15] MEDS: FLUCONAZOLE 400 MG/NS 200 ML 200 ML IV SCH (16:09)
[2022-11-15 16:59] VITALS: BP 104/64
[2022-11-15 20:12] VITALS: BP 135/80
[2022-11-15] MEDS: ATORVASTATIN 40 MG TABLET PO SCH (21:50)
[2022-11-15] MEDS: 0.9%NACL 10ML VIAL IV SCH (21:52)
[2022-11-16] VITALS (7 sets, daily range): BP systolic 112–148; BP diastolic 59–86
[2022-11-16] MEDS: MEROPENEM 1 GM VIAL IVP SCH ×3 (00:25→17:11)
[2022-11-16] MEDS ORDERED: LACTULOSE 20 GM/30 ML UDCUP PO ONE (03:30)
[2022-11-16 03:51] LABS: BASOPHILS % (AUTO) 0.3 % (0.0-5.0); EOSINOPHILS % (AUTO) 1.2 % (0.0-8.0); HEMATOCRIT 26.7 % (36-48); LYMPHOCYTES % (AUTO) 15.7 % (21.0-51.0); MEAN CORPUSCULAR HEMOGLOBIN 27.5 pg (27.0-33.0); MEAN CORPUSCULAR HGB CONC 32.2 g/dL (32.0-36.0); MEAN CORPUSCULAR VOLUME 85.3 fL (79-99); MONOCYTES % (AUTO) 8.1 % (3.0-13.0); NEUTROPHILS % (AUTO) 74.2 % (40.0-77.0); PLATELET COUNT (AUTO) 561 K/uL (130-400); RED BLOOD CELL COUNT(AUTO) 3.13 MIL/uL (4.00-5.50); RED CELL DISTRIBUTION WIDTH 18.2 % (11.0-15.5); WHITE BLOOD COUNT (AUTO) 14.6 K/uL (4.8-10.8)
[2022-11-16 04:09] LABS: ALBUMIN 1.9 g/dL (3.5-5.0); CREATININE 0.3 mg/dL (0.5-1.5); POTASSIUM 3.4 mmol/L (3.5-5.1); TOTAL PROTEIN, SERUM 6.7 g/dL (6.0-8.3)
[2022-11-16] MEDS: IPRATROPIUM/ALBUTEROL SULFATE 3 ML SOLUTION IH SCH ×3 (06:29→19:34)
[2022-11-16] MEDS: METRONIDAZOLE 500MG/100ML BAG 100 ML IVPB SCH ×3 (06:33→20:47)
[2022-11-16] MEDS: INSULIN HUMULIN R 100 UNIT/ML 3ML SQ SCH ×7 (07:16→20:47)
[2022-11-16] MEDS: FLUCONAZOLE 400 MG/NS 200 ML 200 ML IV SCH (08:59)
[2022-11-16] MEDS: DULOXETINE HCL 30 MG CAP PO SCH (09:00)
[2022-11-16] MEDS: FAMOTIDINE 20MG TAB PO SCH ×2 (09:01→20:46)
[2022-11-16] MEDS: GABAPENTIN 300 MG CAPSULE PO SCH ×3 (09:01→20:46)
[2022-11-16] MEDS: BISACODYL 5 MG TABLET.DR PO SCH ×3 (09:02→20:46)
[2022-11-16] MEDS: ASPIRIN 81 MG EC TAB PO SCH (09:02)
[2022-11-16] MEDS: 0.9%NACL 10ML VIAL IV SCH ×2 (09:02→20:47)
[2022-11-16] MEDS: DICYCLOMINE HCL 20 MG TAB PO SCH ×3 (09:02→20:46)
[2022-11-16] MEDS: ACETAMINOPHEN WITH CODEINE 1 TAB TAB PO PRN ×2 (09:05→18:34)
[2022-11-16] MEDS: INSULIN GLARGINE 100 UNITS/ML 10 ML VIAL SQ SCH ×2 (09:09→20:55)
[2022-11-16] MEDS: METOPROLOL TARTRATE 25 MG TAB PO SCH ×2 (10:33→20:46)
[2022-11-16 11:19] LABS: % IRON SATURATION 13.3 % (22-44)
[2022-11-16] MEDS: ATORVASTATIN 40 MG TABLET PO SCH (20:46)
[2022-11-17] MEDS: IPRATROPIUM/ALBUTEROL SULFATE 3 ML SOLUTION IH SCH ×4 (00:04→18:00)
[2022-11-17] MEDS: MEROPENEM 1 GM VIAL IVP SCH ×2 (01:08→08:57)
[2022-11-17 03:20] VITALS: BP 130/69
[2022-11-17] MEDS: ACETAMINOPHEN WITH CODEINE 1 TAB TAB PO PRN ×3 (06:02→20:04)
[2022-11-17] MEDS: METRONIDAZOLE 500MG/100ML BAG 100 ML IVPB SCH (06:02)
[2022-11-17] MEDS: INSULIN HUMULIN R 100 UNIT/ML 3ML SQ SCH ×7 (06:04→20:15)
[2022-11-17 06:47] LABS: BASOPHILS % (AUTO) 0.3 % (0.0-5.0); EOSINOPHILS % (AUTO) 0.9 % (0.0-8.0); HEMATOCRIT 27.7 % (36-48); LYMPHOCYTES % (AUTO) 10.9 % (21.0-51.0); MEAN CORPUSCULAR HGB CONC 32.9 g/dL (32.0-36.0); MEAN CORPUSCULAR VOLUME 85.2 fL (79-99); MONOCYTES % (AUTO) 6.9 % (3.0-13.0); NEUTROPHILS % (AUTO) 80.2 % (40.0-77.0); NUCLEATED RED BLOOD CELLS 0.2 % (0.0-0.19); RED BLOOD CELL COUNT(AUTO) 3.25 MIL/uL (4.00-5.50); RED CELL DISTRIBUTION WIDTH 17.7 % (11.0-15.5); WHITE BLOOD COUNT (AUTO) 11.9 K/uL (4.8-10.8)
[2022-11-17 07:03] LABS: CREATININE 0.3 mg/dL (0.5-1.5); POTASSIUM 3.7 mmol/L (3.5-5.1); TOTAL PROTEIN, SERUM 6.6 g/dL (6.0-8.3)
[2022-11-17 07:28] LABS: PLATELET COUNT (AUTO) 276 K/uL (130-400)
[2022-11-17 08:00] VITALS: BP 105/71
[2022-11-17] MEDS: 0.9%NACL 10ML VIAL IV SCH ×2 (09:00→20:03)
[2022-11-17] MEDS: DULOXETINE HCL 30 MG CAP PO SCH (09:00)
[2022-11-17] MEDS: ASPIRIN 81 MG EC TAB PO SCH (09:00)
[2022-11-17] MEDS: BISACODYL 5 MG TABLET.DR PO SCH ×3 (09:00→20:05)
[2022-11-17] MEDS: GABAPENTIN 300 MG CAPSULE PO SCH ×3 (09:00→20:04)
[2022-11-17] MEDS: DICYCLOMINE HCL 20 MG TAB PO SCH ×3 (09:01→20:03)
[2022-11-17] MEDS: METOPROLOL TARTRATE 25 MG TAB PO SCH ×2 (09:01→20:03)
[2022-11-17] MEDS: FAMOTIDINE 20MG TAB PO SCH ×2 (09:01→20:03)
[2022-11-17] MEDS: FLUCONAZOLE 400 MG/NS 200 ML 200 ML IV SCH (09:11)
[2022-11-17] MEDS: INSULIN GLARGINE 100 UNITS/ML 10 ML VIAL SQ SCH ×2 (09:19→20:15)
[2022-11-17 12:00] VITALS: BP 122/74
[2022-11-17 16:00] VITALS: BP 137/77
[2022-11-17] MEDS: ATORVASTATIN 40 MG TABLET PO SCH (20:03)
[2022-11-17] MEDS: SULFAMETHOX-TMP DS 800/160 TAB PO SCH (20:04)
[2022-11-17 20:31] VITALS: BP 147/80
[2022-11-17 23:25] VITALS: BP 128/76
[2022-11-18] MEDS: IPRATROPIUM/ALBUTEROL SULFATE 3 ML SOLUTION IH SCH ×4 (00:36→19:23)
[2022-11-18 03:28] VITALS: BP 118/65
[2022-11-18] MEDS: ACETAMINOPHEN WITH CODEINE 1 TAB TAB PO PRN ×4 (04:42→20:52)
[2022-11-18 06:20] LABS: BASOPHILS % (AUTO) 0.2 % (0.0-5.0); EOSINOPHILS % (AUTO) 1.6 % (0.0-8.0); HEMATOCRIT 29.8 % (36-48); LYMPHOCYTES % (AUTO) 17.8 % (21.0-51.0); MEAN CORPUSCULAR HEMOGLOBIN 27.3 pg (27.0-33.0); MEAN CORPUSCULAR HGB CONC 31.5 g/dL (32.0-36.0); MEAN CORPUSCULAR VOLUME 86.6 fL (79-99); MONOCYTES % (AUTO) 10.8 % (3.0-13.0); NEUTROPHILS % (AUTO) 69.1 % (40.0-77.0); NUCLEATED RED BLOOD CELLS 0.3 % (0.0-0.19); PLATELET COUNT (AUTO) 467 K/uL (130-400); RED BLOOD CELL COUNT(AUTO) 3.44 MIL/uL (4.00-5.50); WHITE BLOOD COUNT (AUTO) 9.7 K/uL (4.8-10.8)
[2022-11-18] MEDS: INSULIN HUMULIN R 100 UNIT/ML 3ML SQ SCH ×7 (06:28→20:57)
[2022-11-18 06:33] LABS: CREATININE 0.4 mg/dL (0.5-1.5); POTASSIUM 3.7 mmol/L (3.5-5.1); TOTAL PROTEIN, SERUM 7.1 g/dL (6.0-8.3)
[2022-11-18 08:00] VITALS: BP 121/77
[2022-11-18] MEDS: 0.9%NACL 10ML VIAL IV SCH ×2 (09:00→20:57)
[2022-11-18] MEDS: DULOXETINE HCL 30 MG CAP PO SCH (10:17)
[2022-11-18] MEDS: ASPIRIN 81 MG EC TAB PO SCH (10:18)
[2022-11-18] MEDS: FAMOTIDINE 20MG TAB PO SCH ×2 (10:18→20:48)
[2022-11-18] MEDS: METOPROLOL TARTRATE 25 MG TAB PO SCH ×2 (10:19→20:49)
[2022-11-18] MEDS: SULFAMETHOX-TMP DS 800/160 TAB PO SCH ×2 (10:19→20:48)
[2022-11-18] MEDS: FLUCONAZOLE 400 MG/NS 200 ML 200 ML IV SCH (10:20)
[2022-11-18] MEDS: GABAPENTIN 300 MG CAPSULE PO SCH ×3 (10:41→20:49)
[2022-11-18] MEDS: BISACODYL 5 MG TABLET.DR PO SCH ×3 (10:41→20:48)
[2022-11-18] MEDS: INSULIN GLARGINE 100 UNITS/ML 10 ML VIAL SQ SCH ×2 (10:45→20:56)
[2022-11-18] MEDS: DICYCLOMINE HCL 20 MG TAB PO SCH ×3 (10:46→20:49)
[2022-11-18 12:00] VITALS: BP 130/89
[2022-11-18 16:00] VITALS: BP 139/83
[2022-11-18 20:00] VITALS: BP 130/83
[2022-11-18] MEDS: ATORVASTATIN 40 MG TABLET PO SCH (20:48)
[2022-11-19] VITALS (7 sets, daily range): BP systolic 110–130; BP diastolic 50–83
[2022-11-19] MEDS: IPRATROPIUM/ALBUTEROL SULFATE 3 ML SOLUTION IH SCH ×5 (00:10→23:33)
[2022-11-19] MEDS: INSULIN HUMULIN R 100 UNIT/ML 3ML SQ SCH ×7 (06:05→20:49)
[2022-11-19 06:23] LABS: BASOPHILS % (AUTO) 0.2 % (0.0-5.0); EOSINOPHILS % (AUTO) 1.2 % (0.0-8.0); HEMATOCRIT 35.3 % (36-48); LYMPHOCYTES % (AUTO) 22.3 % (21.0-51.0); MEAN CORPUSCULAR HEMOGLOBIN 27.9 pg (27.0-33.0); MEAN CORPUSCULAR HGB CONC 31.4 g/dL (32.0-36.0); MEAN CORPUSCULAR VOLUME 88.7 fL (79-99); MONOCYTES % (AUTO) 6.8 % (3.0-13.0); NEUTROPHILS % (AUTO) 68.9 % (40.0-77.0); NUCLEATED RED BLOOD CELLS 0.3 % (0.0-0.19); RED BLOOD CELL COUNT(AUTO) 3.98 MIL/uL (4.00-5.50); RED CELL DISTRIBUTION WIDTH 18.2 % (11.0-15.5); WHITE BLOOD COUNT (AUTO) 12.6 K/uL (4.8-10.8)
[2022-11-19] MEDS: ACETAMINOPHEN WITH CODEINE 1 TAB TAB PO PRN ×4 (06:43→20:43)
[2022-11-19 06:52] LABS: ALBUMIN 2.5 g/dL (3.5-5.0); CREATININE 0.5 mg/dL (0.5-1.5); POTASSIUM 4.4 mmol/L (3.5-5.1); TOTAL PROTEIN, SERUM 8.2 g/dL (6.0-8.3)
[2022-11-19 07:28] LABS: PLATELET COUNT (AUTO) 963 K/uL (130-400)
[2022-11-19] MEDS: 0.9%NACL 10ML VIAL IV SCH ×2 (09:00→21:00)
[2022-11-19] MEDS: DULOXETINE HCL 30 MG CAP PO SCH (09:35)
[2022-11-19] MEDS: BISACODYL 5 MG TABLET.DR PO SCH ×3 (09:36→20:36)
[2022-11-19] MEDS: DICYCLOMINE HCL 20 MG TAB PO SCH ×3 (09:36→20:35)
[2022-11-19] MEDS: GABAPENTIN 300 MG CAPSULE PO SCH ×3 (09:37→20:35)
[2022-11-19] MEDS: METOPROLOL TARTRATE 25 MG TAB PO SCH ×2 (09:37→20:34)
[2022-11-19] MEDS: ASPIRIN 81 MG EC TAB PO SCH (09:37)
[2022-11-19] MEDS: SULFAMETHOX-TMP DS 800/160 TAB PO SCH ×2 (09:37→20:34)
[2022-11-19] MEDS: FLUCONAZOLE 400 MG/NS 200 ML 200 ML IV SCH (09:38)
[2022-11-19] MEDS: FAMOTIDINE 20MG TAB PO SCH ×2 (09:38→20:34)
[2022-11-19] MEDS: INSULIN GLARGINE 100 UNITS/ML 10 ML VIAL SQ SCH ×2 (10:20→20:44)
[2022-11-19] MEDS: ATORVASTATIN 40 MG TABLET PO SCH (20:34)
[2022-11-20 03:50] VITALS: BP 108/69
[2022-11-20] MEDS: INSULIN HUMULIN R 100 UNIT/ML 3ML SQ SCH ×7 (06:46→20:45)
[2022-11-20] MEDS: IPRATROPIUM/ALBUTEROL SULFATE 3 ML SOLUTION IH SCH ×4 (07:13→22:58)
[2022-11-20 08:00] VITALS: BP 107/75
[2022-11-20 08:52] LABS: BASOPHILS % (AUTO) 0.2 % (0.0-5.0); EOSINOPHILS % (AUTO) 1.1 % (0.0-8.0); HEMATOCRIT 30.3 % (36-48); LYMPHOCYTES % (AUTO) 19.7 % (21.0-51.0); MEAN CORPUSCULAR HEMOGLOBIN 27.7 pg (27.0-33.0); MEAN CORPUSCULAR VOLUME 86.6 fL (79-99); MONOCYTES % (AUTO) 5.9 % (3.0-13.0); NEUTROPHILS % (AUTO) 72.5 % (40.0-77.0); NUCLEATED RED BLOOD CELLS 0.2 % (0.0-0.19); RED CELL DISTRIBUTION WIDTH 18.1 % (11.0-15.5); WHITE BLOOD COUNT (AUTO) 13.8 K/uL (4.8-10.8)
[2022-11-20 08:56] LABS: CREATININE 0.6 mg/dL (0.5-1.5); POTASSIUM 4.7 mmol/L (3.5-5.1)
[2022-11-20] MEDS: FLUCONAZOLE 400 MG/NS 200 ML 200 ML IV SCH ×3 (09:00→18:42)
[2022-11-20] MEDS: GABAPENTIN 300 MG CAPSULE PO SCH ×3 (09:08→20:42)
[2022-11-20] MEDS: BISACODYL 5 MG TABLET.DR PO SCH ×3 (09:08→20:43)
[2022-11-20] MEDS: METOPROLOL TARTRATE 25 MG TAB PO SCH ×2 (09:09→20:43)
[2022-11-20] MEDS: 0.9%NACL 10ML VIAL IV SCH ×2 (09:10→21:00)
[2022-11-20] MEDS: ASPIRIN 81 MG EC TAB PO SCH (09:10)
[2022-11-20] MEDS: SULFAMETHOX-TMP DS 800/160 TAB PO SCH ×2 (09:10→20:41)
[2022-11-20] MEDS: DICYCLOMINE HCL 20 MG TAB PO SCH ×3 (09:10→20:43)
[2022-11-20] MEDS: FAMOTIDINE 20MG TAB PO SCH ×2 (09:10→20:45)
[2022-11-20] MEDS: DULOXETINE HCL 30 MG CAP PO SCH (09:10)
[2022-11-20] MEDS: ACETAMINOPHEN WITH CODEINE 1 TAB TAB PO PRN ×2 (09:12→20:42)
[2022-11-20] MEDS: INSULIN GLARGINE 100 UNITS/ML 10 ML VIAL SQ SCH ×2 (09:16→20:44)
[2022-11-20 09:18] LABS: PLATELET COUNT (AUTO) 1083 K/uL (130-400)
[2022-11-20 12:00] VITALS: BP 100/76
[2022-11-20] MEDS: POLYETHYLENE GLYCOL 3350 17 GM POWD.PACK PO SCH (12:02)
[2022-11-20] MEDS: ENOXAPARIN SODIUM 30 MG/0.3 ML SQ SCH (13:48)
[2022-11-20 16:00] VITALS: BP 129/76
[2022-11-20 20:00] VITALS: BP 121/75
[2022-11-20] MEDS: ATORVASTATIN 40 MG TABLET PO SCH (20:41)
[2022-11-21] VITALS (7 sets, daily range): BP systolic 103–126; BP diastolic 68–81
[2022-11-21] MEDS: ACETAMINOPHEN WITH CODEINE 1 TAB TAB PO PRN ×4 (05:25→23:59)
[2022-11-21] MEDS: INSULIN HUMULIN R 100 UNIT/ML 3ML SQ SCH ×7 (06:35→22:05)
[2022-11-21] MEDS: IPRATROPIUM/ALBUTEROL SULFATE 3 ML SOLUTION IH SCH ×4 (06:56→23:39)
[2022-11-21] MEDS: 0.9%NACL 10ML VIAL IV SCH ×2 (09:00→21:00)
[2022-11-21] MEDS: FLUCONAZOLE 400 MG/NS 200 ML 200 ML IV SCH (09:00)
[2022-11-21] MEDS: DULOXETINE HCL 30 MG CAP PO SCH (10:24)
[2022-11-21] MEDS: SULFAMETHOX-TMP DS 800/160 TAB PO SCH ×2 (10:24→22:00)
[2022-11-21] MEDS: FAMOTIDINE 20MG TAB PO SCH ×2 (10:25→22:00)
[2022-11-21] MEDS: POLYETHYLENE GLYCOL 3350 17 GM POWD.PACK PO SCH (10:25)
[2022-11-21] MEDS: METOPROLOL TARTRATE 25 MG TAB PO SCH ×2 (10:25→22:00)
[2022-11-21] MEDS: ASPIRIN 81 MG EC TAB PO SCH (10:25)
[2022-11-21] MEDS: ENOXAPARIN SODIUM 30 MG/0.3 ML SQ SCH (10:27)
[2022-11-21] MEDS: INSULIN GLARGINE 100 UNITS/ML 10 ML VIAL SQ SCH ×2 (10:30→22:04)
[2022-11-21] MEDS: BISACODYL 5 MG TABLET.DR PO SCH ×3 (10:42→22:00)
[2022-11-21] MEDS: GABAPENTIN 300 MG CAPSULE PO SCH ×3 (10:42→22:00)
[2022-11-21] MEDS: DICYCLOMINE HCL 20 MG TAB PO SCH ×3 (10:43→22:00)
[2022-11-21 11:13] LABS: BASOPHILS % (AUTO) 0.2 % (0.0-5.0); EOSINOPHILS % (AUTO) 0.7 % (0.0-8.0); HEMATOCRIT 32.8 % (36-48); LYMPHOCYTES % (AUTO) 11.8 % (21.0-51.0); MEAN CORPUSCULAR HEMOGLOBIN 27.9 pg (27.0-33.0); MONOCYTES % (AUTO) 4.5 % (3.0-13.0); NEUTROPHILS % (AUTO) 82.3 % (40.0-77.0); NUCLEATED RED BLOOD CELLS 0.1 % (0.0-0.19); RED BLOOD CELL COUNT(AUTO) 3.77 MIL/uL (4.00-5.50); RED CELL DISTRIBUTION WIDTH 17.6 % (11.0-15.5); WHITE BLOOD COUNT (AUTO) 13.6 K/uL (4.8-10.8)
[2022-11-21 11:21] LABS: CREATININE 0.6 mg/dL (0.5-1.5); POTASSIUM 4.3 mmol/L (3.5-5.1)
[2022-11-21 11:25] LABS: PLATELET COUNT (AUTO) 1202 K/uL (130-400)
[2022-11-21] MEDS: ATORVASTATIN 40 MG TABLET PO SCH (22:00)
[2022-11-22 04:20] VITALS: BP 138/73
[2022-11-22] MEDS: INSULIN HUMULIN R 100 UNIT/ML 3ML SQ SCH ×7 (06:21→20:40)
[2022-11-22] MEDS: IPRATROPIUM/ALBUTEROL SULFATE 3 ML SOLUTION IH SCH ×3 (06:26→18:34)
[2022-11-22 08:00] VITALS: BP 136/77
[2022-11-22] MEDS: FLUCONAZOLE 400 MG/NS 200 ML 200 ML IV SCH (09:00)
[2022-11-22] MEDS: 0.9%NACL 10ML VIAL IV SCH ×2 (09:00→20:52)
[2022-11-22] MEDS: POLYETHYLENE GLYCOL 3350 17 GM POWD.PACK PO SCH (09:00)
[2022-11-22] MEDS: DULOXETINE HCL 30 MG CAP PO SCH (09:38)
[2022-11-22] MEDS: METOPROLOL TARTRATE 25 MG TAB PO SCH ×2 (09:39→20:36)
[2022-11-22] MEDS: DICYCLOMINE HCL 20 MG TAB PO SCH ×3 (09:39→20:33)
[2022-11-22] MEDS: BISACODYL 5 MG TABLET.DR PO SCH ×3 (09:40→20:34)
[2022-11-22] MEDS: GABAPENTIN 300 MG CAPSULE PO SCH ×3 (09:40→20:33)
[2022-11-22] MEDS: ASPIRIN 81 MG EC TAB PO SCH (09:41)
[2022-11-22] MEDS: ENOXAPARIN SODIUM 30 MG/0.3 ML SQ SCH (09:41)
[2022-11-22] MEDS: SULFAMETHOX-TMP DS 800/160 TAB PO SCH ×2 (09:41→20:33)
[2022-11-22] MEDS: FAMOTIDINE 20MG TAB PO SCH ×2 (09:41→20:33)
[2022-11-22] MEDS: ACETAMINOPHEN WITH CODEINE 1 TAB TAB PO PRN ×2 (09:42→17:28)
[2022-11-22] MEDS: INSULIN GLARGINE 100 UNITS/ML 10 ML VIAL SQ SCH ×2 (09:51→20:45)
[2022-11-22 11:00] VITALS: BP 107/74
[2022-11-22 16:00] VITALS: BP 121/79
[2022-11-22] MEDS: FLUCONAZOLE 100 MG TAB PO SCH (17:34)
[2022-11-22] MEDS: ATORVASTATIN 40 MG TABLET PO SCH (20:33)
[2022-11-22 20:44] VITALS: BP 112/75
[2022-11-22 23:29] VITALS: BP 118/72
[2022-11-23] MEDS: ACETAMINOPHEN WITH CODEINE 1 TAB TAB PO PRN ×3 (01:43→22:30)
[2022-11-23] MEDS: IPRATROPIUM/ALBUTEROL SULFATE 3 ML SOLUTION IH SCH ×4 (02:00→19:19)
[2022-11-23 03:58] VITALS: BP 113/72
[2022-11-23 06:10] LABS: BASOPHILS % (AUTO) 0.3 % (0.0-5.0); EOSINOPHILS % (AUTO) 0.9 % (0.0-8.0); LYMPHOCYTES % (AUTO) 20.4 % (21.0-51.0); MEAN CORPUSCULAR HGB CONC 31.8 g/dL (32.0-36.0); MONOCYTES % (AUTO) 4.4 % (3.0-13.0); NEUTROPHILS % (AUTO) 73.4 % (40.0-77.0); RED BLOOD CELL COUNT(AUTO) 3.75 MIL/uL (4.00-5.50); RED CELL DISTRIBUTION WIDTH 17.6 % (11.0-15.5); WHITE BLOOD COUNT (AUTO) 11.5 K/uL (4.8-10.8)
[2022-11-23 06:16] LABS: PLATELET COUNT (AUTO) 1123 K/uL (130-400)
[2022-11-23 06:26] LABS: CREATININE 0.5 mg/dL (0.5-1.5)
[2022-11-23] MEDS: INSULIN HUMULIN R 100 UNIT/ML 3ML SQ SCH ×7 (06:41→20:57)
[2022-11-23 07:07] LABS: POTASSIUM 6.3 mmol/L (3.5-5.1)
[2022-11-23 08:00] VITALS: BP 112/71
[2022-11-23] MEDS: SULFAMETHOX-TMP DS 800/160 TAB PO SCH ×2 (08:27→20:48)
[2022-11-23] MEDS: DULOXETINE HCL 30 MG CAP PO SCH (08:27)
[2022-11-23] MEDS: ASPIRIN 81 MG EC TAB PO SCH (08:27)
[2022-11-23] MEDS: FLUCONAZOLE 100 MG TAB PO SCH (08:27)
[2022-11-23] MEDS: FAMOTIDINE 20MG TAB PO SCH ×2 (08:27→20:47)
[2022-11-23] MEDS: METOPROLOL TARTRATE 25 MG TAB PO SCH ×2 (08:27→20:49)
[2022-11-23] MEDS: ENOXAPARIN SODIUM 30 MG/0.3 ML SQ SCH (08:28)
[2022-11-23] MEDS: INSULIN GLARGINE 100 UNITS/ML 10 ML VIAL SQ SCH ×2 (08:35→20:57)
[2022-11-23] MEDS: POLYETHYLENE GLYCOL 3350 17 GM POWD.PACK PO SCH (08:37)
[2022-11-23] MEDS: 0.9%NACL 10ML VIAL IV SCH ×2 (08:38→19:40)
[2022-11-23] MEDS: BISACODYL 5 MG TABLET.DR PO SCH ×3 (08:49→20:47)
[2022-11-23] MEDS: DICYCLOMINE HCL 20 MG TAB PO SCH ×3 (08:52→20:50)
[2022-11-23] MEDS: GABAPENTIN 300 MG CAPSULE PO SCH ×3 (08:53→20:48)
[2022-11-23] MEDS: ACETAMINOPHEN 325 MG TAB PO PRN ×2 (08:53→18:11)
[2022-11-23 12:00] VITALS: BP 112/59
[2022-11-23] MEDS ORDERED: DEXTROSE 50%-WATER 50 ML DISP.SYRIN IV ONE (14:00)
[2022-11-23] MEDS ORDERED: INSULIN HUMULIN R 100 UNIT/ML 3ML SQ ONE (14:00)
[2022-11-23] MEDS ORDERED: PHARMACY COMMUNICATION MISC SCH (14:00)
[2022-11-23] MEDS: NA ZIRCON CYCLOSIL(LOKELMA 10GM) PO NR (14:00)
[2022-11-23 16:00] VITALS: BP 118/75
[2022-11-23 16:02] LABS: CREATININE 0.6 mg/dL (0.5-1.5); POTASSIUM 5.2 mmol/L (3.5-5.1)
[2022-11-23 19:41] LABS: CHLORIDE,URINE RANDOM 181 mmol/L (110-250); CREATININE,URINE RANDOM 44 mg/dL (30-135); POTASSIUM,URINE RANDOM 37 mmol/L (25-125); PROTEIN,URINE RANDOM 26.1 mg/dL (0-11.9); SODIUM,URINE RANDOM 201 mmol/l (40-220)
[2022-11-23 19:42] LABS: APPEARANCE,URINE CLEAR (CLEAR); BILIRUBIN,URINE NEGATIVE (NEGATIVE); COLOR,URINE LIGHT-YELLOW (YELLOW); GLUCOSE, URINE (UA) >=1000 mg/dL (NEGATIVE); KETONES,URINE NEGATIVE (NEGATIVE); LEUKOCYTE ESTERASE ,URINE NEGATIVE Leu/uL (NEGATIVE); NITRATE,URINE NEGATIVE (NEGATIVE); OCCULT BLOOD,URINE NEGATIVE (NEGATIVE); PH,URINE 6.5 (5.0-8.0); PROTEIN,URINE NEGATIVE (NEGATIVE); UROBILINOGEN,URINE 0.2 mg/dL (0.2-1.0)
[2022-11-23 19:49] LABS: BACTERIA,URINE RARE /HPF (None Seen); MUCUS,URINE RARE LPF (None Seen); RBC,URINE 0-1 /HPF (0-1); SQUAMOUS EPITHELIAL CELL,UR RARE /HPF (0-2); WBC,URINE 0-1 /HPF (0-1); YEAST,URINE BUDDING FEW /HPF (None Seen)
[2022-11-23 20:00] VITALS: BP 120/82
[2022-11-23] MEDS: ATORVASTATIN 40 MG TABLET PO SCH (20:47)
[2022-11-24] VITALS: BP 119/74
[2022-11-24] MEDS: IPRATROPIUM/ALBUTEROL SULFATE 3 ML SOLUTION IH SCH ×2 (00:05→07:23)
[2022-11-24] MEDS: ACETAMINOPHEN WITH CODEINE 1 TAB TAB PO PRN ×2 (03:26→09:57)
[2022-11-24 04:00] VITALS: BP 132/79
[2022-11-24 06:26] LABS: BASOPHILS % (AUTO) 0.3 % (0.0-5.0); EOSINOPHILS % (AUTO) 1.2 % (0.0-8.0); HEMATOCRIT 30.8 % (36-48); LYMPHOCYTES % (AUTO) 17.9 % (21.0-51.0); MEAN CORPUSCULAR HEMOGLOBIN 27.6 pg (27.0-33.0); MEAN CORPUSCULAR HGB CONC 32.1 g/dL (32.0-36.0); MEAN CORPUSCULAR VOLUME 85.8 fL (79-99); MONOCYTES % (AUTO) 4.9 % (3.0-13.0); NEUTROPHILS % (AUTO) 75.3 % (40.0-77.0); RED BLOOD CELL COUNT(AUTO) 3.59 MIL/uL (4.00-5.50); WHITE BLOOD COUNT (AUTO) 11.9 K/uL (4.8-10.8)
[2022-11-24 06:34] LABS: PLATELET COUNT (AUTO) 1254 K/uL (130-400)
[2022-11-24] MEDS: INSULIN HUMULIN R 100 UNIT/ML 3ML SQ SCH ×4 (06:39→11:51)
[2022-11-24 07:07] LABS: ALBUMIN 2.7 g/dL (3.5-5.0); CREATININE 0.6 mg/dL (0.5-1.5); PHOSPHORUS 3.9 mg/dL (2.5-4.9); POTASSIUM 5.8 mmol/L (3.5-5.1); THYROID STIMULATING HORMONE 1.9 uIU/mL (0.36-3.74); TOTAL PROTEIN, SERUM 8.9 g/dL (6.0-8.3); URIC ACID 2.3 mg/dL (2.6-7.2)
[2022-11-24 08:00] VITALS: BP 126/84
[2022-11-24] MEDS: 0.9%NACL 10ML VIAL IV SCH (08:42)
[2022-11-24] MEDS: FAMOTIDINE 20MG TAB PO SCH (08:43)
[2022-11-24] MEDS: FLUCONAZOLE 100 MG TAB PO SCH (08:43)
[2022-11-24] MEDS: GABAPENTIN 300 MG CAPSULE PO SCH ×2 (08:43→14:09)
[2022-11-24] MEDS: ASPIRIN 81 MG EC TAB PO SCH (08:43)
[2022-11-24] MEDS: BISACODYL 5 MG TABLET.DR PO SCH ×2 (08:43→14:09)
[2022-11-24] MEDS: DULOXETINE HCL 30 MG CAP PO SCH (08:43)
[2022-11-24] MEDS: DICYCLOMINE HCL 20 MG TAB PO SCH ×2 (08:43→14:10)
[2022-11-24] MEDS: SULFAMETHOX-TMP DS 800/160 TAB PO SCH (08:43)
[2022-11-24] MEDS: METOPROLOL TARTRATE 25 MG TAB PO SCH (08:44)
[2022-11-24] MEDS: ENOXAPARIN SODIUM 30 MG/0.3 ML SQ SCH (08:49)
[2022-11-24] MEDS: INSULIN GLARGINE 100 UNITS/ML 10 ML VIAL SQ SCH (08:53)
[2022-11-24] MEDS: POLYETHYLENE GLYCOL 3350 17 GM POWD.PACK PO SCH (08:53)
[2022-11-24] MEDS ORDERED: CEFUROXIME AXETIL 250 MG TABLET PO SCH (09:00)
[2022-11-24] MEDS ORDERED: Vitamin B Complex/Vit C/Folic Acid PO SCH (09:00)
[2022-11-24] MEDS: DEXTROSE 50%-WATER 50 ML DISP.SYRIN IV PRN (09:58)
[2022-11-24] MEDS: NA ZIRCON CYCLOSIL(LOKELMA 10GM) PO NR (09:58)
[2022-11-24 12:00] VITALS: BP 127/86
[2022-11-24] MEDS ORDERED: Cefuroxime Axetil PO (13:25)
[2022-11-24] MEDS ORDERED: FLUC100T12 PO (13:25)
[2022-11-24] MEDS ORDERED: DULO30CA2 PO (13:25)
== END 2022-11-24 15:15 | disposition home or self-care (01) | DRG 164 ==
LOC: EDH 18:07 → EDHIP 18:08 → 3DH 11-10 03:40 → 2CH 11-11 15:59 → 2AH 11-14 03:55 → 3BH 11-16 10:53
PROVIDERS: ADMIT Internal Medicine; ATTEND Internal Medicine
PROC: 0W9B00Z Drainage of Left Pleural Cavity with Drainage Device, Open Approach (ICD-10-PCS; 2022-11-11)
PROC: 0BNJ0ZZ Release Left Lower Lung Lobe, Open Approach (ICD-10-PCS; principal; 2022-11-11 13:39)
PROC: 30233N1 Transfusion of Nonautologous Red Blood Cells into Peripheral Vein, Percutaneous Approach (ICD-10-PCS; 2022-11-13)
DX: J85.1 Abscess of lung with pneumonia (principal); D84.9 Immunodeficiency, unspecified; E87.1 Hypo-osmolality and hyponatremia; L02.213 Cutaneous abscess of chest wall; Z20.822 Contact with and (suspected) exposure to COVID-19; I69.354 Hemiplegia and hemiparesis following cerebral infarction affecting left non-dominant side; Z16.23 Resistance to quinolones and fluoroquinolones; K76.0 Fatty (change of) liver, not elsewhere classified; D64.9 Anemia, unspecified; E11.649 Type 2 diabetes mellitus with hypoglycemia without coma; D75.838 Other thrombocytosis; E87.6 Hypokalemia; E83.42 Hypomagnesemia; E78.00 Pure hypercholesterolemia, unspecified; E87.5 Hyperkalemia; K74.60 Unspecified cirrhosis of liver; T36.8X5A Adverse effect of other systemic antibiotics, initial encounter; Z79.4 Long term (current) use of insulin; Z83.3 Family history of diabetes mellitus; Z90.81 Acquired absence of spleen; Z88.1 Allergy status to other antibiotic agents; Z91.199 Patient's noncompliance with other medical treatment and regimen due to unspecified reason; Z90.49 Acquired absence of other specified parts of digestive tract
CPT/HCPCS: 36415; 71045; 71260; 74176; 76705; 80048; 80053; 80305; 81001; 81003; 82010; 82436; 82533; 82550; 82570; 82948; 83036; 83540; 83550; 83605; 83735; 83874; 83930; 84100; 84133; 84145; 84156; 84300; 84443; 84484; 84550; 84703; 85018; 85025; 85027; 85610; 85651; 85730; 86140; 86701; 86850; 86900; 86901; 86923; 87040; 87070; 87076; 87077; 87186; 87390; 87635; 87804; 93005; 93306; 93356; 93926; 94640; 94664; 94667; 94668; 97039; A7048; C1751; C1894; G0378; J0330; J0456; J0690; J1100; J1170; J1450; J1650; J1815; J1885; J1956; J2001; J2175; J2185; J2250; J2405; J2543; J2704; J2710; J3010; J3475; J3490; J7030; J7040; J7070; P9016; Q9967

== ENCOUNTER 2022-12-01 18:35 | Observation (INO) | payer OTHER ==
[~2022-12-01] VITALS: Ht 162.6 cm; Wt 48.1 kg
[~2022-12-01 18:35] MED LIST changes: +ACET-2079 PO; +AEC81 PO; -AMOX1TAB16 PO; +Cefuroxime Axetil PO; +DICY10CA13 PO; +DOCU-116 PO; +DULO30CA2 PO; +FLUC100T12 PO
[2022-12-01 20:01] LABS: BASOPHILS % (AUTO) 0.2 % (0.0-5.0); EOSINOPHILS % (AUTO) 0.1 % (0.0-8.0); LYMPHOCYTES % (AUTO) 12.5 % (21.0-51.0); MEAN CORPUSCULAR HEMOGLOBIN 28.4 pg (27.0-33.0); MEAN CORPUSCULAR HGB CONC 33.1 g/dL (32.0-36.0); MEAN CORPUSCULAR VOLUME 85.6 fL (79-99); MONOCYTES % (AUTO) 5.6 % (3.0-13.0); NEUTROPHILS % (AUTO) 81.2 % (40.0-77.0); RED BLOOD CELL COUNT(AUTO) 2.08 MIL/uL (4.00-5.50); RED CELL DISTRIBUTION WIDTH 16.1 % (11.0-15.5); WHITE BLOOD COUNT (AUTO) 13.4 K/uL (4.8-10.8)
[2022-12-01 20:13] LABS: HEMATOCRIT 17.8 % (36-48); PLATELET COUNT (AUTO) 794 K/uL (130-400)
[2022-12-01 20:27] LABS: CREATININE 0.6 mg/dL (0.5-1.5)
[2022-12-01 20:28] LABS: ALBUMIN 2.7 g/dL (3.5-5.0)
[2022-12-01 20:32] LABS: APPEARANCE,URINE CLEAR (CLEAR); BILIRUBIN,URINE NEGATIVE (NEGATIVE); COLOR,URINE COLORLESS (YELLOW); GLUCOSE, URINE (UA) >=1000 mg/dL (NEGATIVE); KETONES,URINE NEGATIVE (NEGATIVE); LEUKOCYTE ESTERASE ,URINE NEGATIVE Leu/uL (NEGATIVE); NITRATE,URINE NEGATIVE (NEGATIVE); OCCULT BLOOD,URINE NEGATIVE (NEGATIVE); PROTEIN,URINE NEGATIVE (NEGATIVE); UROBILINOGEN,URINE 0.2 mg/dL (0.2-1.0)
[2022-12-01 20:47] LABS: MUCUS,URINE RARE LPF (None Seen); RBC,URINE 0-1 /HPF (0-1); SQUAMOUS EPITHELIAL CELL,UR RARE /HPF (0-2); WBC,URINE 0-1 /HPF (0-1)
[2022-12-01] MEDS ORDERED: INSULIN HUMULIN R 100 UNIT/ML 3ML IV ONE (21:00)
[2022-12-01 21:05] LABS: PLATELET MORPHOLOGY COMMENT INCREASED
[2022-12-01] MEDS ORDERED: LEVOFLOXACIN 500 MG/D5W 100 ML 100 ML IV ONE (21:30)
[2022-12-01] MEDS ORDERED: MORPHINE 4 MG SYG IVP ONE (21:30)
[2022-12-01 21:49] LABS: RETICULOCYTE % (AUTO) 4.21 % (0.42-2.23)
[2022-12-01 22:08] LABS: % IRON SATURATION 17.8 % (22-44)
[2022-12-01] MEDS ORDERED: MAGNESIUM 2GM PREMIX 50ML 50 ML IV PRN (23:30)
[2022-12-01] MEDS ORDERED: POTASSIUM CHLORIDE 20MEQ/100ML 100 ML IV PRN (23:30)
[2022-12-01] MEDS ORDERED: ACETAMINOPHEN WITH CODEINE 1 TAB TAB PO PRN (23:30)
[2022-12-01] MEDS ORDERED: ONDANSETRON 4MG INJ IV PRN (23:30)
[2022-12-01] MEDS ORDERED: LIDOCAINE HCL-MPF 1% 2ML VIAL IV PRN (23:30)
[2022-12-01] MEDS ORDERED: KCL 20 MEQ ERTAB PO PRN (23:30)
[2022-12-01] MEDS ORDERED: NITROGLYCERIN 0.4 MG SL TAB SL PRN (23:30)
[2022-12-01] MEDS ORDERED: LACTULOSE 20 GM/30 ML UDCUP PO PRN (23:30)
[2022-12-01] MEDS ORDERED: POTASSIUM CHLORIDE 10% ELIXIR 20 MEQ/15 ML UDCUP PO PRN (23:30)
[2022-12-01] MEDS ORDERED: GUAIFENESIN-DM 200/20 MG 10 ML PO PRN (23:30)
[2022-12-01] MEDS ORDERED: IPRATROPIUM/ALBUTEROL SULFATE 3 ML SOLUTION IH PRN (23:30)
[2022-12-01] MEDS ORDERED: DEXTROSE 50%-WATER 50 ML DISP.SYRIN IV PRN (23:30)
[2022-12-01] MEDS ORDERED: ACETAMINOPHEN 325 MG TAB PO PRN (23:30)
[2022-12-01] MEDS ORDERED: GLUCAGON 1MG KIT 1 MG ML IM PRN (23:30)
[2022-12-01] MEDS ORDERED: MAG/ALUM/SIMETH 30 ML UDCUP PO PRN (23:30)
[2022-12-01] MEDS ORDERED: PHARMACY COMMUNICATION MISC SCH (23:30)
[2022-12-01 23:46] LABS: HEMOGLOBIN A1C 9.1 % (4.0-6.0)
[2022-12-02 02:30] VITALS: BP 108/71
[2022-12-02] MEDS: MORPHINE 4 MG SYG IV PRN ×3 (02:50→11:05)
[2022-12-02] MEDS: ZOSYN 3.375GM+NS 50ML 50 ML IVPB SCH ×2 (04:31→13:09)
[2022-12-02 05:00] LABS: HEMATOCRIT 25.1 % (36-48)
[2022-12-02] MEDS: INSULIN HUMULIN R 100 UNIT/ML 3ML SQ SCH ×2 (06:54→11:30)
[2022-12-02 08:00] VITALS: BP 102/66
[2022-12-02] MEDS ORDERED: PANTOPRAZOLE 40 MG/VIAL IVP SCH (09:00)
[2022-12-02 12:00] VITALS: BP 102/69
== END 2022-12-02 15:45 | disposition home or self-care (01) ==
LOC: EDH 18:35 → EDHIP 18:36 → INTOOBSV 18:36 → 4CH 12-02 02:32
PROVIDERS: ADMIT Hospitalist; ATTEND Hospitalist
DX: D64.9 Anemia, unspecified (principal); J43.9 Emphysema, unspecified; J18.9 Pneumonia, unspecified organism; D72.829 Elevated white blood cell count, unspecified; D75.839 Thrombocytosis, unspecified; E11.65 Type 2 diabetes mellitus with hyperglycemia; G89.29 Other chronic pain; E78.5 Hyperlipidemia, unspecified; R53.1 Weakness; Z90.81 Acquired absence of spleen; Z91.199 Patient's noncompliance with other medical treatment and regimen due to unspecified reason; Z90.49 Acquired absence of other specified parts of digestive tract; Z79.899 Other long term (current) drug therapy; Z98.890 Other specified postprocedural states; Z79.82 Long term (current) use of aspirin
CPT/HCPCS: 96365; 96366 ×2; 96375 ×2; 96367 ×2; 99285; 83036; 83735; 84484; 80053; 83880; 82728; 83690; 85025; 86850; 86900; 86901; 86923 ×2; 83605; 82607; 82010; 81001; 36415 ×2; 71045; 93005; 84145; 96376; 96372; 36430; 85014; 85018; 82948 ×2; J3475; J1956; J2270 ×4; J1815; G0378 ×3; P9016; J2543 ×2; C9113; 85007

== ENCOUNTER 2023-01-10 03:05 | Emergency (ER) | payer OTHER ==
[~2023-01-10] VITALS: Ht 152.4 cm; Wt 59.0 kg
[~2023-01-10 03:05] MED LIST changes: -ACET-2079 PO; -Cefuroxime Axetil PO; -FLUC100T12 PO
[2023-01-10 05:04] LABS: APPEARANCE,URINE CLEAR (CLEAR); BILIRUBIN,URINE NEGATIVE (NEGATIVE); COLOR,URINE YELLOW (YELLOW); GLUCOSE, URINE (UA) >=1000 mg/dL (NEGATIVE); KETONES,URINE NEGATIVE (NEGATIVE); LEUKOCYTE ESTERASE ,URINE NEGATIVE Leu/uL (NEGATIVE); NITRATE,URINE NEGATIVE (NEGATIVE); OCCULT BLOOD,URINE NEGATIVE (NEGATIVE); PH,URINE 6.5 (5.0-8.0); PROTEIN,URINE NEGATIVE (NEGATIVE); UROBILINOGEN,URINE 0.2 mg/dL (0.2-1.0)
[2023-01-10 05:07] LABS: BASOPHILS % (AUTO) 0.4 % (0.0-5.0); EOSINOPHILS % (AUTO) 0.3 % (0.0-8.0); HEMATOCRIT 24.5 % (36-48); LYMPHOCYTES % (AUTO) 15.3 % (21.0-51.0); MEAN CORPUSCULAR HEMOGLOBIN 31.9 pg (27.0-33.0); MEAN CORPUSCULAR HGB CONC 32.2 g/dL (32.0-36.0); MEAN CORPUSCULAR VOLUME 98.8 fL (79-99); MONOCYTES % (AUTO) 5.4 % (3.0-13.0); NUCLEATED RED BLOOD CELLS 0.2 % (0.0-0.19); PLATELET COUNT (AUTO) 560 K/uL (130-400); RED BLOOD CELL COUNT(AUTO) 2.48 MIL/uL (4.00-5.50); RED CELL DISTRIBUTION WIDTH 17.3 % (11.0-15.5); WHITE BLOOD COUNT (AUTO) 17.2 K/uL (4.8-10.8)
[2023-01-10 05:16] LABS: CREATININE 0.3 mg/dL (0.5-1.5); INR 0.94 (0.85-1.15); POTASSIUM 5.3 mmol/L (3.5-5.1); PROTHROMBIN TIME 10.3 SEC (9.6-11.6)
[2023-01-10 05:17] LABS: PARTIAL THROMBOPLASTIN TIME 22.2 SEC (26.3-35.5)
[2023-01-10 05:17] LABS: BACTERIA,URINE Rare /HPF (None Seen); RBC,URINE 0-1 /HPF (0-1); SQUAMOUS EPITHELIAL CELL,UR Few /HPF (0-2)
[2023-01-10 05:20] LABS: HCG,QUALITATIVE URINE NEGATIVE (NEGATIVE)
[2023-01-10 05:35] LABS: TOTAL PROTEIN, SERUM 8.7 g/dL (6.0-8.3)
[2023-01-10] MEDS ORDERED: ONDANSETRON 4MG INJ ONE (05:51)
[2023-01-10] MEDS ORDERED: 0.9%NACL 1000ML 2,000 ML IV ONE (06:00)
[2023-01-10] MEDS ORDERED: MORPHINE 2 MG SYG IVP ONE (06:00)
[2023-01-10] MEDS ORDERED: ONDANSETRON 4MG INJ IVP ONE (06:00)
[2023-01-10 06:38] VITALS: BP 129/75
== END 2023-01-10 07:05 | disposition home or self-care (01) ==
LOC: EDH 03:05
DX: R10.84 Generalized abdominal pain (principal); R11.2 Nausea with vomiting, unspecified; E11.9 Type 2 diabetes mellitus without complications; E78.00 Pure hypercholesterolemia, unspecified; J47.9 Bronchiectasis, uncomplicated; J90 Pleural effusion, not elsewhere classified; Z79.82 Long term (current) use of aspirin; Z79.899 Other long term (current) drug therapy; Z98.890 Other specified postprocedural states; Z88.8 Allergy status to other drugs, medicaments and biological substances
CPT/HCPCS: 99285; 74176; 96374; 71045; 96361; 96375; 82550; 84484; 80053; 85025; 85610; 85730; 87040 ×2; 87088; 83605; 82010 ×2; 81001; 81025; 36415; J7030; J2405

== ENCOUNTER 2023-01-11 01:47 | Emergency (ER) | payer OTHER ==
[~2023-01-11] VITALS: Ht 160 cm; Wt 52.2 kg
[2023-01-11] MEDS ORDERED: POLYETHYLENE GLYCOL 3350 17 GM POWD.PACK PO ONE (02:30)
[2023-01-11 02:37] VITALS: BP 142/85
[2023-01-11] MEDS ORDERED: HALOPERIDOL INJ 5 MG/ML VIAL IV SCH (03:00)
== END 2023-01-11 03:37 | disposition home or self-care (01) ==
LOC: EDH 01:47
DX: G89.29 Other chronic pain (principal); R10.9 Unspecified abdominal pain; K59.00 Constipation, unspecified; K43.9 Ventral hernia without obstruction or gangrene; E78.00 Pure hypercholesterolemia, unspecified; E11.9 Type 2 diabetes mellitus without complications; Z88.8 Allergy status to other drugs, medicaments and biological substances; Z79.899 Other long term (current) drug therapy; Z90.49 Acquired absence of other specified parts of digestive tract
CPT/HCPCS: 99283; 96374; J1630

== ENCOUNTER 2023-01-13 09:37 | Emergency (ER) | payer OTHER ==
[~2023-01-13] VITALS: Ht 160 cm; Wt 59.0 kg
[2023-01-13 10:08] LABS: BASOPHILS % (AUTO) 0.3 % (0.0-5.0); EOSINOPHILS % (AUTO) 0.5 % (0.0-8.0); HEMATOCRIT 25.2 % (36-48); LYMPHOCYTES % (AUTO) 11.1 % (21.0-51.0); MEAN CORPUSCULAR HGB CONC 32.5 g/dL (32.0-36.0); MEAN CORPUSCULAR VOLUME 98.4 fL (79-99); MONOCYTES % (AUTO) 5.1 % (3.0-13.0); NEUTROPHILS % (AUTO) 82.5 % (40.0-77.0); PLATELET COUNT (AUTO) 647 K/uL (130-400); RED BLOOD CELL COUNT(AUTO) 2.56 MIL/uL (4.00-5.50); RED CELL DISTRIBUTION WIDTH 17.8 % (11.0-15.5); WHITE BLOOD COUNT (AUTO) 15.1 K/uL (4.8-10.8)
[2023-01-13 10:28] LABS: CARBON DIOXIDE 25 mmol/L (21-32); CHLORIDE 101 mmol/L (101-111); CREATININE 0.3 mg/dL (0.5-1.5); GLOMERULAR FILTR. RATE CALC 134 mL/min (>90); GLUCOSE,RANDOM 134 mg/dL (70-105); POTASSIUM 3.7 mmol/L (3.5-5.1); SODIUM SERUM 134 mmol/L (136-145); UREA NITROGEN, BLOOD 10 mg/dL (7-18)
[2023-01-13 10:33] LABS: ALANINE AMINOTRANSFERASE 39 U/L (12-78); ALBUMIN 2.9 g/dL (3.5-5.0); ASPARTATE AMINOTRANSFERASE 59 U/L (10-37); TOTAL PROTEIN, SERUM 8.1 g/dL (6.0-8.3)
[2023-01-13 10:36] LABS: LIPASE < 50 U/L (114-286)
[2023-01-13 14:56] LABS: APPEARANCE,URINE CLOUDY (CLEAR); BILIRUBIN,URINE NEGATIVE (NEGATIVE); COLOR,URINE LIGHT-YELLOW (YELLOW); GLUCOSE, URINE (UA) NEGATIVE (NEGATIVE); KETONES,URINE NEGATIVE (NEGATIVE); LEUKOCYTE ESTERASE ,URINE 500 Leu/uL (NEGATIVE); NITRATE,URINE NEGATIVE (NEGATIVE); OCCULT BLOOD,URINE NEGATIVE (NEGATIVE); PH,URINE 6.5 (5.0-8.0); PROTEIN,URINE NEGATIVE (NEGATIVE); UROBILINOGEN,URINE 0.2 mg/dL (0.2-1.0)
[2023-01-13] MEDS ORDERED: LACTULOSE 20 GM/30 ML UDCUP PR ONE (15:00)
[2023-01-13 15:02] LABS: BACTERIA,URINE MOD /HPF (None Seen); MUCUS,URINE RARE LPF (None Seen); SQUAMOUS EPITHELIAL CELL,UR MOD /HPF (0-2)
[2023-01-13 15:59] VITALS: BP 132/54
== END 2023-01-13 15:52 | disposition home or self-care (01) ==
LOC: EDH 09:37
DX: K59.00 Constipation, unspecified (principal); E78.00 Pure hypercholesterolemia, unspecified; E11.9 Type 2 diabetes mellitus without complications; Z88.8 Allergy status to other drugs, medicaments and biological substances; Z79.899 Other long term (current) drug therapy; Z90.49 Acquired absence of other specified parts of digestive tract; Z20.822 Contact with and (suspected) exposure to COVID-19
CPT/HCPCS: 99284; 71045; 87635; 80053; 84703; 83690; 85025; 87880; 87804 ×2; 83605 ×2; 81001; 36415; 74018; C9803

== ENCOUNTER 2023-01-16 12:51 | Inpatient (IN) | payer OTHER ==
[~2023-01-16] VITALS: Ht 154.9 cm; Wt 54.4 kg
[2023-01-16 13:28] LABS: BASOPHILS % (AUTO) 0.2 % (0.0-5.0); EOSINOPHILS % (AUTO) 0.1 % (0.0-8.0); HEMATOCRIT 23.3 % (36-48); LYMPHOCYTES % (AUTO) 4.5 % (21.0-51.0); MEAN CORPUSCULAR HEMOGLOBIN 31.9 pg (27.0-33.0); MEAN CORPUSCULAR HGB CONC 32.2 g/dL (32.0-36.0); MEAN CORPUSCULAR VOLUME 99.1 fL (79-99); MONOCYTES % (AUTO) 2.7 % (3.0-13.0); NEUTROPHILS % (AUTO) 91.4 % (40.0-77.0); PLATELET COUNT (AUTO) 576 K/uL (130-400); RED BLOOD CELL COUNT(AUTO) 2.35 MIL/uL (4.00-5.50); WHITE BLOOD COUNT (AUTO) 28.4 K/uL (4.8-10.8)
[2023-01-16 13:45] LABS: ALBUMIN 2.6 g/dL (3.5-5.0); CREATININE 0.3 mg/dL (0.5-1.5); TOTAL PROTEIN, SERUM 8.1 g/dL (6.0-8.3)
[2023-01-16] MEDS ORDERED: ONDANSETRON ODT 4MG TAB SL ONE (14:30)
[2023-01-16] MEDS ORDERED: MORPHINE 4 MG SYG IM ONE (14:30)
[2023-01-16] MEDS ORDERED: GLUCAGON 1MG KIT 1 MG ML IM ONE (14:30)
[2023-01-16 14:34] LABS: BAND NEUTROPHILS % (MANUAL) 7 % (0-2); LYMPHOCYTES % (MANUAL) 8 % (22-44); MAN.DIFF COMMENT-IMPRESSION MANUAL DIFFERENTIAL; MONOCYTES % (MANUAL) 3 % (2-9); PLATELET MORPHOLOGY COMMENT INCREASED; SEGMENTED NEUTROPHILS % 82 % (40-70)
[2023-01-16 15:08] LABS: INR 0.99 (0.85-1.15); PROTHROMBIN TIME 10.8 SEC (9.6-11.6)
[2023-01-16] MEDS ORDERED: PANTOPRAZOLE 40 MG/VIAL IVP ONE (15:30)
[2023-01-16] MEDS ORDERED: GLUCAGON 1MG KIT 1 MG ML IM PRN (15:30)
[2023-01-16] MEDS: MEROPENEM 500 MG VIAL IVPB SCH (15:30)
[2023-01-16] MEDS ORDERED: DEXTROSE 50%-WATER 50 ML DISP.SYRIN IV PRN (15:30)
[2023-01-16] MEDS: AZITHROMYCIN 500MG+NS 250ML IVPB SCH (15:30)
[2023-01-16] MEDS: LACTATED RINGERS 1000ML 1,000 ML IV SCH (15:30)
[2023-01-16] MEDS ORDERED: ONDANSETRON 4MG INJ IVP PRN ×2 (15:30→18:00)
[2023-01-16] MEDS: INSULIN HUMULIN R 100 UNIT/ML 3ML SQ SCH ×2 (16:30→21:00)
[2023-01-16 17:24] LABS: HEMATOCRIT 23.3 % (36-48)
[2023-01-16 17:34] LABS: MAGNESIUM 1.9 mg/dL (1.80-2.40)
[2023-01-16] MEDS ORDERED: MORPHINE 2 MG SYG IVP ONE (20:00)
[2023-01-16] MEDS ORDERED: PANTOPRAZOLE 40 MG/VIAL ONE (20:06)
[2023-01-16] MEDS ORDERED: SODIUM CHLORIDE 3% FOR INHALATION 4 ML/AMP VIAL.NEB IH ONE (20:28)
[2023-01-17] VITALS (20 sets, daily range): BP systolic 81–130; BP diastolic 51–77
[2023-01-17] MEDS: MEROPENEM 500 MG VIAL IVPB SCH ×4 (00:35→22:57)
[2023-01-17 01:51] LABS: APPEARANCE,URINE CLEAR (CLEAR); BILIRUBIN,URINE NEGATIVE (NEGATIVE); COLOR,URINE LIGHT-YELLOW (YELLOW); GLUCOSE, URINE (UA) 200 mg/dL (NEGATIVE); KETONES,URINE NEGATIVE (NEGATIVE); LEUKOCYTE ESTERASE ,URINE NEGATIVE Leu/uL (NEGATIVE); NITRATE,URINE NEGATIVE (NEGATIVE); OCCULT BLOOD,URINE NEGATIVE (NEGATIVE); PROTEIN,URINE NEGATIVE (NEGATIVE); UROBILINOGEN,URINE 0.2 mg/dL (0.2-1.0)
[2023-01-17 01:53] LABS: HCG,QUALITATIVE URINE NEGATIVE (NEGATIVE)
[2023-01-17 01:58] LABS: MUCUS,URINE RARE LPF (None Seen); RBC,URINE 0-1 /HPF (0-1); WBC,URINE 0-1 /HPF (0-1)
[2023-01-17] MEDS: ACETAMINOPHEN 325 MG TAB PO PRN ×2 (03:39→12:18)
[2023-01-17] MEDS: LACTATED RINGERS 1000ML 1,000 ML IV SCH ×2 (07:23→15:10)
[2023-01-17] MEDS: INSULIN HUMULIN R 100 UNIT/ML 3ML SQ SCH ×4 (07:25→20:52)
[2023-01-17 07:32] LABS: BASOPHILS % (AUTO) 0.3 % (0.0-5.0); EOSINOPHILS % (AUTO) 0.3 % (0.0-8.0); LYMPHOCYTES % (AUTO) 11.7 % (21.0-51.0); MONOCYTES % (AUTO) 4.1 % (3.0-13.0); NEUTROPHILS % (AUTO) 83.1 % (40.0-77.0); PLATELET COUNT (AUTO) 513 K/uL (130-400); RED BLOOD CELL COUNT(AUTO) 2.03 MIL/uL (4.00-5.50); RED CELL DISTRIBUTION WIDTH 16.4 % (11.0-15.5); WHITE BLOOD COUNT (AUTO) 16.7 K/uL (4.8-10.8)
[2023-01-17 08:06] LABS: ALBUMIN 2.2 g/dL (3.5-5.0); CREATININE 0.4 mg/dL (0.5-1.5); CRP QUANTITATIVE 74.4 mg/L (0.00-9.0); MAGNESIUM 1.8 mg/dL (1.80-2.40); POTASSIUM 3.9 mmol/L (3.5-5.1)
[2023-01-17 08:51] LABS: ERYTHROCYTE SEDIMENTATION RATE 84 MM/HR (0-20); HEMATOCRIT 19.7 % (36-48)
[2023-01-17 14:50] LABS: HEMATOCRIT 21.9 % (36-48)
[2023-01-17] MEDS: PANTOPRAZOLE 40MG INJ 80 MG in 0.9%NACL 100ML 100 ML IVP SCH ×2 (15:09→22:57)
[2023-01-17] MEDS ORDERED: SODIUM CHLORIDE 3% FOR INHALATION 4 ML/AMP VIAL.NEB IH ONE ×2 (15:16→18:14)
[2023-01-17] MEDS: AZITHROMYCIN 500MG+NS 250ML IVPB SCH (16:07)
[2023-01-17] MEDS: SUCRALFATE 1 GM TABLET PO SCH (17:03)
[2023-01-17 19:28] LABS: HEMATOCRIT 26.3 % (36-48)
[2023-01-17] MEDS ORDERED: SUCRALFATE 1 GM TABLET PO SCH (21:00)
[2023-01-18] VITALS (20 sets, daily range): BP systolic 91–170; BP diastolic 53–82
[2023-01-18 00:31] LABS: HEMATOCRIT 27.1 % (36-48)
[2023-01-18] MEDS: INSULIN HUMULIN R 100 UNIT/ML 3ML SQ SCH ×4 (04:06→19:46)
[2023-01-18] MEDS: SUCRALFATE 1 GM TABLET PO SCH ×3 (04:07→16:29)
[2023-01-18 04:25] LABS: HEMATOCRIT 24.7 % (36-48)
[2023-01-18] MEDS: MEROPENEM 500 MG VIAL IVPB SCH (06:50)
[2023-01-18] MEDS: LACTATED RINGERS 1000ML 1,000 ML IV SCH ×2 (07:30→19:55)
[2023-01-18] MEDS: ACETAMINOPHEN 325 MG TAB PO PRN ×2 (07:57→16:29)
[2023-01-18] MEDS ORDERED: PROPOFOL 10 MG/ML 20ML VIAL IV ONE (11:20)
[2023-01-18 16:28] LABS: HEMATOCRIT 29.5 % (36-48)
[2023-01-18 19:44] LABS: HEMATOCRIT 26.8 % (36-48)
[2023-01-18] MEDS ORDERED: HYDROCODONE/ACETAMINOPHEN 5/325 MG TAB PO PRN (21:00)
[2023-01-18 23:14] LABS: HEMATOCRIT 28.7 % (36-48)
[2023-01-19] MEDS: ACETAMINOPHEN 325 MG TAB PO PRN ×2 (02:47→12:27)
[2023-01-19 04:00] VITALS: BP 107/70
[2023-01-19] MEDS: INSULIN HUMULIN R 100 UNIT/ML 3ML SQ SCH ×2 (06:55→12:24)
[2023-01-19 08:00] VITALS: BP 117/79
[2023-01-19] MEDS: SUCRALFATE 1 GM TABLET PO SCH ×2 (08:04→12:20)
[2023-01-19] MEDS ORDERED: LEVOFLOXACIN 750 MG TABLET PO SCH (09:00)
[2023-01-19] MEDS ORDERED: PANTOPRAZOLE 40 MG TAB DR PO SCH (09:00)
[2023-01-19] MEDS: LACTATED RINGERS 1000ML 1,000 ML IV SCH (10:10)
[2023-01-19] MEDS ORDERED: PANT40TA PO (11:21)
[2023-01-19 12:01] VITALS: BP 126/72
== END 2023-01-19 15:10 | disposition home or self-care (01) | DRG 368 ==
LOC: EDH 12:51 → EDHIP 12:52 → 2CV 01-17 05:45 → 2AH 01-18 08:12 → 3BH 01-18 21:58
PROVIDERS: ADMIT Internal Medicine; ATTEND Internal Medicine
PROC: 30233N1 Transfusion of Nonautologous Red Blood Cells into Peripheral Vein, Percutaneous Approach (ICD-10-PCS; 2023-01-17)
PROC: 0DB58ZX Excision of Esophagus, Via Natural or Artificial Opening Endoscopic, Diagnostic (ICD-10-PCS; principal; 2023-01-18)
PROC: 0DB78ZX Excision of Stomach, Pylorus, Via Natural or Artificial Opening Endoscopic, Diagnostic (ICD-10-PCS; 2023-01-18)
DX: K21.01 Gastro-esophageal reflux disease with esophagitis, with bleeding (principal); J18.9 Pneumonia, unspecified organism; R57.8 Other shock; K29.51 Unspecified chronic gastritis with bleeding; E11.649 Type 2 diabetes mellitus with hypoglycemia without coma; D50.0 Iron deficiency anemia secondary to blood loss (chronic); E78.00 Pure hypercholesterolemia, unspecified; I10 Essential (primary) hypertension; Z86.19 Personal history of other infectious and parasitic diseases; Z86.718 Personal history of other venous thrombosis and embolism; Z87.11 Personal history of peptic ulcer disease; Z79.4 Long term (current) use of insulin; Z90.81 Acquired absence of spleen; Z91.199 Patient's noncompliance with other medical treatment and regimen due to unspecified reason
CPT/HCPCS: 36415; 43235; 71045; 74021; 74176; 80053; 81001; 81025; 82270; 82948; 83605; 83690; 83735; 84145; 84484; 84703; 85014; 85018; 85025; 85610; 85651; 85730; 86140; 86738; 86850; 86900; 86901; 86923; 87040; 87449; 93005; 94640; 99291; A4606; C1894; C9113; G0378; J0456; J1610; J1815; J2185; J2270; J2405; J2704; J7070; J7120; P9016

== ENCOUNTER 2023-03-04 12:52 | Inpatient (IN) | payer OTHER ==
[~2023-03-04] VITALS: Ht 154.9 cm; Wt 54.3 kg
[~2023-03-04 12:52] MED LIST changes: +DICY-20 PO; -DICY10CA13 PO; +INSU100I35 SQ; +PANT40TA PO
[2023-03-04 14:25] LABS: APPEARANCE,URINE CLOUDY (CLEAR); BILIRUBIN,URINE NEGATIVE (NEGATIVE); COLOR,URINE LIGHT-YELLOW (YELLOW); GLUCOSE, URINE (UA) NEGATIVE (NEGATIVE); KETONES,URINE NEGATIVE (NEGATIVE); LEUKOCYTE ESTERASE ,URINE 75 Leu/uL (NEGATIVE); NITRATE,URINE NEGATIVE (NEGATIVE); OCCULT BLOOD,URINE NEGATIVE (NEGATIVE); PH,URINE 5.5 (5.0-8.0); PROTEIN,URINE 50 mg/dL (NEGATIVE); UROBILINOGEN,URINE 0.2 mg/dL (0.2-1.0)
[2023-03-04 14:32] LABS: HCG,QUALITATIVE URINE NEGATIVE (NEGATIVE)
[2023-03-04 14:33] LABS: BACTERIA,URINE RARE /HPF (None Seen); MUCUS,URINE RARE LPF (None Seen); SQUAMOUS EPITHELIAL CELL,UR MOD /HPF (0-2)
[2023-03-04 15:35] LABS: BASOPHILS % (AUTO) 0.2 % (0.0-5.0); EOSINOPHILS % (AUTO) 0.7 % (0.0-8.0); LYMPHOCYTES % (AUTO) 7.6 % (21.0-51.0); MEAN CORPUSCULAR HEMOGLOBIN 29.9 pg (27.0-33.0); MEAN CORPUSCULAR HGB CONC 32.4 g/dL (32.0-36.0); MEAN CORPUSCULAR VOLUME 92.2 fL (79-99); MONOCYTES % (AUTO) 4.1 % (3.0-13.0); NEUTROPHILS % (AUTO) 86.5 % (40.0-77.0); PLATELET COUNT (AUTO) 491 K/uL (130-400); RED BLOOD CELL COUNT(AUTO) 4.12 MIL/uL (4.00-5.50); RED CELL DISTRIBUTION WIDTH 15.7 % (11.0-15.5); WHITE BLOOD COUNT (AUTO) 27.7 K/uL (4.8-10.8)
[2023-03-04 15:53] LABS: ALBUMIN 2.8 g/dL (3.5-5.0); CREATININE 0.5 mg/dL (0.5-1.5); POTASSIUM 4.5 mmol/L (3.5-5.1); TOTAL PROTEIN, SERUM 9.6 g/dL (6.0-8.3)
[2023-03-04] MEDS ORDERED: METOCLOPRAMIDE 10 MG/2 ML VIAL IM ONE (16:00)
[2023-03-04] MEDS ORDERED: LACTATED RINGERS 1000ML IV SCH ×2 (16:00)
[2023-03-04] MEDS ORDERED: MORPHINE 4 MG SYG IM ONE (16:00)
[2023-03-04] MEDS ORDERED: ZOSYN 3.375GM +NS 50ML IVPB ONE (16:30)
[2023-03-04] MEDS ORDERED: IOHEXOL-350 75 ML VIAL IV ONE (17:40)
[2023-03-04] MEDS ORDERED: POTASSIUM CHLORIDE 20MEQ/100ML 100 ML IV PRN (20:00)
[2023-03-04] MEDS ORDERED: LACTATED RINGERS 1000ML 1,365 ML IV ONE (20:00)
[2023-03-04] MEDS ORDERED: POTASSIUM CHLORIDE 10% ELIXIR 20 MEQ/15 ML UDCUP PO PRN (20:00)
[2023-03-04] MEDS ORDERED: HYDROMORPHONE 1 MG INJ IV PRN (20:00)
[2023-03-04] MEDS ORDERED: ACETAMINOPHEN 325 MG TAB PO PRN (20:00)
[2023-03-04] MEDS ORDERED: ONDANSETRON 4MG INJ IV PRN (20:00)
[2023-03-04] MEDS ORDERED: MORPHINE 4 MG SYG ONE (20:59)
[2023-03-04] MEDS ORDERED: ZOSYN 3.375GM+NS 50ML 50 ML IVPB SCH (21:00)
[2023-03-04] MEDS: INSULIN HUMULIN R 100 UNIT/ML 3ML SQ SCH (21:00)
[2023-03-04] MEDS: MORPHINE 2 MG SYG IV PRN (21:01)
[2023-03-04 21:10] VITALS: BP 95/60
[2023-03-04] MEDS: FAMOTIDINE 20MG TAB PO SCH (21:14)
[2023-03-04] MEDS ORDERED: KETOROLAC 30MG VIAL (30MG/ML) ONE (21:51)
[2023-03-04] MEDS ORDERED: KETOROLAC 30MG VIAL (30MG/ML) IVP ONE (22:00)
[2023-03-04] MEDS: DEXTROSE 5 %-0.45 % NACL 1,000 ML IV SCH (22:29)
[2023-03-04] MEDS: ZOSYN 3.375GM+NS 50ML 50 ML IVPB SCH (23:02)
[2023-03-04] MEDS: GUAIFENESIN-DM 200/20 MG 10 ML PO PRN (23:42)
[2023-03-05] VITALS: BP 100/63
[2023-03-05] MEDS: IPRATROPIUM/ALBUTEROL SULFATE 3 ML SOLUTION IH SCH ×5 (00:13→23:04)
[2023-03-05] MEDS ORDERED: SODIUM CHLORIDE 3% FOR INHALATION 4 ML/AMP VIAL.NEB IH ONE (00:19)
[2023-03-05] MEDS: MORPHINE 2 MG SYG IV PRN ×4 (00:59→20:21)
[2023-03-05] MEDS ORDERED: GLUCAGON 1MG KIT 1 MG ML IM PRN (01:00)
[2023-03-05] MEDS ORDERED: DEXTROSE 50%-WATER 50 ML DISP.SYRIN IV PRN (01:00)
[2023-03-05 04:00] VITALS: BP 96/61
[2023-03-05] MEDS: GUAIFENESIN-DM 200/20 MG 10 ML PO PRN (04:56)
[2023-03-05] MEDS: INSULIN HUMULIN R 100 UNIT/ML 3ML SQ SCH ×4 (05:55→21:00)
[2023-03-05 06:24] LABS: BASOPHILS % (AUTO) 0.2 % (0.0-5.0); EOSINOPHILS % (AUTO) 0.2 % (0.0-8.0); HEMATOCRIT 30.3 % (36-48); LYMPHOCYTES % (AUTO) 17.6 % (21.0-51.0); MEAN CORPUSCULAR HEMOGLOBIN 30.2 pg (27.0-33.0); MEAN CORPUSCULAR VOLUME 94.4 fL (79-99); MONOCYTES % (AUTO) 6.1 % (3.0-13.0); NEUTROPHILS % (AUTO) 75.3 % (40.0-77.0); PLATELET COUNT (AUTO) 462 K/uL (130-400); RED BLOOD CELL COUNT(AUTO) 3.21 MIL/uL (4.00-5.50); RED CELL DISTRIBUTION WIDTH 15.6 % (11.0-15.5); WHITE BLOOD COUNT (AUTO) 14.4 K/uL (4.8-10.8)
[2023-03-05 06:33] LABS: CREATININE 0.5 mg/dL (0.5-1.5); MAGNESIUM 1.6 mg/dL (1.80-2.40); PHOSPHORUS 3.8 mg/dL (2.5-4.9)
[2023-03-05 06:34] LABS: POTASSIUM 2.7 mmol/L (3.5-5.1)
[2023-03-05 06:41] LABS: HEMOGLOBIN A1C 9.8 % (4.0-6.0)
[2023-03-05 08:00] VITALS: BP 93/58
[2023-03-05] MEDS ORDERED: MAGNESIUM 2GM PREMIX 50ML 50 ML IV SCH (08:00)
[2023-03-05] MEDS ORDERED: POTASSIUM CHLORIDE 20 MEQ/100 ML BAG IV SCH (08:00)
[2023-03-05] MEDS ORDERED: KCL 20 MEQ ERTAB PO ONE (08:00)
[2023-03-05] MEDS ORDERED: DICYCLOMINE HCL 10 MG/5 ML ML PO PRN (08:30)
[2023-03-05] MEDS ORDERED: DOCUSATE NA 100MG/10ML UDCUP PO PRN (08:30)
[2023-03-05] MEDS ORDERED: NON-FORMULARY MEDICATION 1 EACH (Dicyclomine HCl 10 MG) PO SCH (09:00)
[2023-03-05] MEDS: ZOSYN 3.375GM+NS 50ML 50 ML IVPB SCH ×2 (09:34→15:11)
[2023-03-05] MEDS: FAMOTIDINE 20MG TAB PO SCH ×2 (09:35→20:22)
[2023-03-05] MEDS: GABAPENTIN 300 MG CAPSULE PO SCH ×3 (09:36→20:22)
[2023-03-05] MEDS: DULOXETINE HCL 30 MG CAP PO SCH (09:36)
[2023-03-05] MEDS: KCL 20 MEQ ERTAB PO PRN (09:37)
[2023-03-05] MEDS: ENOXAPARIN SODIUM 40 MG/0.4 ML SYRINGE SQ SCH (09:38)
[2023-03-05 12:00] VITALS: BP 91/57
[2023-03-05] MEDS: FLUCONAZOLE 100 MG TAB PO SCH (14:41)
[2023-03-05] MEDS: DEXTROSE 5 %-0.45 % NACL 1,000 ML IV SCH (14:42)
[2023-03-05 16:00] VITALS: BP 110/57
[2023-03-05 20:00] VITALS: BP_SYST 101; BP_SYST 160; BP_DIAS 62; BP_DIAS 71
[2023-03-05] MEDS: ATORVASTATIN 40 MG TABLET PO SCH (20:22)
[2023-03-06] VITALS: BP 105/68
[2023-03-06] MEDS: ZOSYN 3.375GM+NS 50ML 50 ML IVPB SCH ×4 (00:37→23:52)
[2023-03-06] MEDS: MORPHINE 2 MG SYG IV PRN ×5 (00:52→20:08)
[2023-03-06] MEDS: KCL 20 MEQ ERTAB PO PRN ×4 (01:41→09:50)
[2023-03-06] MEDS: MAGNESIUM 2GM PREMIX 50ML 50 ML IV PRN (01:46)
[2023-03-06 04:00] VITALS: BP 96/62
[2023-03-06] MEDS: DEXTROSE 5 %-0.45 % NACL 1,000 ML IV SCH ×2 (04:15→23:52)
[2023-03-06] MEDS: INSULIN HUMULIN R 100 UNIT/ML 3ML SQ SCH ×4 (06:06→20:19)
[2023-03-06 06:39] LABS: HEMATOCRIT 29.3 % (36-48); MEAN CORPUSCULAR HEMOGLOBIN 30.2 pg (27.0-33.0); MEAN CORPUSCULAR HGB CONC 32.1 g/dL (32.0-36.0); MEAN CORPUSCULAR VOLUME 94.2 fL (79-99); RED BLOOD CELL COUNT(AUTO) 3.11 MIL/uL (4.00-5.50); RED CELL DISTRIBUTION WIDTH 15.4 % (11.0-15.5); WHITE BLOOD COUNT (AUTO) 9.5 K/uL (4.8-10.8)
[2023-03-06] MEDS: IPRATROPIUM/ALBUTEROL SULFATE 3 ML SOLUTION IH SCH ×4 (06:48→23:14)
[2023-03-06 07:13] LABS: ALBUMIN 2.1 g/dL (3.5-5.0); CREATININE 0.4 mg/dL (0.5-1.5); MAGNESIUM 1.5 mg/dL (1.80-2.40); POTASSIUM 3.8 mmol/L (3.5-5.1); TOTAL PROTEIN, SERUM 7.1 g/dL (6.0-8.3)
[2023-03-06 08:00] VITALS: BP 96/56
[2023-03-06] MEDS: DULOXETINE HCL 30 MG CAP PO SCH (09:50)
[2023-03-06] MEDS: GABAPENTIN 300 MG CAPSULE PO SCH ×3 (09:50→20:09)
[2023-03-06] MEDS: ENOXAPARIN SODIUM 40 MG/0.4 ML SYRINGE SQ SCH (09:50)
[2023-03-06] MEDS: FAMOTIDINE 20MG TAB PO SCH ×2 (09:50→20:09)
[2023-03-06 12:00] VITALS: BP 98/63
[2023-03-06] MEDS: FLUCONAZOLE 100 MG TAB PO SCH (14:08)
[2023-03-06 16:00] VITALS: BP 121/73
[2023-03-06 20:00] VITALS: BP 146/84
[2023-03-06] MEDS: ATORVASTATIN 40 MG TABLET PO SCH (20:09)
[2023-03-07] VITALS: BP 138/76
[2023-03-07] MEDS: MORPHINE 2 MG SYG IV PRN ×3 (00:10→21:45)
[2023-03-07] MEDS: MAGNESIUM 2GM PREMIX 50ML 50 ML IV PRN (03:58)
[2023-03-07 04:00] VITALS: BP 98/65
[2023-03-07] MEDS: INSULIN HUMULIN R 100 UNIT/ML 3ML SQ SCH ×4 (05:55→21:44)
[2023-03-07 06:00] LABS: ALBUMIN 2.2 g/dL (3.5-5.0); CREATININE 0.4 mg/dL (0.5-1.5); MAGNESIUM 1.2 mg/dL (1.80-2.40); POTASSIUM 3.9 mmol/L (3.5-5.1); TOTAL PROTEIN, SERUM 7.4 g/dL (6.0-8.3)
[2023-03-07] MEDS: IPRATROPIUM/ALBUTEROL SULFATE 3 ML SOLUTION IH SCH ×4 (06:21→23:34)
[2023-03-07 08:00] VITALS: BP 97/60
[2023-03-07] MEDS: ZOSYN 3.375GM+NS 50ML 50 ML IVPB SCH ×3 (08:30→23:46)
[2023-03-07] MEDS: DULOXETINE HCL 30 MG CAP PO SCH (08:31)
[2023-03-07] MEDS: GABAPENTIN 300 MG CAPSULE PO SCH ×3 (08:31→19:45)
[2023-03-07] MEDS: ENOXAPARIN SODIUM 40 MG/0.4 ML SYRINGE SQ SCH (08:31)
[2023-03-07] MEDS: FAMOTIDINE 20MG TAB PO SCH ×2 (08:31→19:44)
[2023-03-07] MEDS: GUAIFENESIN-DM 200/20 MG 10 ML PO PRN (09:41)
[2023-03-07 11:36] VITALS: BP 99/65
[2023-03-07] MEDS: FLUCONAZOLE 100 MG TAB PO SCH (12:34)
[2023-03-07] MEDS: ACETAMINOPHEN 325 MG TAB PO PRN ×2 (12:43→19:44)
[2023-03-07 16:00] VITALS: BP 162/78
[2023-03-07] MEDS: DEXTROSE 5 %-0.45 % NACL 1,000 ML IV SCH (17:21)
[2023-03-07] MEDS: ATORVASTATIN 40 MG TABLET PO SCH (19:44)
[2023-03-07 20:00] VITALS: BP 138/76
[2023-03-08] VITALS: BP 104/66
[2023-03-08 04:00] VITALS: BP 124/82
[2023-03-08] MEDS: MORPHINE 2 MG SYG IV PRN ×2 (04:11→08:45)
[2023-03-08 05:13] LABS: ALBUMIN 2.2 g/dL (3.5-5.0); CREATININE 0.6 mg/dL (0.5-1.5); POTASSIUM 4.2 mmol/L (3.5-5.1); TOTAL PROTEIN, SERUM 7.6 g/dL (6.0-8.3)
[2023-03-08] MEDS: INSULIN HUMULIN R 100 UNIT/ML 3ML SQ SCH ×5 (05:58→12:03)
[2023-03-08] MEDS: IPRATROPIUM/ALBUTEROL SULFATE 3 ML SOLUTION IH SCH ×2 (07:28→11:32)
[2023-03-08 08:13] VITALS: BP 112/72
[2023-03-08] MEDS: ZOSYN 3.375GM+NS 50ML 50 ML IVPB SCH (08:41)
[2023-03-08] MEDS: FAMOTIDINE 20MG TAB PO SCH (08:41)
[2023-03-08] MEDS: GABAPENTIN 300 MG CAPSULE PO SCH (08:42)
[2023-03-08] MEDS: DULOXETINE HCL 30 MG CAP PO SCH (08:42)
[2023-03-08] MEDS: ENOXAPARIN SODIUM 40 MG/0.4 ML SYRINGE SQ SCH (08:44)
[2023-03-08] MEDS: DEXTROSE 5 %-0.45 % NACL 1,000 ML IV SCH (08:46)
[2023-03-08] MEDS: GUAIFENESIN-DM 200/20 MG 10 ML PO PRN (09:33)
[2023-03-08 12:00] VITALS: BP 108/71
[2023-03-08] MEDS: FLUCONAZOLE 100 MG TAB PO SCH (12:46)
[2023-03-08] MEDS ORDERED: CEFUROXIME AXETIL 250 MG TABLET PO SCH (14:00)
== END 2023-03-08 14:50 | disposition home or self-care (01) | DRG 871 ==
LOC: EDH 12:52 → EDHIP 12:53 → 3BH 21:48
PROVIDERS: ADMIT Hospitalist; ATTEND Hospitalist
DX: A41.9 Sepsis, unspecified organism (principal); J18.9 Pneumonia, unspecified organism; N39.0 Urinary tract infection, site not specified; E87.1 Hypo-osmolality and hyponatremia; Z20.822 Contact with and (suspected) exposure to COVID-19; D64.9 Anemia, unspecified; E11.9 Type 2 diabetes mellitus without complications; E78.00 Pure hypercholesterolemia, unspecified; E78.1 Pure hyperglyceridemia; E86.0 Dehydration; G89.29 Other chronic pain; I10 Essential (primary) hypertension; Z56.0 Unemployment, unspecified; Z79.4 Long term (current) use of insulin; Z91.199 Patient's noncompliance with other medical treatment and regimen due to unspecified reason; Z79.82 Long term (current) use of aspirin; Z90.81 Acquired absence of spleen
CPT/HCPCS: 36415; 74178; 80048; 80053; 81001; 81025; 82947; 82948; 83036; 83605; 83690; 83735; 84100; 84145; 85025; 85027; 87040; 87071; 87077; 87088; 87186; 87205; 87635; 93005; 94640; 94664; G0378; J1650; J1815; J1885; J2270; J2405; J2543; J2765; J3475; J3480; J7120; Q9967

== ENCOUNTER 2023-03-15 15:17 | Emergency (ER) | payer OTHER ==
[~2023-03-15] VITALS: Ht 154.9 cm; Wt 51.7 kg
[2023-03-15 16:33] LABS: APPEARANCE,URINE CLEAR (CLEAR); BILIRUBIN,URINE NEGATIVE (NEGATIVE); COLOR,URINE YELLOW (YELLOW); GLUCOSE, URINE (UA) 50 mg/dL (NEGATIVE); KETONES,URINE 5 mg/dL (NEGATIVE); LEUKOCYTE ESTERASE ,URINE 250 Leu/uL (NEGATIVE); NITRATE,URINE NEGATIVE (NEGATIVE); OCCULT BLOOD,URINE NEGATIVE (NEGATIVE); PROTEIN,URINE 70 mg/dL (NEGATIVE); UROBILINOGEN,URINE >=8.0 mg/dL (0.2-1.0)
[2023-03-15] MEDS ORDERED: CEFTRIAXONE 1G VIAL IM ONE (17:00)
[2023-03-15 17:13] LABS: BACTERIA,URINE RARE /HPF (None Seen); MUCUS,URINE RARE LPF (None Seen); SQUAMOUS EPITHELIAL CELL,UR MOD /HPF (0-2)
[2023-03-15 17:48] LABS: BASOPHILS % (AUTO) 0.2 % (0.0-5.0); EOSINOPHILS % (AUTO) 0.7 % (0.0-8.0); HEMATOCRIT 30.2 % (36-48); LYMPHOCYTES % (AUTO) 21.4 % (21.0-51.0); MEAN CORPUSCULAR HEMOGLOBIN 30.3 pg (27.0-33.0); MEAN CORPUSCULAR HGB CONC 33.1 g/dL (32.0-36.0); MEAN CORPUSCULAR VOLUME 91.5 fL (79-99); MONOCYTES % (AUTO) 5.9 % (3.0-13.0); NEUTROPHILS % (AUTO) 71.5 % (40.0-77.0); RED CELL DISTRIBUTION WIDTH 15.2 % (11.0-15.5); WHITE BLOOD COUNT (AUTO) 10.4 K/uL (4.8-10.8)
[2023-03-15 17:52] LABS: PLATELET COUNT (AUTO) 752 K/uL (130-400)
[2023-03-15 18:30] LABS: CREATININE 0.4 mg/dL (0.5-1.5); POTASSIUM 3.9 mmol/L (3.5-5.1)
[2023-03-15 18:35] LABS: TOTAL PROTEIN, SERUM 8.8 g/dL (6.0-8.3)
[2023-03-15 18:45] VITALS: BP 88/61; PULSE 74; RESP 20; O2SAT 100
[2023-03-15] MEDS ORDERED: FAMOTIDINE 20MG VIAL IV ONE (21:00)
[2023-03-15] MEDS ORDERED: AZIT250T9 PO (22:16)
== END 2023-03-15 22:53 | disposition home or self-care (01) ==
LOC: EDH 15:17
DX: J18.9 Pneumonia, unspecified organism (principal); G89.29 Other chronic pain; R10.9 Unspecified abdominal pain; I10 Essential (primary) hypertension; E11.9 Type 2 diabetes mellitus without complications; E78.00 Pure hypercholesterolemia, unspecified; K43.9 Ventral hernia without obstruction or gangrene; Z79.82 Long term (current) use of aspirin; Z79.899 Other long term (current) drug therapy; Z90.49 Acquired absence of other specified parts of digestive tract; Z88.1 Allergy status to other antibiotic agents; Z98.890 Other specified postprocedural states
CPT/HCPCS: 99285; 74176; 96374; 84484; 80053; 83690; 85025; 87088; 82948; 82010; 81001; 36415; 93005; 96372; J3490; J0696

== ENCOUNTER 2023-03-19 17:41 | Inpatient (IN) | payer OTHER ==
[~2023-03-19] VITALS: Ht 154.9 cm; Wt 53.6 kg
[~2023-03-19 17:41] MED LIST changes: +AZIT250T9 PO
[2023-03-19] MEDS ORDERED: AZITHROMYCIN 250 MG TABLET PO ONE ×2 (19:00→23:37)
[2023-03-19] MEDS ORDERED: IPRATROPIUM/ALBUTEROL SULFATE 3 ML SOLUTION IH ONE (19:00)
[2023-03-19] MEDS ORDERED: CEFTRIAXONE 1G VIAL IM ONE (19:00)
[2023-03-19 19:54] LABS: BASOPHILS % (AUTO) 0.5 % (0.0-5.0); EOSINOPHILS % (AUTO) 1.1 % (0.0-8.0); HEMATOCRIT 32.8 % (36-48); LYMPHOCYTES % (AUTO) 11.4 % (21.0-51.0); MEAN CORPUSCULAR HEMOGLOBIN 30.7 pg (27.0-33.0); MEAN CORPUSCULAR HGB CONC 32.9 g/dL (32.0-36.0); MEAN CORPUSCULAR VOLUME 93.2 fL (79-99); MONOCYTES % (AUTO) 6.2 % (3.0-13.0); NEUTROPHILS % (AUTO) 80.4 % (40.0-77.0); PLATELET COUNT (AUTO) 478 K/uL (130-400); RED BLOOD CELL COUNT(AUTO) 3.52 MIL/uL (4.00-5.50); RED CELL DISTRIBUTION WIDTH 15.2 % (11.0-15.5); WHITE BLOOD COUNT (AUTO) 8.3 K/uL (4.8-10.8)
[2023-03-19 20:06] LABS: CARBON DIOXIDE 26 mmol/L (21-32); CHLORIDE 98 mmol/L (101-111); CREATININE 0.5 mg/dL (0.5-1.5); GLOMERULAR FILTR. RATE CALC 119 mL/min (>90); GLUCOSE,RANDOM 140 mg/dL (70-105); POTASSIUM 4.2 mmol/L (3.5-5.1); SODIUM SERUM 135 mmol/L (136-145); UREA NITROGEN, BLOOD 11 mg/dL (7-18)
[2023-03-19 20:15] LABS: ALANINE AMINOTRANSFERASE 16 U/L (12-78); ALBUMIN 3.3 g/dL (3.5-5.0); ASPARTATE AMINOTRANSFERASE 26 U/L (10-37); TOTAL PROTEIN, SERUM 9.7 g/dL (6.0-8.3)
[2023-03-19 20:32] LABS: LIPASE < 50 U/L (114-286)
[2023-03-19 20:45] VITALS: PULSE 80; RESP 16
[2023-03-19] MEDS ORDERED: MORPHINE 4 MG SYG IV PRN (23:00)
[2023-03-19] MEDS ORDERED: MAGNESIUM 2GM PREMIX 50ML 50 ML IV PRN (23:00)
[2023-03-19] MEDS ORDERED: POTASSIUM CHLORIDE 20MEQ/100ML 100 ML IV PRN ×2 (23:00)
[2023-03-19] MEDS ORDERED: POTASSIUM CHLORIDE 10% ELIXIR 20 MEQ/15 ML UDCUP PO PRN (23:00)
[2023-03-19] MEDS ORDERED: KCL 20 MEQ ERTAB PO PRN (23:00)
[2023-03-19] MEDS ORDERED: ONDANSETRON 4MG INJ IV PRN (23:00)
[2023-03-19] MEDS ORDERED: GUAIFENESIN-DM 200/20 MG 10 ML PO PRN (23:00)
[2023-03-19] MEDS ORDERED: PHARMACY COMMUNICATION MISC SCH (23:30)
[2023-03-19] MEDS ORDERED: CEFTRIAXONE 1G VIAL ONE (23:36)
[2023-03-19] MEDS: LACTATED RINGERS 1000ML 1,000 ML IV SCH (23:40)
[2023-03-20] VITALS (13 sets, daily range): BP systolic 110–126; BP diastolic 69–76; PULSE 63–90; RESP 16–18; O2SAT 98
[2023-03-20] MEDS: ALBUTEROL 0.083% 2.5 MG/3 ML INH IH SCH ×4 (00:04→23:24)
[2023-03-20] MEDS: ACETAMINOPHEN 325 MG TAB PO PRN (01:14)
[2023-03-20] MEDS ORDERED: ZOSYN 3.375GM+NS 50ML 50 ML IVPB SCH (05:00)
[2023-03-20] MEDS: INSULIN HUMULIN R 100 UNIT/ML 3ML SQ SCH ×4 (05:42→20:38)
[2023-03-20 06:03] LABS: BASOPHILS % (AUTO) 0.4 % (0.0-5.0); HEMATOCRIT 27.4 % (36-48); LYMPHOCYTES % (AUTO) 30.8 % (21.0-51.0); MEAN CORPUSCULAR HEMOGLOBIN 30.1 pg (27.0-33.0); MEAN CORPUSCULAR HGB CONC 32.8 g/dL (32.0-36.0); MEAN CORPUSCULAR VOLUME 91.6 fL (79-99); MONOCYTES % (AUTO) 8.8 % (3.0-13.0); NEUTROPHILS % (AUTO) 57.7 % (40.0-77.0); PLATELET COUNT (AUTO) 461 K/uL (130-400); RED BLOOD CELL COUNT(AUTO) 2.99 MIL/uL (4.00-5.50); RED CELL DISTRIBUTION WIDTH 15.3 % (11.0-15.5); WHITE BLOOD COUNT (AUTO) 7.1 K/uL (4.8-10.8)
[2023-03-20 06:20] LABS: HEMOGLOBIN A1C 10.3 % (4.0-6.0); PROTHROMBIN TIME 11.6 SEC (9.6-11.6)
[2023-03-20 06:21] LABS: PARTIAL THROMBOPLASTIN TIME 26.8 SEC (26.3-35.5)
[2023-03-20 06:26] LABS: CREATININE 0.5 mg/dL (0.5-1.5); MAGNESIUM 1.5 mg/dL (1.80-2.40); PHOSPHORUS 4.1 mg/dL (2.5-4.9); POTASSIUM 3.7 mmol/L (3.5-5.1)
[2023-03-20] MEDS: BUDESONIDE 0.5 MG/2 ML INH IH SCH ×2 (07:24→22:24)
[2023-03-20] MEDS: FAMOTIDINE 20MG VIAL IV SCH ×2 (10:20→21:00)
[2023-03-20] MEDS: ENOXAPARIN SODIUM 40 MG/0.4 ML SYRINGE SQ SCH (10:21)
[2023-03-20] MEDS: MORPHINE 2 MG SYG IV PRN ×3 (10:25→21:00)
[2023-03-20] MEDS: LACTATED RINGERS 1000ML 1,000 ML IV SCH (12:20)
[2023-03-20] MEDS ORDERED: PHARMACY COMMUNICATION MISC SCH (13:00)
[2023-03-20] MEDS: ZOSYN 3.375GM+NS 50ML 50 ML IVPB SCH (16:10)
[2023-03-21] VITALS (11 sets, daily range): BP systolic 98–155; BP diastolic 60–90; PULSE 63–88; RESP 16–20
[2023-03-21] MEDS: LACTATED RINGERS 1000ML 1,000 ML IV SCH (00:25)
[2023-03-21] MEDS: ZOSYN 3.375GM+NS 50ML 50 ML IVPB SCH ×4 (00:25→22:53)
[2023-03-21] MEDS: MORPHINE 2 MG SYG IV PRN ×2 (01:56→21:57)
[2023-03-21] MEDS: INSULIN HUMULIN R 100 UNIT/ML 3ML SQ SCH ×4 (06:02→20:59)
[2023-03-21] MEDS: ACETAMINOPHEN 325 MG TAB PO PRN ×3 (06:39→14:39)
[2023-03-21] MEDS: BUDESONIDE 0.5 MG/2 ML INH IH SCH ×2 (06:44→18:37)
[2023-03-21] MEDS: ALBUTEROL 0.083% 2.5 MG/3 ML INH IH SCH ×3 (06:44→23:25)
[2023-03-21 08:25] LABS: ALBUMIN 2.6 g/dL (3.5-5.0); CREATININE 0.6 mg/dL (0.5-1.5); MAGNESIUM 1.4 mg/dL (1.80-2.40); POTASSIUM 4.1 mmol/L (3.5-5.1); TOTAL PROTEIN, SERUM 7.7 g/dL (6.0-8.3)
[2023-03-21 08:39] LABS: BASOPHILS % (AUTO) 0.5 % (0.0-5.0); LYMPHOCYTES % (AUTO) 26.7 % (21.0-51.0); MEAN CORPUSCULAR HEMOGLOBIN 30.6 pg (27.0-33.0); MEAN CORPUSCULAR VOLUME 92.8 fL (79-99); MONOCYTES % (AUTO) 14.6 % (3.0-13.0); PLATELET COUNT (AUTO) 535 K/uL (130-400); RED BLOOD CELL COUNT(AUTO) 2.91 MIL/uL (4.00-5.50); RED CELL DISTRIBUTION WIDTH 15.2 % (11.0-15.5); WHITE BLOOD COUNT (AUTO) 6.6 K/uL (4.8-10.8)
[2023-03-21] MEDS: ENOXAPARIN SODIUM 40 MG/0.4 ML SYRINGE SQ SCH (08:49)
[2023-03-21] MEDS: FAMOTIDINE 20MG VIAL IV SCH ×2 (08:49→21:57)
[2023-03-21 15:26] LABS: INR 0.96 (0.85-1.15); PROTHROMBIN TIME 11.2 SEC (9.6-11.6)
[2023-03-21 15:28] LABS: PARTIAL THROMBOPLASTIN TIME 27.1 SEC (26.3-35.5)
[2023-03-22] VITALS: BP 111/73; PULSE 76; RESP 18
[2023-03-22] MEDS: MORPHINE 2 MG SYG IV PRN ×3 (01:45→10:45)
[2023-03-22 04:00] VITALS: BP 109/71; PULSE 68; RESP 18
[2023-03-22 05:13] LABS: BASOPHILS % (AUTO) 0.4 % (0.0-5.0); EOSINOPHILS % (AUTO) 2.3 % (0.0-8.0); HEMATOCRIT 26.3 % (36-48); LYMPHOCYTES % (AUTO) 25.8 % (21.0-51.0); MEAN CORPUSCULAR HEMOGLOBIN 29.7 pg (27.0-33.0); MEAN CORPUSCULAR HGB CONC 31.9 g/dL (32.0-36.0); MEAN CORPUSCULAR VOLUME 92.9 fL (79-99); MONOCYTES % (AUTO) 12.4 % (3.0-13.0); NEUTROPHILS % (AUTO) 58.7 % (40.0-77.0); PLATELET COUNT (AUTO) 582 K/uL (130-400); RED BLOOD CELL COUNT(AUTO) 2.83 MIL/uL (4.00-5.50); RED CELL DISTRIBUTION WIDTH 15.1 % (11.0-15.5)
[2023-03-22 05:49] LABS: ALBUMIN 2.6 g/dL (3.5-5.0); CREATININE 0.6 mg/dL (0.5-1.5); MAGNESIUM 1.3 mg/dL (1.80-2.40); POTASSIUM 4.1 mmol/L (3.5-5.1); TOTAL PROTEIN, SERUM 7.9 g/dL (6.0-8.3)
[2023-03-22] MEDS: INSULIN HUMULIN R 100 UNIT/ML 3ML SQ SCH ×3 (06:01→11:52)
[2023-03-22] MEDS: ALBUTEROL 0.083% 2.5 MG/3 ML INH IH SCH ×2 (06:48→11:22)
[2023-03-22] MEDS: BUDESONIDE 0.5 MG/2 ML INH IH SCH (06:52)
[2023-03-22 06:53] VITALS: PULSE 74; RESP 18
[2023-03-22 08:00] VITALS: BP 107/70; PULSE 69; RESP 16
[2023-03-22] MEDS: ZOSYN 3.375GM+NS 50ML 50 ML IVPB SCH (08:22)
[2023-03-22] MEDS: FAMOTIDINE 20MG VIAL IV SCH (08:22)
[2023-03-22] MEDS: ENOXAPARIN SODIUM 40 MG/0.4 ML SYRINGE SQ SCH (08:23)
[2023-03-22] MEDS ORDERED: 0.9%NACL 10ML VIAL IV SCH (09:00)
[2023-03-22] MEDS ORDERED: CLIN-141 PO (11:01)
[2023-03-22 11:51] VITALS: BP 115/68; PULSE 68; RESP 16
== END 2023-03-22 13:35 | disposition home or self-care (01) | DRG 179 ==
LOC: EDH 17:41 → EDHIP 17:42 → 3AH 23:10
PROVIDERS: ADMIT Internal Medicine; ATTEND Internal Medicine
DX: J15.6 Pneumonia due to other Gram-negative bacteria (principal); D64.9 Anemia, unspecified; K43.9 Ventral hernia without obstruction or gangrene; Z20.822 Contact with and (suspected) exposure to COVID-19; E11.65 Type 2 diabetes mellitus with hyperglycemia; E78.1 Pure hyperglyceridemia; E86.0 Dehydration; G89.29 Other chronic pain; Z56.0 Unemployment, unspecified; Z79.4 Long term (current) use of insulin; Z79.82 Long term (current) use of aspirin; Z90.81 Acquired absence of spleen; Z91.199 Patient's noncompliance with other medical treatment and regimen due to unspecified reason
CPT/HCPCS: 36415; 71045; 74176; 80048; 80053; 82948; 83036; 83605; 83690; 83735; 84100; 84145; 84484; 85025; 85610; 85730; 87040; 87635; 87804; 87880; 93005; 94640; 94664; G0378; J0696; J1650; J1815; J2270; J2405; J2543; J3475; J3490; J7120

== ENCOUNTER 2023-03-26 20:53 | Emergency (ER) | payer OTHER ==
[~2023-03-26] VITALS: Ht 154.9 cm; Wt 53.1 kg
[~2023-03-26 20:53] MED LIST changes: -AZIT250T9 PO; +CLIN-141 PO
[2023-03-26 22:00] LABS: BASOPHILS # (AUTO) 0.02 K/uL (0.00-0.20); BASOPHILS % (AUTO) 0.2 % (0.0-5.0); EOSINOPHILS # (AUTO) 0.16 K/uL (0.00-0.70); EOSINOPHILS % (AUTO) 1.8 % (0.0-8.0); HEMATOCRIT 30.1 % (36-48); IMMATURE GRANULOCYTE ABSOLUTE 0.03 K/uL (0-1); LYMPHOCYTES # (AUTO) 1.7 K/uL (1.0-4.8); LYMPHOCYTES % (AUTO) 18.6 % (21.0-51.0); MEAN CORPUSCULAR HEMOGLOBIN 30.7 pg (27.0-33.0); MEAN CORPUSCULAR HGB CONC 33.9 g/dL (32.0-36.0); MEAN CORPUSCULAR VOLUME 90.7 fL (79-99); MONOCYTES # (AUTO) 0.8 K/uL (0.1-1.0); MONOCYTES % (AUTO) 8.2 % (3.0-13.0); NEUTROPHILS # (AUTO) 6.5 K/uL (1.8-7.7); NEUTROPHILS % (AUTO) 70.9 % (40.0-77.0); PLATELET COUNT (AUTO) 610 K/uL (130-400); RED BLOOD CELL COUNT(AUTO) 3.32 MIL/uL (4.00-5.50); RED CELL DISTRIBUTION WIDTH 15.4 % (11.0-15.5); WHITE BLOOD COUNT (AUTO) 9.1 K/uL (4.8-10.8)
[2023-03-26 22:10] LABS: CREATININE 0.5 mg/dL (0.5-1.5); POTASSIUM 3.8 mmol/L (3.5-5.1)
[2023-03-26 22:15] LABS: BILIRUBIN,TOTAL 0.2 mg/dL (0.2-1.0); TOTAL PROTEIN, SERUM 8.6 g/dL (6.0-8.3)
[2023-03-26] MEDS ORDERED: METOCLOPRAMIDE 10 MG/2 ML VIAL IM ONE (22:30)
[2023-03-26] MEDS ORDERED: KETOROLAC 30MG VIAL (30MG/ML) IM ONE (22:30)
[2023-03-26] MEDS ORDERED: DiphenhydrAMINE HCL 50 MG/ML VIAL IM ONE (22:30)
[2023-03-26 23:02] LABS: APPEARANCE,URINE CLEAR (CLEAR); BILIRUBIN,URINE NEGATIVE (NEGATIVE); COLOR,URINE YELLOW (YELLOW); GLUCOSE, URINE (UA) NEGATIVE (NEGATIVE); KETONES,URINE NEGATIVE (NEGATIVE); LEUKOCYTE ESTERASE ,URINE 25 Leu/uL (NEGATIVE); NITRATE,URINE NEGATIVE (NEGATIVE); OCCULT BLOOD,URINE NEGATIVE (NEGATIVE); PH,URINE 6.5 (5.0-8.0); PROTEIN,URINE 30 mg/dL (NEGATIVE); UROBILINOGEN,URINE 0.2 mg/dL (0.2-1.0)
[2023-03-26 23:03] LABS: ADD UA MICROSCOPIC YES
[2023-03-26 23:08] LABS: BACTERIA,URINE RARE /HPF (None Seen); MUCUS,URINE RARE LPF (None Seen); SQUAMOUS EPITHELIAL CELL,UR RARE /HPF (0-2)
[2023-03-26] MEDS ORDERED: CLOT45CR23 VG (23:52)
[2023-03-27 00:03] VITALS: BP 126/76; PULSE 77; RESP 16; O2SAT 99
== END 2023-03-27 00:10 | disposition home or self-care (01) ==
LOC: EDH 20:53
DX: G89.29 Other chronic pain (principal); R10.9 Unspecified abdominal pain; K43.9 Ventral hernia without obstruction or gangrene; E11.9 Type 2 diabetes mellitus without complications; E78.00 Pure hypercholesterolemia, unspecified; Z90.49 Acquired absence of other specified parts of digestive tract; Z98.890 Other specified postprocedural states; Z79.82 Long term (current) use of aspirin; Z79.899 Other long term (current) drug therapy
CPT/HCPCS: 99284; 80053; 83690; 85025; 81001; 36415; 96372 ×3; J1200; J1885; J2765

== ENCOUNTER 2023-04-22 10:46 | Emergency (ER) | payer OTHER ==
[~2023-04-22] VITALS: Ht 152.4 cm; Wt 54.4 kg
[~2023-04-22 10:46] MED LIST changes: +CLOT45CR23 VG
[2023-04-22] MEDS ORDERED: 0.9%NACL 1000ML 1,000 ML IV ONE (11:30)
[2023-04-22] MEDS ORDERED: ONDANSETRON 4MG INJ IVP ONE (11:30)
[2023-04-22 12:29] LABS: SARS-CoV-2, RNA, NAAT NEGATIVE SARS CoV-2 (NEGATIVE)
[2023-04-22 12:30] LABS: HEMATOCRIT 36.5 % (36-48); MEAN CORPUSCULAR HGB CONC 33.2 g/dL (32.0-36.0); MEAN CORPUSCULAR VOLUME 90.3 fL (79-99); PLATELET COUNT (AUTO) 502 K/uL (130-400); RED BLOOD CELL COUNT(AUTO) 4.04 MIL/uL (4.00-5.50); RED CELL DISTRIBUTION WIDTH 14.6 % (11.0-15.5); WHITE BLOOD COUNT (AUTO) 6.2 K/uL (4.8-10.8)
[2023-04-22 12:30] LABS: APPEARANCE,URINE CLEAR (CLEAR); BILIRUBIN,URINE NEGATIVE (NEGATIVE); COLOR,URINE YELLOW (YELLOW); GLUCOSE, URINE (UA) TRACE mg/dL (NEGATIVE); KETONES,URINE NEGATIVE (NEGATIVE); LEUKOCYTE ESTERASE ,URINE NEGATIVE Leu/uL (NEGATIVE); NITRATE,URINE NEGATIVE (NEGATIVE); OCCULT BLOOD,URINE NEGATIVE (NEGATIVE); PROTEIN,URINE 70 mg/dL (NEGATIVE); UROBILINOGEN,URINE 0.2 mg/dL (0.2-1.0)
[2023-04-22 12:33] LABS: INFLUENZA TYPE A Negative For Type A (NEGATIVE); INFLUENZA TYPE B Negative For Type B (NEGATIVE)
[2023-04-22 12:42] LABS: ADD UA MICROSCOPIC YES
[2023-04-22 12:45] LABS: BASOPHILS % (AUTO) 0.3 % (0.0-5.0); EOSINOPHILS % (AUTO) 0.7 % (0.0-8.0); IMMATURE GRANULOCYTE ABSOLUTE 0.04 K/uL (0-1); LYMPHOCYTES % (AUTO) 21.4 % (21.0-51.0); MONOCYTES % (AUTO) 8.5 % (3.0-13.0); NEUTROPHILS # (AUTO) 4.2 K/uL (1.8-7.7); NEUTROPHILS % (AUTO) 68.4 % (40.0-77.0)
[2023-04-22 12:46] LABS: ALBUMIN 3.3 g/dL (3.5-5.0); BASOPHILS # (AUTO) 0.02 K/uL (0.00-0.20); BILIRUBIN,TOTAL 0.4 mg/dL (0.2-1.0); CREATININE 0.4 mg/dL (0.5-1.5); EOSINOPHILS # (AUTO) 0.04 K/uL (0.00-0.70); LYMPHOCYTES # (AUTO) 1.3 K/uL (1.0-4.8); MONOCYTES # (AUTO) 0.5 K/uL (0.1-1.0); POTASSIUM 4.1 mmol/L (3.5-5.1)
[2023-04-22 12:57] LABS: HCG,QUALITATIVE URINE NEGATIVE (NEGATIVE)
[2023-04-22 12:59] LABS: MUCUS,URINE RARE LPF (None Seen); SQUAMOUS EPITHELIAL CELL,UR RARE /HPF (0-2)
[2023-04-22] MEDS ORDERED: FAMOTIDINE 20MG VIAL IV ONE (13:30)
[2023-04-22 16:05] VITALS: BP 124/73; PULSE 73; RESP 18; O2SAT 98
== END 2023-04-22 16:05 | disposition home or self-care (01) ==
LOC: EDH 10:46
DX: K43.9 Ventral hernia without obstruction or gangrene (principal); G89.29 Other chronic pain; R10.9 Unspecified abdominal pain; E11.9 Type 2 diabetes mellitus without complications; E78.00 Pure hypercholesterolemia, unspecified; Z20.822 Contact with and (suspected) exposure to COVID-19; Z79.82 Long term (current) use of aspirin; Z79.899 Other long term (current) drug therapy; Z87.440 Personal history of urinary (tract) infections; Z88.1 Allergy status to other antibiotic agents
CPT/HCPCS: 99285; 74176; 96374; 87635; 96361; 96375; 84484; 80053; 83690; 85025; 87804 ×2; 81001; 81025; 36415; C9803; J3490; J7030; J2405

== ENCOUNTER 2023-04-25 16:19 | Emergency (ER) | payer OTHER ==
[~2023-04-25] VITALS: Ht 147.3 cm; Wt 54.6 kg
[2023-04-25 16:21] VITALS: BP 141/79; PULSE 71; RESP 20
[2023-04-25 17:58] LABS: APPEARANCE,URINE CLEAR (CLEAR); BILIRUBIN,URINE NEGATIVE (NEGATIVE); COLOR,URINE LIGHT-YELLOW (YELLOW); GLUCOSE, URINE (UA) >=1000 mg/dL (NEGATIVE); KETONES,URINE NEGATIVE (NEGATIVE); LEUKOCYTE ESTERASE ,URINE NEGATIVE Leu/uL (NEGATIVE); NITRATE,URINE NEGATIVE (NEGATIVE); OCCULT BLOOD,URINE NEGATIVE (NEGATIVE); PROTEIN,URINE 50 mg/dL (NEGATIVE); UROBILINOGEN,URINE 0.2 mg/dL (0.2-1.0)
[2023-04-25 17:59] LABS: ADD UA MICROSCOPIC YES
[2023-04-25 18:01] LABS: BACTERIA,URINE FEW /HPF (None Seen); RBC,URINE 0-1 /HPF (0-1); SQUAMOUS EPITHELIAL CELL,UR RARE /HPF (0-2); WBC,URINE 0-1 /HPF (0-1)
[2023-04-25 18:48] LABS: BASOPHILS # (AUTO) 0.03 K/uL (0.00-0.20); BASOPHILS % (AUTO) 0.3 % (0.0-5.0); EOSINOPHILS # (AUTO) 0.03 K/uL (0.00-0.70); EOSINOPHILS % (AUTO) 0.3 % (0.0-8.0); HEMATOCRIT 38.3 % (36-48); IMMATURE GRANULOCYTE ABSOLUTE 0.02 K/uL (0-1); LYMPHOCYTES # (AUTO) 1.8 K/uL (1.0-4.8); MEAN CORPUSCULAR HEMOGLOBIN 30.3 pg (27.0-33.0); MEAN CORPUSCULAR HGB CONC 32.6 g/dL (32.0-36.0); MONOCYTES # (AUTO) 0.4 K/uL (0.1-1.0); MONOCYTES % (AUTO) 4.4 % (3.0-13.0); NEUTROPHILS # (AUTO) 6.4 K/uL (1.8-7.7); NEUTROPHILS % (AUTO) 73.8 % (40.0-77.0); PLATELET COUNT (AUTO) 319 K/uL (130-400); RED BLOOD CELL COUNT(AUTO) 4.12 MIL/uL (4.00-5.50); RED CELL DISTRIBUTION WIDTH 14.5 % (11.0-15.5); WHITE BLOOD COUNT (AUTO) 8.7 K/uL (4.8-10.8)
[2023-04-25 19:21] LABS: CREATININE 0.4 mg/dL (0.5-1.5); POTASSIUM 4.2 mmol/L (3.5-5.1)
[2023-04-25 19:26] LABS: ALBUMIN 3.6 g/dL (3.5-5.0); BILIRUBIN,TOTAL 0.2 mg/dL (0.2-1.0); TOTAL PROTEIN, SERUM 9.6 g/dL (6.0-8.3)
[2023-04-25] MEDS ORDERED: KETOROLAC 15MG/ML VIAL (15MG/ML) IV ONE (20:00)
[2023-04-25] MEDS ORDERED: 0.9%NACL 1000ML 1,000 ML IV ONE (20:00)
== END 2023-04-25 21:24 | disposition home or self-care (01) ==
LOC: EDH 16:19
DX: K43.9 Ventral hernia without obstruction or gangrene (principal); R10.84 Generalized abdominal pain; E87.1 Hypo-osmolality and hyponatremia; E87.8 Other disorders of electrolyte and fluid balance, not elsewhere classified; E11.65 Type 2 diabetes mellitus with hyperglycemia; E78.00 Pure hypercholesterolemia, unspecified; N39.0 Urinary tract infection, site not specified; Z79.84 Long term (current) use of oral hypoglycemic drugs; Z79.899 Other long term (current) drug therapy; Z98.890 Other specified postprocedural states; Z88.8 Allergy status to other drugs, medicaments and biological substances
CPT/HCPCS: 99284; 96374; 71045; 96361; 84484; 80053; 83690; 85025; 81001; 36415; J7030; J1885

== ENCOUNTER 2023-04-29 23:54 | Emergency (ER) | payer OTHER ==
[~2023-04-29] VITALS: Ht 147.3 cm; Wt 54.4 kg
[2023-04-29 23:55] VITALS: BP 153/96; PULSE 90; RESP 16
== END 2023-04-30 01:51 | disposition left against medical advice (07) ==
LOC: EDH 23:54
DX: R10.9 Unspecified abdominal pain (principal); Z53.21 Procedure and treatment not carried out due to patient leaving prior to being seen by health care provider
CPT/HCPCS: 99281

== ENCOUNTER 2023-04-30 16:54 | Emergency (ER) | payer OTHER ==
[~2023-04-30] VITALS: Ht 154.9 cm; Wt 60.8 kg
[2023-04-30] MEDS ORDERED: MORPHINE 4 MG SYG IVP ONE (19:30)
[2023-04-30] MEDS ORDERED: ONDANSETRON 4MG INJ IVP ONE (19:30)
[2023-04-30] MEDS ORDERED: 0.9%NACL 1000ML 1,000 ML IV ONE (19:30)
[2023-04-30 19:50] LABS: BASOPHILS # (AUTO) 0.02 K/uL (0.00-0.20); BASOPHILS % (AUTO) 0.2 % (0.0-5.0); EOSINOPHILS # (AUTO) 0.05 K/uL (0.00-0.70); EOSINOPHILS % (AUTO) 0.6 % (0.0-8.0); HEMATOCRIT 33.1 % (36-48); IMMATURE GRANULOCYTE ABSOLUTE 0.02 K/uL (0-1); LYMPHOCYTES % (AUTO) 22.8 % (21.0-51.0); MEAN CORPUSCULAR HEMOGLOBIN 29.6 pg (27.0-33.0); MEAN CORPUSCULAR HGB CONC 33.2 g/dL (32.0-36.0); MEAN CORPUSCULAR VOLUME 89.2 fL (79-99); MONOCYTES # (AUTO) 0.5 K/uL (0.1-1.0); MONOCYTES % (AUTO) 5.3 % (3.0-13.0); NEUTROPHILS # (AUTO) 6.1 K/uL (1.8-7.7); NEUTROPHILS % (AUTO) 70.9 % (40.0-77.0); PLATELET COUNT (AUTO) 250 K/uL (130-400); RED BLOOD CELL COUNT(AUTO) 3.71 MIL/uL (4.00-5.50); RED CELL DISTRIBUTION WIDTH 13.7 % (11.0-15.5); WHITE BLOOD COUNT (AUTO) 8.7 K/uL (4.8-10.8)
[2023-04-30 20:00] LABS: CREATININE 0.4 mg/dL (0.5-1.5); POTASSIUM 3.8 mmol/L (3.5-5.1)
[2023-04-30 20:04] LABS: ALBUMIN 3.4 g/dL (3.5-5.0); BILIRUBIN,TOTAL 0.1 mg/dL (0.2-1.0); TOTAL PROTEIN, SERUM 9.1 g/dL (6.0-8.3)
[2023-04-30 21:05] VITALS: BP 110/74; PULSE 74; RESP 16; O2SAT 98
== END 2023-04-30 21:12 | disposition home or self-care (01) ==
LOC: EDH 16:54
DX: K43.9 Ventral hernia without obstruction or gangrene (principal); N39.0 Urinary tract infection, site not specified; E11.9 Type 2 diabetes mellitus without complications; E78.00 Pure hypercholesterolemia, unspecified; Z79.82 Long term (current) use of aspirin; Z79.84 Long term (current) use of oral hypoglycemic drugs; Z79.899 Other long term (current) drug therapy; Z98.890 Other specified postprocedural states; Z88.8 Allergy status to other drugs, medicaments and biological substances
CPT/HCPCS: 99285; 74176; 96374; 96375; 80053; 83690; 85025; 87040 ×2; 83605; 36415; J2405; J2270

== ENCOUNTER 2023-09-30 02:49 | Inpatient (IN) | payer OTHER ==
[~2023-09-30] VITALS: Ht 152.4 cm; Wt 57.3 kg
[2023-09-30 03:55] LABS: HCG,QUALITATIVE URINE NEGATIVE (NEGATIVE)
[2023-09-30 03:58] LABS: APPEARANCE,URINE CLEAR (CLEAR); BILIRUBIN,URINE NEGATIVE (NEGATIVE); COLOR,URINE LIGHT-YELLOW (YELLOW); GLUCOSE, URINE (UA) >=1000 mg/dL (NEGATIVE); KETONES,URINE NEGATIVE (NEGATIVE); LEUKOCYTE ESTERASE ,URINE NEGATIVE Leu/uL (NEGATIVE); NITRATE,URINE NEGATIVE (NEGATIVE); OCCULT BLOOD,URINE NEGATIVE (NEGATIVE); PROTEIN,URINE NEGATIVE (NEGATIVE); UROBILINOGEN,URINE 0.2 mg/dL (0.2-1.0)
[2023-09-30 04:01] LABS: ADD UA MICROSCOPIC YES
[2023-09-30 04:02] LABS: SQUAMOUS EPITHELIAL CELL,UR MOD /HPF (0-2); WBC,URINE 0-1 /HPF (0-1); YEAST,URINE BUDDING FEW /HPF (None Seen)
[2023-09-30 04:05] LABS: BASOPHILS # (AUTO) 0.02 K/uL (0.00-0.20); BASOPHILS % (AUTO) 0.3 % (0.0-5.0); EOSINOPHILS # (AUTO) 0.12 K/uL (0.00-0.70); EOSINOPHILS % (AUTO) 1.6 % (0.0-8.0); HEMATOCRIT 32.5 % (36-48); IMMATURE GRANULOCYTE ABSOLUTE 0.03 K/uL (0-1); LYMPHOCYTES # (AUTO) 1.4 K/uL (1.0-4.8); LYMPHOCYTES % (AUTO) 19.5 % (21.0-51.0); MEAN CORPUSCULAR HGB CONC 33.5 g/dL (32.0-36.0); MEAN CORPUSCULAR VOLUME 86.4 fL (79-99); MONOCYTES # (AUTO) 0.8 K/uL (0.1-1.0); MONOCYTES % (AUTO) 11.2 % (3.0-13.0); RED BLOOD CELL COUNT(AUTO) 3.76 MIL/uL (4.00-5.50); RED CELL DISTRIBUTION WIDTH 15.7 % (11.0-15.5); WHITE BLOOD COUNT (AUTO) 7.4 K/uL (4.8-10.8)
[2023-09-30 04:07] LABS: CREATININE 0.5 mg/dL (0.5-1.5); POTASSIUM 4.2 mmol/L (3.5-5.1)
[2023-09-30 04:11] LABS: ALBUMIN 2.6 g/dL (3.5-5.0); BILIRUBIN,TOTAL 0.2 mg/dL (0.2-1.0); TOTAL PROTEIN, SERUM 7.9 g/dL (6.0-8.3)
[2023-09-30 04:28] LABS: PLATELET COUNT (AUTO) 444 K/uL (130-400)
[2023-09-30] MEDS: MORPHINE 4 MG SYG IVP ONE (04:46)
[2023-09-30] MEDS: ONDANSETRON 4MG INJ IVP ONE (04:46)
[2023-09-30] MEDS: 0.9%NACL 1000ML 1,000 ML IV ONE (04:46)
[2023-09-30] MEDS ORDERED: IOHEXOL 350 MG/ML 100ML INFUS..BTL IV ONE (06:57)
[2023-09-30] MEDS: MORPHINE 4 MG SYG IM ONE (10:25)
[2023-09-30] MEDS: 0.9%NACL 1000ML 1,000 ML IV SCH (13:00)
[2023-09-30] MEDS: PANTOPRAZOLE 40 MG/VIAL IVP SCH (13:00)
[2023-09-30 14:13] LABS: HEMOGLOBIN A1C 11.9 % (4.0-6.0)
[2023-09-30] MEDS: INSULIN HUMULIN R 100 UNIT/ML 3ML SQ SCH (14:30)
[2023-09-30 15:04] LABS: CHOLESTEROL 217 mg/dL (<200); HDL CHOLESTEROL 40 mg/dL (35-85); LDL DIRECT 121 mg/dL (0-99); TRIGLYCERIDES 451 mg/dL (30-200)
[2023-09-30 15:15] LABS: INR 0.94 (0.85-1.15)
[2023-09-30 15:17] LABS: PARTIAL THROMBOPLASTIN TIME 28.8 SEC (26.3-35.5)
[2023-09-30] MEDS: MORPHINE 2 MG SYG IM SCH (16:30)
[2023-09-30] MEDS: MORPHINE 2 MG SYG IM ONE (16:39)
[2023-09-30] MEDS ORDERED: INSULIN HUMULIN R 100 UNIT/ML 3ML SQ SCH (18:00)
[2023-09-30] MEDS: MORPHINE 2 MG SYG IVP PRN (21:06)
[2023-09-30 21:55] VITALS: BP 119/76; PULSE 77; RESP 20
[2023-09-30 22:30] VITALS: O2SAT 100
[2023-10-01] VITALS (21 sets, daily range): BP systolic 94–130; BP diastolic 47–71; PULSE 60–86; RESP 14–20; O2SAT 97–100
[2023-10-01] MEDS ORDERED: ONDANSETRON 4MG INJ IVP PRN (10:00)
[2023-10-01] MEDS ORDERED: DICYCLOMINE HCL 20 MG TAB PO PRN (10:00)
[2023-10-01] MEDS ORDERED: ACETAMINOPHEN 325 MG TAB PO PRN (10:00)
[2023-10-01 10:52] LABS: BASOPHILS # (AUTO) 0.02 K/uL (0.00-0.20); BASOPHILS % (AUTO) 0.3 % (0.0-5.0); EOSINOPHILS # (AUTO) 0.12 K/uL (0.00-0.70); EOSINOPHILS % (AUTO) 1.8 % (0.0-8.0); HEMATOCRIT 30.3 % (36-48); IMMATURE GRANULOCYTE ABSOLUTE 0.02 K/uL (0-1); LYMPHOCYTES # (AUTO) 1.9 K/uL (1.0-4.8); LYMPHOCYTES % (AUTO) 28.7 % (21.0-51.0); MEAN CORPUSCULAR HEMOGLOBIN 29.4 pg (27.0-33.0); MEAN CORPUSCULAR HGB CONC 33.3 g/dL (32.0-36.0); MEAN CORPUSCULAR VOLUME 88.3 fL (79-99); MONOCYTES # (AUTO) 0.5 K/uL (0.1-1.0); MONOCYTES % (AUTO) 7.5 % (3.0-13.0); NEUTROPHILS # (AUTO) 4.1 K/uL (1.8-7.7); NEUTROPHILS % (AUTO) 61.4 % (40.0-77.0); PLATELET COUNT (AUTO) 481 K/uL (130-400); RED BLOOD CELL COUNT(AUTO) 3.43 MIL/uL (4.00-5.50); RED CELL DISTRIBUTION WIDTH 15.5 % (11.0-15.5); WHITE BLOOD COUNT (AUTO) 6.7 K/uL (4.8-10.8)
[2023-10-01 11:11] LABS: CREATININE 0.4 mg/dL (0.5-1.5); MAGNESIUM 1.5 mg/dL (1.80-2.40); POTASSIUM 3.7 mmol/L (3.5-5.1)
[2023-10-01] MEDS ORDERED: PROPOFOL 10 MG/ML 20ML VIAL IV ONE (12:15)
[2023-10-01] MEDS ORDERED: LIDOCAINE PF 100MG/5ML (2%) SYRINGE 5ML ONE (12:15)
[2023-10-01] MEDS ORDERED: MIDAZOLAM HCL 1 MG/ML 2ML VIAL ONE (12:17)
[2023-10-01] MEDS: PANTOPRAZOLE 40 MG TAB DR PO SCH (21:36)
[2023-10-01] MEDS: ATORVASTATIN 20 MG TABLET PO SCH (21:36)
[2023-10-02] VITALS (7 sets, daily range): BP systolic 96–128; BP diastolic 50–77; PULSE 55–82; RESP 18–20; O2SAT 97
[2023-10-02 05:51] LABS: BASOPHILS # (AUTO) 0.01 K/uL (0.00-0.20); BASOPHILS % (AUTO) 0.2 % (0.0-5.0); EOSINOPHILS # (AUTO) 0.09 K/uL (0.00-0.70); EOSINOPHILS % (AUTO) 1.6 % (0.0-8.0); HEMATOCRIT 29.3 % (36-48); IMMATURE GRANULOCYTE ABSOLUTE 0.03 K/uL (0-1); LYMPHOCYTES # (AUTO) 1.6 K/uL (1.0-4.8); LYMPHOCYTES % (AUTO) 28.8 % (21.0-51.0); MEAN CORPUSCULAR HEMOGLOBIN 28.9 pg (27.0-33.0); MEAN CORPUSCULAR HGB CONC 32.4 g/dL (32.0-36.0); MEAN CORPUSCULAR VOLUME 89.1 fL (79-99); MONOCYTES # (AUTO) 0.6 K/uL (0.1-1.0); MONOCYTES % (AUTO) 11.7 % (3.0-13.0); NEUTROPHILS # (AUTO) 3.1 K/uL (1.8-7.7); NEUTROPHILS % (AUTO) 57.2 % (40.0-77.0); PLATELET COUNT (AUTO) 476 K/uL (130-400); RED BLOOD CELL COUNT(AUTO) 3.29 MIL/uL (4.00-5.50); RED CELL DISTRIBUTION WIDTH 15.1 % (11.0-15.5); WHITE BLOOD COUNT (AUTO) 5.5 K/uL (4.8-10.8)
[2023-10-02 06:06] LABS: ALBUMIN 2.2 g/dL (3.5-5.0); BILIRUBIN,TOTAL 0.1 mg/dL (0.2-1.0); CREATININE 0.3 mg/dL (0.5-1.5); MAGNESIUM 1.5 mg/dL (1.80-2.40); POTASSIUM 3.3 mmol/L (3.5-5.1); TOTAL PROTEIN, SERUM 6.6 g/dL (6.0-8.3)
[2023-10-02] MEDS ORDERED: POTASSIUM CHLORIDE 10% ELIXIR 20 MEQ/15 ML UDCUP PO PRN (12:00)
[2023-10-02] MEDS ORDERED: POTASSIUM CHLORIDE 20MEQ/100ML 100 ML IV PRN (12:00)
[2023-10-02] MEDS: MAGNESIUM 2GM PREMIX 50ML 50 ML IV PRN (13:31)
[2023-10-02] MEDS: KCL 20 MEQ ERTAB PO PRN (13:31)
[2023-10-03] VITALS (7 sets, daily range): BP systolic 96–121; BP diastolic 62–75; PULSE 60–80; RESP 18; O2SAT 97
[2023-10-03 10:29] LABS: ALBUMIN 2.5 g/dL (3.5-5.0); BILIRUBIN,TOTAL 0.2 mg/dL (0.2-1.0); CREATININE 0.5 mg/dL (0.5-1.5); MAGNESIUM 1.3 mg/dL (1.80-2.40); POTASSIUM 3.9 mmol/L (3.5-5.1); TOTAL PROTEIN, SERUM 7.1 g/dL (6.0-8.3)
[2023-10-04 04:57] VITALS: BP_SYST 147; BP_SYST 99; BP_DIAS 63; BP_DIAS 74; PULSE 63; PULSE 76; RESP 18
[2023-10-04 08:10] VITALS: O2SAT 98
[2023-10-04 08:23] VITALS: BP 103/58; PULSE 60; RESP 18
[2023-10-04] MEDS ORDERED: DICY20TA2 PO (11:48)
[2023-10-04] MEDS ORDERED: PANT40TA PO (11:48)
[2023-10-04 12:00] VITALS: BP 95/61; PULSE 71; RESP 18
[2023-10-04 12:54] LABS: CREATININE 0.6 mg/dL (0.5-1.5); POTASSIUM 3.8 mmol/L (3.5-5.1)
[2023-10-04 12:59] LABS: ALBUMIN 2.6 g/dL (3.5-5.0); BILIRUBIN,TOTAL 0.3 mg/dL (0.2-1.0); TOTAL PROTEIN, SERUM 7.5 g/dL (6.0-8.3)
[2023-10-04] MEDS ORDERED: METO5SOL23 PO (13:25)
== END 2023-10-04 16:05 | disposition home or self-care (01) | DRG 391 ==
LOC: EDH 02:49 → EDHIP 02:50 → UNDOADMIN 12:46 → 3DH 21:55
PROVIDERS: ADMIT Internal Medicine; ATTEND Internal Medicine
PROC: 0DB68ZX Excision of Stomach, Via Natural or Artificial Opening Endoscopic, Diagnostic (ICD-10-PCS; principal; 2023-10-01)
DX: K29.50 Unspecified chronic gastritis without bleeding (principal); E43 Unspecified severe protein-calorie malnutrition; E87.1 Hypo-osmolality and hyponatremia; J98.11 Atelectasis; E11.65 Type 2 diabetes mellitus with hyperglycemia; I10 Essential (primary) hypertension; K43.9 Ventral hernia without obstruction or gangrene; E78.1 Pure hyperglyceridemia; E86.0 Dehydration; E86.1 Hypovolemia; G89.29 Other chronic pain; K26.9 Duodenal ulcer, unspecified as acute or chronic, without hemorrhage or perforation; Z90.49 Acquired absence of other specified parts of digestive tract; Z90.81 Acquired absence of spleen; Z91.198 Patient's noncompliance with other medical treatment and regimen for other reason; Z68.24 Body mass index [BMI] 24.0-24.9, adult; Z88.8 Allergy status to other drugs, medicaments and biological substances; Z79.84 Long term (current) use of oral hypoglycemic drugs
CPT/HCPCS: 36415; 43239; 43259; 71045; 74177; 80048; 80053; 80061; 81001; 81025; 82948; 83036; 83605; 83690; 83735; 84145; 84484; 85025; 85610; 85730; 86140; 93005; C9113; G0378; J1815; J2001; J2250; J2270; J2405; J2704; J3475; J7030; Q9967; A4215; A4222; A4223; A4620; A7002; J3490

== ENCOUNTER 2023-10-10 14:13 | Emergency (ER) | payer OTHER ==
[~2023-10-10] VITALS: Ht 152.4 cm; Wt 57.2 kg
[~2023-10-10 14:13] MED LIST changes: -AEC81 PO; -ATOR40TA69 PO; -CLIN-141 PO; -CLOT45CR23 VG; +DICY20TA2 PO; -DOCU-116 PO; -DULO30CA2 PO; -GABA300C PO; +METO5SOL23 PO
[2023-10-10 15:18] LABS: RAPID GROUP A STREP negative (NEGATIVE)
[2023-10-10 15:19] LABS: SARS-CoV-2, RNA, NAAT NEGATIVE SARS CoV-2 (NEGATIVE)
[2023-10-10 15:28] LABS: INFLUENZA TYPE A Negative For Type A (NEGATIVE); INFLUENZA TYPE B Negative For Type B (NEGATIVE)
[2023-10-10 16:34] LABS: BASOPHILS # (AUTO) 0.02 K/uL (0.00-0.20); BASOPHILS % (AUTO) 0.2 % (0.0-5.0); EOSINOPHILS # (AUTO) 0.11 K/uL (0.00-0.70); HEMATOCRIT 35.1 % (36-48); IMMATURE GRANULOCYTE ABSOLUTE 0.03 K/uL (0-1); LYMPHOCYTES # (AUTO) 2.7 K/uL (1.0-4.8); LYMPHOCYTES % (AUTO) 25.5 % (21.0-51.0); MEAN CORPUSCULAR HEMOGLOBIN 30.4 pg (27.0-33.0); MEAN CORPUSCULAR VOLUME 86.7 fL (79-99); MONOCYTES # (AUTO) 0.7 K/uL (0.1-1.0); MONOCYTES % (AUTO) 6.1 % (3.0-13.0); NEUTROPHILS # (AUTO) 7.1 K/uL (1.8-7.7); NEUTROPHILS % (AUTO) 66.9 % (40.0-77.0); PLATELET COUNT (AUTO) 467 K/uL (130-400); RED BLOOD CELL COUNT(AUTO) 4.05 MIL/uL (4.00-5.50); WHITE BLOOD COUNT (AUTO) 10.6 K/uL (4.8-10.8)
[2023-10-10 16:41] LABS: CREATININE 0.6 mg/dL (0.5-1.5)
[2023-10-10 16:46] LABS: ALBUMIN 3.3 g/dL (3.5-5.0); BILIRUBIN,TOTAL 0.3 mg/dL (0.2-1.0); TOTAL PROTEIN, SERUM 8.9 g/dL (6.0-8.3)
[2023-10-10] MEDS ORDERED: BENZ-39 PO (17:33)
[2023-10-10 18:00] VITALS: BP 109/65; PULSE 64; RESP 16; O2SAT 99
== END 2023-10-10 18:00 | disposition home or self-care (01) ==
LOC: EDH 14:13
DX: J06.9 Acute upper respiratory infection, unspecified (principal); R05.9 Cough, unspecified; E11.65 Type 2 diabetes mellitus with hyperglycemia; I10 Essential (primary) hypertension; Z79.4 Long term (current) use of insulin; Z79.899 Other long term (current) drug therapy; Z88.1 Allergy status to other antibiotic agents; Z20.822 Contact with and (suspected) exposure to COVID-19
CPT/HCPCS: 36415; 80053; 83690; 85025; 87635; 87804; 87880; 93005

== ENCOUNTER 2023-12-19 20:12 | Emergency (ER) | payer OTHER ==
[~2023-12-19] VITALS: Ht 154.9 cm; Wt 52.6 kg
[~2023-12-19 20:12] MED LIST changes: +BENZ-39 PO; -DICY-20 PO; +DICY10CA2 PO
[2023-12-19 21:02] LABS: APPEARANCE,URINE CLEAR (CLEAR); BILIRUBIN,URINE NEGATIVE (NEGATIVE); COLOR,URINE COLORLESS (YELLOW); GLUCOSE, URINE (UA) >=1000 mg/dL (NEGATIVE); KETONES,URINE NEGATIVE (NEGATIVE); LEUKOCYTE ESTERASE ,URINE NEGATIVE Leu/uL (NEGATIVE); NITRATE,URINE NEGATIVE (NEGATIVE); OCCULT BLOOD,URINE NEGATIVE (NEGATIVE); PH,URINE 6.5 (5.0-8.0); PROTEIN,URINE NEGATIVE (NEGATIVE); UROBILINOGEN,URINE 0.2 mg/dL (0.2-1.0)
[2023-12-19 21:05] LABS: ADD UA MICROSCOPIC YES
[2023-12-19 21:14] LABS: RBC,URINE 0-1 /HPF (0-1); SQUAMOUS EPITHELIAL CELL,UR RARE /HPF (0-2); WBC,URINE 0-1 /HPF (0-1)
[2023-12-19 21:38] LABS: AMPHET/METH SCREEN,URINE NEGATIVE (NEGATIVE); BARBITURATE SCREEN, URINE NEGATIVE (NEGATIVE); BENZODIAZEPINES SCREEN,URINE NEGATIVE (NEGATIVE); CANNABINOID SCREEN,URINE NEGATIVE (NEGATIVE); COCAINE SCREEN,URINE NEGATIVE (NEGATIVE); OPIATE SCREEN,URINE NEGATIVE (NEGATIVE); PHENCYCLIDINE SCREEN,URINE NEGATIVE (NEGATIVE)
[2023-12-19] MEDS ORDERED: HALOPERIDOL INJ 5 MG/ML VIAL IM SCH (22:30)
[2023-12-19 22:31] VITALS: BP 123/84; PULSE 82; RESP 18
[2023-12-19] MEDS: HALOPERIDOL INJ 5 MG/ML VIAL ONE (23:13)
== END 2023-12-19 23:14 | disposition home or self-care (01) ==
LOC: EDH 20:12
DX: K43.9 Ventral hernia without obstruction or gangrene (principal); Z76.5 Malingerer [conscious simulation]; E11.9 Type 2 diabetes mellitus without complications; E78.00 Pure hypercholesterolemia, unspecified; M19.90 Unspecified osteoarthritis, unspecified site; Z79.4 Long term (current) use of insulin; Z88.1 Allergy status to other antibiotic agents
CPT/HCPCS: 99285; 71045; 80305; 81001; 93005; J1630

== ENCOUNTER 2024-03-08 16:36 | Emergency (ER) | payer OTHER ==
[~2024-03-08] VITALS: Ht 152.4 cm; Wt 56.7 kg
[2024-03-08] MEDS ORDERED: ONDANSETRON 4MG INJ IVP ONE (17:00)
[2024-03-08] MEDS ORDERED: 0.9%NACL 1000ML 1,000 ML IV ONE (17:00)
[2024-03-08] MEDS ORDERED: MORPHINE 2 MG SYG IVP ONE (17:00)
[2024-03-08 17:40] LABS: BASOPHILS # (AUTO) 0.04 K/uL (0.00-0.20); BASOPHILS % (AUTO) 0.5 % (0.0-5.0); EOSINOPHILS # (AUTO) 0.07 K/uL (0.00-0.70); EOSINOPHILS % (AUTO) 0.8 % (0.0-8.0); HEMATOCRIT 35.2 % (36-48); IMMATURE GRANULOCYTE ABSOLUTE 0.04 K/uL (0-1); LYMPHOCYTES # (AUTO) 2.1 K/uL (1.0-4.8); LYMPHOCYTES % (AUTO) 24.7 % (21.0-51.0); MEAN CORPUSCULAR HEMOGLOBIN 26.8 pg (27.0-33.0); MEAN CORPUSCULAR HGB CONC 31.5 g/dL (32.0-36.0); MONOCYTES # (AUTO) 0.5 K/uL (0.1-1.0); MONOCYTES % (AUTO) 5.8 % (3.0-13.0); NEUTROPHILS # (AUTO) 5.8 K/uL (1.8-7.7); NEUTROPHILS % (AUTO) 67.7 % (40.0-77.0); PLATELET COUNT (AUTO) 576 K/uL (130-400); RED BLOOD CELL COUNT(AUTO) 4.14 MIL/uL (4.00-5.50); WHITE BLOOD COUNT (AUTO) 8.6 K/uL (4.8-10.8)
[2024-03-08 17:49] LABS: CREATININE 0.4 mg/dL (0.5-1.0); POTASSIUM 4.3 mmol/L (3.5-5.1)
[2024-03-08 17:53] LABS: ALBUMIN 2.9 g/dL (3.5-5.0); BILIRUBIN,TOTAL 0.2 mg/dL (0.2-1.0); TOTAL PROTEIN, SERUM 9.3 g/dL (6.0-8.3)
[2024-03-08] MEDS: ONDANSETRON ODT 4MG TAB SL ONE (21:19)
[2024-03-08] MEDS: MORPHINE 2 MG SYG IM ONE (21:20)
[2024-03-08 21:28] LABS: APPEARANCE,URINE CLOUDY (CLEAR); BILIRUBIN,URINE NEGATIVE (NEGATIVE); COLOR,URINE YELLOW (YELLOW); GLUCOSE, URINE (UA) 150 mg/dL (NEGATIVE); KETONES,URINE NEGATIVE (NEGATIVE); LEUKOCYTE ESTERASE ,URINE 500 Leu/uL (NEGATIVE); NITRATE,URINE NEGATIVE (NEGATIVE); PH,URINE 6.5 (5.0-8.0); PROTEIN,URINE 200 mg/dL (NEGATIVE); UROBILINOGEN,URINE 0.2 mg/dL (0.2-1.0)
[2024-03-08 21:31] LABS: ADD UA MICROSCOPIC YES
[2024-03-08 21:33] LABS: BACTERIA,URINE RARE /HPF (None Seen); MUCUS,URINE RARE LPF (None Seen); NON-SQUAMOUS EPITHELIAL CELL 3 /HPF (0-2); SQUAMOUS EPITHELIAL CELL,UR FEW /HPF (0-2); WBC,URINE 26-50 /HPF (0-1)
[2024-03-08 22:32] VITALS: BP 124/87; PULSE 88; RESP 18; O2SAT 97
== END 2024-03-08 22:37 | disposition home or self-care (01) ==
LOC: EDH 16:36
DX: K43.9 Ventral hernia without obstruction or gangrene (principal); E11.65 Type 2 diabetes mellitus with hyperglycemia; M19.90 Unspecified osteoarthritis, unspecified site; E78.00 Pure hypercholesterolemia, unspecified; Z79.4 Long term (current) use of insulin; Z88.1 Allergy status to other antibiotic agents; Z91.199 Patient's noncompliance with other medical treatment and regimen due to unspecified reason; Z98.890 Other specified postprocedural states
CPT/HCPCS: 99285; 74176; 80053; 83690; 85025; 87086; 81001; 81025; 36415; 96372; J2270

== ENCOUNTER 2024-06-24 18:53 | Emergency (ER) | payer SELFPAY ==
[~2024-06-24] VITALS: Ht 157.5 cm; Wt 59.4 kg
[2024-06-24] MEDS: 0.9%NACL 1000ML 1,000 ML IV ONE (19:26)
[2024-06-24] MEDS: ondanSETRON 4MG INJ IVP ONE (19:26)
[2024-06-24] MEDS: hydroMORPHone 1 MG INJ IVP ONE (19:32)
[2024-06-24 19:53] LABS: BASOPHILS # (AUTO) 0.03 K/uL (0.00-0.20); BASOPHILS % (AUTO) 0.2 % (0.0-5.0); EOSINOPHILS # (AUTO) 0.08 K/uL (0.00-0.70); EOSINOPHILS % (AUTO) 0.6 % (0.0-8.0); HEMATOCRIT 34.2 % (36-48); IMMATURE GRANULOCYTE ABSOLUTE 0.05 K/uL (0-1); LYMPHOCYTES # (AUTO) 2.3 K/uL (1.0-4.8); LYMPHOCYTES % (AUTO) 18.5 % (21.0-51.0); MEAN CORPUSCULAR HEMOGLOBIN 28.7 pg (27.0-33.0); MEAN CORPUSCULAR HGB CONC 33.3 g/dL (32.0-36.0); MEAN CORPUSCULAR VOLUME 86.1 fL (79-99); MONOCYTES # (AUTO) 0.8 K/uL (0.1-1.0); MONOCYTES % (AUTO) 6.2 % (3.0-13.0); NEUTROPHILS # (AUTO) 9.3 K/uL (1.8-7.7); NEUTROPHILS % (AUTO) 74.1 % (40.0-77.0); PLATELET COUNT (AUTO) 643 K/uL (130-400); RED BLOOD CELL COUNT(AUTO) 3.97 MIL/uL (4.00-5.50); RED CELL DISTRIBUTION WIDTH 15.2 % (11.0-15.5); WHITE BLOOD COUNT (AUTO) 12.6 K/uL (4.8-10.8)
[2024-06-24 20:00] LABS: ADD UA MICROSCOPIC YES; APPEARANCE,URINE CLEAR (CLEAR); BILIRUBIN,URINE NEGATIVE (NEGATIVE); COLOR,URINE COLORLESS (YELLOW); GLUCOSE, URINE (UA) >=1000 mg/dL (NEGATIVE); KETONES,URINE NEGATIVE (NEGATIVE); LEUKOCYTE ESTERASE ,URINE NEGATIVE Leu/uL (NEGATIVE); NITRATE,URINE NEGATIVE (NEGATIVE); OCCULT BLOOD,URINE NEGATIVE (NEGATIVE); PROTEIN,URINE 20 mg/dL (NEGATIVE); UROBILINOGEN,URINE 0.2 mg/dL (0.2-1.0)
[2024-06-24 20:01] LABS: MUCUS,URINE RARE LPF (None Seen); WBC,URINE 0-1 /HPF (0-1)
[2024-06-24 20:10] VITALS: TEMP 98.4
[2024-06-24 20:11] LABS: CARBON DIOXIDE 27 mmol/L (21-32); CHLORIDE 97 mmol/L (101-111); CREATININE 0.5 mg/dL (0.5-1.0); GLOMERULAR FILTR. RATE CALC 117 mL/min (>90); GLUCOSE,RANDOM 292 mg/dL (70-105); POTASSIUM 4.7 mmol/L (3.5-5.1); SODIUM SERUM 132 mmol/L (136-145); UREA NITROGEN, BLOOD 16 mg/dL (7-18)
[2024-06-24 20:15] LABS: BILIRUBIN,TOTAL 0.2 mg/dL (0.2-1.0)
[2024-06-24 20:16] LABS: BILIRUBIN,DIRECT < 0.1 mg/dL (0.0-0.3); TOTAL PROTEIN, SERUM 8.5 g/dL (6.0-8.3)
[2024-06-24] MEDS ORDERED: IOHEXOL-350 75 ML VIAL IV ONE (20:28)
[2024-06-24 20:41] LABS: ALANINE AMINOTRANSFERASE 22 U/L (12-78); ASPARTATE AMINOTRANSFERASE 32 U/L (10-37)
[2024-06-24] MEDS: DiphenhydrAMINE HCL 50 MG/ML VIAL ONE (21:01)
[2024-06-24] MEDS: DiphenhydrAMINE HCL 50 MG/ML VIAL IV ONE (21:13)
[2024-06-24] MEDS: Solu-medROL 125MG VIAL IVP ONE (21:13)
[2024-06-24 21:19] VITALS: BP 115/57; PULSE 74; RESP 16; O2SAT 97
[2024-06-24] MEDS: ketOROlac 15MG/ML VIAL (15MG/ML) IV ONE (21:49)
[2024-06-24] MEDS ORDERED: FAMO20TA8 PO (22:10)
[2024-06-24] MEDS ORDERED: MAG-37 PO (22:10)
[2024-06-24] MEDS ORDERED: PANT40TA55 PO (22:10)
== END 2024-06-24 22:27 | disposition home or self-care (01) ==
LOC: EDH 18:53
DX: K29.70 Gastritis, unspecified, without bleeding (principal); E11.65 Type 2 diabetes mellitus with hyperglycemia; D64.9 Anemia, unspecified; E86.0 Dehydration; E78.00 Pure hypercholesterolemia, unspecified; M19.90 Unspecified osteoarthritis, unspecified site; Z79.4 Long term (current) use of insulin; Z79.899 Other long term (current) drug therapy; Z88.1 Allergy status to other antibiotic agents; Z90.411 Acquired partial absence of pancreas; Z90.49 Acquired absence of other specified parts of digestive tract; Z98.890 Other specified postprocedural states
CPT/HCPCS: 99285; 74177; 96374; 96375; 96361; 80076; 84484; 80048; 84703; 83690; 85025; 83605; 81001; 36415; 93005; J1200; J1171; J7030; J2919; J2405; J1885; Q9967